=== PATIENT | female | born 1980 | race Caucasian/White ===

== ENCOUNTER 2025-06-21 22:46 | Inpatient (IN) | payer SELFPAY ==
[2025-06-21] VITALS (10 sets, daily range): BP systolic 63–101; BP diastolic 35–88; PULSE 72–76; RESP 12–28; TEMP 35.7–37.1; O2SAT 98–100
--- NOTE | ~2025-06-21 | CT_ITS ---
EXAMINATION: CT abdomen pelvis wo/w con DATE: 06/22/2025 00:44 INDICATION: Blood in stool. TECHNIQUE: Computed tomography (CT) of the abdomen and pelvis was performed without and with 100 mL Omnipaque 350 intravenous contrast. Automated exposure control and iterative reconstruction technique were employed. The dose-length product was 4008.50 mGy-cm. COMPARISON: None. FINDINGS: The visualized portions of lung bases demonstrate mild atelectasis. No pleural effusion. The heart size is normal. No pericardial effusion. There is diffuse hepatic steatosis. There are changes of cholecystectomy. The spleen, pancreas, and adrenal glands are normal. There is cortical thinning of the kidneys. There is no urolithiasis. There is a filter in the inferior vena cava. There is a Alexandre catheter in expected position. There are changes of right hemicolectomy. There are changes of gastric bypass procedure. There are no pathologically enlarged lymph nodes. There is no free intraperitoneal fluid. There is mild thoracic and lumbar spondylosis. IMPRESSION: 1. No etiology for blood in stool. 2. Diffuse hepatic steatosis. Reviewed, dictated and finalized at location E.
--- NOTE | 2025-06-21 23:03 | PC.NURSE ---
SHOBHA Akers, lactated ringer 1,000 ML.
--- NOTE | 2025-06-21 23:05 | PC.NURSE ---
EDP performed rectal exam. Red blood from rectum. 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
[2025-06-21] MEDS: LACTATED RINGERS 1,000 ML 999 ML (23:06)
--- NOTE | 2025-06-21 23:10 | PC.NURSE ---
EDP at bedside. ART line being placed.
--- NOTE | 2025-06-21 23:13 | PC.NURSE ---
2314-Art line placed 2317- BP recycled 71/37 via ART line
--- NOTE | 2025-06-21 23:23 | ECG_ITS ---
Test Date: 2025-06-21 23:31:09 Measurements Intervals [place] Rate: 72 P: 39 MO: 161 QRS: -4 QRSD: 86 T: 15 QT: 442 QTc: 484 Interpretive Statements SINUS RHYTHM CONSIDER INFERIOR MYOCARDIAL INFARCTION , PROBABLY OLD BASELINE ARTIFACT- I, II, III ABNORMAL ECG No previous ECG available for comparison Electronically Signed On 06-22-2025 05:34:44 CDT by Pineda Nowak D.O.
[2025-06-21] MEDS: TUBING, BLOOD SET 1 EACH XX (23:24)
--- OUTSIDE RECORDS SUMMARY | 2025-06-21 23:32 | XMS_ITS | Data Portability ---
Author Organization [place] [facility], [facility] Address [address] [place] [address] Assessment No assessment recorded. Plan of Treatment Reminders Order Date Submit Date Provider Last Modified By Organization Details Last Modified Time Details Appointments None record ed. Lab None record ed. Referral None record ed. Procedures None record ed. Surgeries None record ed. Imaging None record ed. Medication Orders None record ed. Patient TargetsNo targets recorded. Patient InstructionsNo instructions recorded. Reason for Referral None Reported. Results Created Date Observation Date Name Description Value Unit Range Abnormal Flag Note LastModifiedBy Organization Detail LastModifiedTime 05/22/20 22 02/21/2021 CT, abdom en + pelvi s, w/ contr ast No observ ation record ed. [email or web address] Not Available 05/10 01:45:38 05/22/20 22 02/21/2021 CT, abdom en + pelvi s, w/ contr ast No observ ation record ed. [email or web address] Not Available 05/10 01:48:46 05/22/20 22 03/15/2022 CT, abdom en + pelvi s, w/o contr ast No observ ation record ed. [email or web address] Not Available 05/10 13:13:54 Result Notes None recorded. Problems Name Problem SNOMED Code Status Onset Date Resolution Date Notes Provider Name and Address Organization Details Recorded Time Abdominal pain 97380122 Active 2014 Abdominal pain Not Available [facility] 2 05:50:24 Hemorrhag e of rectum and anus 768692841 Active 2020 Bleeding, rectal Not Available [facility] 2 05:50:24 Diarrhea 19224171 Active 2020 Diarrhea Not Available [facility] 2 05:50:24 Problem Notes None recorded. Medical Equipment None Reported. Allergies Allergen ID Allergen Name Allergen Category Reaction Reaction Severity Criticality Documentation Date Start Date Code Code System Note Provider Name and Address Organization Details Recorded Time 2828 Penicilli n Not available Not available Not available Not available 03/21/20222014 11757 RxNorm Criti silvia Categ ory: Drug Not Available [facility] 2 05:50:03 3706 Toradol medicatio n Not available Not available Not available 05/22/2022 04893 RxNorm Modesta Gopi null, [place] - [facility] 2 13:01:44 3707 tramadol medicatio n Not available Not available Not available 05/22/2022 81343 RxNorm Modesta Gopi null, [place] - [facility] 2 13:01:53 3708 codeine medicatio n Not available Not available Not available 05/22/2022 2670 RxNorm Modesta Gopi null, [place] - [facility] 2 13:02:07 3709 fentanyl medicatio n Not available Not available Not available 05/22/2022 4337 RxNorm Modesta Gopi null, [place] - [facility] 2 13:02:12 3710 Bentyl medicatio n Not available Not available Not available 05/22/202220291 8 RxNorm Modesta Gopi null, [place] - [facility] 2 13:02:19 3711 Non-stero idal anti-infl ammatory agent (substanc e) medicatio n Not available Not available Not available 05/22/2022 78018 5008 SNOMED Modesta Gopi null, [place] - [facility] 2 13:02:42 3712 Haldol medicatio n Not available Not available Not available 05/22/2022 33600 9 RxNorm Modesta Gopi null, [place] - [facility] 2 13:05:30 3713 Macrobid medicatio n Not available Not available Not available 05/22/2022 71542 1 RxNorm Modesta freeman, [facility] 2 13:06:40 Medications Name Sig Start Date Stop Date Status Note LastModified by Organization Details LastModified Time cyclobenzapr ine 10 mg tablet TAKE 1 TABLET BY MOUTH 3 TIMES A DAY NEEDED FOR SPASM active Not Available Not Available No t Available atorvastatin 40 mg tablet TAKE 1 TABLET BY MOUTH EVERY DAY active Not Available Not Available No t Available buspirone 5 mg tablet active Not Available Not Available No t Available promethazine -DM 6.25 mg-15 mg/5 mL oral syrup TAKE 5 ML BY MOUTH EVERY 4 HOURS NEEDED FOR COUGH active Not Available Not Available No t Available ascorbic acid (vitamin C) 1,000 mg tablet TAKE 1 TABLET BY MOUTH EVERY DAY active Not Available Not Available No t Available acetaminophe n 325 mg tablet TAKE 2 TABLETS BY MOUTH EVERY 6 HOURS NEEDED FOR PAIN AND FEVER active Not Available Not Available No t Available prednisone 10 mg tablet PLEASE SEE ATTACHED FOR DETAILED DIRECTIONS active Not Available Not Available N ot Available ipratropium 0.5 mg-albuterol 3 mg (2.5 mg base)/3 mL nebulization soln INHALE 1 VIAL VIA NEBULIZER 4 TIMES A DAY NEEDED FOR COUGH/WHEEZ ING/SHORTNE SS OF BREATH active Not Available Not Available No t Available loperamide 2 mg capsule TAKE 1 TABLET BY MOUTH 3 TIMES A DAY FOR DIARRHEA NEEDED active Not Available Not Available No t Available Carafate 1 gram tablet 2014 active Not Available Not Available Not Avai lable cetirizine 10 mg tablet PLEASE SEE ATTACHED FOR DETAILED DIRECTIONS active Not Available Not Available N ot Available Sulfatrim 200 mg-40 mg/5 mL oral suspension SHAKE LIQUID WELL AND TAKE 10 ML BY MOUTH TWICE DAILY active Not Available Not Available Not Available azithromycin 250 mg tablet TAKE 1 TABLET (250 MG) BY MOUTH ONCE DAILY active Not Available Not Available No t Available cefpodoxime 100 mg tablet TAKE 1 TABLET BY MOUTH EVERY 12 HOURS FOR 7 DAYS active Not Available Not Available N ot Available alprazolam 1 mg tablet TAKE 1 TABLET BY MOUTH TWICE A DAY NEEDED FOR ANXIETY active Not Available Not Available No t Available tizanidine 4 mg tablet TAKE 1 TABLET BY MOUTH EVERY 12 HOURS NEEDED FOR 30 DAYS active Not Available Not Available No t Available fluconazole 150 mg tablet TAKE 1 TABLET BY MOUTH ONCE. REPEAT IF NEEDED IN 1 WEEK active Not Available Not Available No t Available benzonatate 200 mg capsule TAKE 1 CAPSULE BY MOUTH 3 TIMES A DAY NEEDED FOR COUGH DO NOT CRUSH OR CHEW active Not Available Not Available No t Available hydrocodone 5 mg-acetamino phen 325 mg tablet TAKE 1 TABLET BY MOUTH EVERY 8 HOURS NEEDED FOR 30 DAYS active Not Available Not Available No t Available promethazine 25 mg rectal suppository INSERT 1 SUPPOSITORY BY RECTAL ROUTE EVERY 6 HOURS NEEDED active Not Available Not Available No t Available ondansetron HCl 4 mg tablet TAKE 1 TABLET BY MOUTH EVERY 6 HOURS FOR 3 DAYS NEEDED FOR NAUSEA AND VOMITING active Not Available Not Available No t Available Protonix 20 mg tablet,delay ed release 2014 active Not Available Not Available Not Avai lable promethazine 6.25 mg-codeine 10 mg/5 mL syrup TAKE 5 ML BY MOUTH EVERY FOUR HOURS FOR FIVE DAYS NEEDED FOR COUGH active Not Available Not Available No t Available diphenoxylat e-atropine 2.5 mg-0.025 mg tablet TAKE 1 TABLET BY MOUTH 4 TIMES A DAY NEEDED FOR LOOSE STOOL active Not Available Not Available No t Available metronidazol e 500 mg tablet TAKE 1 TABLET BY MOUTH 3 TIMES A DAY active Not Available Not Available Not Available acetaminophe n 300 mg-codeine 30 mg tablet TAKE 1 TABLET BY MOUTH EVERY 6 HOURS active Not Available Not Available No t Available ciprofloxaci n 500 mg tablet TAKE 1 TABLET BY MOUTH EVERY 12 HOURS active Not Available Not Available No t Available sulfamethoxa zole 800 mg-trimethop rim 160 mg tablet TAKE 1 TABLET BY MOUTH TWICE A DAY FOR 10 DAYS active Not Available Not Available No t Available omeprazole 40 mg capsule,vernell yed release Take 1 capsule by mouth once a day active Not Available Not Available No t Available aspirin 81 mg tablet,delay ed release TAKE 1 TABLET BY MOUTH EVERY DAY AT 9:00 AM active Not Available Not Available No t Available Bentyl 20 mg tablet 2014 active Not Available Not Available Not Avai lable terconazole 80 mg vaginal suppository INSERT 1 SUPPOSITORY VAGINALLY EVERY DAY AT BEDTIME FOR 3 DAYS active Not Available Not Available N ot Available zinc sulfate 50 mg zinc (220 mg) tablet TAKE 1 TABLET BY MOUTH EVERY DAY active Not Available Not Available No t Available famotidine 20 mg tablet TAKE 1 TABLET BY MOUTH DAILY active Not Available Not Available Not Available linezolid 600 mg tablet TAKE 1 TABLET BY MOUTH EVERY 12 HOURS FOR 7 DAYS active Not Available Not Available N ot Available benzonatate 100 mg capsule active Not Available Not Available Not Available hydrocodone 7.5 mg-acetamino phen 325 mg tablet TAKE 1 TABLET BY MOUTH EVERY 8 HOURS NEEDED FOR 30 DAYS active Not Available Not Available No t Available cephalexin 500 mg capsule TAKE 1 CAPSULE BY MOUTH EVERY 6 HOURS active Not Available Not Available No t Available dexamethason e 4 mg tablet TAKE 1 TABLET BY MOUTH EVERY DAY FOR 7 DAYS active Not Available Not Available No t Available promethazine 25 mg tablet TAKE 1 TABLET BY MOUTH TWICE A DAY FOR NAUSEAS active Not Available Not Available No t Available docusate sodium 100 mg capsule TAKE 1 CAPSULE BY MOUTH TWICE A DAY FOR 14 DAYS active Not Available Not Available No t Available montelukast 10 mg tablet TAKE 1 TABLET BY MOUTH EVERY EVENING FOR ALLERGIES/A STHMA active Not Available Not Available No t Available furosemide 20 mg tablet TAKE 1 TABLET BY MOUTH TWICE A DAY active Not Available Not Available No t Available alprazolam 2 mg tablet TAKE 1 TABLET BY MOUTH 3 TIMES A DAY NEEDED FOR ANXIETY FOR 3 DAYS active Not Available Not Available N ot Available metoprolol succinate ER 25 mg tablet,exten ded release 24 hr TAKE 1 TABLET BY MOUTH TWICE A DAY active Not Available Not Available No t Available lorazepam 1 mg tablet TAKE 1 TABLET BY MOUTH TWICE DAILY active Not Available Not Available No t Available cefuroxime axetil 500 mg tablet TAKE 1 TABLET BY MOUTH TWICE A DAY FOR 7 DAYS active Not Available Not Available No t Available polyethylene glycol 3350 17 gram/dose oral powder DISSOLVE 17 GRAMS IN WATER AND DRINK ONCE A DAY FOR 14 DAYS active Not Available Not Available No t Available levofloxacin 500 mg tablet TAKE 1 TABLET BY MOUTH EVERY DAY FOR 10 DAYS active Not Available Not Available No t Available levofloxacin 750 mg tablet TAKE 1 TABLET BY MOUTH EVERY DAY active Not Available Not Available No t Available zolpidem 10 mg tablet active Not Available Not Available No t Available albuterol sulfate HFA 90 mcg/actuatio n aerosol inhaler INHALE 2 INHALATION BY MOUTH EVERY 4 HOURS NEEDED FOR SHORTNESS OF BREATH AND/OR WHEEZING active Not Available Not Available No t Available paroxetine 40 mg tablet TAKE 1 TABLET BY MOUTH EVERY DAY active Not Available Not Available No t Available brompheniram ine-pseudoep hedrine-DM 2 mg-30 mg-10 mg/5 mL oral syrup TAKE 10ML BY MOUTH EVERY 6 HOURS NEEDED FOR COUGH/CONGE STION/RUNNY NOSE active Not Available Not Available No t Available ondansetron 4 mg disintegrati ng tablet TAKE 1 TABLET BY MOUTH EVERY 8 HOURS NEEDED FOR NAUSEA active Not Available Not Available No t Available cefdinir 300 mg capsule active Not Available Not Available N ot Available fluticasone propionate 50 mcg/actuatio n nasal spray,suspen ravi SPRAY 1 SPRAY INTO EACH NOSTRIL TWICE A DAY active Not Available Not Available Not Available amoxicillin 875 mg-potassium clavulanate 125 mg tablet TAKE 1 TABLET BY MOUTH EVERY 12 HOURS FOR 10 DAYS active Not Available Not Available Not Available Reglan 5 mg tablet 2014 active Not Available Not Available Not Avai lable ertapenem 1 gram solution for injection active Not Available Not Available No t Available nitrofuranto in monohydrate/ macrocrystal s 100 mg capsule TAKE 1 CAPSULE BY MOUTH TWICE A DAY FOR 10 DAYS active Not Available Not Available No t Available duloxetine 60 mg capsule,vernell yed release TAKE 1 CAPSULE BY MOUTH TWICE A DAY active Not Available Not Available No t Available pregabalin 150 mg capsule TAKE 1 CAPSULE BY MOUTH 3 TIMES A DAY active Not Available Not Available Not Available Golytely 236 gram-22.74 gram-6.74 gram-5.86 gram oral solution Take 4000 mL by oral route for 1 day. 2021 active Not Available Not Available Not Avai lable diclofenac 1 % topical gel USE 1 APPLICATION OF 4 GRAMS TO AFFECTED AREA EXTERNALLY THREE TIMES A DAY 30 DAY(S) active Not Available Not Available No t Available Gavilyte-C 240 gram-22.72 gram-6.72 gram-5.84 gram oral solution active Not Available Not Available Not Available lidocaine 5 % topical ointment APPLY 4 GRAMS TO AFFECTED AREA 3 TIMES A DAY FOR 30 DAYS active Not Available Not Available Not Available Quick[employer]ue At-Home COVID-19 Test kit active Not Available Not Available Not Available Paxlovid 150 mg-100 mg tablets in a dose pack (Moderate Renal Dose) TAKE 1 NIRMATRELVI R AND 1 RITONAVIR TOGETHER TWICE DAILY FOR 5 DAYS active Not Available Not Available N ot Available Vitals None Recorded Social History Question Answer Notes LastModified by Organizat ion Details LastModified Time Tobacco Smoking Status Never Smoker Modesta Nguyễn null, [place] - [facility] 05/22/2022 13:04:51 What Is Your Level Of Caffeine Consumption? Moderate Information not available 05/22/2022 Sex: Female Functional Status Question Answer Note LastModified by Organization D etails LastModified Time What is your level of alcohol consumption? None Information not available 05/22/2022 Mental Status None recorded. Family History Relationship Description Onset Age of this Age Resolved Age Notes LastModified by Organization Details LastModified Time Paternal Grandmother Malignant neoplasm of colon [email or web address] Not available 2021 13:29:55 Medical History Condition Response Anxiety Disorder Y Diverticulitis Y Depression Y GERD/Reflux Y Gynecological HistoryNo gynecological history recorded. Obstetrics History GPAL:G 3 P 0 0 0 3 Type Value Multiple Births 0 Full Term 0 Induced 0 Spontaneous 0 Premature 0 Living 3 Ectopics 0 Total 3 Past Encounters Encounter ID Performer Location Encounter Start Date Encounter Closed Date Diagnosis/Indication Diagnosis SNOMED-CT Code Diagnosis ICD10 Code Diagnosis IMO Codes Diagnosis Note [id number] Arnie Hidalgo MD [facility] [address] [place] [phone] 05/22/2022 11:58:03 05/22/2022 18:22:22 Diverticulosis of colon 432746192 K57.30 Please schedule Colonoscop y. Possible complicati ons are infection, bleeding, perforatio n. F/U after surgery. Family his tory of cancer of colon 852182959 Z80.0 Please schedule Colonoscop y. Possible complicati ons are infection, bleeding, perforatio n. F/U after surgery. Health Concerns Section Related Observation LastModified by Organization Detai ls LastModified Time None Recorded Concern Status LastModified by Organization Details LastModified Time None Recorded Advance Directives Directive None Recorded Payers Insurance Date Sequence Insurance Name Policy Number Policy Black Covered Member ID Black Member ID Guarantor Name 05/22/2022 1 [facility] (MEDICAID REPLACEMENT - HMO) Elizabeth Lewllo [id number] Elizabeth Bonita 08/20/2022 1 [facility] (MEDICAID REPLACEMENT - HMO) [id number] Elizabeth Lewllo [id number] Elizabeth Bonita Notes Date Note Type Note Provider Name and Address Organization Details Recorded Time 05/22/2022 text/html This is a 42-year-old patient with family HX of colon cancer and referred to my office for diverticulosis. The patient c/o of abdominal pain also complains of dull left lower quadrant pain with radiation to the back. The patient also c/o gas and bloating, constipation, and nausea. Arnie Hidalgo MD [address] [place] [address], [phone], [facility] 05/23/2022 15:58:46 OBGyn Episode No OBEpisode recorded.
--- OUTSIDE RECORDS SUMMARY | 2025-06-21 23:32 | XMS_ITS | Patient Health Record ---
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 Name Role Phone unknown, unknown Primary Care Provider Unavailab nadine CABEZASSIMONSANTOS HUNG Unavailable [phone] Maravilla Modesta Unavailable [phone] Allergies Allergen (clinical drug ingredient) Drug/Non Drug Allergy documented on EMR Reaction Allergy Type Onset Date Status ketorolac toradol (uncoded) hives Allergy Ac tive Bentyl hives Drug Allergy Active Haldol hives Drug Allergy Active fentanyl Fentanyl hives Drug Allergy Active Iodine hives Drug Allergy Active Latex Latex hives Allergy Active Penicillin hives Drug Allergy Active tramadol Tramadol hives Drug Allergy Active Results Component Value Reference Range Flag Notes DRUG MONITOR, OPIATES, SCREE N, URINE Reviewed date:01/14/2025 04:41:03 PM Interpretation: Performing Lab:[facility] [place] [place] [id number] [facility], [id number] Arlyn Neal MD, PhD Notes/Report: Opiates POSITIVE <100 ng/mL A See Note A DRUG MONITORING TEMPLATE Reviewed date:01/14/2025 04:41:02 PM Interpretation: Performing Lab:IG, [facility] [place] [place] [id number] [facility], [id number] Arlyn Neal MD, PhD Notes/Report: Notes and Comments This drug testing is for medical treatment only. Analysis was performed as non-forensic testing and these results should be used only by healthcare providers to render diagnosis or treatment, or to monitor progress of medical conditions. Note A: The results are presumptive; based only on screening methods, and they have not been confirmed by a definitive method. Healthcare Providers needing Interpretation assistance, please contact us at [phone] ( ) M-F, 8am to 10pm EST Reason For Referral No Information Medications Medication SIG (Take, Route, Frequency, Duration) Notes Start Date End Date Status Atorvastatin Calcium 40 MG Tablet 1 tablet Orally Once a day 05/13/2025 Active hydrALAZINE HCl 25 MG Tablet 1 tablet wi th food Orally Twice a day 05/13/2025 Active Furosemide 40 MG Tablet 1 tablet Orally Once a day 05/13/2025 Active Doxycycline Hyclate 100 MG Capsule 1 capsule Orally twice a day; Duration: 7 days 05/13/2025 Active Iron 325 (65 Fe) MG Tablet 1 tablet Oral ly Three times a Week 06/15/2025 Active Aspirin 81 81 MG Tablet Delayed Release 1 tablet Orally Once a day 06/15/2025 Active Eliquis 5 MG Tablet as directed Orally 06/15/2025 Active Lyrica 150 MG Capsule 1 capsule Orally t hree times a day; Duration: 30 days 06/16/2025 Active Xanax 1 MG Tablet 1 tablet Orally Twic e a day; Duration: 30 days 06/16/2025 Active HYDROmorphone HCl 4 MG Tablet 1 tablet as needed Orally every 6 hrs; Duration: 30 days As needed 06/16/2025 Active tiZANidine HCl 4 MG Tablet 1 tablet at b edtime as needed Orally Once a day 06/15/2025 Active Metoprolol Succinate 25 MG Capsule ER 24 Hour Sprinkle 1 capsule Orally Once a day 05/13/2025 Active Social History Tobacco Use: Social History Observation Description Date Details (start date - stop date) Never Smoker NA - NA Social History Tobacco Use: Social Info Question Answer Notes Tobacco Control (Standard) Tobacco use: Nonsmoker Additional Details Category Social Info Options Details Miscellaneous: Exercise: none Marital status: in relationship with male partner Drugs/Alcohol: Do you drink alcohol? No Problems Problem Type SNOMED Code ICD Code Onset Dates Problem Status W/U Status Risk Notes Problem Anemia (319934707) Anemia, unspecified (D64.9) Active confirmed Problem Morbid obesity (disorder) (635954503) Morbid (severe) obesity due to excess calories (E66.01) Active confirmed Problem Insomnia (275678250) Insomnia, unspecified (G47.00) Active confirmed Problem Chronic pain syndrome (137469456) Chronic pain syndrome (G89.4) Active confirmed Problem Complex regional pain syndrome type I (disorder) (223889422) Complex regional pain syndrome I, unspecified (G90.50) Active confirmed Problem Fibromyalgia (156356628) Fibromyalgia (M79.7) Active confirmed Problem Anxiety (39657395) Anxiety (F41.9) Active confirmed Problem Dyslipidemia (271629984) Dyslipidemia (E78.5) Active confirmed Problem Essential hypertension (39059969) Benign essential HTN (I10) Active confirmed Problem Arthritis (8488486) Arthritis (M19.90) Active confirmed Problem Neuropathy (160112066) Neuropathy (G62.9) Active confirmed Problem Asthma without status asthmaticus (00741772) Asthma, unspecified asthma severity, unspecified whether complicated, unspecified whether persistent (J45.909) Active confirmed Problem Body mass index 40+ - severely obese (312322604) BMI 50.0-59.9, adult (Z68.43) Active confirmed Problem Polycystic ovary syndrome (disorder) (943709375) PCOS (polycystic ovarian syndrome) (E28.2) Active confirmed Problem Endometriosis (830651511) Endometriosis (N80.9) Active confirmed Problem Protein C deficiency (73730312) Protein C deficiency (D68.59) Active confirmed Problem Carotid artery occlusion (355013667) Stenosis of carotid artery, unspecified laterality (I65.29) Active confirmed Problem Mild major depression, single episode (69957500) MDD (major depressive disorder), single episode, mild (F32.0) Active confirmed Vital Signs Heart Rate 69 /min 05/13/2025 Temperature 97.5 degrees Fahrenheit 05/13/2025 Respiratory Rate 17 /min 05/13/2025 Oximetry 98 % 05/13/2025 Blood pressure diastolic 88 mm Hg 05/13/2025 Height 5'3 in 06/15/2025 NOT TAKEN DUE T O TELEMEDICINE ENCOUNTER Blood pressure systolic 141 mm Hg 05/13/2025 Weight 342 lbs 05/13/2025 BMI 60.58 kg/m2 05/13/2025 Encounters Encounter Location Date Provider Diagnosis [facility] [place] [address] [place] [address] 09/17/2024 [facility] Encounter for pallia tive care Z51.5 ; Complex regional pain syndrome I, unspecified G90.50 ; Fibromyalgia M79.7 ; Muscle spasm M62.838 ; Neuropathy G62.9 ; Protein C deficiency D68.59 ; Benign essential HTN I10 ; Dyslipidemia E78.5 ; Stenosis of carotid artery, unspecified laterality I65.29 ; Anemia, unspecified D64.9 ; Asthma, unspecified asthma severity, unspecified whether complicated, unspecified whether persistent J45.909 ; Arthritis M19.90 ; PCOS (polycystic ovarian syndrome) E28.2 ; Endometriosis N80.9 ; Anxiety F41.9 ; MDD (major depressive disorder), single episode, mild F32.0 ; Insomnia, unspecified G47.00 ; Morbid (severe) obesity due to excess calories E66.01 and BMI 50.0-59.9, adult Z68.43 [facility] [address] [address] 10/01/2024 [facility] Encounter for pallia tive care Z51.5 ; Complex regional pain syndrome I, unspecified G90.50 ; Fibromyalgia M79.7 ; Muscle spasm M62.838 ; Neuropathy G62.9 ; Protein C deficiency D68.59 ; Benign essential HTN I10 ; Dyslipidemia E78.5 ; Stenosis of carotid artery, unspecified laterality I65.29 ; Anemia, unspecified D64.9 ; Asthma, unspecified asthma severity, unspecified whether complicated, unspecified whether persistent J45.909 ; Arthritis M19.90 ; PCOS (polycystic ovarian syndrome) E28.2 ; Endometriosis N80.9 ; Anxiety F41.9 ; MDD (major depressive disorder), single episode, mild F32.0 ; Insomnia, unspecified G47.00 ; Morbid (severe) obesity due to excess calories E66.01 and BMI 50.0-59.9, adult Z68.43 [facility] [address] [address] 11/10/2024 [facility] Encounter for pallia tive care Z51.5 ; Complex regional pain syndrome I, unspecified G90.50 ; Fibromyalgia M79.7 ; Muscle spasm M62.838 ; Neuropathy G62.9 ; Protein C deficiency D68.59 ; Benign essential HTN I10 ; Dyslipidemia E78.5 ; Stenosis of carotid artery, unspecified laterality I65.29 ; Anemia, unspecified D64.9 ; Asthma, unspecified asthma severity, unspecified whether complicated, unspecified whether persistent J45.909 ; Arthritis M19.90 ; PCOS (polycystic ovarian syndrome) E28.2 ; Endometriosis N80.9 ; Anxiety F41.9 ; MDD (major depressive disorder), single episode, mild F32.0 ; Insomnia, unspecified G47.00 ; Morbid (severe) obesity due to excess calories E66.01 and BMI 50.0-59.9, adult Z68.43 [facility] [address] [place] [address] 12/15/2024 [facility] Encounter for pallia tive care Z51.5 ; Complex regional pain syndrome I, unspecified G90.50 ; Fibromyalgia M79.7 ; Muscle spasm M62.838 ; Neuropathy G62.9 ; Protein C deficiency D68.59 ; Benign essential HTN I10 ; Dyslipidemia E78.5 ; Stenosis of carotid artery, unspecified laterality I65.29 ; Anemia, unspecified D64.9 ; Asthma, unspecified asthma severity, unspecified whether complicated, unspecified whether persistent J45.909 ; Arthritis M19.90 ; PCOS (polycystic ovarian syndrome) E28.2 ; Endometriosis N80.9 ; Anxiety F41.9 ; MDD (major depressive disorder), single episode, mild F32.0 ; Insomnia, unspecified G47.00 ; Morbid (severe) obesity due to excess calories E66.01 ; BMI 50.0-59.9, adult Z68.43 and Opioid use F11.90 [facility] [address] [place] [address] 01/14/2025 [facility] Encounter for pallia tive care Z51.5 ; Complex regional pain syndrome I, unspecified G90.50 ; Opioid use F11.90 ; Fibromyalgia M79.7 ; Anxiety F41.9 ; Neuropathy G62.9 ; Muscle spasm M62.838 ; Protein C deficiency D68.59 ; Benign essential HTN I10 ; Dyslipidemia E78.5 ; Stenosis of carotid artery, unspecified laterality I65.29 ; Anemia, unspecified D64.9 ; Asthma, unspecified asthma severity, unspecified whether complicated, unspecified whether persistent J45.909 ; Arthritis M19.90 ; PCOS (polycystic ovarian syndrome) E28.2 ; Endometriosis N80.9 ; MDD (major depressive disorder), single episode, mild F32.0 ; Insomnia, unspecified G47.00 ; Morbid (severe) obesity due to excess calories E66.01 and BMI 50.0-59.9, adult Z68.[address] [address] 02/18/2025 [facility] Encounter for pallia tive care Z51.5 ; Complex regional pain syndrome I, unspecified G90.50 ; Opioid use F11.90 ; Fibromyalgia M79.7 ; Anxiety F41.9 ; Neuropathy G62.9 ; Muscle spasm M62.838 ; Protein C deficiency D68.59 ; Benign essential HTN I10 ; Dyslipidemia E78.5 ; Stenosis of carotid artery, unspecified laterality I65.29 ; Anemia, unspecified D64.9 ; Asthma, unspecified asthma severity, unspecified whether complicated, unspecified whether persistent J45.909 ; Arthritis M19.90 ; PCOS (polycystic ovarian syndrome) E28.2 ; Endometriosis N80.9 ; MDD (major depressive disorder), single episode, mild F32.0 ; Insomnia, unspecified G47.00 ; Morbid (severe) obesity due to excess calories E66.01 and BMI 50.0-59.9, adult Z68.[address] [address] 03/16/2025 [facility] Encounter for pallia tive care Z51.5 ; Complex regional pain syndrome I, unspecified G90.50 ; Opioid use F11.90 ; Fibromyalgia M79.7 ; Anxiety F41.9 ; Neuropathy G62.9 ; Muscle spasm M62.838 ; Protein C deficiency D68.59 ; Benign essential HTN I10 ; Dyslipidemia E78.5 ; Stenosis of carotid artery, unspecified laterality I65.29 ; Anemia, unspecified D64.9 ; Asthma, unspecified asthma severity, unspecified whether complicated, unspecified whether persistent J45.909 ; Arthritis M19.90 ; PCOS (polycystic ovarian syndrome) E28.2 ; Endometriosis N80.9 ; MDD (major depressive disorder), single episode, mild F32.0 ; Insomnia, unspecified G47.00 and Morbid (severe) obesity due to excess calories E66.01 [facility] [address] [address] 04/15/2025 [facility] Encounter for pallia tive care Z51.5 ; Complex regional pain syndrome I, unspecified G90.50 ; Opioid use F11.90 ; Fibromyalgia M79.7 ; Anxiety F41.9 ; Neuropathy G62.9 ; Muscle spasm M62.838 ; Protein C deficiency D68.59 ; Benign essential HTN I10 ; Dyslipidemia E78.5 ; Stenosis of carotid artery, unspecified laterality I65.29 ; Anemia, unspecified D64.9 ; Asthma, unspecified asthma severity, unspecified whether complicated, unspecified whether persistent J45.909 ; Arthritis M19.90 ; PCOS (polycystic ovarian syndrome) E28.2 ; Endometriosis N80.9 ; MDD (major depressive disorder), single episode, mild F32.0 ; Insomnia, unspecified G47.00 and Morbid (severe) obesity due to excess calories E66.01 [facility] [address] [address] 05/13/2025 [facility] Encounter for pallia tive care Z51.5 ; Acute bronchiolitis, unspecified J21.9 ; Complex regional pain syndrome I, unspecified G90.50 ; Opioid use F11.90 ; Fibromyalgia M79.7 ; Neuropathy G62.9 ; Benign essential HTN I10 ; Dyslipidemia E78.5 ; Anxiety F41.9 ; Muscle spasm M62.838 ; Protein C deficiency D68.59 ; Stenosis of carotid artery, unspecified laterality I65.29 ; Anemia, unspecified D64.9 ; Arthritis M19.90 ; Asthma, unspecified asthma severity, unspecified whether complicated, unspecified whether persistent J45.909 ; MDD (major depressive disorder), single episode, mild F32.0 ; Insomnia, unspecified G47.00 ; Endometriosis N80.9 ; PCOS (polycystic ovarian syndrome) E28.2 and Morbid (severe) obesity due to excess calories E66.01 [facility] [address] [place] [address] 05/20/2025 [facility] Encounter for pallia tive care Z51.5 ; Complex regional pain syndrome I, unspecified G90.50 ; Opioid use F11.90 ; Fibromyalgia M79.7 ; Neuropathy G62.9 ; Anxiety F41.9 ; Muscle spasm M62.838 ; Protein C deficiency D68.59 ; Stenosis of carotid artery, unspecified laterality I65.29 ; Anemia, unspecified D64.9 ; Arthritis M19.90 ; MDD (major depressive disorder), single episode, mild F32.0 ; Insomnia, unspecified G47.00 ; Endometriosis N80.9 ; Morbid (severe) obesity due to excess calories E66.01 and Hospitalization within last 30 days Z92.89 [facility] [address] [place] [address] 06/15/2025 [facility] Encounter for pallia tive care Z51.5 ; Complex regional pain syndrome I, unspecified G90.50 ; Opioid use F11.90 ; Fibromyalgia M79.7 ; Neuropathy G62.9 ; Anxiety F41.9 ; Muscle spasm M62.838 ; Protein C deficiency D68.59 ; Stenosis of carotid artery, unspecified laterality I65.29 ; Anemia, unspecified D64.9 ; Arthritis M19.90 ; MDD (major depressive disorder), single episode, mild F32.0 ; Insomnia, unspecified G47.00 ; Endometriosis N80.9 and Morbid (severe) obesity due to excess calories E66.01 [facility] [address] [place] [address] 09/23/2024 [facility]AA Fibromyalgia M79.7 [facility] [address] [place] [address] 10/01/2024 S[facility] SARABIAA Complex regional zohreh n syndrome I, unspecified G90.50 ; Anxiety F41.9 and Neuropathy G62.9 [facility] [address] [place] [address] 12/17/2024 [facility] SARABIAA Neuropathy G62.9 [facility] [address] [place] [address] 02/15/2025 [facility] SIMON Anxiety F41.9 ; Fibromyalgia M79.7 and Complex regional pain syndrome I, unspecified G90.50 [facility] [address] [address] 04/16/2025 [facility] SIMON Complex regional zohreh n syndrome I, unspecified G90.50 ; Anxiety F41.9 and Fibromyalgia M79.7 [facility] [address] [place] [address] 05/28/2025 [facility] Assessments Encounter Date Diagnosis (ICD Code) Assessment Notes Treatment Notes Treatment Clinical Notes Section Notes 09/17/2024 Complex regional pain syndrome I, unspecified (ICD-10 - G90.50) Secondary to multiple abdominal surgeries (appendectomy, cholecystectomy, colectomy, gastric bypass, I&D, hematoma removal). Dr Simon explains he will take on her case, but she is forbidden to use cannabinoids and any other substance of abuse. Patient verbally agrees. Stable, will continue hydromorphone 2 mg every 6 hours PRN, will monitor for changes. - UDS: 09/17/24 (positive for THC, TCA, BZO). 09/17/24: Dr Simon explains he will take on her case, but she is forbidden to use cannabinoids and any other substance of abuse. Patient verbally agrees. 09/17/2024 Encounter for palliative care (ICD-10 - Z51.5) Secondary to complex regional pain syndrome and fibromyalgia 09/23/2024 Fibromyalgia (ICD-10 - M79.7) 10/01/2024 Encounter for palliative care (ICD-10 - Z51.5) Secondary to complex regional pain syndrome and fibromyalgia 10/01/2024 Complex regional pain syndrome I, unspecified (ICD-10 - G90.50) 11/10/2024 Encounter for palliative care (ICD-10 - Z51.5) Secondary to complex regional pain syndrome and fibromyalgia 12/15/2024 Complex regional pain syndrome I, unspecified (ICD-10 - G90.50) 11/10/24 Patient comes in mentioning she got paralysis again on the left side 3 weeks ago and at the hopsital they told her was normal, her PCP told her to continue with Dr. Simon for pain medication. Mentions lyrica in addition with hydromorphone. Secondary to multiple abdominal surgeries (appendectomy, cholecystectomy, colectomy, gastric bypass, I&D, hematoma removal). Dr Simon explains he will take on her case, but she is forbidden to use cannabinoids and any other substance of abuse. Patient verbally agrees. Stable, will continue hydromorphone 2 mg every 6 hours PRN, will monitor for changes. - UDS: 11/10/24 (Positive for BZO) - UDS: 09/17/24 (positive for THC, TCA, BZO). 09/17/24: Dr Simon explains he will take on her case, but she is forbidden to use cannabinoids and any other substance of abuse. Patient verbally agrees. 11/10/24: Dr. Simon increased hydromorphone from 2 mg to 4 mg q6 PRN 12/15/2024 Encounter for palliative care (ICD-10 - Z51.5) Secondary to complex regional pain syndrome and fibromyalgia 12/17/2024 Neuropathy (ICD-10 - G62.9) 01/14/2025 Complex regional pain syndrome I, unspecified (ICD-10 - G90.50) Secondary to multiple abdominal surgeries (appendectomy, cholecystectomy, colectomy, gastric bypass, I&D, hematoma removal). Stable, will continue hydromorphone PRN, will monitor for changes. Blood drug screen ordered - UDS: 09/17/24 (positive for THC, TCA, BZO), 11/10/24 (Positive for BZO), 12/16/24 (positive for opiates) 09/17/24: Dr Simon explains he will take on her case, but she is forbidden to use cannabinoids and any other substance of abuse. Patient verbally agrees. 11/10/24: Episode of left sided paralysis. Dr. Simon increased hydromorphone from 2 mg to 4 mg q6 PRN 01/15/24: Blood drug screen ordered 01/14/2025 Encounter for palliative care (ICD-10 - Z51.5) Secondary to complex regional pain syndrome and fibromyalgia 02/15/2025 Anxiety (ICD-10 - F41.9) 02/18/2025 Complex regional pain syndrome I, unspecified (ICD-10 - G90.50) Secondary to multiple abdominal surgeries (appendectomy, cholecystectomy, colectomy, gastric bypass, I&D, hematoma removal). Stable, will continue hydromorphone PRN, will monitor for changes. - UDS: 09/17/24 (positive for THC, TCA, BZO), 11/10/24 (Positive for BZO), 12/16/24 (positive for opiates) 09/17/24: Dr Simon explains he will take on her case, but she is forbidden to use cannabinoids and any other substance of abuse. Patient verbally agrees. 11/10/24: Episode of left sided paralysis. Dr. Simon increased hydromorphone from 2 mg to 4 mg q6 PRN 01/15/24: Blood drug screen ordered 02/18/2025 Encounter for palliative care (ICD-10 - Z51.5) Secondary to complex regional pain syndrome and fibromyalgia 03/16/2025 Complex regional pain syndrome I, unspecified (ICD-10 - G90.50) Secondary to multiple abdominal surgeries (appendectomy, cholecystectomy, colectomy, gastric bypass, I&D, hematoma removal). Stable, will continue hydromorphone PRN, will monitor for changes. - UDS: 09/17/24 (positive for THC, TCA, BZO), 11/10/24 (Positive for BZO), 12/16/24 (positive for opiates) 09/17/24: Dr Simon explains he will take on her case, but she is forbidden to use cannabinoids and any other substance of abuse. Patient verbally agrees. 11/10/24: Episode of left sided paralysis. Dr. Simon increased hydromorphone from 2 mg to 4 mg q6 PRN 01/15/24: Blood drug screen ordered 03/16/2025 Encounter for palliative care (ICD-10 - Z51.5) Secondary to complex regional pain syndrome and fibromyalgia 04/15/2025 Complex regional pain syndrome I, unspecified (ICD-10 - G90.50) Secondary to multiple abdominal surgeries (appendectomy, cholecystectomy, colectomy, gastric bypass, I&D, hematoma removal). Stable, will continue hydromorphone PRN, will monitor for changes. - UDS: 09/17/24 (positive for THC, TCA, BZO), 11/10/24 (Positive for BZO), 12/16/24 (positive for opiates) 09/17/24: Dr Simon explains he will take on her case, but she is forbidden to use cannabinoids and any other substance of abuse. Patient verbally agrees. 11/10/24: Episode of left sided paralysis. Dr. Simon increased hydromorphone from 2 mg to 4 mg q6 PRN 01/15/24: Blood drug screen ordered 04/15/2025 Encounter for palliative care (ICD-10 - Z51.5) Secondary to complex regional pain syndrome and fibromyalgia 04/16/2025 Complex regional pain syndrome I, unspecified (ICD-10 - G90.50) 05/13/2025 Acute bronchiolitis, unspecified (ICD-10 - J21.9) Dr. Simon prescribed Doxycicline 100 mg BID x 7 days. Will continue to monitor. 05/13/2025: Dr. Simon prescribed Doxycicline 100 mg BID x 7 days. 05/13/2025 Encounter for palliative care (ICD-10 - Z51.5) Secondary to complex regional pain syndrome and fibromyalgia 05/20/2025 Complex regional pain syndrome I, unspecified (ICD-10 - G90.50) Secondary to multiple abdominal surgeries (appendectomy, cholecystectomy, colectomy, gastric bypass, I&D, hematoma removal). Stable, will continue hydromorphone PRN, will monitor for changes. - UDS: 09/17/24 (positive for THC, TCA, BZO), 11/10/24 (Positive for BZO), 12/16/24 (positive for opiates) 09/17/24: Dr Simon explains he will take on her case, but she is forbidden to use cannabinoids and any other substance of abuse. Patient verbally agrees. 11/10/24: Episode of left sided paralysis. Dr. Simon increased hydromorphone from 2 mg to 4 mg q6 PRN 01/15/24: Blood drug screen ordered 05/20/2025 Encounter for palliative care (ICD-10 - Z51.5) Secondary to complex regional pain syndrome and fibromyalgia 06/15/2025 Complex regional pain syndrome I, unspecified (ICD-10 - G90.50) Secondary to multiple abdominal surgeries (appendectomy, cholecystectomy, colectomy, gastric bypass, I&D, hematoma removal). Stable, will continue hydromorphone PRN, will monitor for changes. - UDS: 09/17/24 (positive for THC, TCA, BZO), 11/10/24 (Positive for BZO), 12/16/24 (positive for opiates) 09/17/24: Dr Simon explains he will take on her case, but she is forbidden to use cannabinoids and any other substance of abuse. Patient verbally agrees. 11/10/24: Episode of left sided paralysis. Dr. Simon increased hydromorphone from 2 mg to 4 mg q6 PRN 01/15/24: Blood drug screen ordered 06/15/2025 Encounter for palliative care (ICD-10 - Z51.5) Secondary to complex regional pain syndrome and fibromyalgia 06/15/2025 Opioid use (ICD-10 - F11.90) Secondary to complex regional pain syndrome. Stable, will monitor for changes. 05/20/2025 Opioid use (ICD-10 - F11.90) Secondary to complex regional pain syndrome. Stable, will monitor for changes. 05/13/2025 Complex regional pain syndrome I, unspecified (ICD-10 - G90.50) Secondary to multiple abdominal surgeries (appendectomy, cholecystectomy, colectomy, gastric bypass, I&D, hematoma removal). Stable, will continue hydromorphone PRN, will monitor for changes. - UDS: 09/17/24 (positive for THC, TCA, BZO), 11/10/24 (Positive for BZO), 12/16/24 (positive for opiates) 09/17/24: Dr Simon explains he will take on her case, but she is forbidden to use cannabinoids and any other substance of abuse. Patient verbally agrees. 11/10/24: Episode of left sided paralysis. Dr. Simon increased hydromorphone from 2 mg to 4 mg q6 PRN 01/15/24: Blood drug screen ordered 04/16/2025 Anxiety (ICD-10 - F41.9) 04/15/2025 Opioid use (ICD-10 - F11.90) Secondary to complex regional pain syndrome. Stable, will monitor for changes. 03/16/2025 Opioid use (ICD-10 - F11.90) Secondary to complex regional pain syndrome. Stable, will monitor for changes. 02/18/2025 Opioid use (ICD-10 - F11.90) Secondary to complex regional pain syndrome. Stable, will monitor for changes. 02/15/2025 Fibromyalgia (ICD-10 - M79.7) 01/14/2025 Opioid use (ICD-10 - F11.90) Secondary to complex regional pain syndrome. Stable, will monitor for changes. 12/15/2024 Fibromyalgia (ICD-10 - M79.7) Unstable with generalized body pain. Dr Simon starts Savella 12.5 mg BID PRN. Will continue to monitor. 09/17/24: Unstable with generalized body pain. Dr Simon starts Savella 12.5 mg BID PRN. 11/10/2024 Complex regional pain syndrome I, unspecified (ICD-10 - G90.50) 11/10/24 Patient comes in mentioning she got paralysis again on the left side 3 weeks ago and [facility] they told her was normal, her PCP told her to continue with Dr. Simon for pain medication. Mentions lyrica in addition with hydromorphone. Secondary to multiple abdominal surgeries (appendectomy, cholecystectomy, colectomy, gastric bypass, I&D, hematoma removal). Dr Simon explains he will take on her case, but she is forbidden to use cannabinoids and any other substance of abuse. Patient verbally agrees. Stable, will continue hydromorphone 2 mg every 6 hours PRN, will monitor for changes. - UDS: 11/10/24 (Positive for BZO) - UDS: 09/17/24 (positive for THC, TCA, BZO). 09/17/24: Dr Simon explains he will take on her case, but she is forbidden to use cannabinoids and any other substance of abuse. Patient verbally agrees. 11/10/24: Dr. Simon increased hydromorphone from 2 mg to 4 mg q6 PRN 10/01/2024 Anxiety (ICD-10 - F41.9) 10/01/2024 Complex regional pain syndrome I, unspecified (ICD-10 - G90.50) Secondary to multiple abdominal surgeries (appendectomy, cholecystectomy, colectomy, gastric bypass, I&D, hematoma removal). Dr Simon explains he will take on her case, but she is forbidden to use cannabinoids and any other substance of abuse. Patient verbally agrees. Stable, will continue hydromorphone 2 mg every 6 hours PRN, will monitor for changes. - UDS: 09/17/24 (positive for THC, TCA, BZO). 09/17/24: Dr Simon explains he will take on her case, but she is forbidden to use cannabinoids and any other substance of abuse. Patient verbally agrees. 09/17/2024 Fibromyalgia (ICD-10 - M79.7) Unstable with generalized body pain. Dr Simon starts Savella 12.5 mg BID PRN. Will continue to monitor. 09/17/24: Unstable with generalized body pain. Dr Simon starts Savella 12.5 mg BID PRN. 09/17/2024 Muscle spasm (ICD-10 - M62.838) Stable, no changes in current treatment, will monitor for changes. 10/01/2024 Fibromyalgia (ICD-10 - M79.7) Unstable with generalized body pain. Dr Simon starts Savella 12.5 mg BID PRN. Will continue to monitor. 09/17/24: Unstable with generalized body pain. Dr Simon starts Savella 12.5 mg BID PRN. 10/01/2024 Neuropathy (ICD-10 - G62.9) 11/10/2024 Fibromyalgia (ICD-10 - M79.7) Unstable with generalized body pain. Dr Simon starts Savella 12.5 mg BID PRN. Will continue to monitor. 09/17/24: Unstable with generalized body pain. Dr Simon starts Savella 12.5 mg BID PRN. 12/15/2024 Muscle spasm (ICD-10 - M62.838) Stable, no changes in current treatment, will monitor for changes. 01/14/2025 Fibromyalgia (ICD-10 - M79.7) Stable. Will continue to monitor. 09/17/24: Unstable with generalized body pain. 09/17/24: Dr Hui Prakash pregabalin and starts Savella 12.5 mg BID PRN. 12/01: Savella not covered by insurance, re start pregabalin 02/15/2025 Complex regional pain syndrome I, unspecified (ICD-10 - G90.50) 02/18/2025 Fibromyalgia (ICD-10 - M79.7) Stable. Will continue to monitor. 09/17/24: Unstable with generalized body pain. 09/17/24: Dr Hui Prakash pregabalin and starts Savella 12.5 mg BID PRN. 12/01: Savella not covered by insurance, re start pregabalin 03/16/2025 Fibromyalgia (ICD-10 - M79.7) Stable. Will continue to monitor. 09/17/24: Unstable with generalized body pain. 09/17/24: Dr Hui Prakash pregabalin and starts Savella 12.5 mg BID PRN. 12/01: Savella not covered by insurance, re start pregabalin 04/15/2025 Fibromyalgia (ICD-10 - M79.7) Stable, no changes in current treatment, will monitor for changes. 09/17/24: Unstable with generalized body pain. 09/17/24: Dr Hui Prakash pregabalin and starts Savella 12.5 mg BID PRN. 12/01: Savella not covered by insurance, re start pregabalin 04/16/2025 Fibromyalgia (ICD-10 - M79.7) 05/20/2025 Fibromyalgia (ICD-10 - M79.7) Stable, no changes in current treatment, will monitor for changes. 09/17/24: Unstable with generalized body pain. 09/17/24: Dr Hui Prakash pregabalin and starts Savella 12.5 mg BID PRN. 12/01: Savella not covered by insurance, re start pregabalin 05/13/2025 Opioid use (ICD-10 - F11.90) Secondary to complex regional pain syndrome. Stable, will monitor for changes. 06/15/2025 Fibromyalgia (ICD-10 - M79.7) Stable, no changes in current treatment, will monitor for changes. 09/17/24: Unstable with generalized body pain. 09/17/24: Dr Hui Prakash pregabalin and starts Savella 12.5 mg BID PRN. 12/01: Savella not covered by insurance, re start pregabalin 05/20/2025 Neuropathy (ICD-10 - G62.9) Stable. Will continue to monitor 05/13/2025 Fibromyalgia (ICD-10 - M79.7) Stable, no changes in current treatment, will monitor for changes. 09/17/24: Unstable with generalized body pain. 09/17/24: Dr Hui Prakash pregabalin and starts Savella 12.5 mg BID PRN. 12/01: Savella not covered by insurance, re start pregabalin 04/15/2025 Anxiety (ICD-10 - F41.9) Stable, no changes in current treatment, will monitor for changes. 12/01: Started alprazolam again 06/15/2025 Neuropathy (ICD-10 - G62.9) Stable. Will continue to monitor 03/16/2025 Anxiety (ICD-10 - F41.9) Stable, no changes in current treatment, will monitor for changes. 12/01: Started alprazolam again 02/18/2025 Anxiety (ICD-10 - F41.9) Stable, no changes in current treatment, will monitor for changes. 12/01: Started alprazolam again 01/14/2025 Anxiety (ICD-10 - F41.9) Stable, no changes in current treatment, will monitor for changes. 12/01: Started alprazolam again 12/15/2024 Neuropathy (ICD-10 - G62.9) Dr Hui Muir/Jose Alejandro pregabalin. Will continue to monitor 09/17/24: Dr Hui Muir/Jose Alejandro pregabalin. 11/10/2024 Muscle spasm (ICD-10 - M62.838) Stable, no changes in current treatment, will monitor for changes. 10/01/2024 Muscle spasm (ICD-10 - M62.838) Stable, no changes in current treatment, will monitor for changes. 09/17/2024 Neuropathy (ICD-10 - G62.9) Dr Hui Muir/Jose Alejandro pregabalin. Will continue to monitor 09/17/24: Dr Hui Prakash pregabalin. 09/17/2024 Protein C deficiency (ICD-10 - D68.59) On eliquis. Dr Simon recommends to continue care under PCP. Recommends Dr Layton Reyez. 10/01/2024 Neuropathy (ICD-10 - G62.9) Dr Hui Muir/Jose Alejandro pregabalin. Will continue to monitor 09/17/24: Dr Hui Prakash pregabalin. 11/10/2024 Neuropathy (ICD-10 - G62.9) Dr Hui Muir/Jose Alejandro pregabalin. Will continue to monitor 09/17/24: Dr Hui Prakash pregabalin. 12/15/2024 Protein C deficiency (ICD-10 - D68.59) On eliquis. Dr Simon recommends to continue care under PCP. Recommends Dr Layton Reyez. 01/14/2025 Neuropathy (ICD-10 - G62.9) Stable. Will continue to monitor 02/18/2025 Neuropathy (ICD-10 - G62.9) Stable. Will continue to monitor 06/15/2025 Anxiety (ICD-10 - F41.9) Stable, no changes in current treatment, will monitor for changes. 12/01: Started alprazolam again 03/16/2025 Neuropathy (ICD-10 - G62.9) Stable. Will continue to monitor 04/15/2025 Neuropathy (ICD-10 - G62.9) Stable. Will continue to monitor 05/20/2025 Anxiety (ICD-10 - F41.9) Stable, no changes in current treatment, will monitor for changes. 12/01: Started alprazolam again 05/13/2025 Neuropathy (ICD-10 - G62.9) Stable. Will continue to monitor 05/13/2025 Benign essential HTN (ICD-10 - I10) Advice patient to continue under PCP Care. Will continue to monitor. 05/20/2025 Muscle spasm (ICD-10 - M62.838) Stable, no changes in current treatment, will monitor for changes. 04/15/2025 Muscle spasm (ICD-10 - M62.838) Stable, no changes in current treatment, will monitor for changes. 03/16/2025 Muscle spasm (ICD-10 - M62.838) Stable, no changes in current treatment, will monitor for changes. 06/15/2025 Muscle spasm (ICD-10 - M62.838) Stable, no changes in current treatment, will monitor for changes. 02/18/2025 Muscle spasm (ICD-10 - M62.838) Stable, no changes in current treatment, will monitor for changes. 01/14/2025 Muscle spasm (ICD-10 - M62.838) Stable, no changes in current treatment, will monitor for changes. 12/15/2024 Benign essential HTN (ICD-10 - I10) Dr Simon recommends to continue care under PCP. 11/10/2024 Protein C deficiency (ICD-10 - D68.59) On eliquis. Dr Simon recommends to continue care under PCP. Recommends Dr Layton Reyez. 10/01/2024 Protein C deficiency (ICD-10 - D68.59) On eliquis. Dr Simon recommends to continue care under PCP. Recommends Dr Layton Reyez. 09/17/2024 Benign essential HTN (ICD-10 - I10) Dr Simon recommends to continue care under PCP. 09/17/2024 Dyslipidemia (ICD-10 - E78.5) Dr Simon recommends to continue care under PCP. 10/01/2024 Benign essential HTN (ICD-10 - I10) Dr Simon recommends to continue care under PCP. 12/15/2024 Dyslipidemia (ICD-10 - E78.5) Dr Simon recommends to continue care under PCP. 11/10/2024 Benign essential HTN (ICD-10 - I10) Dr Simon recommends to continue care under PCP. 01/14/2025 Protein C deficiency (ICD-10 - D68.59) On eliquis. Dr Simon recommends to continue care under PCP. Recommends Dr Layton Reyez. 02/18/2025 Protein C deficiency (ICD-10 - D68.59) On Eliquis. Will continue to monitor. 06/15/2025 Protein C deficiency (ICD-10 - D68.59) On Eliquis. Will continue to monitor. 03/16/2025 Protein C deficiency (ICD-10 - D68.59) On Eliquis. Will continue to monitor. 04/15/2025 Protein C deficiency (ICD-10 - D68.59) On Eliquis. Will continue to monitor. 05/20/2025 Protein C deficiency (ICD-10 - D68.59) On Eliquis. Will continue to monitor. 05/13/2025 Dyslipidemia (ICD-10 - E78.5) Advice patient to continue under PCP Care. Will continue to monitor. 05/13/2025 Anxiety (ICD-10 - F41.9) Stable, no changes in current treatment, will monitor for changes. 12/01: Started alprazolam again 05/20/2025 Stenosis of carotid artery, unspecified laterality (ICD-10 - I65.29) Advice patient to continue under PCP Care. Will continue to monitor. 04/15/2025 Benign essential HTN (ICD-10 - I10) Advice patient to continue under PCP Care. Will continue to monitor. 03/16/2025 Benign essential HTN (ICD-10 - I10) Dr Simon recommends to continue care under PCP. 06/15/2025 Stenosis of carotid artery, unspecified laterality (ICD-10 - I65.29) Advice patient to continue under PCP Care. Will continue to monitor. 02/18/2025 Benign essential HTN (ICD-10 - I10) Dr Simon recommends to continue care under PCP. 01/14/2025 Benign essential HTN (ICD-10 - I10) Dr Simon recommends to continue care under PCP. 12/15/2024 Stenosis of carotid artery, unspecified laterality (ICD-10 - I65.29) Dr Simon recommends to continue care under PCP. 11/10/2024 Dyslipidemia (ICD-10 - E78.5) Dr Simon recommends to continue care under PCP. 10/01/2024 Dyslipidemia (ICD-10 - E78.5) Dr Simon recommends to continue care under PCP. 09/17/2024 Stenosis of carotid artery, unspecified laterality (ICD-10 - I65.29) Dr Simon recommends to continue care under PCP. 09/17/2024 Anemia, unspecified (ICD-10 - D64.9) Dr Simon recommends to continue care under PCP. 10/01/2024 Stenosis of carotid artery, unspecified laterality (ICD-10 - I65.29) Dr Simon recommends to continue care under PCP. 11/10/2024 Stenosis of carotid artery, unspecified laterality (ICD-10 - I65.29) Dr Simon recommends to continue care under PCP. 12/15/2024 Anemia, unspecified (ICD-10 - D64.9) Dr Simon recommends to continue care under PCP. 01/14/2025 Dyslipidemia (ICD-10 - E78.5) Dr Simon recommends to continue care under PCP. 02/18/2025 Dyslipidemia (ICD-10 - E78.5) Dr Simon recommends to continue care under PCP. 03/16/2025 Dyslipidemia (ICD-10 - E78.5) Dr Simon recommends to continue care under PCP. 04/15/2025 Dyslipidemia (ICD-10 - E78.5) Advice patient to continue under PCP Care. Will continue to monitor. 06/15/2025 Anemia, unspecified (ICD-10 - D64.9) Advice patient to continue under PCP Care. Will continue to monitor. 05/13/2025 Muscle spasm (ICD-10 - M62.838) Stable, no changes in current treatment, will monitor for changes. 05/20/2025 Anemia, unspecified (ICD-10 - D64.9) Advice patient to continue under PCP Care. Will continue to monitor. 05/13/2025 Protein C deficiency (ICD-10 - D68.59) On Eliquis. Will continue to monitor. 05/20/2025 Arthritis (ICD-10 - M19.90) Advice patient to continue under PCP Care. Will continue to monitor. 03/16/2025 Stenosis of carotid artery, unspecified laterality (ICD-10 - I65.29) Dr Simon recommends to continue care under PCP. 04/15/2025 Stenosis of carotid artery, unspecified laterality (ICD-10 - I65.29) Advice patient to continue under PCP Care. Will continue to monitor. 06/15/2025 Arthritis (ICD-10 - M19.90) Advice patient to continue under PCP Care. Will continue to monitor. 02/18/2025 Stenosis of carotid artery, unspecified laterality (ICD-10 - I65.29) Dr Simon recommends to continue care under PCP. 01/14/2025 Stenosis of carotid artery, unspecified laterality (ICD-10 - I65.29) Dr Simon recommends to continue care under PCP. 12/15/2024 Asthma, unspecified asthma severity, unspecified whether complicated, unspecified whether persistent (ICD-10 - J45.909) Dr Simon recommends to continue care under PCP. 11/10/2024 Anemia, unspecified (ICD-10 - D64.9) Dr Simon recommends to continue care under PCP. 10/01/2024 Anemia, unspecified (ICD-10 - D64.9) Dr Simon recommends to continue care under PCP. 09/17/2024 Asthma, unspecified asthma severity, unspecified whether complicated, unspecified whether persistent (ICD-10 - J45.909) Dr Simon recommends to continue care under PCP. 09/17/2024 Arthritis (ICD-10 - M19.90) Dr Simon recommends to continue care under PCP. 10/01/2024 Asthma, unspecified asthma severity, unspecified whether complicated, unspecified whether persistent (ICD-10 - J45.909) Dr Simon recommends to continue care under PCP. 11/10/2024 Asthma, unspecified asthma severity, unspecified whether complicated, unspecified whether persistent (ICD-10 - J45.909) Dr Simon recommends to continue care under PCP. 12/15/2024 Arthritis (ICD-10 - M19.90) Dr Simon recommends to continue care under PCP. 01/14/2025 Anemia, unspecified (ICD-10 - D64.9) Dr Simon recommends to continue care under PCP. 03/16/2025 Anemia, unspecified (ICD-10 - D64.9) Dr Simon recommends to continue care under PCP. 02/18/2025 Anemia, unspecified (ICD-10 - D64.9) Dr Simon recommends to continue care under PCP. 06/15/2025 MDD (major depressive disorder), single episode, mild (ICD-10 - F32.0) Advice patient to continue under PCP Care. Will continue to monitor. 04/15/2025 Anemia, unspecified (ICD-10 - D64.9) Advice patient to continue under PCP Care. Will continue to monitor. 05/20/2025 MDD (major depressive disorder), single episode, mild (ICD-10 - F32.0) Advice patient to continue under PCP Care. Will continue to monitor. 05/13/2025 Stenosis of carotid artery, unspecified laterality (ICD-10 - I65.29) Advice patient to continue under PCP Care. Will continue to monitor. 05/20/2025 Insomnia, unspecified (ICD-10 - G47.00) Stable, no changes in current treatment, will monitor for changes. 09/17/24: Dr Simon D/C zolpidem due to use of opioids and benzodiazepines. Patient agrees. 06/15/2025 Insomnia, unspecified (ICD-10 - G47.00) Stable, no changes in current treatment, will monitor for changes. 09/17/24: Dr Simon D/C zolpidem due to use of opioids and benzodiazepines. Patient agrees. 03/16/2025 Asthma, unspecified asthma severity, unspecified whether complicated, unspecified whether persistent (ICD-10 - J45.909) Dr Simon recommends to continue care under PCP. 04/15/2025 Asthma, unspecified asthma severity, unspecified whether complicated, unspecified whether persistent (ICD-10 - J45.909) Advice patient to continue under PCP Care. Will continue to monitor. 05/13/2025 Anemia, unspecified (ICD-10 - D64.9) Advice patient to continue under PCP Care. Will continue to monitor. 02/18/2025 Asthma, unspecified asthma severity, unspecified whether complicated, unspecified whether persistent (ICD-10 - J45.909) Dr Simon recommends to continue care under PCP. 01/14/2025 Asthma, unspecified asthma severity, unspecified whether complicated, unspecified whether persistent (ICD-10 - J45.909) Dr Simon recommends to continue care under PCP. 12/15/2024 PCOS (polycystic ovarian syndrome) (ICD-10 - E28.2) Dr Simon recommends to continue care under PCP. 11/10/2024 Arthritis (ICD-10 - M19.90) Dr Simon recommends to continue care under PCP. 10/01/2024 Arthritis (ICD-10 - M19.90) Dr Simon recommends to continue care under PCP. 09/17/2024 PCOS (polycystic ovarian syndrome) (ICD-10 - E28.2) Dr Simon recommends to continue care under PCP. 09/17/2024 Endometriosis (ICD-10 - N80.9) Dr Simon recommends to continue care under PCP. 10/01/2024 PCOS (polycystic ovarian syndrome) (ICD-10 - E28.2) Dr Simon recommends to continue care under PCP. 11/10/2024 PCOS (polycystic ovarian syndrome) (ICD-10 - E28.2) Dr Simon recommends to continue care under PCP. 12/15/2024 Endometriosis (ICD-10 - N80.9) Dr Simon recommends to continue care under PCP. 01/14/2025 Arthritis (ICD-10 - M19.90) Dr Simon recommends to continue care under PCP. 02/18/2025 Arthritis (ICD-10 - M19.90) Dr Simon recommends to continue care under PCP. 04/15/2025 Arthritis (ICD-10 - M19.90) Advice patient to continue under PCP Care. Will continue to monitor. 03/16/2025 Arthritis (ICD-10 - M19.90) Dr Simon recommends to continue care under PCP. 05/20/2025 Endometriosis (ICD-10 - N80.9) Advice patient to continue under PCP. OBGYN Care. Will continue to monitor. 05/13/2025 Arthritis (ICD-10 - M19.90) Advice patient to continue under PCP Care. Will continue to monitor. 06/15/2025 Endometriosis (ICD-10 - N80.9) Advice patient to continue under PCP. OBGYN Care. Will continue to monitor. 05/13/2025 Asthma, unspecified asthma severity, unspecified whether complicated, unspecified whether persistent (ICD-10 - J45.909) Advice patient to continue under PCP Care. Will continue to monitor. 05/20/2025 Morbid (severe) obesity due to excess calories (ICD-10 - E66.01) Patient is educated on importance of healthy lifestyle modifications; regular exercise and healthy diet. Will continue to monitor for changes. 06/15/2025 Morbid (severe) obesity due to excess calories (ICD-10 - E66.01) Patient is educated on importance of healthy lifestyle modifications; regular exercise and healthy diet. Will continue to monitor for changes. 03/16/2025 PCOS (polycystic ovarian syndrome) (ICD-10 - E28.2) Dr Simon recommends to continue care under PCP. 04/15/2025 PCOS (polycystic ovarian syndrome) (ICD-10 - E28.2) Advice patient to continue under PCP Care. Will continue to monitor. 02/18/2025 PCOS (polycystic ovarian syndrome) (ICD-10 - E28.2) Dr Simon recommends to continue care under PCP. 01/14/2025 PCOS (polycystic ovarian syndrome) (ICD-10 - E28.2) Dr Simon recommends to continue care under PCP. 12/15/2024 Anxiety (ICD-10 - F41.9) Stable, no changes in current treatment, will monitor for changes. 11/10/2024 Endometriosis (ICD-10 - N80.9) Dr Simon recommends to continue care under PCP. 10/01/2024 Endometriosis (ICD-10 - N80.9) Dr Simon recommends to continue care under PCP. 09/17/2024 Anxiety (ICD-10 - F41.9) Stable, no changes in current treatment, will monitor for changes. 09/17/2024 MDD (major depressive disorder), single episode, mild (ICD-10 - F32.0) Dr Simon recommends to continue care under PCP. 10/01/2024 Anxiety (ICD-10 - F41.9) Stable, no changes in current treatment, will monitor for changes. 11/10/2024 Anxiety (ICD-10 - F41.9) Stable, no changes in current treatment, will monitor for changes. 01/14/2025 Endometriosis (ICD-10 - N80.9) Dr Simon recommends to continue care under PCP. 12/15/2024 MDD (major depressive disorder), single episode, mild (ICD-10 - F32.0) Dr Simon recommends to continue care under PCP. 02/18/2025 Endometriosis (ICD-10 - N80.9) Dr Simon recommends to continue care under PCP. 04/15/2025 Endometriosis (ICD-10 - N80.9) Advice patient to continue under PCP. OBGYN Care. Will continue to monitor. 03/16/2025 Endometriosis (ICD-10 - N80.9) Dr Simon recommends to continue care under PCP. 05/20/2025 Hospitalization within last 30 days (ICD-10 - Z92.89) 05/13/2025 MDD (major depressive disorder), single episode, mild (ICD-10 - F32.0) Advice patient to continue under PCP Care. Will continue to monitor. 03/16/2025 MDD (major depressive disorder), single episode, mild (ICD-10 - F32.0) Dr Simon recommends to continue care under PCP. 04/15/2025 MDD (major depressive disorder), single episode, mild (ICD-10 - F32.0) Advice patient to continue under PCP Care. Will continue to monitor. 05/13/2025 Insomnia, unspecified (ICD-10 - G47.00) Stable, no changes in current treatment, will monitor for changes. 09/17/24: Dr Simon D/Jose Alejandro zolpidem due to use of opioids and benzodiazepines. Patient agrees. 02/18/2025 MDD (major depressive disorder), single episode, mild (ICD-10 - F32.0) Dr Simon recommends to continue care under PCP. 01/14/2025 MDD (major depressive disorder), single episode, mild (ICD-10 - F32.0) Dr Simon recommends to continue care under PCP. 11/10/2024 MDD (major depressive disorder), single episode, mild (ICD-10 - F32.0) Dr Simon recommends to continue care under PCP. 12/15/2024 Insomnia, unspecified (ICD-10 - G47.00) Dr Simon D/Jose Alejandro zolpidem due to use of opioids and benzodiazepines. Patient agrees. Will continue to monitor. 09/17/24: Dr Hui Muir/Jose Alejandro zolpidem due to use of opioids and benzodiazepines. Patient agrees. 10/01/2024 MDD (major depressive disorder), single episode, mild (ICD-10 - F32.0) Dr Simon recommends to continue care under PCP. 09/17/2024 Insomnia, unspecified (ICD-10 - G47.00) Dr Simon D/Jose Alejandro zolpidem due to use of opioids and benzodiazepines. Patient agrees. Will continue to monitor. 09/17/24: Dr Hui Muir/Jose Alejandro zolpidem due to use of opioids and benzodiazepines. Patient agrees. 09/17/2024 Morbid (severe) obesity due to excess calories (ICD-10 - E66.01) Dr Simon recommends to continue care under PCP. 10/01/2024 Insomnia, unspecified (ICD-10 - G47.00) Dr Hui Muir/Jose Alejandro zolpidem due to use of opioids and benzodiazepines. Patient agrees. Will continue to monitor. 09/17/24: Dr Hui Prakash zolpidem due to use of opioids and benzodiazepines. Patient agrees. 12/15/2024 Morbid (severe) obesity due to excess calories (ICD-10 - E66.01) Dr Simon recommends to continue care under PCP. 11/10/2024 Insomnia, unspecified (ICD-10 - G47.00) Dr Hui Muir/Jose Alejandro zolpidem due to use of opioids and benzodiazepines. Patient agrees. Will continue to monitor. 09/17/24: Dr Hui Prakash zolpidem due to use of opioids and benzodiazepines. Patient agrees. 01/14/2025 Insomnia, unspecified (ICD-10 - G47.00) Stable, no changes in current treatment, will monitor for changes. 09/17/24: Dr Hui Prakash zolpidem due to use of opioids and benzodiazepines. Patient agrees. 02/18/2025 Insomnia, unspecified (ICD-10 - G47.00) Stable, no changes in current treatment, will monitor for changes. 09/17/24: Dr Hui Prakash zolpidem due to use of opioids and benzodiazepines. Patient agrees. 03/16/2025 Insomnia, unspecified (ICD-10 - G47.00) Stable, no changes in current treatment, will monitor for changes. 09/17/24: Dr Hui Prakash zolpidem due to use of opioids and benzodiazepines. Patient agrees. 04/15/2025 Insomnia, unspecified (ICD-10 - G47.00) Stable, no changes in current treatment, will monitor for changes. 09/17/24: Dr Hui Prakash zolpidem due to use of opioids and benzodiazepines. Patient agrees. 05/13/2025 Endometriosis (ICD-10 - N80.9) Advice patient to continue under PCP. OBGYN Care. Will continue to monitor. 05/13/2025 PCOS (polycystic ovarian syndrome) (ICD-10 - E28.2) Advice patient to continue under PCP Care. Will continue to monitor. 04/15/2025 Morbid (severe) obesity due to excess calories (ICD-10 - E66.01) Patient is educated on importance of healthy lifestyle modifications; regular exercise and healthy diet. Will continue to monitor for changes. 02/18/2025 Morbid (severe) obesity due to excess calories (ICD-10 - E66.01) Dr Simon recommends to continue care under PCP. 03/16/2025 Morbid (severe) obesity due to excess calories (ICD-10 - E66.01) Dr Simon recommends to continue care under PCP. 01/14/2025 Morbid (severe) obesity due to excess calories (ICD-10 - E66.01) Dr Simon recommends to continue care under PCP. 11/10/2024 Morbid (severe) obesity due to excess calories (ICD-10 - E66.01) Dr Simon recommends to continue care under PCP. 12/15/2024 BMI 50.0-59.9, adult (ICD-10 - Z68.43) Dr Simon recommends to continue care under PCP. 10/01/2024 Morbid (severe) obesity due to excess calories (ICD-10 - E66.01) Dr Simon recommends to continue care under PCP. 09/17/2024 BMI 50.0-59.9, adult (ICD-10 - Z68.43) Dr Simon recommends to continue care under PCP. 10/01/2024 BMI 50.0-59.9, adult (ICD-10 - Z68.43) Dr Simon recommends to continue care under PCP. 12/15/2024 Opioid use (ICD-10 - F11.90) UDS sent to lab for further testing 12/15/24 11/10/2024 BMI 50.0-59.9, adult (ICD-10 - Z68.43) Dr Simon recommends to continue care under PCP. 01/14/2025 BMI 50.0-59.9, adult (ICD-10 - Z68.43) Dr Simon recommends to continue care under PCP. 02/18/2025 BMI 50.0-59.9, adult (ICD-10 - Z68.43) Dr Simon recommends to continue care under PCP. 05/13/2025 Morbid (severe) obesity due to excess calories (ICD-10 - E66.01) Patient is educated on importance of healthy lifestyle modifications; regular exercise and healthy diet. Will continue to monitor for changes. 03/16/[address] Simon recommends to continue care under PCP. Plan Of Treatment Next Appt Details Provider Name:SANTOS BEARDKATTY SIMON, 07/20/2025 01:30:00 PM, [address], [place], [phone], Insurance Providers Payer Name Payer Address Payer Phone Subscriber Number Group Number Insured Name Patient Relationship to Insured Coverage Start Date Coverage End Date maryjane [address] [phone] [place] [address] [id number] Self - patient is the insured Medical (General) History Medical History History ICD Code anemia Arthritis asthma fibromyalgia PCOS depression high cholesterol anxiety ovarian cysts chronic pain thyroid disorder endometriosis Surgical History Surgery Date(Month/Year) appendectomy 2011 Gallbladder 1999 colectomy 2022 hematoma removal 2022 gastric bypass 2017 I & D 2023 Hospitalization History Reason Date(Month/Year) COVID infection 05/2025 esbl infection 08/2024 urinary tract infection 08/2024
--- OUTSIDE RECORDS SUMMARY | 2025-06-21 23:32 | XMS_ITS | CCD ---
Author Name Interface, [id number] lity Address [place] [address] Organization [facility] Address 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 Role Phone Henrietta CHIN, Mervat Vásquez Unavailable Unavailabl e Allergies and Adverse Reactions Medication/Group Name Reaction Severity Date Penicillins Moderate to severe 5 Phenergan Moderate to severe 5 Haldol Moderate to severe 5 Toradol Moderate to severe 5 fentanyl Moderate to severe 5 dicyclomine Moderate to severe 5 Reglan Moderate to severe 5 Iodinated Contrast Media Moderate to she re 04/27/2025 NSAIDS (Non-Steroidal Anti-Inflammatory Drug) 04/27/2025 Care Plan Date Type Value 07/20/2025 APPOINTMENT 1013 ov 12 weeks 06/28/2025 APPOINTMENT 1013 06/21/2025 APPOINTMENT 1013 06/21/2025 APPOINTMENT [facility]3 [facility] 06/16/2025 APPOINTMENT 1013 OV TELEMED@ 5 06/14/2025 APPOINTMENT 1013 06/08/2025 APPOINTMENT 1013 05/19/2025 APPOINTMENT 1013 05/13/2025 APPOINTMENT 1013 05/13/2025 APPOINTMENT 1013 05/11/2025 APPOINTMENT 1013 ov 12 weeks 05/07/2025 APPOINTMENT 1013 CH 05/03/2025 APPOINTMENT 1013 05/03/2025 APPOINTMENT 1013 lo 04/27/2025 APPOINTMENT 1013 SEE PBR SIG N PLE 04/27/2025 APPOINTMENT 1013 CH 04/26/2025 APPOINTMENT 1013 lo 04/21/2025 APPOINTMENT 1013LO 04/21/2025 APPOINTMENT 1013 CH 04/19/2025 APPOINTMENT 1013 LO 04/12/2025 APPOINTMENT 1013 LO 04/05/2025 APPOINTMENT 1013 LO 03/09/2025 APPOINTMENT 1013 CH 03/08/2025 APPOINTMENT 1013 lo 03/01/2025 APPOINTMENT 1013 CH/PND AUTH 03/01/2025 APPOINTMENT 1013 LCH 02/22/2025 APPOINTMENT 1013 LO 02/15/2025 APPOINTMENT 1013 OV HFU 02/15/2025 APPOINTMENT 1013 lo 12/10/2024 APPOINTMENT 1013 OV 12W 12/10/2024 APPOINTMENT 1013 OV 12W 12/03/2024 APPOINTMENT LB1 12/03/2024 APPOINTMENT 1013 OV 12/01/2024 APPOINTMENT LB1 12/01/2024 LAB_ORDER CBC w/auto diff with reflex 12/01/2024 LAB_ORDER LDH panel 12/01/2024 LAB_ORDER CMP 02/15/2025 LAB_ORDER Iron, TIBC, Ferr itin panel 02/15/2025 LAB_ORDER Vitamin B12 and Folate panel 02/22/2025 LAB_ORDER CBC w/auto diff with reflex 03/01/2025 LAB_ORDER CBC w/auto diff with reflex 03/08/2025 LAB_ORDER CBC w/auto diff with reflex 04/05/2025 LAB_ORDER Ammonia panel 04/05/2025 LAB_ORDER CMP 04/05/2025 LAB_ORDER Iron, TIBC, Ferr itin panel 04/05/2025 LAB_ORDER CBC w/auto diff with reflex 04/05/2025 LAB_ORDER LDH panel 04/21/2025 LAB_ORDER Vitamin B12 and Folate panel 04/21/2025 LAB_ORDER CMP 04/21/2025 LAB_ORDER LDH panel 04/21/2025 LAB_ORDER Iron, TIBC, Ferr itin panel 04/21/2025 LAB_ORDER CBC w/auto diff with reflex 04/26/2025 LAB_ORDER CBC w/auto diff with reflex 05/03/2025 LAB_ORDER Vitamin B12 and Folate panel 05/03/2025 LAB_ORDER LDH panel 05/03/2025 LAB_ORDER CMP 05/03/2025 LAB_ORDER CBC w/auto diff with reflex 05/03/2025 LAB_ORDER Iron, TIBC, Ferr itin panel 06/17/2025 LAB_ORDER Vitamin B12 and Folate panel 06/17/2025 LAB_ORDER Iron, TIBC, Ferr itin panel 06/17/2025 LAB_ORDER LDH panel 06/17/2025 LAB_ORDER CMP 06/17/2025 LAB_ORDER CBC w/auto diff with reflex 07/07/2025 LAB_ORDER LDH panel 07/07/2025 LAB_ORDER CMP 07/07/2025 LAB_ORDER CBC w/auto diff with reflex 07/07/2025 LAB_ORDER Iron, TIBC, Ferr itin panel 08/04/2025 LAB_ORDER LDH panel 08/04/2025 LAB_ORDER CMP 08/04/2025 LAB_ORDER CBC w/auto diff with reflex 08/04/2025 LAB_ORDER Iron, TIBC, Ferr itin panel 09/01/2025 LAB_ORDER Iron, TIBC, Ferr itin panel 09/01/2025 LAB_ORDER LDH panel 09/01/2025 LAB_ORDER CMP 09/01/2025 LAB_ORDER CBC w/auto diff with reflex Reason for Visit 1013 [facility] Encounters Date Name 07/20/2025 1013 ov 12 weeks 06/16/2025 Pulmonary embolism Functional Status Date Name/Question Score/Answer 05/15/2025 Are you deaf, or do you have ser ious difficulty hearing? No 05/15/2025 Are you blind or do you have serious difficulty seeing, even when wearing glasses? No 05/15/2025 Because of a physica l, mental, or emotional condition, do you have serious difficulty concentrating, remembering, or making decisions? No 05/15/2025 Do you have serious difficulty w alking or climbing stairs? No 05/15/2025 Do you have difficulty dressing or bathing? No 05/15/2025 Because of a physica l, mental, or emotional condition, do you have difficulty doing errands alone such as visiting a physician's office or shopping? No Diagnostic Results Date Type Test Units Lower Limit Upper Limit Result Flag Comments Status Ordered By Specimen Source Lab Address 05/03 CBC w/aut o diff with refle x Tripp # (ANC) 10^3/u L 1.5 6.5 4.30 FINAL Mervat Shrestha Whole Blood [facility] [place] [address] [address] CLIA ID#[id number] 05/03 CBC w/aut o diff with refle x MCV fL 81.0 99.0 101.0 High FINAL Mervat Aloba Whole Blood [facility] [place] [address] [address] CLIA ID#[id number] 05/03 CBC w/aut o diff with refle x IG % % 0.0 0.5 0.7 High FINAL Mervat Aloba Whole Blood [facility] [place] [address] [address] CLIA ID#[id number] 05/03 CBC w/aut o diff with refle x MO # 10^3/u L 0.0 1.0 0.44 FINAL Mervat [place] Whole Blood [facility] [place] [address] [place] [address] CLIA ID#[id number] 05/03 CBC w/aut o diff with refle x IG # 10^3/u L 0.0 0.03 0.05 High FINAL Mervat [place] Whole Blood [facility] [place] [address] [place] [address] CLIA ID#[id number] 05/03 CBC w/aut o diff with refle x MO % % 3.0 11.0 6.5 FINAL Mervat [place] Whole Blood [facility] [place] [address] [place] [address] CLIA ID#[id number] 05/03 CBC w/aut o diff with refle x EO # 10^3/u L 0.0 0.3 0.07 FINAL Mervat Al[place] Whole Blood [facility] [place] [address] [place] [address] CLIA ID#[id number] 05/03 CBC w/aut o diff with refle x EO % % 0.0 3.0 1.0 FINAL Mervat [place] Whole Blood [facility] [place] [address] [place] [address] CLIA ID#[id number] 05/03 CBC w/aut o diff with refle x RBC 10^6/u L 4.2 5.4 3.94 Low FINAL Mervat [place] [facility] [address] [place] [address] CLIA ID#[id number] 05/03 CBC w/aut o diff with refle x MPV fL 9.4 12.3 10.3 FINAL Mervat Aloba Whole Blood [facility] [address] [place] [address] CLIA ID#[id number] 05/03 CBC w/aut o diff with refle x BA % % 0.0 1.0 0.4 FINAL Mervat [place]as[place] Whole Blood [facility] [address] [place] [address] CLIA ID#[id number] 05/03 CBC w/aut o diff with refle x BA # 10^3/u L 0.0 0.2 0.03 FINAL Mervat [place] Whole Blood [facility] [address] [place] [address] CLIA ID#[id number] 05/03 CBC w/aut o diff with refle x HGB g/dL 12.0 16.0 12.1 FINAL Mervat [place] Whole Blood [facility] [address] [place] [address] CLIA ID#[id number] 05/03 CBC w/aut o diff with refle x MCHC g/dL 33.0 37.0 30.4 Low FINAL Mervat [place] Whole Blood [facility] [address] [place] [address] CLIA ID#[id number] 05/03 CBC w/aut o diff with refle x HCT % 37.0 47.0 39.8 FINAL Mervat [place] Whole [facility] [address] [place] [address] CLIA ID#[id number] 05/03 CBC w/aut o diff with refle x NRBC, % % 0.0 0.2 0.0 FINAL Mervat Shrestha Whole Blood [facility] [address] [place] [address] CLIA ID#[id number] 05/03 CBC w/aut o diff with refle x WBC 10^3/u L 4.8 10.8 6.8 FINAL Mervat Shrestha Whole Blood [facility] [address] [place] [address] CLIA ID#[id number] 05/03 CBC w/aut o diff with refle x PLT 10^3/u L 130.0 400.0 389 FINAL Mervat Shrestha Whole Blood [facility] [address] [place] [address] CLIA ID#[id number] 05/03 CBC w/aut o diff with refle x RDW % 10.5 14.5 16.7 High FINAL Mervat Shrestha Whole Blood [facility] [address] [place] [address] CLIA ID#[id number] 05/03 CBC w/aut o diff with refle x LY % % 15.0 41.0 27.6 FINAL Mervat Shrestha Whole Blood [facility] [address] [place] [address] CLIA ID#[id number] 05/03 CBC w/aut o diff with refle x MCH pg 27.0 31.0 30.7 FINAL Mervat [place] Whole Blood [facility] [address] [place] [address] CLIA ID#[id number] 05/03 CBC w/aut o diff with refle x LY # 10^3/u L 1.2 3.4 1.86 FINAL Mervat [place] Whole Blood [facility] [address] [place] [address] CLIA ID#[id number] 05/03 CBC w/aut o diff with refle x NRBC, absol christen, x 10^3/ uL 10^3/u L 0.0 0.01 0.00 FINAL Mervat [place] Whole Blood [facility] [address] [address] CLIA ID#[id number] 05/03 CBC w/aut o diff with refle x Tripp % % 40.0 77.0 63.8 FINAL Mervat [place] Whole Blood [facility] [address] [address] CLIA ID#[id number] 05/03 LDH panel LDH U/L 81.0 234.0 162 FINAL Mervat [place] Plasma [facility] [address] [address] CLIA ID#[id number] 04/05 Jomar ia panel Jomar ia, plasm a, umol/ L umol/L 65 Kristie l FINAL Mervat [place] Plasma [facility] [facility] [place].[phone].L aborator y Director : NICCI BECKER PHD 04/05 [place] ia panel PDF Repor t See hat cleaner d FINAL Mervat Al[place] Plasma 05/03 CMP ALT/S GPT U/L 14.0 59.0 53 FINAL Mervat [place] Plasma [facility] [address] [address] CLIA ID#[id number] 05/03 CMP A/G ratio 0.8 2.0 1.0% FINAL Mervat [place] Plasma [facility] [address] [address] CLIA ID#[id number] 05/03 CMP Gluco se mg/dL 74.0 106.0 137 High FINAL Mervat [place] Plasma [facility] [address] [address] CLIA ID#[id number] 05/03 CMP Globu dinora g/dL 2.2 4.2 3.4 FINAL [facility] Plasma [facility] [place] [address] [place] [address] CLIA ID#[id number] 05/03 CMP Total prote in g/dL 6.4 8.2 6.8 FINAL [facility] Plasma [facility] [place] [address] [place] [address] CLIA ID#[id number] 05/03 CMP AST/S GOT U/L 15.0 37.0 18 FINAL [facility] Plasma [facility] [place] [address] [place] [address] CLIA ID#[id number] 05/03 CMP Bilir ubin, total mg/dL 0.2 1.0 0.3 FINAL [facility] [address] [place] [address] CLIA ID#[id number] 05/03 CMP Sodiu m mmol/L 136.0 145.0 142 FINAL [facility] [address] [address] CLIA ID#[id number] 05/03 CMP Alkal ine phosp hatas e U/L 46.0 116.0 144 High FINAL [facility] [address] [address] CLIA ID#[id number] 05/03 CMP GFR estim ate mil/mi n/1.73 m2 84 Result based on the eGFR 2020 calculati on.60-89 mL/min/1. 73m^2 without kidney damage may be normal.60 -89 mL/min/1. 73m^2 for 3 months or more, along with kidney damage, may indicate early kidney disease.C alculatio n modified to the 2020 formula effective 12/08/22. FINAL [facility] [address] [address] CLIA ID#[id number] 05/03 CMP Calci um mg/dL 8.5 10.1 9.0 FINAL Mervat [place] Plasma [facility] [place] [address] [place] [address] CLIA ID#[id number] 05/03 CMP CO2 mmol/L 21.0 32.0 24.1 FINAL Mervat [place] Plasma [facility] [place] [address] [place] [address] CLIA ID#[id number] 05/03 CMP Creat inine , mg/dL mg/dL 0.55 1.3 0.87 FINAL Mervat [place] Plasma [facility] [place] [address] [place] [address] CLIA ID#[id number] 05/03 CMP Chlor betzaida mmol/L 97.0 107.0 106 FINAL [facility] [place] Plasma [facility] [address] [place] [address] CLIA ID#[id number] 05/03 CMP BUN mg/dL 7.0 18.0 11 FINAL [facility] Plasma [facility] [address] [place] [address] CLIA ID#[id number] 05/03 CMP Album in g/dL 3.4 5.0 3.4 FINAL [facility] [place] [address] [place] [address] CLIA ID#[id number] 05/03 CMP BUN/C reati nine ratio 6.0 25.0 12.6% FINAL Mervat [place] Plasma [facility] [place] [address] [place] [address] CLIA ID#[id number] 05/03 CMP Potas sium mmol/L 3.5 5.1 4.5 FINAL Mervat [place] Plasma [facility] [place] [address] [place] [address] CLIA ID#[id number] 04/21 Folat e panel Folat e, serum ng/mL 8.6 58.9 10.4 FINAL Mervat [place] Serum [facility] [place] [address] [address] CLIA ID#[id number] 03/01 Smear revie w panel Plate let estim ate Normal FINAL Mervat [place] Whole Blood [facility] [place] [address] [address] CLIA ID#[id number] 03/01 Smear revie w panel Plate let morph ology Normal FINAL Mervat [place] Whole Blood [facility] [place] [address] [address] CLIA ID#[id number] 05/03 TIBC and perce nt sat w/ iron panel Iron, % satur ation % 15.0 50.0 12 Low FINAL Mervat [place] [facility] [address] [address] CLIA ID#[id number] 05/03 TIBC and perce nt sat w/ iron panel Iron ug/dL 50.0 170.0 59.0 FINAL Mervat [place] [facility] [address] [address] CLIA ID#[id number] 05/03 TIBC and perce nt sat w/ iron panel TIBC ug/dL 250.0 450.0 486.0 High FINAL Mervat [place] Serum [facility] [place] [address] [address] CLIA ID#[id number] 04/21 Vitam in B12 panel Vitam in B12 pg/mL 193.0 986.0 579 FINAL Mervat [place] [facility] [address] [address] CLIA ID#[id number] 03/01 CBC w/aut o diff with refle x Auto CBC comme nts See Man Diff FINAL Mervat [place] Whole Blood [facility] [place] [address] [place] [address] CLIA ID#[id number] 03/01 CBC w/aut o diff with refle x Plate let, immat ure, fract ion % 1.0 7.0 7.9 High FINAL Mervat [place] Whole Blood [facility] [address] [place] [address] CLIA ID#[id number] 05/03 Marcela tin panel Marcela tin ng/mL 8.0 252.0 139 FINAL Mervat [place] Serum [facility] [address] [place] [address] CLIA ID#[id number] 03/01 Manua l diffe renti al LY# (M) 10^3/u L 1.2 3.4 2.39 FINAL Mervat [place] Whole Blood [facility] [address] [place] [address] CLIA ID#[id number] 03/01 Manua l diffe renti al Lymph ocyte % % 15.0 41.0 23 FINAL Mervat [place] Whole Blood [facility] [address] [place] [address] CLIA ID#[id number] 03/01 Manua l diffe renti al Eosin ophil % % 0.0 3.0 0 FINAL Mervat [place] Whole Blood [facility] [address] [place] [address] CLIA ID#[id number] 03/01 Manua l diffe renti al Seg % % 40.0 77.0 67 FINAL Mervat [place] Whole Blood [facility] [address] [place] [address] CLIA ID#[id number] 03/01 Manua l diffe renti al Monoc yte % % 3.0 11.0 10 FINAL Mervat [place] Whole Blood [facility] [address] [place] [address] CLIA ID#[id number] 03/01 Manua l diffe renti al MO# (M) 10^3/u L 0.0 1.0 1.04 High FINAL Mervat [place] Whole Blood [facility] [address] [place] [address] CLIA ID#[id number] 03/01 Chandra huitron renti al ANC (M) 10^3/u L 1.5 6.5 6.97 High FINAL Mervat [place] Whole Blood [facility] [address] [place] [address] CLIA ID#[id number] 03/01 Chandra huitron renti al Basop hil % % 0.0 1.0 0 FINAL Mervat Shrestha Whole Blood [facility] [address] [place] [address] CLIA ID#[id number] Medications Administered Date Name Route Dose Frequency Instructions Start Date End Date Status 05/03/2025 hydrocortisone 100 MG Injection intravenously 100.0 mg Re-initiate treatment only upon physician approval. 05/03/2025 05/03/2025 inactive 05/03/2025 hydrocortisone 100 MG Injection intravenously 100.0 mg Re-initiate treatment only upon physician approval. 05/03/2025 05/03/2025 inactive 05/03/2025 methylprednisol one 2000 MG Injection intravenously 125.0 mg Re-initiate treatment only upon physician approval. 05/03/2025 05/03/2025 inactive 05/03/2025 methylprednisol one 2000 MG Injection intravenously 125.0 mg Re-initiate treatment only upon physician approval. 05/03/2025 05/03/2025 inactive 05/03/2025 famotidine 10 MG/ML Injectable Solution intravenously 20.0 mg Re-initiate treatment only upon physician approval. 05/03/2025 05/03/2025 inactive 05/03/2025 famotidine 10 MG/ML Injectable Solution intravenously 20.0 mg Re-initiate treatment only upon physician approval. 05/03/2025 05/03/2025 inactive 05/03/2025 Iron Sucrose IV intravenously 200.0 mg o n c e No test dose indicated. Observe patient for at least 30 minutes after dose. 05/03/2025 05/03/2025 inactive 05/03/2025 Iron Sucrose IV intravenously 200.0 mg o n c e No test dose indicated. Observe patient for at least 30 minutes after dose. 05/03/2025 05/03/2025 inactive 04/27/2025 Iron Sucrose IV intravenously 200.0 mg o n c e No test dose indicated. Observe patient for at least 30 minutes after dose. 04/27/2025 04/27/2025 inactive 04/27/2025 Iron Sucrose IV intravenously 200.0 mg o n c e No test dose indicated. Observe patient for at least 30 minutes after dose. 04/27/2025 04/27/2025 inactive 04/21/2025 Iron Sucrose IV intravenously 200.0 mg o n c e No test dose indicated. Observe patient for at least 30 minutes after dose. 04/21/2025 04/21/2025 inactive 04/21/2025 Iron Sucrose IV intravenously 200.0 mg o n c e No test dose indicated. Observe patient for at least 30 minutes after dose. 04/21/2025 04/21/2025 inactive Medications Date Name Route Dose Frequency Instructions Start Date End Date Status Fill Status Indication 02/15 Hydrom orphon e Oral PRN active 01/31 Apixab an Oral BID active 02/17 famoti dine 10 MG/ML Inject able Soluti on intrave nously 20.0 mg Re-initiate treatment only upon physician approval. 2024 active Pulmonary embolism 02/17 1 ML epinep hrine 1 MG/ML Inject ion intramu scularl y 0.3 mg once Re-initiate treatment only upon physician approval. 2024 active Acquired iron deficiency anemia due to decreased absorption 02/17 methyl predni solone 2000 MG Inject ion intrave nously 125.0 mg Re-initiate treatment only upon physician approval. 2024 active Acquired iron deficiency anemia due to decreased absorption 02/17 famoti dine 10 MG/ML Inject able Soluti on intrave nously 20.0 mg Re-initiate treatment only upon physician approval. 2024 active Acquired iron deficiency anemia due to decreased absorption 05/18 dexame thason e sodium phosph ate intrave nously 10.0 mg once 2024 active Acquired iron deficiency anemia due to decreased absorption 02/17 Iron Sucros e IV intrave nously 200.0 mg once No test dose indicated. Observe patient for at least 30 minutes after dose. 2024 active Pulmonary embolism 02/17 Iron Sucros e IV intrave nously 200.0 mg once No test dose indicated. Observe patient for at least 30 minutes after dose. 2024 active Acquired iron deficiency anemia due to decreased absorption 02/17 1 ML epinep hrine 1 MG/ML Inject ion intramu scularl y 0.3 mg once Re-initiate treatment only upon physician approval. 2024 active Pulmonary embolism 02/17 hydroc ortiso ne 100 MG Inject ion intrave nously 100.0 mg Re-initiate treatment only upon physician approval. 2024 active Acquired iron deficiency anemia due to decreased absorption 02/17 methyl predni solone 2000 MG Inject ion intrave nously 125.0 mg Re-initiate treatment only upon physician approval. 2024 active Pulmonary embolism 05/03 2 ML famoti dine 10 MG/ML Inject ion intrave nously 20.0 mg once 2024 active Acquired iron deficiency anemia due to decreased absorption 02/17 hydroc ortiso ne 100 MG Inject ion intrave nously 100.0 mg Re-initiate treatment only upon physician approval. 2024 active Pulmonary embolism 05/18 acetam inophe n 325 MG Oral Tablet [Tylen ol] orally 2.0 tablet once 2024 active Acquired iron deficiency anemia due to decreased absorption 02/17 famoti dine 10 MG/ML Inject able Soluti on intrave nously 20.0 mg Re-initiate treatment only upon physician approval. 2024 active Pulmonary embolism 02/17 famoti dine 10 MG/ML Inject able Soluti on intrave nously 20.0 mg Re-initiate treatment only upon physician approval. 2024 active Acquired iron deficiency anemia due to decreased absorption 02/17 hydroc ortiso ne 100 MG Inject ion intrave nously 100.0 mg Re-initiate treatment only upon physician approval. 2024 active Acquired iron deficiency anemia due to decreased absorption 02/17 methyl predni solone 2000 MG Inject ion intrave nously 125.0 mg Re-initiate treatment only upon physician approval. 2024 active Acquired iron deficiency anemia due to decreased absorption 02/17 methyl predni solone 2000 MG Inject ion intrave nously 125.0 mg Re-initiate treatment only upon physician approval. 2024 active Pulmonary embolism 02/17 Iron Sucros e IV intrave nously 200.0 mg once No test dose indicated. Observe patient for at least 30 minutes after dose. 2024 active Pulmonary embolism 02/17 hydroc ortiso ne 100 MG Inject ion intrave nously 100.0 mg Re-initiate treatment only upon physician approval. 2024 active Pulmonary embolism 02/17 1 ML epinep hrine 1 MG/ML Inject ion intramu scularl y 0.3 mg once Re-initiate treatment only upon physician approval. 2024 active Acquired iron deficiency anemia due to decreased absorption 05/03 2 ML famoti dine 10 MG/ML Inject ion intrave nously 20.0 mg once 2024 active Acquired iron deficiency anemia due to decreased absorption 02/17 Iron Sucros e IV intrave nously 200.0 mg once No test dose indicated. Observe patient for at least 30 minutes after dose. 2024 active Acquired iron deficiency anemia due to decreased absorption 02/17 1 ML epinep hrine 1 MG/ML Inject ion intramu scularl y 0.3 mg once Re-initiate treatment only upon physician approval. 2024 active Pulmonary embolism 05/18 acetam inophe n 325 MG Oral Tablet [Tylen ol] orally 2.0 tablet once 2024 active Acquired iron deficiency anemia due to decreased absorption 05/18 dexame thason e sodium phosph ate intrave nously 10.0 mg once 2024 active Acquired iron deficiency anemia due to decreased absorption 06/07 vitami n B12 1 MG/ML Inject able Soluti on 2024 active 02/17 1 ML epinep hrine 1 MG/ML Inject ion intramu scularl y 0.3 mg once Re-initiate treatment only upon physician approval. 2024 active Pulmonary embolism 05/03 methyl predni solone 125 MG Inject ion [Solu- Medrol ] intrave nously 125.0 mg once 05/03 on hold Acquired iron deficiency anemia due to decreased absorption 02/17 1 ML epinep hrine 1 MG/ML Inject ion intramu scularl y 0.3 mg once Re-initiate treatment only upon physician approval. 2024 active Acquired iron deficiency anemia due to decreased absorption 05/03 hydroc ortiso ne 100 MG Inject ion intrave nously 100.0 mg every 6 hours 05/03 on hold Acquired iron deficiency anemia due to decreased absorption 05/03 2 ML famoti dine 10 MG/ML Inject ion intrave nously 20.0 mg once 05/03 on hold Acquired iron deficiency anemia due to decreased absorption 02/17 1 ML epinep hrine 1 MG/ML Inject ion intramu scularl y 0.3 mg once Re-initiate treatment only upon physician approval. 2024 active Pulmonary embolism 02/17 famoti dine 10 MG/ML Inject able Soluti on intrave nously 20.0 mg Re-initiate treatment only upon physician approval. 2024 active Acquired iron deficiency anemia due to decreased absorption 02/17 hydroc ortiso ne 100 MG Inject ion intrave nously 100.0 mg Re-initiate treatment only upon physician approval. 2024 active Pulmonary embolism 02/17 1 ML epinep hrine 1 MG/ML Inject ion intramu scularl y 0.3 mg once Re-initiate treatment only upon physician approval. 2024 active Acquired iron deficiency anemia due to decreased absorption 02/17 famoti dine 10 MG/ML Inject able Soluti on intrave nously 20.0 mg Re-initiate treatment only upon physician approval. 2024 active Pulmonary embolism 02/17 methyl predni solone 2000 MG Inject ion intrave nously 125.0 mg Re-initiate treatment only upon physician approval. 2024 active Pulmonary embolism 02/17 methyl predni solone 2000 MG Inject ion intrave nously 125.0 mg Re-initiate treatment only upon physician approval. 2024 active Acquired iron deficiency anemia due to decreased absorption 02/17 hydroc ortiso ne 100 MG Inject ion intrave nously 100.0 mg Re-initiate treatment only upon physician approval. 2024 active Acquired iron deficiency anemia due to decreased absorption 02/17 hydroc ortiso ne 100 MG Inject ion intrave nously 100.0 mg Re-initiate treatment only upon physician approval. 2024 active Acquired iron deficiency anemia due to decreased absorption 02/17 1 ML epinep hrine 1 MG/ML Inject ion intramu scularl y 0.3 mg once Re-initiate treatment only upon physician approval. 2024 active Acquired iron deficiency anemia due to decreased absorption 02/17 1 ML epinep hrine 1 MG/ML Inject ion intramu scularl y 0.3 mg once Re-initiate treatment only upon physician approval. 2024 active Pulmonary embolism 02/17 methyl predni solone 2000 MG Inject ion intrave nously 125.0 mg Re-initiate treatment only upon physician approval. 2024 active Acquired iron deficiency anemia due to decreased absorption 02/17 famoti dine 10 MG/ML Inject able Soluti on intrave nously 20.0 mg Re-initiate treatment only upon physician approval. 2024 active Acquired iron deficiency anemia due to decreased absorption 02/17 famoti dine 10 MG/ML Inject able Soluti on intrave nously 20.0 mg Re-initiate treatment only upon physician approval. 2024 active Pulmonary embolism 02/17 methyl predni solone 2000 MG Inject ion intrave nously 125.0 mg Re-initiate treatment only upon physician approval. 2024 active Pulmonary embolism 02/17 hydroc ortiso ne 100 MG Inject ion intrave nously 100.0 mg Re-initiate treatment only upon physician approval. 2024 active Pulmonary embolism 03/09 vitami n B12 1 MG/ML Inject able Soluti on intramu scularl y 1000.0 mcg every week 2024 active Nutritional anemia (disorder) 02/15 vitami n B12 1 MG/ML Inject able Soluti on intramu scularl y 1000.0 mcg every week 2024 active Nutritional anemia (disorder) 02/15 vitami n B12 1 MG/ML Inject able Soluti on intramu scularl y 1000.0 mcg every week 2024 active Pulmonary embolism 12/10 apixab an 5 MG Oral Tablet [Eliqu is] orally 1.0 tablet 2 times per day 12/10 inactive Pulmonary embolism 12/10 apixab an 5 MG Oral Tablet [Eliqu is] orally 1.0 tablet 2 times per day 12/10 inactive Pulmonary embolism 01/04 Hydroc odone- Acetam inophe n Oral 10 mg-325 mg 1.0 tab 2022 inactive 01/04 Apixab an Oral 5.0 mg 2022 active 01/04 Hydroc odone Bitart rate Oral 12 hr Cap 10.0 mg 2022 inactive 01/04 Amitri ptylin e Oral 10.0 mg 2022 active 01/04 Buspir one Oral 5.0 mg 2022 active 01/04 Tizani dine Oral 4.0 mg 2021 active 01/04 Pregab sanjeev Oral 150.0 mg 2021 active Problems Diagnosis Status Date of Diagnosis Resolution Date Pulmonary embolism Active Measurement finding (finding) Active Functional finding (finding) Active Breast neoplasm screening status (finding) Active Intestinal malabsorption (disorder) Active Acquired iron deficiency ane kirt due to decreased absorption Active Anemia (disorder) Active Anxiety (finding) Active Arthritis (disorder) Active Asthma (disorder) Active Asthma (disorder) Active Backache (finding) Active Cerebrovascular accident (disorder) Active Chronic back pain (finding) Active Chronic bronchitis (disorder) Active Chronic neck pain (finding) Active Chronic pain syndrome (disorder) Active Constipation (finding) Active 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 Diverticular disease (disorder) Active Embolism from thrombosis of vein of lower extremity (disorder) Active Endometriosis (disorder) Active Endometriosis (disorder) Active Fibromyalgia (disorder) Active Fibromyalgia (disorder) Active Fibromyalgia (disorder) Active Generalized abdominal pain (finding) Active Gastroesophageal reflux disease (disorder) Resolved Helicobacter-associated disease (disorder) Active Hypothyroidism (disorder) Active Hypothyroidism (disorder) Active Hypothyroidism (disorder) Active 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) Active Infectious disorder of kidney (disorder) Active Knee pain (finding) Active Leiomyoma (disorder) Active Microbiologic culture positive (finding) Active Migraine (disorder) Resolved Mixed anxiety and depressive disorder (disorder) Active Obesity (disorder) Active Urinary tract infectious dis ease (disorder) Active Nutritional anemia (disorder) Active Procedures Date Category Name Instructions Status 12/24/2024 Physician Order Mammography of b ilateral breasts (procedure) MAMMO, Screening mammography; bilateral (60437) Ordered 03/02/2025 Physician Order RTC nurse for infusion Fereheme Day 1,8 Ordered 04/21/2025 Physician Order RTC nurse for infusion iron Ordered 05/11/2025 Physician Order RTC FELICITA flavi Ordered 05/13/2025 Physician Order RTC nurse for infusion Venofer delayed to 05/13 Ordered 06/08/2025 Physician Order RTC nurse for infusion iron x2 Ordered 09/08/2025 Physician Order RTC FELICITA flavi Ordered Social History Date Name Value 02/15/2025 Sex Female status Not Visits Date Type Value 07/20/2025 1013 ov 12 weeks 06/28/2025 1013 CH 06/21/2025 1013 CH 06/21/2025 1013 [facility] Vital Signs Date Type Value 12/10/2024 BMI 46.06 12/10/2024 Height 63.00 12/10/2024 Weight 260.00 12/10/2024 Pain Scale 0.00 12/10/2024 BSA 2.16 02/15/2025 Weight 340.00 02/15/2025 Height 63.00 02/15/2025 BMI 60.23 02/15/2025 BSA 2.42 02/15/2025 Pain Scale 0.00 02/15/2025 Intravascular Systolic 151 02/15/2025 Intravascular Diastolic 80 02/15/2025 Oxygen Saturation 98.00 02/15/2025 Respiratory Rate 18.00 02/15/2025 Body Temperature 98.80 02/15/2025 Heart Beat 81.00 04/21/2025 Height 63.00 04/21/2025 Pain Scale 0.00 04/21/2025 Intravascular Systolic 144 04/21/2025 Intravascular Diastolic 88 04/21/2025 Respiratory Rate 18.00 04/21/2025 Heart Beat 89.00 04/21/2025 Body Temperature 98.80 04/21/2025 Oxygen Saturation 97.00 04/27/2025 Pain Scale 0.00 04/27/2025 Height 63.00 04/27/2025 Oxygen Saturation 92.00 04/27/2025 Respiratory Rate 18.00 04/27/2025 Heart Beat 90.00 04/27/2025 Intravascular Systolic 138 04/27/2025 Intravascular Diastolic 82 04/27/2025 Body Temperature 97.30 05/03/2025 Oxygen Saturation 97.00 05/03/2025 Height 63.00 05/03/2025 Respiratory Rate 16.00 05/03/2025 Heart Beat 78.00 05/03/2025 Body Temperature 97.70 05/03/2025 Pain Scale 0.00 05/03/2025 Intravascular Systolic 147 05/03/2025 Intravascular Diastolic 74 05/07/2025 Respiratory Rate 18.00 05/07/2025 Heart Beat 64.00 05/07/2025 Body Temperature 98.20 05/07/2025 Oxygen Saturation 93.00 05/07/2025 BMI 59.34 05/07/2025 BSA 2.41 05/07/2025 Intravascular Systolic 138 05/07/2025 Intravascular Diastolic 84 05/07/2025 Pain Scale 0.00 05/07/2025 Weight 335.00 05/07/2025 Height 63.00 06/16/2025 Pain Scale 0.00 06/16/2025 Height 63.00 Notes Section * [facility] Follow Up {[facility]} - [place] <html><head></head><body><div style=text-align:center><div style=text- align:center><span class=clinicalNoteMacroWysiwyg id=&q uot;[id number] macroname=PracticeLetterhead spantype=macro title=#PracticeLetterhead><img src=data:image/jpeg;base64,/9j/4AAQSkZJRgABA gEASABIAAD/4RDpRXhpZgAASUkqAAgAAAAHABIBAwABAAAAAQAAABoBBQABAAAAYgAAABsBBQABAAAAa gAAACgBAwABAAAAAgAAA DEBAgAcAAAAcgAAADIBAgAUAAAAjgAAAGmHBAABAAAApAAAANAAAACA/IsBGBkOHDI1NgPYNtTLERXqB iWmMPxawO8kqG9rJIYCB NGEkU4kw4rhIFMlKkA8UYS3UWLwPCq6LuM5SGFCRNYHZVTtNyJTSUHS//8AAAKgBAABAAAAHgEAAAOgB AABAAAAWwAAAAAAAAAAA AYAAwEDAAEAAAAGAAAAGgEFAAEAAAAeAQAAGwEFAAEAAAAmAQAAKAEDAAEAAAACAAAAAQIEAAEAAAAuA QAAAgIEAAEAAACzDwAAA AAAAEgAAAABAAAASAAAAAEAAAD/2P/gABBKRklGAAECAABIAEgAAP/zTAbZOY9mPP7OPJLB/+4ADkFkb 2JlAGSAAAAAAf/bAIQAD TiGWIfLJGwSIUPZWgiNJG4JPS9XUPJKKSQQHBMUOKjLWZkNXNmLZBmVZZdHKEcQGAoPVBeHFOuBHRrCS EbUHRBCRsrOBu1ODd0PW E9KIgJCQh3ZSoXWLDlVRBpFILgKPIhYFDMYZEtPABhRNPmLAKjCBGkYNFmUDIhAGEdABOgW/8AAEQgAM wCgAwEiAAIRAQMRAf/dA AQACv/YKR5DSFCVNJBTASXLAFGYMHWFBTCGNWBMEEDOCRmQEjWLSYRATOMKRSFVTTEBMJRFUTDFIvLJI gcICQoLEAABBAEDAgQCB HiFYPFMHQCFYYYGVkYdAaKBXDVfXbPtbLUVNKGytEWpYDJPbUDsSWUV6XOUUDBM2UEsQ4R1MxFwoeTGs 1MdFnSywIMF8aUwQyBgr DUNdwYsJruVyWL1qjGS2TWvapBQ2qBRBclZjqo8lvnh9ylCW4c9x4dxf6zP0/cRAAICAQIEBAMEBQYHB wYFNQEAAhEDITESBEFRY TMdMlSqgQCAvrTAF1CY5mWvVXUkxtDUQ2MKA6J30IQDSxYxlezjTaKCGOCLzpymQSG5cZXk5kSJw1E50 /LDhCJYhGTQ4TK9sgDJ5 xZ2KdQ9juzdhxeN2xHkD7tVQ9yJg1j0s//sKWlSFDKJDUYUOP4C2MNHHitlPqrJ5Y1EjrH4cbXh91Lx1 j817S/f3hg8r3II8PwPf hXYSK3+ehw5vXE1V3sLgFd2ZVsheM/bM7H5SPDpR1FH9yvpMG2+JJ4U5xlIoKOhfSGjknz/zB2TPoJHJ ZWPKniqSwwiqj4aSLXwp 9a0J1QCeIFTqJePiScJCs1Y2I+u4jwiHH9q6Y6Kls6YB5RppajfegNCcX09z7uaSAJuyuFwHl99jLHa4 2z/AMCQlKhdE+L8KBEcd 01IaJH3TNSFkvAkSfxs2xtTPWQQkOHbdY6vzQv8+zv/AEbBt/NzR0i9lo+R2yHx5wFder0/NEWCRXXQK fL7aahiFiDFqEvsGb/G9 Syi9p/BW8Z2l1xcJm9nf0/0/lJvg9wd0PbNCqiVMK9MB2oKuJVi3+lr6TH+89Xkb6RTspky4FcHpsdvJ Ffl7DiCTXzq5Sb550nJc t2e/Y30v+FZ0C0k1hJb+n1NDe3dNfims1l/frrftc+v+LeAsjQ0KhQqpuYjoZuKZbdrUX+r4L6vwQ8DV 9cikT5Pb0Bq7qSdl6MN0 ko6DVE4qwpdqkCvRTdh2fK5EBWMqgRjrY12vIEo/Tj4Cnnbxz8UyEzzyrIlAor+WbqrwSnUXvfj8imAw +5y0cyjvC+m0GilAHbzT d5i8KUiM2IT+JGs382q/Q939IYDjm1mVHPUvAgidzhtpc7afxJBTgzqEZ3UhbwH/vhn+j/5F3WWE1UNd vm2Uj5w7XO2j+70pF4Nu w7SuH68jkWRld7Drzod7DfMs8/KmknLp77SPUP6nqaOY8ondL4R/wAhyq2/ARskQ2dckpA+nB7sat2Pe H0mWW/zVb2/y6rdQ8spU ghS2TlfSFCJyekMGbfRkxa00KoaX3cKHUvz3uEfyl3z+5ux/vXvhc9tvVtuHAoQlxSA7L6d8MI1WWf+F b+8bC9Q6g9Q/9DsvrbXW x0KABrrPFDlzWMYuTtAx5+d7xf1w4jF4vjH0VkfMM7ME9MKG9sLUMxrN6o9jnlGvdkfr1Hi7X5hvS+g4 KAOJTrl5Q6e2ahUv7oyK rnzpOm08SwOBd+lqYo3pldCF1uzA0Q3e1/ahlxlkYupJf4TZU94EyU/DOjq2gi5n4ZjY09d54KqDcXgh H7SlIKcYPz5sO1D7Zdkk er/AIHf/hmDPxa0Oeea7b4rAaOG1OMjiCgBWtPCJWYUmQU763/6Glm3+t3Wzz6Y1r6Zya/Bdbyc9czVe bzege8vV6UQ7LgrEY8XA We+13+GKVeL3B60ufdWNjULagEogK+pd4bdqojj52eG+/5XdV2lvQqqhV4HvzMp/mVhycwwqkrC2za34 dlL+r8QMLpADIkblL1m4 PoWXeyzfTdWz/G7nhJGi2rzoA0j4Ef+wQmk4va1v1Qtekibxtf/72lEeV9eT/ce5h9CGpUa6Is3b1k9W aT9nPyfQIbLOdI7Mka1L y7xh0POxi0ZsgEqCy0vQzkut3QP7pgwEi32ZK4/+Ly9MgAHZmuDf3UnDX5dUiGbOuZ2HOEFD0HR8c7jf D618UfIOT29uuCp83LYq Uc1RDQtnsFJqR9yh0ZwE+4oi48Di2h5W6/3Sr8gTcCW2zXhU+rr0nefglTsNRDwqEkzVQ0+c/iNDi7KW ptRp7VWsduy1SEu/vN/c j8Fe3rIJn1VYcY7aW+2vSlD2dPl/wBb9L+2471j8Molk8HBE5YQv1iOnKTAXTjDJzqb/rW+yx9v/aj9L Z71Y+y6YVtVyit16dUy8 sr7o5j6clUf7VS7bc9L626bh6WZ794FTvNpFeKSAs8L4dj0bqv/ANJss+w3PwxO3rq8R73EghWM6wchb YDwhzSbiEWvH3aC9C9v4 RYKq1TLHBgXgGCsXTkPMIAT9DHc3duXM7bMp4w4+dE610eg0giabssO7QILlow7rKCDV5/Ac4Yo0dX/A K4Nk5sXoUIhS+l1Rgs8p 4qftVhofQeO7ovGXP0lq5yqK8De6XtWdb3gf+ouzw+a7uT6ssJprWa2QaMs47zql0yj6Sr/NWUM4r5A1 SOmPxrsR+LW/GyHuttpc 8GQa86p3gMdpev2/wCupPdGum+l/wBX/wBBY/BSxmh8398/+oZF09yfOMOd6UZNpcMq1C9QWBVF46mNG 5yL5I7Ua0BeIdn9U3muv ThKV28mF7tmPVi3+793Z+f/TV6jZ5N87OuiyUx6phYb88FC583Nn8059QSwxzCg2W+fko4zrWFpZcHpP zqNrhu15xd792+G1/2R/ H+qHJKWBV9H9Q8zfyNKfCskB+PyvM/I96Scp1P+0bjZ+xrNu+Z9L7T+gx5Sll9R6+klHujy3drLT4vO9 4xZ5+zAO3+hP+D+1fz+z /DrSy+m7YfOsIv3SjloqoehcKQQGV+Ul2Iwpeji8Oxs2R5UKKh4hDDtxDzOaI0kEXu0SZmjzVz6/wCE/ S/fb3TqyhJrM5CZK/u+r v7AfmDyZKBxpxC+bJf9Lovw+ztkdtqSC2Cw1v1w4ZD7Aflh/bYH04hUix4OkU6lwn8I+U1Bl3Ess1oq0 O4Ygg8YPmLkX2xrMIR0g te52RY4Urk/817H/kIHLf8uAo5fNSfhhl2Vp0Ltxh8w/htxlT8pl/yrHqm/2y5KqNE/ZtlWQZuorfZXS 3l4OdxmuLL2l73/dV70O QRPQzytu1WswlXPQaAAd7skX7b2SNH2/qMxSGJmkZk1E0jhSDt23NC8qat78QompeZq+m+v/rn+kW9hd EtyCTiod7W9I/4jLk27u oD8AE0I/X2Hzwt0RjpRaG7Pux8GUvp4ZWoIwwQJ/kU38qid0A3jyeHBKEECCESFIkABuec5RN4aTWkE1 gvph96wVa0P3/pP/9H0+ hLxEDEnAB0o7VN/YKXqZ2QH/Z03OFasNm/6ixqy/eoF33RiaMCNodywLSnbdvlc385/AIbHoZ/bWV9us yy5tlA9g2P3eu6ztIx2D pleO/FxyoflnkmwvWvsxIp7brJ5k02x1i6dAFTYnHa5ydFw6X5OmS/k9n7JiCQ/AEchu+ruG7/tRnD4Z 2UP/U6rWwH2sfUrcpHck K4uLRwcgyosc0tnEx7+v6N/6Z+ZVfh4/wBOr/z4TDI4Ke7dEnJ71c7Nn2Cxsi7MRAaQGmE6Tx87bsY5L /TOyjjbKrMf+d/wG/8AR CWWq6y50k/EN8kgqt9sQ/tX1Af+h2T/AOlk3/NnE/7mdQ/9jsn/ANLLH/t2Cr9bXynAAUtqYiW6tGICi hN3VcwAE+18W2biE0RPg /wFd/8Ls4L4zbzuM6LAsp5kAWwHyM87fK1d/bi3dSc/5OWygn2sCg7Q/wDUv0/qeljfzyHFHsriyfv/A GytiksjamK7p/7G5H/pZ N/zS6f/ANyc/wD9jcj/PCKss33QBnGEVwQifsXpPvaTdaX89E7mpEdXu6eGgwivtq0Edpc7I+hzu5Z4b n7Ez6OSxK7saZpv0lbYF 6ddbnhtGKy/GrWWWXv96neJe9Y7N0wk/qNFG86CVx/gOff55dew4ja//wBjMj/0ql/zR6d/3Jz/AP2My M4P2xvtG+sWWfs+TkZw+ e3U1h27rCetID0LWdL7YdfTJnzbskp1h4qbnXBc8L2jSjTsf4kJnsmj0m5fTozVe33g0mcL2RbEndix5 3/vPo9J/mTmyp9PDtDWr 6P3ca32hy8T0y2E/tD3Vj6L+xmR/kKvWj7Pzu15/uRnf+xmR/6KVF9T2m3fN+hVnJKAQ3YOjLaeb6gUl l+yW233hPbr7o9Xz6x05 XJ/KYKfXisaIFjFc03Bb/Qs9a1/6kLGiJvfZ+e9a368NucMUXSrOfCrTI7uCU/zT6f/ANyM/wD9jcj/A NLKQ+n8SJFnXA/odk/+l qfCFhprKZEcgvaE6dsTTeh4QHVl2rMyu4p8c6Q0LdJ/AEv+CwPU/q0JzYVPyyoz4w1tu56Mx8yC4AVTQ Z1YZnmLlbibvw5JGCaKN Nz8f0N+LZVbvSEo/ewXiu69hrvEcOP/AGq6h/8FND0D4XXg5FqKk9dK6/8Aodlf+9Cpfb+oU/VzOzzmC 11knwPldqgRIRKEbL8DK 4CaQ7pTb5d9xk0/S9P0vV/kFJz6wlnchSxTSgKrLAbkBUpR7dzEKX8Q7Vyxk/nvsmD0/G9/qfrd/wDhP 9NDc1S0yd/IW0b6Ps0kb D6033lRs+qyFMdGxh/olu15BSfr1SfQuNebs988ADH2URvOpQa2dg1sm9pw1f47Gz3Z6CDzdgrja7Ov/ wDS/aK/N0TlrhrpyU5XJ orZnPNm+0MoTwS88kw3dL41D6b+4hcqy8zewjIfbteGevjU1w6sUT9YzT4u4HgPNfuS8w+tdYf+qerFd YrEAuI/lEuP/SXGN+sPU jgnMfnMLbxW/yABoa31sGNtg5eBqdo/EyqRoBx3E2h60mz/pX0/lWUc9o3jeldzkjkzFkQTDEMIVBz2l endFTfZW/6N9sfXoOHmg O1HoHYX9//D1RBJboavy+qT/rKS+LpxyU0Aa6BMWzeucv+uJk2xDHAsrvf75YCtjd/4fga3W4k6/qT68 /Rp/onrfqXr/wDc/wCzf 4XriSNS1Po+qR13+s5W0hEBgfyqa+qTx/yjZ5lBGCjjuAXq+9rNeBUw9hSA+HlsqO9P/i4PiLi9ZMMI/ wD/2f/sCfsDhJ40v0Wjt 0PhUj0xUPbFJN1HBSLLSWRMOciIQOSAEMTSTEVXUDWpXPGOTDHY0EPp0q/ZGDDux2axmGAAjwfLLR6M1 QAAAAAAEABIAAAAAQABA YsPISLBODF7DqtEXJBDKYTTVP7RDIATPIFCHVYFS4LKAKnPCZ1QBRTDOCEADARMOK52DlfJFCqYDXFWF AQAAAAeOEJJTQPzAAAAA KNGRHGKTQIECCHEUTaOGM8cCELSNURUAuZZFLPYLRCIKDW7NzeQZ/HXFIJAOCwES9OxTKKPtYYdMUJMV LPNFDIBH5PiXBQSxProP LSZOKYNCAJNMqNQLQQFEnCZRRYNEASCRIRFCAMPFSGGHLHQCPHBRQVFSRR6DdzAD/gAAAAAAHAAAP/// //////////////////// /////0L4IDMIYM/////////////////////////////A+gAAAAA///////////////////////////// wPoAAAAAP/////////// /////////////////9J7HHCFGBKKJXMDOZIKPUEZFZVTQHQNpCJXERPYOQXJXfLQS5OTmCRSILRFQWIT VI5JzaSWDcJERYEX0DNL RSDMMOEEUQVXNJEHAGpTYKNNeIADKSRVKGAWZ4PUHUtOArSetUJVH8LnkSqTFuOomNpWTDSGJKqFNeEc FS7NYlToGKaDEqCHnQrS BXYEFO6BUMKHCIbNDXJPFYSVWYWVRQDZYVPQIHJDLIWTZNREDMAUXVOKLMBPILdTDKAXjPZYFAZXNFGW AAAAAAAAAABAAAAAAAAA MXSEDISXRRPXIMJDJEPRIBOSMMEFPKBmxEikMOISICGCQGQEy04naVjX1GdFfPEHAFDREESNUOKU8GhN FFIAUFBGAAUl1HavP1bX pRKMFLJBKROSUFqbYdaqldJPKYFQCMQKCY5u33nx50rRFJPFsRNDVDKA7l5eH0tDyQNGE7NYHTOl8crJ 2VzVmxMcwAAAAFPYmpjA GMZZNHNKYYYPZOqhYHaNGHOBbECPZnauYrrICzQdO9yAuMDTAEZZEURT6ZfdUBUREzokudKDTLANAYYQ g4qpNftkkRodM5ITCZRP NDcxIIzW1UaJ1vaCUBEYTC4xI4OJX1ooqG1ZHJDWWFGPEniSZNcgW1XVRXXLEFbxXZdQGylGBYNKMTBr ZlpNGWMPyRwwH4eq64vm tXTYUSGTVKDLBHBFwX6EXSDRZQACYWZDV5eADbvdwwAAUXRVJFXNMlfIaIol04kAEHHVNNZMPSNnI9ij S1sFiQEQFvYNNASUmlzj XyxhadUQBRoICVBW3LmgIGBTPERJEHAYVYOVXICrsVjeJHKAKKXLDXGDGTIGPUEUYQqJRVVQNQLCLUPG LHAZMFHQYz1IYSeJIMAN FZBCOOSLDFJIO8bWPjvUWU4hVkaKSPTTULgj8vHRUGGXUBybNcBQZo3COODCDVIZSSNQUCCKUcbv8N9S EwpW19fwaVhIHLVH8ROt OziPIzqrwcTzJdthyAQZHmcHOZxwCr9UFKQRYDmomNSyRvznbEvlL1QMTTGELFlgQYpIgVyfJJaoEiwS EYBA4LvHxL5oPORJORGR jcVk9wjlvM6bUKcibWjRPXENRMRyUjjXCYBH02yf2REdCNjHZWNGE2qsxYJPJPVdI8eW1J7e9M6aY0hC rCCRQXSELSSbMWsjF89v ARgaKinouyEEUQKFVIDAKOypBUpgY66tBYydWqdtkbINEOIPCMVZ8LcJ2e8W4T1n8V9nE7kEfMCHHELC EJJTQQoAAAAAAAMAAAAA j/dILLKHMSDRDDGKROKQHABLRTPFUK2VuwHTCYPSVYUBFNOHXJSEELMZLPXSRWHNM/PAAAAAQAAAKAAA LLlXLGU1GGNG7OMWQ+zA BgAAf/Y/+AAEEpGSUYAAQIAAEgASAAA/+2PLOZwp1UcP6NSLFY/7gAOQWRvYmUAZIAAAAAB/9sAhAAMC AgICQgMCQkMEQsKCxEVD emRGjETUcNSHaNSPXwZMQoPHLNMTBkWLTjQEFxVKOqYFOpGBAzGKCuFPPeMDFhKEA6TFd4LZDDAWbYWC d1COWJQMx7SABVDTVoRW BERDAwMDAwMEQwMDAwMDAwMDAwMDAwMDAwMDAwMDAwMDAwMDAz/wAARCAAzAKADASIAAhEBAxEB/90AB AAK/8QBPwAAAQUBAQEBA QEAAAAAAAAAAwABAgQFBgcICQoLAQABBQEBAQEBAQAAAAAAAAABAAIDBAUGBwgJCgsQAAEEAQMCBAIFB wYIBQMMMwEAAhEDBCESM SSPMUQHSlXUEvODndGgTvTxHVMSMeM3tkDAIyxdziEu6zHdvmLWccPHOpKBZOMOwzG3NibWPdCd1kSKu 9N14/RPA6LwohFRvAZm4 QD2lmJz5KFycfxBwprT7eb8F2mHK2nAs0a0s1uz6rFAIqWANhXUBoJEVxjJRpJ7VEOFBXSwZKGXBXMdv SITBTKBkRShsUIjwVLR8 LSoOoTgrkLUIkPwkiTjERNTrgLNEfQ6jnHMu7TmM4WWXBZ2HsHqq5KH53Dk13bAeUH9yeZZ0LQamqIM9 pKGJfxJqik2edvo4mu1L 9zzh1mYg6yN/5eLWCMCYLFLMmFRDpP5XAVtHu9JbnxNs4EOVtWfwcODFppZMbCoW4hUBd4hhgyGdy/GF xcPgh8dYjw4g/Y7dtds/ FYcs56XL35/M6KrMC5KvcxzXU1bO39A2V5O4EKtL/OpAd+l+j+YjVZWNdZZVVcyyyghtzGuDnMJEhtrW /Q/cX9gaD9BCdWExvHj3 70la5sai+7q3OLlmm+i/SVkAwkYv3yjjTVEnk40t+EO1Xt21F8M2jt9ksR2aA8UhADIgI8N6RwJPEDod mIw15TyOQOLWEUObFoG+ VakHXUD31qyO3eWp4o1C/7SGeH6144de1qSu3G93wNU6Z0mDw19DATKbvWhO/xs4gC1Uz8E+u5Fy8e7H VY8q3Qoa8EUz9e82Eh/r /T/BATcfAIuHSGSwx0TBBVLrce3vorz3TxhAs2hLIDGbpJ4bdXtg2dzZARHQ0Jo2MzayEZiuZnnE8Q90 Z79jfS/2RPiOwFZ2v07H TrFbjA2Xbxou73+ut+1z6/5bE+C1olAqyqj6PDUhkmtQrYxH4brpbJTWyF6nnpevYMPnX/cEy3Gfavy/ ZJ9NKFijac4M+01inHds yyt6Khr9e1kbhAyu7446zAwy8o7OaGNTX687aDd+z4+Kt23I9PCHjTTe9tI6NDN/Kaov6/8Bp237UvPC f1wswyBR2v0E9/zXq/8H u1xnAzoD0T598kRHCl83IBgZgXDScNHofHeodHT15f++Gf6P/uLhFIhSzNHGTqKwvkJEufF3pL9V336c DUje7uZoYzjFgTksOwTU JgJh6KHu3hXcEpBg0Q7qokIuju1fDe/WMBZfb4GwdLzho8Fsu9VDuNI9cf9dWKGm/NVvb/Lelwnaioyi CWP434hYEEhfi4K+Q/Fp qivkDyDTJRsI3wAXc7uU6R3n5X/VK6mrjkBc71pqHA08asjrmLgVAnHv/6Zh7zNTahlGfH/0Oy+ttdbD 4AMsEh4Ta6YXPo8+s5zv 3sxXnuJI1qDkg/COAxycdKMhk99L557s35kh3CWxqwarP9nnC9nbt8yv2PlCOXZ0uE1xSdCTszYgQNGZ 6R0/PfU/PpBa3H6Jei6F MlQem6eU/2/T+ssvX53c/QknwTGAc2jAZ9FfqX69Dj9rWD5lOcuxp4p53pYNf+8Bvhjl9so/EZ2p53f3 v8Agd/+W2TP6W3RGc/qz V5ItaYiVnrsp1StorjghXCjL/n33/cdJoj3h3S5b2JgwZy+n1KzhCjeHPh+G8zEyU85EQkEn+k4/wA9Z 41Hk6AVw3ZxBy1aBQ9YB bU8xmHFL6Uynz62ORKVWfd6/US4Td+MG7kFpwa00pG+MXB+jMzQz0Oe0ob23Be4uPK6K99oJq5Iumwc+ uLa0CC6N5wG4RJw4UZhV eq4/JZkfM5wopcnoqRayjBH84TpMJ/3f5p4yu0k/Cf2/xPB1SC64Ov9sAbjyDpyXH0BjtpqqldSHumh7 zuVkoM3qj9csy7HkvaAF nCGQosv7lbMVuq3Ub/7Ud930WWucXRsLikHwIEuZZ6vPJ2hfCCViHPGMKZkgStZ9DUWDer57H/zcdiI7 GwweTQ6e8pF/KaWk2tX6 2OXTVd/1v1PT/kphD6tFGn96Bfu18Ox5C4CDJoCJnFJy/M9jf5z+pKdQb4YXeBRlPPanzslxUJ+839x/ wDLagBOjtZJ0/g6H1wzr FjegBr/FTa3r0qjeO9iDl+kiXLuvHkBceX32Sal6P7zy+n+tb7LH2/9tG5pnbKw139hn0ut8dKbQhGC+ znDR/rOsazYw/wvdS9kG uymBiRCesLkYfaTleSSuW57PVtox/4C9fpc0V3+W5RgoJVJpBI85oFM7w4jlydiEJ7po+5Vf5Gzv0npc QjkBXbOrFY9y+VgywJlk ULgFqdkr33RhAalaCZ9LcpjEKHyGFEjx4XkHXOkBQHRIgPdO4UQnydt3S5N5X4/c4RoSbDf7j5fR7j6o kG1QAixpWzKXO2id7Yuz 2Afpm/pW4+8penz6q8GG2qd1XuO2hLmSevi6DspA5a5QBsyHG1MmH29XY4rF8T/QqlT1ae7jRb436cmS I14eudEou+e5/v/AK6k9 0a6b6X/AFf/AEFj9k+miPTrXj/2A9SjJ7oqGg7hPZy158/POolU3yhtZ0G/D4L0VLp0OOKr9GpcZdlsM k0BssASbadXxb51j5tq8 /9ALF9IooJeX5i5TTn0pjdbaDyzmzp4ccaQAfh0kM3Xi0HGZj30WJ2LTH0Lc5Y3VInpipw8g6uQ/ZH8f 9SS1i2KoW0cQiSg2ZY0Z CRf4/A5d5JbuS3x0j6OdPb0Sf119m6ngE9y/wCy/tUL3Z0W+w7Gz3IyrJWdeWkb2VB8l6T/4P7V/P7P8 GeUZ0K1lVogwQ5MGGC1K 0DsgK7MX6fEI6Q5Xl/Vsin7MvCmZJEdiN+xiMaxjnMsrHcMyanMyPf/AIT9L+l/wifLJGVnUcQr+76uL ZrFTPUW8TKwCh0pHL9cd 0x1ewsdBf9Le6Qrrt/t8lwFiQ0/AFPTptdt/cR5S7Gd/o/4T06/4s7Pq8PcnCVlwo7D0FQXdd5hMUMje Vw4hl4pR1/zXsf/ANcWr uQNUlqt9DvXSNowhmSIEa74+62wvtuf/Kseqb/wq9L4di8l8ELAi2jq1woUnqqL2JvjBx7pvv54HsS45 kAG6iR/uV2bOUXp9T8cg 25PWzZhYfT/DFa0DcPOeNBZoLgcuzlKirz33SClHLSC6578x7/+dv2Ck6A4iZdOIyOb0iJT/Do3a0KxL vhiMtr1Nza01k6+Z0rAz xYfItLilSLYK7BBfNw/BWarvCVyybXhezA5CFnZWGCK87ZRpom7wyTP0V/Z+iujjqRJrYfb+k//0fT7M ZthkusE/xic0f6GGZM/p iX5MZJM+GRa3/qLGrL+gepf4eqE7qQyS67vNMyFdeyntq5Npeqgt5qKC09diAglhKJxbnxzrigd8h1Ix V478+zJe78Vgp+1WtysK oK7Gww7ze/R/WYwbLnvzUcbmRqvE5ZBM+Hy/ll5A/9SEtK75k8jj+1GcPhnZQ/1KpQs1hkHIrt9AuFeH vTeYLN673Jux65Ard2/o 3/pn5lV+Hj/AE6v+Wfd0W67JVga0aTpkh4bsXy03wmPCOgz7/fYf4u7JMIn7X9OAKfhgl/53/Ab/wBEl sj58qxaE5I/a6J+rWIf+ 1fUB/4HPE8J7JJm88gM/uZ1D/5Xfh3L6tya5ispkdeyvosQYEqUVhvFxDvMWxafJsLY4oGqce9d5yQj/ AV3/wCDs/RqJ+nBPOv1y 18oudiM/FyqcY21sYq3Dl/RdSzJ/SM+zVb/ANS/T+p6WN/PIcUeyuLJ+/8Ai7B+quCecrqH/sbkf+lk3 /NLp/8A3Jz/GU4XqY7F1 dbnqq5FUyHLFq7QI0jHufSlGmdqY6OUNXfp1jc7MakASmfHl/xj666/6Uvk6435SwY9SJ85zrhmV4lkg 41qaL1XtG32qLdV9fsIi 79LGy2lSx9+afse8C2LS36un/zR6d/3Jz//AGMyP/SqX/NHp3/cnP8A/YzI/mOEpqdZ7dHT+y1RFlB8Q dJcsrQmY0hxijCnaoMKF 5B2XncvcYy/e6zI9V/0/IID1e0mQHd4YveTidTY/YguEG07MMg8pWye+i3bf+8+j0n/AOCt/aOE0NTNf riy/vl1/wDmj03/ALkZ/ wD7GZH/AKVS/wCaXTv+5Gd/7GZH/zLBntwiWH9I7M2Jhv0qrPntCcRlhXs6P88eMmCKljohicVjcPjee z5Ri4Kdkw7kC8LE1yOz8 Cz1rX/yEeeJw84i5Kl8hsidF1NvPN83XO7DNKxZM/NPp/8A3Iz/IV5CcQ3K7hrZ7oPH1om8s+h2T/6WX GHLXS4bptdbYyXmipqJx uTjGOHU4i+faHe30/0mQ/8AS/4LA9T+nhT26A3h0PonkbEDbqie1ciQhb6JKBGnD8x0DdR31zOdULEg9 Px/M80itOg6IVa+6kyyf tf1D0IxHy0CzltI/sdk/tBrbZZ2xco/2ozj/wCh2V/16Gu9i0rX8JM6ASSUiDc73EJJu4TPPK60/wBHx k4o4DcAZfws/T9L0/S9X +dVK/awD9VKjDmRzYaIA4TyPbOf83z7CZET2+yv+e+yBKZ2w7+p+t3/AOE/ER5LgcrcV8K/e1y3Gzx3h zfnm5R/4aGMc7hGX+Gy/ nlZB/Xrojk9N+yRxmzeJoQDbtRUoS5wizga8o0fswpuoI53HeFb5xFbC8a/SWX4ae0H5G4K1a28bYMcl akg40b1dVWtlpXI9erUB A7Rfm0K+f75ndp74CUQpOkr+oFob0Vg/wB8/zKa5LARPqcws266d/7r6dK9lqPQ5j+US4/3GfK41b1IH Ccx+cwtvFb/ZSbR2nmSo l+Tj8F9lP9e+5E7AFQSz2ghhI+ovK5p5t/qLp+k7OFbjZU/ApfO0GUCvZii8v4DS3fz/U/zIYo5XVvTU ONCB6Hu/4U2DSeXzUKu6 pP+ouA0SERR/VJ/5fLiQzQQj6jVPmpmdm+qR/fwsLF+z/v67o2qO74+cZwz3Aa+iet+pev/ANz/ALN/w a+s4kV3064hSHf8teatv TdNpXRW8jDE08NTrejpv+kGdsQ143pHHKcpjaL2HRSS/VH9/wDFOvlZJJT/AP/IZKcNXL2QPNSTYJUFT QAAAAEBAAAADwBBAGQAb eZsNSSHKGLNSQkAziT1FU7IsfSvNH9FoHESXVWYCZNeTP2TDbIrSRCTMQFtWK3NbHRxOFGOyCDtFRZPB ABDAFMANAAAAAEAOEJJT QQGAAAAAAAHAAQAAAABAQD/8JKfzUI0sOghV04xHdGen6KdAkCohZ52WFItBB3kWeD8V5jgEBWqPFHwH aKmzK96Nt+5eyDpiLD8B np5DKECkOChyZzOsqPyH6iAZGM8e0I6LRC/EiB4wGz1uVAlYPHaWZvlrF8bMnc3OqYic9QcRh5iKz0zk LAwVdN9NnfnwYLkTRCUZ G3jERYNHRLtL09aPNZ6JbLxJt8hWZAqJGSeDbJ1QbUsATwnJrOzUD9jIm6nWL8gRNtmCinvVONaKVWqF OYoGk3nOZSwFurWWONgy S9woqX0gpFjHHZpgAXyMc0xh0z8SoxcEk5nAo7iGLp9NmDeJzHvAJRzUr9gzC27XOsfrjZhGt7uKTHnI jpEZXNjcmlwdGlvbiByZ VZ1VNYopFV4PaEjcN6agtM6aD4vDK08Mbj4bYF3Sn9tem3vNM6eHI3wo83olARnDiPsKD9ikV7lKPhqz Z2ePnI8TwSfHTNscPHkS d3ydcZoCUGzWwDnR25uS5hmhC2rDgQyn6L6gFDmXdQix6AsV8DYTBTlMlO5xKzsisdwkTE2sL5edFG0u LweB88jYkRhs6CrCsIbk O88FEMsVS1hD8LVuJFbD0Iyd268hrPwTXOcmuMmApF0eJzoats3eLN6Sqj2bUS7Th6myq6sTD8yCW1id 34fgJZpYjYyFQ7lLYunl P8jQzAyFPFrqXWoSq9ruIUyoR6fqhvvJRGvRTownLYqfWOeTZ9pTpHykS2dqyQ8iRphoA4nmJ9rRHRlm WImZp7aktSlTYWcIdCmX 81iL0Akw0Dxj1zyuO8kVhCjLtP9hWufygc3nTYkCJVllNJbVh2txzLmWAAjZjDcK39lJ8OnGyRdKW3pD yCxnI5jfyG2GJfpTe3te AI0dHnxY98pRhAei0VoYdAypG3tfMmrUrHgCP0mKAlznF7RKoYxK1CcSC99DEP7BocpdY9akOH3VpNnN jFCRkFCQTFCMTFFQUExR iZJZnrDGIEXE4MsUeSqSYdszC6SUcxpe4PyhbRjPKV5ZfjgmL6zcYT9ZAP9DIQvQgemDDS8TZSjPEs0Y zMCHto8XQFzB9W2GpGpS GyhtU1FKb3zvVlanmBcKN6jjH3gebKPQZ3crZ6hMeKcYAl7VbQMQDLZKFJNAUUhJVUVZDBWWtVrWGO1S 0FXUZQ8YQQitQ8wZvYrS JM9r3WOd72lRXMNGU9xTFGWeP32n6Nue2BnUuUeTtYyFJDmoW55t1QgUETcaE0rZlJkTSO3JYXyyDW6E lFpGwLaLYemCWtCJSH8Q ZF1HBXmIQB9ZSIuOGbwiXcQk9EvRozMZUHwKKIeFQGvPQKmCXBoWWI3ZbEsVuVqPTC0DcGbKmQ0jCA3M PO5ZHVohZTIMRPuQWBjG QStYVTlGHGaRGH8IxMmExOiUTF2LlQjSrJbMsitu7OkOUO0DgfgJZkfI0arFKlaJJRuv6Qfm5mzsKxDh 6zcsr8mDAJ2QfBpDRJyB lZ1J3ZvMS16NJLjo735HhZxKDMhTnZ2WVFye78ysFUfc900TtdbEDOtRZ2yQMFbKKGmmWenOafZOwEcc 9b2qFwbpi0jFoSxQFEcX xNsWFSlYaQ4xVNlFdUpj00zqONtm23Iqei2DYJcTnJ6yCBvGz9olHs9HZAsV0RiuL4iUrT9NGG7LruwG YiuSdY8WSA8QtrgMnGbP ie6GGK6KXp1GeEdNGJgMXF9XluzLLMoMsd6TVPnWOqiUYecUoZ3OSKmGVy4CfHfEoR5NEF3JJknTcUuO nzgMFJxWKabQAQtDsS5W eS5ChZTQNM3AVZ1CPUtYDPKVzHQLPJPBvU8WdVFMQUAPZjwUUZ6nIK8GAl6BNeRDDanRD7fsT1gMXFrR MIfGSQ5nDB3SYs5KLiNT YyjVF8wmN6bWTY3VAErWVdsAqrXc3osfyTdSCZmUWQ8LWXhNRBdRAwnWmzRQWLwnrILcAdir9O1MbX5W RA5TJYlXCMqDFYcXYTkL YX7LXThHLJ1OYQpKKTcJFBbPNWjRYWuTOD2WKJzBIMfBHS4JMF2GVV5BZY8ZHC4QKMoCMI8SXWvCZO1E SJ3RSOjDUP7GZEzCHP0V OX1FPW6BPL2IPU6Zgj9RRL7Egp3FKG4Wtf1DEV2OqeqMVS6LxttIPB9WpzrTOG9YpjsNTD6Yfh1FMT6D fi5IVB6Pjs2XMP9Gdb6U DEkNTomDKLnIDb0RKEbATt4GSTnZNq0XDFjTDh3KQUpRDmhUJOmIDmiZZHtQJt2YPQuDeR2SFQwQlM2B UYyKsGmLGRaFYq5XOUsM Cm7KVAvYEz2SWUqUDp5QDYdULq6JNPzNFclCGXuCZziCOLzJXptMWXzAXsjZUYoOPs4PEIjTWl5ACFrI Tj8EDJbPKF6UXZeFpg7A JIjUho1PCkzEGdeLWdzEEqtKdcqOaefMAywMTexAcjkVoduATheZBmjJoicSmsrXLzpSDlcEqurOpepZ UqtHZifKeU2UgYoCRTVG sY0VBI6SIJ4RPEaK9P0DAR5MSO7KBM+RWf7cBQJDTpVOJZszvWvQwXkwJPlpOSoIdnsxjJ0XN7nAVoRR VE1jNTgaFyrVlTtZnw0R RpJPaAsAXRzAZLBRvR3Qei1DFPEB7R3MMLXLqYrxKNoMinzz9K6sDIdlQeKQQS2tDJrLAjdMqFnNcc4W XmUKfKdRQFfVJYERlL8D im9DQLYF0I1SMAQUp1+BRl4jZILOCePmXA6w4G9FfU0ydVpSiTxeX3qJKFtBmobgAFubRH6nYuuE9Vnp 650VoMitbVtMgSgjNV6q GxgxyV8PL3hNJtNEMT3qCXvaZocZsM4WJicVkdfXMVCIyEPSSH6OUX8QXTMUxBLSYN5QVHEZoZkwLY4s Fx4oBQnCJAdKJSdQXA4I PP9GXD7DdYmZwLlKNA2DsOnIrOagKL8qNpmz4E6x6QsMOTkPH82EFCCHF6mOFBLnV30y2Ydf1GpM3B3B LvwksNaw3VrXJX7XOK0S aFeXC2eYKS7Ak7wAy3zPYXlHrgcoUDenNM7jGmgI2Toi224CmSllzBoQkLazZY2pEyuybP5IJ0hHLjLF DN1fKIgsAdtUfM7WNzeW uqwHJFKBwRVNIU4BBI7FCAKCzUICGV7VPRAXzVefIV2jIn6sLRnIYOwXQRyKSD3MUD1NAW4KvDoAfNtB GE8BwTpUbIkzKS1qTesw 0X9c1MqWYClRY95ZRLBXP4lHBIRjE09n9Tuk5OcW6K1ZIdvwaDbo3UkSEK2FRU7HqKsGM3iWEF9Zh0xC f2xPSIsVbmcuEPykGC5d AriY9Wjk094KuClatCyXdIrvIE9xTpfqbO9FG8qZXcWHXR4iZCaoGozKvi7DRKkFVS3AfGrVVPTFQZ0X DKGHGK5ZvLCBpqPVtS5L vFysXN6cPm0jGElRLHkRRXeBBBgLQDlQGL6RlYgXzPxRAS5EtCvNkZtvHI9hRzwn1F0p7NaQBIyWP34I PSCGT7rBPTQoG49c5Ppy 9RzI1N2IHhjutNdf6SaWZM3XGQ2XtErCS1zQYG3Kb1qJm7iDL5mGBG4Q5ViGpC9T3gmtY2WCjumu7Srf nk+ZVsudfNdGnBjq0Ezo WS9eR7rYsP0N2VpWxzQWCH+HWcqpQz8sNTuFWCpEbFiMMCrQJYoAYYfNGYvIZZaBZUoTGEvDGAqYGLzM CAgICAgICAgICAgICAgI CAgICAgICAgICAgICAgICAgICAgICAgICAgICAgICAgICAgICAgICAgICAgICAgICAgICAgICAgICAgI CAgICAgICAgICAgICAgI CAgICAgICAgICAgICAgICAgICAgICAgICAgICAgICAgICAgICAgICAgICAgICAgICAgICAgICAgICAgI CAgICAgICAgICAgICAgI CAgICAgICAgICAgICAgICAgICAgICAgICAgICAgICAgICAgICAgICAgICAgICAgICAgICAgICAgICAgI CAgICAgICAgICAgICAgI CAgICAgICAgICAgICAgICAgICAgICAgICAgICAgICAgICAgICAgICAgICAgICAgICAgICAgICAgICAgI CAgICAgICAgICAgICAgI CAgICAgICAgICAgICAgICAgICAgICAgICAgICAgICAgICAgICAgICAgICAgICAgICAgICAgICAgICAgI CAgICAgICAgICAgICAgI CAgICAgICAgICAgICAgICAgICAgICAgICAgICAgICAgICAgICAgICAgICAgICAgICAgICAgICAgICAgI CAgICAgICAgICAgICAgI CAgICAgICAgICAgICAgICAgICAgICAgICAgICAgICAgICAgICAgICAgICAgICAgICAgICAgICAgICAgI CAgICAgICAgICAgICAgI CAgICAgICAgICAgICAgICAgICAgICAgICAgICAgICAgICAgICAgICAgICAgICAgICAgICAgICAgICAgI CAgICAgICAgICAgICAgI CAgICAgICAgICAgICAgICAgICAgICAgICAgICAgICAgICAgICAgICAgICAgICAgICAgICAgICAgICAgI CAgICAgICAgICAgICAgI CAgICAgICAgICAgICAgICAgICAgICAgICAgICAgICAgICAgICAgICAgICAgICAgICAgICAgICAgICAgI CAgICAgICAgICAgICAgI CAgICAgICAgICAgICAgICAgICAgICAgICAgICAgICAgICAgICAgICAgICAgICAgICAgICAgICAgICAgI CAgICAgICAgICAgICAgI CAgICAgICAgICAgICAgICAgICAgICAgICAgICAgICAgICAgICAgICAgICAgICAgICAgICAgICAgICAgI CAgICAgICAgICAgICAgI CAgICAgICAgICAgICAgICAgICAgICAgICAgICAgICAgICAgICAgICAgICAgICAgICAgICAgICAgICAgI CAgICAgICAgICAgICAgI CAgICAgICAgICAgICAgICAgICAgICAgICAgICAgICAgICAgICAgICAgICAgICAgICAgICAgICAgICAgI CAgICAgICAgICAgICAgI CAgICAgICAgICAgICAgICAgICAgICAgICAgICAgICAgICAgICAgICAgICAgICAgICAgICAgICAgICAgI CAgICAgICAgICAgICAgI CAgICAgICAgICAgICAgICAgICAgICAgICAgICAgICAgICAgICAgICAgICAgICAgICAgICAgICAgICAgI CAgICAgICAgICAgICAgI CAgICAgICAgICAgICAgICAgICAgICAgICAgICAgICAgICAgICAgICAgICAgICAgICAgICAgICAgICAgI CAgICAgICAgICAgICAgI CAgICAgICAgICAgICAgICAgICAgICAgICAgICAgICAgICAgICAgICAgICAgICAgICAgICAgICAgICAgI CAgICAgICAgICAgICAgI CAgICAgICAgICAgICAgICAgICAgICAgICAgICAgICAgICAgICAgICAgICAgICAgICAgICAgICAgICAgI CAgICAgICAgICAgICAgI CAgICAgICAgICAgICAgICAgICAgICAgICAgICAgICAgICAgICAgICAgICAgICAgICAgICAgICAgICAgI CAgICAgICAgICAgICAgI CAgICAgICAgICAgICAgICAgICAgICAgICAgICAgICAgICAgICAgICAgICAgICAgICAgICAgICAgICAgI CAgICAgICAgICAgICAgI CAgICAgICAgICAgICAgICAgICAgICAgICAgICAgICAgICAgICAgICAgICAgICAgICAgICAgICAgICAgI CAgICAgICAgICAgICAgI CAgICAgICAgICAgICAgICAgICAgICAgICAgICAgICAgICAgICAgICAgICAgICAgICAgICAgICAgICAgI CAgICAgICAgICAgICAgI CAgICAgICAgICAgICAgICAgICAgICAgICAgICAgICAgICAgICAgICAgICAgICAgICAgICAgICAgICAgI CAgICAgICAgICAgICAgI CAgICAgICAgICAgICAgICAgICAgICAgICAgICAgICAgICAgICAgICAgICAgICAgICAgICAgICAgICAgI CAgICAgICAgICAgICAgI CAgICAgICAgICAgICAgICAgICAgICAgICAgICAgICAgICAgICAgICAgICAgICAgICAgICAgICAgICAgI CAgICAgICAgICAgICAgI CAgICAgICAgICAgICAgICAgICAgICAgICAgICAgICAgICAgICAgICAgICAgICAgICAgICAgIDw/eHBhY 9lhbEJilfD4PdfwJq8/7 gAOQWRvYmUAZAAAAAAB/9sAhAAGBAQEBQQGBQUGCQYFBgkLCAYGCAsMCgoLCgoMEAwMDAwMDBAMDAwMD AwMDAwMDAwMDAwMDAwMD WxVNJbGQVuASRySZr2MOAsREPiGMy7GLBBVRh5HKWURYXjBMIVLWIkUWMsVQMzHPLjDIYyMRClUJJlIS AwMDAwMDAwMDAwMDAz/w OVQNVQqDA8CPKRFOjKOXmQV/90ABAAk/8QBogAAAAcBAQEBAQAAAAAAAAAABAUDAgYBAAcICQoLAQACA gMBAQEBAQAAAAAAAAABA BKNCMTYQxiVRfzTMERBBfFJCTMAImSKOwJHunHSPrORUWPsRvYEOLUHTYVogUEwtfCQFwMYE2NO5lWtS bWuJZAW9BXJZHEByzSvc 6U8CJaYp8Q3N1NbaHSB5jpnuomPWSlWqFZItRRI34AuPrPc64UK9SZftGHWvuTX1jZ1VztQaps9ddxs3 rxAD8m7j6ytq0fX3/c4S GozeKhCrXtD5Sb6PVfOFPn9yRpfpzyT2egqVjgxsjlXzhm9zhoi+hEAAgIBAgMFBQQFBgQIAwNtAQACE ANGRMHsQQHFB6VjZtJHp UKcufPJyqDqD7LZKrPp8EStMSATStIIMaSdulUZm4M61uUOU2VCOMqRTQqoRhNfT7J8GUsne1DLLOvX3 /FEqCT2qAJy4NE2tJPjz xXL0fASDeA8gvwbydcN9iKKV2d7d2uyg6rA9/x9NOaekFhXkWfV4Zf0KZnHyRcAzdh3lalw+Ez5Tkoae jqkwhbF9wx2/9oADAMBA HABSzWGKhE2TkexCytuoBrghhEzbaeImkvuZsjanOQjxDs/1V9vSe6CqWdKXMj9S/hSn+xKO0xioGdPo c87DW4dCHx4X0vkzgNlp IpY2xNm6IN3ZqaE59OB5qYGAVGaFeRGr2wnOxGerbiAhvqcBlpsbPxadfWyctcLecwvHjjoiXwakoZgu rsVdirsVf/P2V3k3VXIe 8QYQh3XXLz8AZQz9WXYc7KUNE+E3Ym714kpTug0yK/sN3BTDSh3JedvbjMPz2aFklYR9U9OY6CpzzULT A7Q2eLstptBiUhUn/5cl EVrpc2ndfCwfb6eL/WGl8oynKU1qifY8L0vSG0pjetftlqG8RD1y7vY8WOAr2VHNk5FPMh6EVVc0ZSFe 8PXDv0EJAh1IEFl6KJJr 5VBKx9JW//V0KKyZsZLvsZut3vO9IlHxgGm1jEumKh0zi4f67A3lolzn6S/drKSqE+2LjXQyddf7UCT/ Vyedy/yY75CmkADx5xPw DGiQyM/uNDtgxdVF6aqhQoVleYJZGE8+o3DtHk5QPrJi+PqZBZp+UBwT3j7e6hgkUftSl/w4X/hsyojU d07Kh2HEgogUA61wz4q/ wCx/Wx2cJ64UPEr22o/rG5nA4oF8/ITshqJlz5s8uTbFMme5K7ytlnBu/2HavU95pl5vUrM/WyQ4gpkc nYOmWJ8rRVBc7rF+mX44 la/u9XFss+tM0T1KVL9GbfZLLcf5ZpE/Lh2Sla5Tu/6I30awtqf1pLsr48NAjDBEiWqF1r9dkAbOzUeH d2P94Uw/ncZV5SsLSTMU S1xgj9jXMqNmuF0Km0J4SMh82FQWNIqAREZeJJLfzsrvBuwt5pJIyqiAUTUQYvmWTuZFuqPNv8vFwTDR Ym0SOEvwVtR7cuUKxl1C ob3wyXXHMaMeW4aEtgxK0I6jRneNiWM7a/S73qb/aHCuY6hhwDovCFNBgE5iABR3gWesdsRa5Yxoxm9z 2UMvr2QKTFv7M9Ct9ZW7 r+vnyH3l39tvvZk6zKqZEpUbchhdNyf2mmRaIufrvmTOrjZ4icO3Kd1+KMZHjrJ/V/9gBdw9e/mDofkn Glm2VDBuC8kSzASXPeCJ EXjVHjYyK6/hnvk5HzYMTqdUNAvlcA9jMjd/UpaL5g/NLV/Oneyda/neue4p7USZLgDvtkdAzKpigUGhiS 9sVOskSLDsu1jKBMMKz6 84/8Sv/ADS83+lBOWnVw6xScYfsCXvNuKnr1nJE3jlhXQQY8zEA1kXEAmsQzoyS1wTzRBuLS/Hkj/NPn g1yhHtjGvv6OZ+1TW3ij 3jS8PQibUnayQkDwdN01Zq0e/Nved2IX7FGt8JPUHiHIIE6/wTqusOO2NUIF2ZREe7b+5xJUa04/wCSr U0r6Wjxns1dhY5J0psoG +ZsOi/uIrQnwpIe0qU6QN3U5colgD1+Xew1Tx6ksosNcYkil5TdlRP+sfp/835MoSxgampH7e08xkN3Y /3JP42RrBp7wjzHjosgD 6yBH8FUeGWXUAn6diREmwa9bpFgYwg8UrOvZzfQaasv+nh+xkFnpc/qRe6j7mc6RmMvGPmsUVIYpsTlc JdZFRp3ZtrlWdFsS3oIM 7uw3yRwEK3Cbg/Hq0cvQ73aBROXEQ8LnXUtaLIAgeW7RDMbaZTXux6aslzUGZPN3FPyUT7f1QXlZc2v0 ORxjX1HrA70fr/p170jt Ym8T/v1/pHtJ1P1ZVXmjkgoTV0A4M/5n/HnM0+JTM3uB3j8Tdu0J2zxIv6SksHVSfd4Z/8ANWsUCvOaK O3zGKCyOzQv8s/y5ndn9 hEn+TK6brmLg0Q4ChXFcD4v+mP8KcT+W/jBk70YNpbSf0VPCqqPv2x7rawQe/lxoANgEk6xofFTfn/ J8P6ASUlwhD5i1Of/MNx 2G7074yv8adhgwixlOmwc8yH9rvX91i11KPc6zTGMU2cVv22hE79lhXPTQO1dvr757dtyobwg6Q8uQMm g9CWbzHVyi/ACv5G/a+z to3X3FGk49XBCwI9G75kavYYJ2AA0iP082gpyDeJFmA6DvqZztcpTME1ksOYt07D8EUEB6Wlexahiclm +XEHmvzFcfXLy+d47Sxj GTh4vW3fc1WccsyDz1puO6XRCyM5Stfo4cbMCA1tyY4R1/5iZil00/UtbTRGuFDpptlbRSGNWFVEks/M v292ZYVGzOM6jgx8n1DI UZBxSlweUR/xXEqaT/jvS/Ndrp+jsiHc4cUQLdpa+hfZlKLhGcsohL5cbgZ00JfTyEbVUKRZY1bXIc2Y gp0e119itUrpjnHVsI12 /Fj5z1sZgnuv8bQMuyOrI1d+f4Tq9UgSUUBT/kibqyU49JA/Tjj/H/O/qqPmg/vU6XkZTDgzUw76ermj kXH4b40zJVNpGfcBUDJl 3/S2HJeBDMNyBBVTYecUbp7lTXYF6s4q9bDXc9g61dSao2zieLkM7ZmXrZXaA6UzMgT410qIY4opJK6t 6JLUadNkKprT4nqv3fN0 b0r6HsDO5B6UejJ0NzCUwQghlpyHB/wgaWoYUCDrAr7dnvChUYM6kdTL/pr3m6wxeE2nUg2CeD/HImYn 7ioNbKhl6/HivNy8THVP FVQcY6J06hGnSlcqymi/gi8di14s/SPJ0pyGGfV+UbrBDCZAgul8kaUWY+AfcKCtPdfrfQzu9Zzpq+qO FAfl5+Ji1wNo2LcifLcm Y+V0GtXRG+nBBtOsBKOEY7taxV7kD3YzHHkF+hz4wmUCDfQfDYT1GZMJyy17wj3deLTdN9Yf9izBdS3o ZeN92asJ1FUxFL51/a/l xjgEIcc+i3iSRHHqD13N3V2cDhr4B/KIQvMjvyMz8qIB9Xar+jQ2pQYqz/MDgVtpWlJ07L8+lfkBu6H3 XhtVy7a8FxxB/huIofMd sQnLaCXnUjxfPODMM3j2CrK5Pw06kWyAWdK9EhzqpNCqbevZSwp54r3w9yoyNYvVJKzEjvRHrerlsKtu A+XoNnbcg5Buok+H+Ft7 B6ZnU3M9iiTUv5jLbqkQzWcEnvckAPNpfOPdv+hVFqYpUFBiWbJdAPB2XVidQFNutZGVQfA7v6BxIdlM ZylE/fq5K2ZWpx+80NZ3 kmBh9fQdarlIBcJoV9n0Fr8gY7UsmdJG2R87JvLH//I7YeYzxkg3dH/ACY/n73uv+Z8uYen+yWmd2y6u A1a92Saq91ZR1uedt/vq V4X9XKu0y+guH2b/fxY5+X1v+Yg8k+XZtOvrJtLK2/P2Pf0zJprDKM09LOEB7yt/d5VjE+NT4EtQVoGE iXF/iCsnyuWZtv7eR36E Gkm3k+us+wEdNz/AK38v+FjTYeAk5oGb1FzF6/veSklZznfZwDU5xF615xiDYdbewg6kGnMsWEgCU8Eo d9l26zl9d0P3Dm/AJrve 1ImeLigRX+V/fKkumtX4cyyKgZLnnzwGVdpiSjK/MBF4virfdJNo3d6wL1/dQtkkHrJ0p+Nev7/APSll cLZztFHawfuokE/DhxEF M2matIy8+yKIYouest84nV6Cg+Xw1wboW/Nn9yw58rDrZ8O65RsTN8iCbb70vUE3Bd8za/ AwnlTyUa6U3x23aN/Nn5 Z67d+bPKx+ssJdnJr9jv8DAs2joxmk99oj3Nt+HR5pjtYZFgkwPjV6yDcGxltNaG48/IS8H2P8+08waD GxdiQlmuAgSpZ1X8QWW9 gySkZurQhTLP72EozdR68fTqJ22/bSDWl7mtlEC3zLlA/WkHpr+Tpd2i84MK/zQZOTjjWnlL+cjKtJ9z mTschcAnTu7u6TciP/X4 1Kj/K+zmXPJw8+HoFkKudjowcUc68nxK2rKx7Z1PUg4qunddSwJV4XNsRryV9L8AsydZYLmqDuEypFZv z+czNEZ4KBlhdWiuPIee GB30EuZ9XSaMhP/AJyQ/uRFZUNTflI0AKaHuGHjLA4U4njdt+W5pg3kVfl/AJv+sk5MMxFSToqxgcz8/ nHX8cYFaZ/WHFs8/HrRJ YUSPX7Cyef+BzaYD/s8uiWma/imX90P8qnHLbzBP05NJLCL4PMx0hFcgW2CxKXAAxci/L/mGK42vHp/N 2XtZEOjwn5nXBR2S3oJ+ COh9cumaR/KIMWdxeWtJ1j1DXt0AKl8PS4ki+Shine+IxEOygn6wPlRWoiFERoj0R/heea/3eKjf4iAU1/ QVa1tVx+Mo2rGcw+wGZ2 G8hhLi4A0jkOS/o3/7E0qpcGPTeMQgSXs1qRZgql4wnk1bG/Na2exW9BEg/FD5QhdVVz03yz9TP6gb2N TDY33lXf+HKufDLhYD/A U34H10dBajVRx2W26LmeIiKuQezr5TsF8EEu+HhdhIGuf0qQ4+5nfslhQadIL2NrgUvJJZ0VxYiWzbOX bfMflyN1/OcwmmmeJ9oR DIT8BMDhI61xQ4+X++k20eFWU/g2Q9Lj/srtH0DO/rG9ng9yuafiFan+9l73o+z/nW9s2hjfc4ni/8An VlP9xhzQDENJUn/KIo2Q D/nkpzMy/7oR5DaiFgnL+Z+i0YvMin67rFZXmv/kbJDUpMFFnamqQqfa4nGR+aiuv9dF/4Kb/zXQZR/h wpd/pP313PI/eYY4Fw02 FpopZeWzGjSB6/1ao2b4eM6eXgvotCu6Ijddvf+hfHpmC6D41X6rb8uVGP112zaZVIHhE4UO0VwY6lXU v6IlffaMaC8DOzp/wDOF 34e1w5LX90ECTl5pFSlcVRJmWltt0UAyelwtfcRBhtk6pTUvSGdfbNgJueI2h6J/CP6Fk8Amom+dI1gl RnDCBDPK7cIdQwWKc/Lz mWediNsO5p4A9QcyDOq7NhZJ9e4iMmHKMMifJyx3CkbHfZJ+y9z/nC9YUvelLwRs/knWtNBKEGD2SV62 2//8YDf5sbNs0HavOMTJ XlRUd3wjKeq2d/K1kw2u3y+cde1e/ydEec2OUINNqpzoDsdsIu0fY3vHnV5PzVk1khfrQ9jxZWRzuO6R l/M/Gox18rjmaAvAYjc3 8IKqGUZRSWNpBljaj5EO3ulYrVl8DKSKiRmrJJt0f8e/TzFDXJk3zz8owS5qJyzTLcsgpoCYXGV1Q8XL +gN0HFJWV5UM8ngJdMqR k8dP4jZ597D6r9njooqjQAaf+AvPiLdMNlE3swpb65dCZu5TI70BvdFNDAUiHIcheyVNOMb/gm3T6Ma+ gG2t8n2hx2iHoQ3PXaRt nqh0yAhaFTAkAmI9LpoR/SZC9KaTskhp/HLblhnxFio0fkwiF17fISkajbn8hmXtVMp5Sjw6aTp9kFmo S72ReUFPhYxJb9Ek7VUk XiMjwj+peJRbBMPWwhiu4TMArmkQuSrpfJwNPg+73Mr6R2wwCcOgztQBa07q+d/IeuloSV9SfsE7ijDH u85VWaYSyEjfULErJ+LF VN5L2xl6XMVcsa0a+pG+j+jHv2TkscziWB/S8pjBwsp88VtYRrHJrgO+qX4/Fx/agFM9kWVUxry5ODZP xeHw+rfWg2g0N0n7y5Ba dxDCxVNxAN7UtpMR4Ip8XZ11cPsfJEMdotKE/iYDbTeZdU8/aslImWcXuMnI9qYtZSIJUqPr7WR4Q4j7 nLPUSlD+rxS+w5Hrisz2 xn/NMbXB2JF6Ql0p4zdq3ydfYW5xmUDed4LciKWw9bcGY49h8CrjEpUKABk/kl1ka/0yVbpDeK2sF7xd U/5ln0B93Im1cAo7lO9R X+xcvFrNuHKPEj/VXEeYug29cp/aLqI1dRIY3uHubPCRoG1UrgtY5vh6gt3TgPptLM5knIyp4BDlZgL6 c2EzxqVr+XH7htuP51ZK dHuRY+UjFWAvhACUACaKSDxFcryPx6JMntSIlnV7yPjo8sawYrlYffxTOVepOooQhnCBpMcS2l8WVOig 3lutvIR+43hzqBX4c+Ms AX4h9d5Uf4DikPo+r+zKFIirWlHef07jZuwWU+Q18vpFAayP3iSUeazWxpI6aNc2E4sxQWWRPTzn5RCG dnXuSMsXo5DwS9dzG8b1 s52zeH60hTtG2On/mrADACHlm4TwH5Mni0zBd6tcOoFT1LxouGkuNhLnW9c7xe+Zq0q7j7m40IvIda6w CbG+I4J0cN7+6VEym6Z5 LCS9rSEBh7YahSCGWK3vv1dzqljlNEJcb9/txyuxR834HlAYNFGX7oSL8EBwhh4zg5xyyfavqZyWpVi4 5ce3bO9a/2IR3YVpqlsA muAxB6OxKW0vua5hbqKRduux/HrV2OKR6VQzQ1HyhriPUDGUgMlsWxVOhonfafHW08BIab6aZhNyWDDD y3g15eEHiIuVYPxVWIXZ BZzRNJzUicbuY2I2I+9mTMnOhK2N9h1CceRB1sG9f/RpdVSaQHImbU1tjJScOjyx+Wu22xBODqT8jF8Z ixXPZUVasgsVg3TtR4Wj 78wdd0+JDbGBWcRBFIKoYpi2ek0BH8BxEjD0p1tX67IgzLFS5Ynr8RqgDxITjEt3j/xSl/xKU+Zvy7uL P4oI6Q8rErIgi4N14b1y Nvnpyb3idMv1iw3HvInxwk7jYLf5XdRsfPmZEt9u2S3l5T1Ey8N/qJAF6StnE9UkiY+BFaleJKGp+fxY 4ZrpCt1+q5HCPLYFZ0JI h/T/SCzzV+Qck8uJG8tYP1dm6r1+FV3wP8RNGXuqoOamUNNmF7FD2eAWKaH5BLAsVj+GcT++indn5n/A DE+rCK78o/3sOnRha4tj 8Xh3jxqxKuvy+VmJhzcq85ThuhI/I4/V/Xjwu8m+Rrqw1m/1a03CVpnZ3H7odl+jbxbUiiLfEdgoLH+X L7cOBALkZWA99vDIrFW1 5JJ5g/VRVKR67Uqp3BsDzcHfEpu6pqIUFxr5jgCub+0y/z/JFTUXuprkJmZOpMDfDdsy6FTgU/N/hRmt 4y600pm6f6GN3NzsqS03 wtnMf2jkUTCyHoBfi7f/wCTIwjjjISE+FlyaXyXssLq6l/fFME6wRF+p+ZbZ3nyPurOxoBVkGFohKLSp HCdED7GhJ61T/s/BLFi4 Zc2N/qT3T805k869SJrC2r5lQYQD7ZooIbYSLZJzWd+Vf2+MC6cXCSOmlkOzcaG1O7ymsLkm564zhlxF YGQww4GUpaInfQkGiQa/ FTdf09AHVpRX//I0TkWbitIeO7SDPiHmmaHpOaeIdPWMa1rXjkDtiMlDinFdMebD1pUxQnSiQJiYQBHY 41GlZLSRDtFGsK9jfUOz JJZN56xxxkty6REsxBlBUQQ9qtwVC7KKxVHUvTcgKs2IvWsIIRFTfnwhh93l1ptTkNKD89rLshDPgatK pGod80IAASAfuconFCtF HzJ2hEI4RUTcPhgoRAd1bKJpTmjUbDIhfRfgH8BTe2rp//A4Z1YecT/AKKkLCn+7WZd/oBwFlGuqDeXz QPsQWJ/1ppR+nR0AX2Tr /hgYSiyvvv61C2qY/WnuD+qEZH1+TIeD3z+Kn1HnfI4q4kpra4T3Ex1/vEY9Wu6ldQM7j/3Qi6i6weaa 6F9Ml5/zRjc/JNaf/bP9 gpSSfnD/uuLy/8AS97/AM80U0x9CCIm/wBs/wBig5H/ADv/AGE8vj/ZGd2YJF/jw2TCYK/7b/sVB3/Pj 9lNA++5/rkay/0WVaT/A G3/AGKiX/P/DTC4P27/9cH73+iyrR/7Z/hCfg4R7yA2R3M/yW/hkhD7IpL/7Z9n/ShLd9BWUr+g1+Xqf xJw/vfJlWi/p/j4KZj/A Fchh5y8CxGV+OCsveE/4F/T/HwUzB/thu5d5taOJ+U9E8yf0X0Db0p/AM5H/bIKChK8N/zTj++X/Ae6T X1b/nJD/lp0n7l/5ox/f Sjd8aFnrf2Ynlu/AMtWlfcn/BYU71D3Iga14l/zkj/h0wP7lj4BGWB74I6Eca38m/zkl/h3dJ2sj93L/ srqX68kmSH+ckf+WrSvu T/vuQ26p6D9Em+ln74Ju6hPqr7OHu/zRj+4M3M0ADvTf+cj/wDlr0r/AIFf+nGx4mW2QlU34J/nI7/lr 0n/AIFf+lQY85n2HxPvD b/oXtfuvNI2wS8ZylA97k9KyTcYlcZ/NOmA3qBNQ0Z/EOwnmE6gA+We09EBs+inF0f1RwpOC0Jh/vf6K K3EEx9q5+Cqg/0hVAN5O fmJ/wCBx/e/0Uf4H/tn+pCjL615wuA+i4w1l/osa0f+0j6EGLpa1/afy+P+qlRmk1CV+Cf7b/sVdE/O3 6sTb7zdgQFLE2SQ4b8Ps h1FdCZu/ZMvbRf8gmm8mwu/vP6LD/Bv9t/2Csr/RWheeG7Y8X9u/NOH1+SP8H/2z/Paby3Xxq+1Fov0S Xf/ADRj6/Jj+4/2z/Yoi VTj9O5723d/5u3pK1bXT2/JifB/p/KKKSXzSftwWI+U0x/4uQSuzrWZ9DQwz5AmPlDElxs30hy7YNMnh eFzf0JM/1y6XDSHOdt8T sduzm4hU3LItlAksU8x6sX6Te1QBj5gDXA24LK/13KdMOd2PCE0Fz5XSucSouWiOG2vgcvSeZS7ge3PE XIFWPQCvfASFAVKeGFFB 1LotYICot8NJWmxwA871O8KYXRVz9IARtbaaCXrfYN9KMPfhb2KgkOAMpJW5RqbW6B4IT5s6EPMTqv8z XboIYFBeHi8VHEBDOBAa BoFH5B57xktMB1+x9EAn0rDAJiKo+TG8OFHItn0E2Oi2oB2WUXHgRQI+hVslVg96mx0Liwc3cFb/sRMw Ekp3Alw7UoXgfS2RAM0v DZHUGmIk6y6v5VrifEhVUT8OUAoIEjqdcXGj6xZye5bRcF722nLQtDWzNOENafLWC3tvjKTeyUpqwnQw DGp42XRadSShV85OIBL8 YU6RXCSRUgwEYYSwCJ4Nn1C/4T7NxgxO1kE8+g6ogUfG0iya3IDbBz9eyseI/Q2Yd+u/FqyQFWoc6Hcb 9h6hb6g4Sc2M0tCiB5ar +zZxkwWwp/NIecv+zXAJeviPdxLw+jhZbp/qPvfyayKW3YF3Wp0fNEFHRPfF6LOL5fA2jSsM7AKjlEib yS2v+TlWI31h7E1wzGP5 K3214moyX5JIYnZ02OSe8nxd9O3Fq2fZhs21/4XIjNKuL+MnoWbJw6r5H478fvnm8lTg9rZzVhulNade KRqG9jHKbXt1DGz29/Bk 7HQG5GIiGY5ttN+gA1eXnvh8vZ5eKaLmQLVF5uDQIUl8MEjYkr+5grH0EF3kNWKEy1a/QZTx4btnEc8p dvrSaNbGNWSGYtuzKpYs KAH9rI+JTsVe9LOcXbijVod761n9PqZdY0h6Kq+xcr4lfaNd/m3EJNEGUvzcYgag/rqma0p6zzplIzz4 Wfvc35Yhy861k8d0D8fI OjqaCW4cseznYmQ27tDqCJepYS7W5nm8X54G9UZz7jCSHyUs6q+cbvW/fFjK6sIizsb7iX0VR5CRTEAb GBdsgqLCXEcW47svvqJ/ s2EkVZjzSuHxVmuB50jhag+kHl9JsCuKFZbOgRQWLE17b+F3IoGuKoY/CpOcTLxHJ2cHLkWAGTf7csDZ wwHLL9WlVsRFlplHCqws aCMGJGUmz6NWav1eOH2PEtPeJK11L7eaeavM4fi3e5Prq0u0sZ9j5rjWEiFMvEhk40BTqz5vh9awTmwy gQmGQ9r24u7dIiWvBg5s k4HBu9JrjYP3kJZEwQvpMdaLtu2FEgJgCc1osXoaO1PmR/RLYfDs9kOcTXVFuHr3LhT1R9X2SyXB46yZ tlz4dcY9Sz18dkRomT2e vV4n07eNm41J8tPvL8X8VG8oVfNclCb/cs996taWZ/sO2I799rAAy+maWdiX3d5eM/uyv5B7o7ZtPCJX 2X8vPaIJr7LqYn+ByMsk nEVKQaE7AIy1E9ejO7Cp9F7l6bWw3p/cmV6iZNYZYPKZ0Po8UXha/n3GDAYDMasuUJOxXWAoKfPArlH9 1I9FPqNyoFiMA3ui2SEz xUA+k1bFFviq/a/yRyoDVTogLrvrT73pnqqSm5rXNVc2668rw8PDeHyqhu1+Tjd5WcBh+iq0ljCnliml tQUjk6CgX8w5iGkvoNoG W10+55SKN3zcDUep1QA86cJGe0QSE9rLv7wEh4CDf5O/MJcGTOkLsvgAEfCgXAT3VwiIhRjIcbqiWnPO X+McR6Pr9MEYH/iajCO9 fwoO0/MXzT+gJ/FE2a6escfyEtmWK4elOfe/St+YREHwq98W/S1OSftEG9ImKkV8ga9E297vvvm19g7d KG3ZO0ozsWCs3CWt6vCH jmuQY96lpvxXgjwSHHICAQuWoU50s9aKOfAKyhs8/e9w2pO6VTMbSd9KXMN93ZpLegEZ3VyP8wrZ/xXd 6+dM9ao5mdFZny5rUo0u cqvWKxsQXSdvi/uK4zXWk/gPUVcJL2V/kJnG0LZ+7/ZI6y82+i8YzvVl7ioz5bMfvqObIRRixIplnrsV k5hE+xWvpcIPTP1l6LPD ZwnjUY52twxmbyAto4hsYo9JHa5mYkNdBG7ng71DARJUA8oO6GPY/R95IWdTtb2PZUFKrgh/NWk62+n+ YfqcyyaXPqi/VVdDAbf7 Xxaxmezyr8NSHCOGwyoPpFF815x0XkW8dj/YIIt6eDkvEnornWzhfsYYdVzXJoYuDeChN3LetBcZ+VkD PLdLFZJaJlnCebZibQ6T pQNbbUbUxz2etK2q1tSzACrZyuIBgTFXmqxg+GAMggEWWwa9Z5JY05/9854NGY5f9YXf5zZbf5kxdu1z ASrKngHP5dsJsbti/q4T zA3cLXNTqcpFmbBcJZKX56BoD3RMYcm5PmCOM2bMRgkR3akbsyBYDyIwPQun2//8eNNDYFYvgITHm3l+ IJpE01oWBiRACWxg1wKk Gqyo+2eICXF4ObsB8ImzUxRJD7JnsdNPNtp04H2XcSbOpze3B0cpZRQRDDrRov4U0+Zdg0QIEmeZdQAD tDmGTWoy3B5X+bUJS44o Xz4OHuSMlOObT0sUvriAECouDg8rZWAG5EDmQZ6A/EyhF0jmP9I9CTj74eI0qEljUgImgRZqTAlp+0xP cWbxhiiH3TwAurvqDCaO +xrR9ZN3eV8xeWdz4ods1LU6S7hpdF4qlc/YafLd4NYfXbYbt7junZ96fzRyZse1aKngNL1ncm0N6zu6 hNk0zKJl/p9LWOsauqNx ETBHxi74f5j/Nq5c871n7l80VJAbsJegK2/u9JFXNrDkBV1+TpGRQorwWndqRR6q6qWtTuUK+q9v5icp ji6oAYYNWVoDhyofpJzf 7SYKL5O0fXlq4hgb+T/OLKG3ygYpwc06u8yiOH2gcbxWUMD48jkFk7RPwsv/ICtiYHivmomKQWj/lvq8 pb6OnVdk1ZosBipehK9e YhDg1oVvkpVkx0J7drIVtxY1VCqujT4t+Q/GeaTP1frtsMTJSbUb4NuRFKIKspg0fMr3jf7TTaX9RLWE xWntnoHmE+ZNY1+aKGKe rSDdJB8Pv8QGXHfEaJIGFAhf+7bIGBcstMNLGk4janCxOdgzPkkrAfVP5I8wzUw7CzdfrpAN7xuV0scX UDakj4OrW8h6p18M+Joe DpUFvLb+FILy9pCZlz7XILMqVCSxTfrz1rxMIe/2xJLxC0ZFJ0F2xbG2c8+bW4Q1lITr0zufmoQTayDI rYb6bXUTuhJ2huHpzPsC mycQyd3eHBhP6nct3Au8M2bz8oRFay8bPz1tuEcvxfn0dolGwjFBjWPr4d5ilVw1qoF/XgrawxN3T/5R phQ3rsp4ceIcmifcu9EJ gxCtSXmMZZkbGMGSPTFXEg2sa57ed3u55grxAMv5U6AlqjTzalkFEDZCWHBChU5YyfEZCZeeATAfUGyq 5j/TF9joB86Ta5K4PVnc c2vvusQAhCPovc5BDyy5HB/HMq7iAQDjumuHcuytDlQ/UrwiO1CNDNT4QtoQ9MwmItb/VDNhZ5f1He4c lajo2m1im0GaFJSAW+k1 P3l4MoD46pmqFSnBOjs6uznYXDUiOJVpOuZw9S2u1PjG/HkuMZT6IZOkntzSdKfakHBvvw+GCl8PBRqw RbMWsu0jbsooev2sqsPe Phqdou11wu6jxMUV5ZuE+LOBTJKnfyzuPJSyHJ5cXVFqqlzzpXu4T8BKuJVd4mWWvJ0usLM4khjRw9Q0 IS71N0dCJI6OOGHDQaY/ R7w07QiR9srrElSEX8Tn1Pnurx4LDju3epiA8mt/DJwibthKQqkq/CFsVpKgWWiGvJrRfycC2s3ZbFlD Go4VQUmHtpvjZBcLzVXi joRhpen3ZuaewDX6eOd2DcDTz37PhTpRtgwT22wFZlSdNp5ERlC+OP4abB23oF4N645REVPN4SNtxFqM OwlB27K61x27/22/a5YM rDXNtdBqW033yv3gzzV1in6Rr7zztg0lXLJn5nN2Z5yahKuT0kqzioRqD4jhgFkQEC2OGcJx/zZrVtrm e3GOVmpCk3phg5Dbj3XQ j5HwcSiNvMFOY/BPbPlVGndPSvMx7G5qhpC8f2fpuk27JsSxjpz31ReK+eMnkGoYu6mpIBuIlWPgduVz Uh0/wAn+euC9xJHzvMPW 83HQ3qK4Pz2ac9X3iCeTgPJYc1sd4OZOXfHNebyB2aQ8nYceck8CJA3odj7Mx29nCpBumsU34Vreotzu gNLXW13KqtjahVvmnhcy x6/SpO2KbzOMKqOFMULSlelFDxU7dX8hNSnPe0lzH8PqlFaKjD/8hIBWfT4xNEanlIi5WgSfIBCTbULd 9OFWj1+m4vHndSIpZNp7 /dirjioaX/P+0NsWhOka82r/AJsOO4sptGjpzBSTdxl0v5/56jAtxi33Uw+69/5spyc/wCH/IjCwu1D+ ayTT/8AeKD+6+wP95/7r /Gp6JWz8CI5hs+dBBx2YWwqR/X5YlQ7/X1AQJDcescPjHpiTWtvjKdZs40Msg4SMzSPQgAx/M6GyHZV7 2PTv+v/ADrhQu+/Dn2cTqlwtv3f4IUz6M5P2W3bgmN//9k=></span>

<span class=clinicalNoteMacroWysiwyg id=[id number] macroname=LocationPrintingName" spantype=macro title=#LocationPrintingName>[facility]</span>
<span class=clinicalNoteMacroWysiwyg id=[id number] macroname=LocationAddress spantype=macro title=#LocationAddress>[address]
[place] [address]</span>
P: <span class=clinicalNoteMacroWysiwyg id=[id number] macroname=& quot;LocationPhoneNumber spantype=macro title=#LocationPhoneNumber> </span>
F: <span class=clinicalNoteMacroWysiwyg id=&quot ;[id number] macroname=LocationFaxNumber spantype=macro tit le=#LocationFaxNumber> </span>
</div><div style=text- align:left>

<strong>PATIENT:</strong> <span class=clinicalNoteMacroWysiwyg id=[id number] macroname= PatientName spantype=macro title=#PatientName>KECIA PEGUERO&lt ;/span></div><div style=text-align:left><strong>MRN:</strong> <span class=clinicalNoteMacroWysiwyg id=[id number] macroname =PatientMRN spantype=macro title=#PatientMRN>[id number]</span></div><div style=text-align:left><strong>:</strong> <span class=clinicalNoteMacroWysiwyg id=[id number] macroname=&qu ot;PatientDateOfBirth spantype=macro title=#PatientDateOfBirth>[birth year]</span></div><div style=text-align:left>
</div><div style=text- align:left><strong>Date of Service</strong>: <span cl ass=clinicalNoteMacroWysiwyg id=[id number] macroname=Effe ctiveDate spantype=macro title=#EffectiveDate>06/16/2025</span&g t;
</div></div><div style=text-align:left>
This visit is being conducted through telemedicine on the [employer] platform during COVID-19 pandemic, is patient- initiated, and patient's consent was obtained. Patient is currently located at home residence.

<span class=clinicalNoteSectionVisible id=[id number] internalbreaksection=false originalname=Referring Physician: recognizeconcepts=true spantype=section suppressempty=true">Referring Provider:</span>
Dr. Mullen Status

<span class="clinicalNoteSectionVisible id=[id number] internalbreaksection="false originalname=Chief Complaint: recognizeconcepts=true spantype=section suppressempty=false>Chief Complaint:</span>
Follow-up for pulmonary embolism

<span class=clinicalNoteSectionVisible" id=[id number] internalbreaksection=false originalname=&quot ;Diagnosis/Treatment: recognizeconcepts=true spantype=section suppress empty=true>Principal Diagnosis:</span>
<span class=clinicalNo teMacroWysiwyg id=[id number] macroname=Problems parameters =InitialCap:Yes,ListType:Bulleted,PrincipalOnly:Yes,[id number]:Yes spantype=macro" title=#Problems(InitialCap:Yes,ListType:Bulleted,PrincipalOnly:Yes,[id number]:Ye s)><ul> <li>Pulmonary embolism ( ICD-10:I26.94 ;Multiple subsegmental pulmonary emboli without acute cor pulmonale )</li></ul></span>
<span class=clinicalNoteSectionVisible id=[id number] internalbreaksection=false" originalname=Treatment: recognizeconcepts=true spantype=section" suppressempty=true>Treatment History:</span>
<span class=clinicalNoteMacroWysiwyg id=[id number] macroname=Regimens parameters=ShowPRNMedications:No,ShowPreMedications:No,RegimenFormat:Bulleted spantype=macro title=#Regimens(ShowPRNMedications:No,ShowPreMedications:No,RegimenFormat:Bu lleted)>Iron Sucrose (Venofer) (Intravenous Iron) Cycle Length: 4 Number Cycles: 5 Start: C1D1 on 04/21/2025 Assoc Dx: Acquired iron deficiency anemia due to decreased absorption LOT: Other 04/21/2025 C4 D1
<ul> <li>Iron Sucrose IV, 200 mg</li> <li>Hydrocortisone IV, HELD: 100 mg q6h</li> <li>Tylenol (Acetaminophen Oral), 650 mg</li> <li>Famotidine IV, 20 mg</li> <li>Dexamethasone IV, 10 mg</li> <li>Solu-Medrol (PF) (Methylprednisolone (PF) IV), HELD: 125 mg</li></ul></span>
<span class=clinicalNoteSectionVisible id=[id number] internalb reaksection=false originalname=History of Prior Illness: recognizeconcepts=& quot;true spantype=section suppressempty=true>History of Present Il lness:</span>
Ms. Peguero is a 44-year-old female with history of asthma, chronic back pain, constipation, diverticulitis, fibromyalgia, hypothyroidism and multiple abdominal surgeries.She presented to [facility] for complaints of abdominal pain, swelling,nausea, vomiting, diarrhea. She had been previously admitted to the hospital for abdominal pain with findings of bowel ischemia with CT scan showing pneumatosis of the right colon with portal venous air and subsequently underwent diagnostic laparotomy with right hemicolectomy, lysis of adhesions and washout on 12/16. On 12/18 she underwent ojre-vo-etzo ileocolonic anastomosis with fascial closure and washout. She remained intubated after the procedures and was subsequently extubated and transferred to the medical floor. She was placed on TPN and subsequently transition back to enteral nutrition. 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 While on the heparin drip, she developed a <strong>DVT to right common femoral vein.</strong> CTA of the chest was negative for pulmonaryembolus. I was consulted and ordered hypercoagulability work-up. <strong>Lupus anticoagulant is negative. Beta-2 glycoprotein anticardiolipin antibodies are negative. There is low protein S activity and low protein C activity. Factor V leiden mutation is negative. Prothrombin gene mutation is negative. She has MTHFR mutation with 1 copy of C677T mutation. Homocystine level is normal. </strong> She was subsequently transitioned to Eliquis and was discharged home with Eliquis.
She was brought to our facility with one day history of melena on 02/01/25. Last colonoscopy about 3 years ago. She was found to have diverticulosis. About 3 years ago she had ischemic colitis and underwent partial colectomy.
She was admitted to [facility] for stroke like symptoms, code stroke protocol was initiated. CTA of the head and neck were negative. Patient was admitted to ICU services for further workup of ischemic CVA.

Neurology consulted and following. Patient started onantiplatelet therapy with aspirin. High-dose statin ordered. [place] PNP verified, patient takes 4 mg of Dilaudid p.o. every 6 hours with prescription for 80 MME daily at home. Patient also takes 150 mg of Lyrica 3 times daily and Xanax 1 mg twice daily p.o. Anx iolytics and pain medication per primary service.

<span cl ass=clinicalNoteSectionVisible id=[id number] internalbreaksect ion=false originalname=Interval History: recognizeconcepts=true spantype=section suppressempty=true>Interval History:</span><br& gt;<span><p>The patient is presenting today for a follow-up for pulmonary embolism. Harlan had multiple hospital admissions, with conflicting advice from different specialists regarding her anticoagulation management. She mentions that some doctors advise her to stay on blood thinners due to her history of clotting, while others recommend discontinuation due to her history of GI bleed s. She has a history of GI bleeds, which occurred even when she was not on blood thinners. She underwent an endoscopy during a recent hospital stay. She has been receiving iron infusions, with 3 out of 5 approved infusions completed so far. Her hemoglobin has improved from 11.3 to 13 following ironsupplementation. She reports worsening of her left-sided weakness, headaches, and numbness since her last visit.</p></span><span class=clinicalNoteSectionVisible id=se [id number] internalbreaksection=false originalname=Chief Complain t: recognizeconcepts=true spantype=section suppressempty=true">Past Medical History:</span>
<ul> <li>asthma
</li> <li>chronic back pain
</li> <li>constipation
</li> <li>diverticulitis
</li> <li>fibromyalgia
</li> <li>hypothyroidism
</li> <li>migraine</li> <li>multiple abdominal surgeries </li></ul><span class=clinicalNoteSectionVisible id=[id number] internalbreaksection=false originalname=Interval History: recognizeconcepts=true spantype=section suppressempty=true">Past Surgical History:</span>
<span class=clinicalNoteMacroWysiwyg" id=[id number] macroname=Surgeries parameters=LookBac kDays:All,ListType:Bulleted spantype=macro title=#Surgeries(LookBackDays:All ,ListType:Bulleted)><ul> <li>2018, Procedure: Bypass gastroenterostomy (procedu re)</li> <li>2012, Procedure: Appendectomy, NOS</li> <li>1998, Procedure: Ch olecystectomy (procedure)</li></ul></span>

<span class=&quot ;clinicalNoteSectionVisible id=[id number] internalbreaksection="false originalname=Comments for Past Surgical History: recognizeconcepts=true spantype=section suppressempty=true>Past Surgical History*:</span>
<ul> <li> Exploratory Laparotomy (12/18/2022) </li> <li> Abdominal Laparoscopy (12/16/2022) </li> <li> Herniorrhaphy Umbilical Laparoscopic Robotic (02/22/2021) </li> <li> Gastric bypass operation (04/09/2016) </li> <li> Appendectomy </li> <li> Cholecystectomy </li> <li> Colonoscopy </li> <li> EGD </li> <li> &n bsp;Gastric bypass operation </li></ul><span class=clinicalNoteSectionVisible id=[id number] internalbreaksection=false originalname=Past Medical/Surgical History: recognizeconcepts=true spantype=section suppressemp ty=true>Medications:</span>
<span class=clinicalNoteMacroWysiwyg id=[id number] macroname=PatientMedications parameters= ListType:Bulleted,ValueIfNull:No Known Medications spantype=macro title=&quo t;#PatientMedications(ListType:Bulleted,ValueIfNull:No Known Medications)><ul> <li>Folic Acid Oral 1 mg tablet 1 tablet orally daily.</li> <li>Dilaudid (HydromorphoneOral) 4 mg tablet PRN</li> <li>Amitriptyline Oral 10.0 mg</li> <li>Buspirone Oral 5.0 mg</li> <li>Tizanidine Oral 4.0 mg</li> <li>Cyanocobalamin 1,000 mcg/mL solution INJECT 1 ML INTRAMUSCULARLY ONCE WEEKLY FOR 30 DAYS THEN ONLY ONCE MONTHLY THEREAFTER</li> <li>Pregabalin Oral 150.0 mg</li> <li>Ferrous Sulfate Oral 325 mg (65mg iron) tablet 325 mg orally daily.</li> <li>Apixaban Oral 5.0 mg</li> <li>Eliquis (Apixaban Oral) 5 mg tablet BID</li> <li>Cyanocobalamin IM 1,000 mcg intramuscularly every week.</li> <li>Cyanocobalamin IM 1,000 mcg/mL solution 1,000 mcg intramuscularly every week. Take injection x1 weekly for a month. After the month, proceed to take the injection once a month.</li></ul></span>

Medications reviewed and reconc iled with patient.

<span class=clinicalNoteSectionVisible id=&quot ;[id number] internalbreaksection=false originalname=Allergies : recognizeconcepts=true spantype=section suppressempty=true&quo t;>Allergies:</span>
<span class=clinicalNotOhioHealth [facility] HospitalcroWysiwyg id= [id number] macroname=Allergies parameters=ListType:Bulleted,Valu eIfNull:No Known Allergies spantype=macro title=#Allergies(ListType:Bulleted ,ValueIfNull:No Known Allergies)><ul> <li>Haldol</li> <li>Iodinated Contrast Media</li> <li>NSAIDS (Non-Steroidal Anti-Inflammatory Drug)</li> <li >Penicillins</li> <li>Phenergan</li> <li>Reglan</li> <li>Toradol</li> <li>dicyclomine</li> <li>fentanyl</li></ul></span>
<span class=clinicalNoteSectionVisible id=[id number]" internalbreaksection=false originalname=Smoking Status recognizeconcept s=true spantype=section suppressempty=true>Smoking Status:&lt ;/span>
<span class=clinicalNotOhioHealth [facility] HospitalcroWysiwyg id=[id number] macroname=PatientSmokingStatus parameters=Verbosity:Medium spantype=macro title=#PatientSmokingStatus(Verbosity:Medium)>Smoking Tobacco : Never smoker; Smokeless Tobacco : Never used smokeless tobacco; Vaping : Never vaped</span>< br>
<span class=clinicalNoteSectionVisible id=[id number] internalbreaksection=false originalname=Social History: recognizec oncepts=true spantype=section suppressempty=true>Social Histo ry:</span>
non-ETOH drinker

<span class=clinicalNoteSectionVisible id=[id number] internalbreaksection=false originalname=Family History: recognizeconcepts=true spantype=sectionsuppressempty=true>Family History:</span>
<span class=clinicalNotOhioHealth [facility] HospitalcroWysiwyg id=[id number] macroname=FamilyHistory pa rameters=ListType:Bulleted,ShowComments:Yes spantype=macro title=#Fami Aime(ListType:Bulleted,ShowComments:Yes)><ul> <li>Brother 1: - Kaylen ng cancer</li> <li>Grandmother - Paternal (2nd Degree): - Colorectal cancer</li> <li>Uncle - Paternal (2nd Degree): - Lung cancer</li> <li>Aunt -Paternal (2nd Degree): - Lung cancer</li></ul></span>
<span class=clinicalNoteSectionVisible id=[id number] internalbreaksection=false originalname=ROS: recognizeconcepts=true spantype="section suppressempty=true>ROS:</span>
<span><span><p>12 point ROS (-) except as otherwise mentioned in the HPI or below.

</p><p>Wt loss: (-); fevers: (-); night sweats: (-); <strong>fatigue: (+);</strong> loss of appetite: (-); visual complaints: (-); <strong>BEARD's: (+);</strong> <strong>focal weakness: (+);</strong> <strong>numbness: (+);</strong> dyspnea: (-); cough: (-); CP: (-); abd pain: (-); abd bloating: (-); LE edema: (-); skin rash: (-); nausea:(-); vomiting: (-); diarrhea: (-); constipation: (-); BRBPR: (-); melena: (-); epistaxis: (-); easybruising/bleeding: (-); swollen lymph nodes: (-); claudication: (-).</p></span></span><span class=clinicalNoteSectionVisible id=[id number] internalbreaksection=false originalname=Physical Examination: recognizeconcepts=true spantype=section suppressempty=true>Vitals:</span>
<span class=clinicalNotOhioHealth [facility] HospitalCristinaunity[facility] id=[id number]" macroname=PatientHeight parameters=Label:Height:,LookBackDays:0,ValueIfNull:None Today spantype=macro title=#PatientHeight(Label:Height:,LookBackDays:0,Nasrin ueIfNull:None Today)>Height: None Today</span>; <span class=clinicalNotOhioHealth [facility] Hospitalaramis Jonesunity[facility] id=[id number] macroname=PatientWeight parameter s=Label:Weight:,LookBackDays:0,ValueIfNull:None Today spantype=macro title=& quot;#PatientWeight(Label:Weight:,LookBackDays:0,ValueIfNull:None Today)>Weight: None Today</span>; <span class=clinicalNotOhio[facility] Hospital[facility] id=[id number]" macroname=PatientVitalSigns parameters=LookBackDays:0,Verbosity:Medium spantype=macro title=#PatientVitalSigns(LookBackDays:0,Verbosity:Medium)>Blood pressure: , Pulse: , Temperature: , Respirations: , Pain Scale: </span>

<span class=clinicalD[facility] HospitalCristinaunity[facility] id=[id number] macron los=KarnofskyStatus parameters=Label:Karnofsky,ValueIfNull:Not Assessed,Verbosity:Medium spantype=macro title=#KarnofskyStatus(Label:Karnofsky,ValueIfNull:Not Assessed,Verbosity:Medium)>Karnofsky Not Assessed</span>

<span class=clinicalNoteSectionVisible id=[id number] internalbreaks ection=false originalname=Comments for Physical Exam: recognizeconcepts=&quo t;true spantype=section suppressempty=true>Physical Exam:</span& gt;

Constitutional: normal appearance, no acute distress, via telemedicine.

<span class=clinicalNoteSectionVisible id=[id number] internalbreaksection=false originalname=Labs: recognizeconcepts="true spantype=section suppressempty=true>Labs:</span>
<span class=clinicalNoteMacroWysiwyg id=[id number] macroname=RecentLabResultsTable parameters=OptionalFlowsheetCategory:CBC,Label:CBC,ValueIfNull:None Today spantype=macro title=#RecentLabResultsTable(OptionalFlows heetCategory:CBC,Label:CBC,ValueIfNull:None Today)>CBC<table border=1 style= width:100%> <tbody> <tr> <th align=left>Lab Results</> <td>05/03/2025</td> <td>04/21/2025</td> <td>04/05/2025</td> <td>03/08/2025</td> <td>03/01/2025</td> <td>02/15/2025</td></tr> <tr> <th align=left> CBC</th> <td>
</td> <td>
</td> <td>
</td> <td>
</td> <td>
</td> <td>
</td> </tr> <tr> <td> WBC x 10^3/uL</td> <td>6.8</td> <td>4.5 (L)</td> <td>7.3</td> <td>9.7</td> <td>10.4</td> <td>
</td> </tr> <tr> <td> RBC x 10^6/uL</td> <td>3.94 (L)</td> <td>3.57 (L)< /td> <td>3.10 (L)</td> <td>3.10 (L)</td> <td>3.21 (L)</td> <td>
</td> </tr> <tr> <td> NRBC, absolute, x 10^3/uL</td> <td>0.00</td> <td>0.00</td> <td>0.00</td> <td>0.02 (H)</td> <td>0.26 (H)</td> <td>
</td> </tr> <tr> <td> NRBC, %</td> <td>0.0</td> <td>0.0</td> <td>0.0</td> <td>0.2</td> <td>2.5 (H)</td> <td>
</td> </tr> <tr> <td> HGB g/dL</td> <td>12.1</td> <td>10.8(L)</td> <td>9.4 (L)</td> <td>9.4 (L)</td> <td>9.4 (L)</td> <td>
</td> </tr> <tr> <td> HCT %</td> <td>39.8</td> <td>36.7 (L)</td> <td>33.0 (L)</td> <td>32.3 (L)</td> <td>32.8 (L)</td> <td>
</td> </tr> <tr> <td> MCV fL</td> <td>101.0 (H)</td> <td>102.8 (H)</td> <td>106.5 (H)</td> <td>104.2 (H)</td> <td>102.2 (H)</td> <td>
</td> </tr> <tr> <td> MCH pg</td> <td>30.7</td><td>30.3</td> <td>30.3</td> <td>30.3</td> <td>29.3</td> <td>
</td> </tr> <tr> <td> MCHC g/dL</td> <td>30.4 (L)</td> <td>29.4 (L)</td> <td>28.5 (L)</td> <td>29.1 (L)</td> <td>28.7 (L)</td> <td>
</td> </tr> <tr> <td> RDW %</td> <td>16.7 (H)</td> <td>16.1 (H)</td> <td>17.2 (H)</td> <td>21.0 (H)</td> <td>19.0 (H)</td> <td>
</td> </tr><tr> <td> PLT x 10^3/uL</td> <td>389</td> <td>317</td> <td>344</td> <td>378</td> <td>510(H)</td> <td>
</td> </tr> <tr> <td> MPV fL</td> <td>10.3</td> <td>9.8</td> <td>10.7</td> <td>10.0</td> <td>10.8</td> <td>
</td> </tr> <tr> <td> Platelet, immature, fraction %</td> <td>
</td> <td>
</td> <td>
</td> <td>
</td> <td>7.9 (H)</td> <td>
&l t;/td> </tr> <tr> <td> Tripp %</td><td>63.8</td> <td>60.9</td> <td>75.0</td> <td>72.5</td> <td>
</td> <td>
</td> </tr> <tr> <td> LY %</td> <td>27.6</td> <td>28.2</td> <td>16.4</td> <td>21.5</td> <td>
</td> <td>
</td> </tr> <tr> <td> MO %</td> <td>6.5</td> <td>8.1</td> <td>6.7</td> <td>4.1</td> <td>
</td> <td>
</td> </tr> <tr> <td> EO %</td> <td>1.0</td> <td>2.2</td> <td>1.2</td> <td>0.8</td> <td>
</td> <td>
</td> </tr> <tr> <td> &nbs p; IG %</td> <td>0.7 (H)</td> <td>0.2</td> <td>0.4</td> <td>0.4</td> <td>
</td> <td>
</td> </tr> <tr> <td> Tripp # (ANC) x 10^3/uL</td> <td>4.30</td> <td>2.76</td> <td>5.47</td> <td>7.00 (H) </td> <td>
</td> <td>
</td> </tr> <tr> <td> BA %</td> <td>0.4</td> <td>0.4</td> <td>0.3</td> <td>0.7</td> <td>
</td> <td>
</td> </tr> <tr> <td> MO # x 10^3/uL</td> <td>0.44</td> <td>0.37</td> <td>0.49</td> <td>0.40</td> <td>
</td> <td>
</td> </tr> <tr> <td> EO # x 10^3/uL</td> <td>0.07</td> <td>0.10</td> <td>0.09</td> <td>0.08</td> <td>
</td> <td>
</td> </tr> <tr> <td> BA # x 10^3/uL</td> <td>0.03</td> < td>0.02</td> <td>0.02</td> <td>0.07</td> <td>
</td> <td>
</td> </tr> <tr> <td> IG # x 10^3/uL</td> <td>0.05 (H)</td> <td>0.01</td> <td>0.03</td> <td>0.04 (H)</td> <td>
</td> <td>
</td> </tr> <tr> <td> LY # x 10^3/uL</td> <td>1.86</td> <td>1.28</td> <td>1.20</td> <td>2.08</td> <td>
</td> <td>
</td> </tr> &l t;tr> <td> Auto CBC comments</td> <td>
</td> <td>
</td> <td>
</td> <td>
</td> <td>See Man Diff</td> <td>
</td> </tr> </tbody></table></span>
<span class=clinicalNoteMacroWysiwyg" id=[id number] macroname=RecentLabResultsTable parameters=&quot ;OptionalFlowsheetCategory:Chemistries,Label:Chemistries,ValueIfNull:None Today spantype="macro title=#RecentLabResultsTable(OptionalFlowsheetCategory:Chemistries,Label:Chemis tries,ValueIfNull:None Today)>Chemistries<table border=1 style=width:100%> <tbody> <tr> <th align=left>Lab Results</th> <td>05/03/2025</td> <td>04/21/2025</td> <td>04/05/2025</td> <td>03/08/2025</td> <td>03/01/2025</td> <td>02/15/2025</td> </tr> <tr> <th align=left> Chemistries</th> <td>
</td> <td>
</td> <td>
</td> <td>
</td> <td>
</td> <td>
</td> </tr> <tr> <td> Glucose mg/dL</td> <td>137 (H)</td> <td>125 (H)</td> <td>126 (H)</td> <td>
</td><td>
</td> <td>
</td> </tr> <tr> <td> BUN mg/dL</td> <td>11</td> <td>9</td> <td>10</td> <td>
</td> <td>
</td> <td>
</td> </tr> <tr> <td> Creatinine, mg/dL</td> <td>0.87</td> <td>0.81</td> <td>0.89</td> <td>
</td> <td>
</td> <td>
</td> </tr> <tr> <td> BUN/Creatinine ra esther</td> <td>12.6</td> <td>11.1</td> <td>11.2</td> <td>
</td> <td>
</td> <td>
</td> </tr> <tr> <td> Sodium mmol/L</td> <td>142</td> <td>143</td> <td>141</td> <td>
</td> <td>
</td> <td>
</td> </tr> <tr> <td> Potassium mmol/L</td> <td>4.5</td> <td>3.4 (L)</td> <td>3.8</td> <td>
</td> <td>
</td> <td>
</td> </tr> <tr> <td> Chloride mmol/L</td> <td>106</td> <td>108 (H)</td> <td>105</td> <td>
</td> <td>
</td> <td>
</td> </tr> <tr> <td> CO2 mm ol/L</td> <td>24.1</td> <td>23.0</td> <td>24.3</td> <td>
</td> <td>
</td> <td>
</td> </tr> <tr> <td> Calcium mg/dL</td> <td>9.0</td> <td>8.1 (L)</td> <td>8.6</td> <td>
</td> <td>
</td> <td>
</td> </tr> <tr> <td> Albumin g/dL</td> <td>3.4</td> <td>3.3 (L)</td> <td>3.2 (L)</td> <td>
</td> <td>
</td> <td>
</td> </tr> <tr> <td> Total protein g/dL</td> <td>6.8</td> <td>6.6</td> <td>7.1</td> <td>
</td> <td>
</td> <td>
</td> </tr> <tr> <td> Globulin g/dL</td> <td>3.4</td> <td>3.3</td> <td>3.9</td> <td>
</td> <td>
</td> <td>
</td> </tr> <tr> <td> A/G ratio</td> <td>1.0</td> <td>1.0</td> <td>0.8</td> <td>
</td> <td>
</td> <td>
</td> </tr> <tr> <td> Bilirubin, total mg/dL</td> <td>0.3</td> <td>0.3</td> <td>0.5</td> <td>
</td> <td>
</td> <td>
</td> </tr> <tr> <td> Alkaline phosphatase U/L</td> <td>144 (H)</td> <td>136 (H)</td> <td>148 (H)</td> <td>
</td> <td>
</td> <td>
</td> </tr> <tr> <td> AST/SGOT U/L</td> <td>18</td> <td>41 (H)</td> <td>16</td> <td>
</td> <td>
</td> <td>
</td> </tr> <tr> <td> ALT/SGPT U/L</td> <td>53</td> <td>47</td> <td>17</td> <td>
</td> <td>
</td> <td>
</td> </tr> <tr> <td> LDH U/L</td> <td>162</td> <td>194</td> <td>177</td> <td>
</td> <td>
</td> <td>
</td> </tr> <tr> <td> GFR estimate mL/min/1.73m2</td> <td>84</td> <td>&gt ;90</td> <td>82</td> <td>
</td> <td>
</td> <td>
</td> </tr> <tr> <td> Ammonia, plasma, umol/L</td> <td>
</td> <td>
</td> <td>65</td> <td>
</td> <td>
</td> <td>
</td> </tr> </tbody></table></span>
<span class=clinicalNoteMacroWysiwyg id=[id number] macroname="RecentLabResultsTable parameters=OptionalFlowsheetCategory:Tumor Markers,Label:Tumor Markers,ValueIfNull:None Today spantype=macro title=#RecentLabResultsTable( OptionalFlowsheetCategory:Tumor Markers,Label:Tumor Markers,ValueIfNull:None Today)>Tumor Markers None Today</span>

<span class=clinicalNoteSectionVisible id=[id number] internalbreaksection=false originalname=Imaging: recognizeconcepts=true spantype=section suppressempty=true>Imaging:</span>
1. CT head 05/27/2025. No acute bleed, infarct or any mass effect.

2. CTA head 05/27/2025. No hemodynamically significant stenosis.

3. CTA neck 05/27/2025. No significant arterial abnormality throughout the neck.

4. MRI brain 05/28/2025. No acute bleed, infarct or mass effect.

5. MRI C-spine 05/28/2025. Multilevel disc bulges are evident, worst at C5-C6 and C6- C7.
There is mild central canal narrowing at C5-C6. Multilevel mild to moderate neural
foraminal narrowing is evident, worst on the left at C4-C5 and C5-C6 and worse on the right at C5-C6.

6. MRI T-spine 05/28/2025. Mild disc desiccation and a minimal right paracentral disc bulge at T5-T6 without central canal
or neural foraminal stenosis.

7. MRI L-spine 05/28/2025. Mild broad disc bulge as well as advanced right facet arthropathy and moderate left facet
arthropathy at L4-L5. There is no central canal or neural foraminal jennifer nosis present at this time.

<span class=clinicalNoteSectionVisible id=[id number] internalbreaksection=false originaln los=Problem List: recognizeconcepts=true spantype=section suppre ssempty=true>Problem List:</span>
<span class=clinicalNoteMacroWysiwyg id=[id number] macroname=Problems parameters=&quot ;InitialCap:Yes,ListType:Bulleted,[id number]:Yes,Verbosity:Medium spantype=macro ti tle=#Problems(InitialCap:Yes,ListType:Bulleted,[id number]:Yes,Verbosity:Medium) ><ul> <li>Pulmonary embolism ( ICD-10:I26.94 ;Multiple subsegmental pulmonary emboli without acute cor pulmonale )</li> <li>Acquired iron deficiency anemia due to decreased absorption ( ICD-10:D50.0 ;Iron deficiency anemia secondary to blood loss (chronic) )</li> <li>Anemia (disorder)</li> <li>Anxiety (finding)</li> <li>Arthritis (disorder)</li> <li>Asthma (disorder)</li> <li>Asthma (disorder)</li> <li>Backache (finding)</li> <li>Breast neoplasm screening status (finding) ( ICD-10:Z12.31 ;Encounter for screening mammogram for malignant neoplasm of breast )</li> <li>Cerebrovascular accident (disorder)</li> <li>Chronic back pain (finding)</li> <li>Chronic bronchitis (disorder)</li> <li>Chronic neck pain (finding)</li> <li>Chronic pain syndrome (disorder)</li> <li>Constipation (finding)</li> <li>Displacement of lumbar intervertebral disc without myelopathy (disorder)</li> <li>Diverticular disease (disorder)</li> <li>Embolism from thrombosis of vein of lower extremity (disorder)</li> <li>Endometriosis (disorder)</li> <li>Endometriosis (disorder)</li> <li>Fibromyalgia (disorder)</li> <li>Fibromyalgia (disorder)</li> <li>Fibromyalgia (disorder)</li> <li>Functional finding (finding) ( ICD-10:D68.62 ;Lupus anticoagulant syndrome )</li> <li>Generalized abdominal pain (finding)</li> <li>Helicobacter-associated disease (disorder)</li> <li>Hypothyroidism (disorder)</li> <li>Hypothyroidism (disorder)</li> <li>Hypothyroidism (disorder)</li> <li>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)</li> <li>Infectious disorder of kidney (disorder)</li> <li>Intestinal malabsorption (disorder) ( ICD-10:K90.89 ;Other intestinal malabsorption )</li> <li>Knee pain (finding)</li> <li>Leiomyoma (disorder)</li> <li>Measurement finding (finding) ( ICD-10:R97.8 ;Other abnormal tumor markers )</li> <li>Microbiologic culture positive (finding)</li> <li>Mixed anxiety and depressive disorder (disorder)</li> <li>Nutritional anemia (disorder) ( ICD-10:D53.9 ;Nutritional anemia, unspecified )</li> <li>Obesity (disorder)</li> <li>Urinary tract infectious disease (disorder)</li></ul></span>

<span class=clinicalNoteSectionVisible id="[id number] internalbreaksection=false originalname=Assessment/Plan: recognizeconcepts=true spantype=section suppressempty=&quot ;true>Impression:</span>
<strong>1. Hypercoagulable Disorder</strong>
S/p multiple hospitalizations for bowel ischemia with pneumatosis of the right colon with portal venous air. 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 While on the heparin drip, she developed a <strong>DVT to right common femoral vein.</strong> CTA of the chest was negative for pulmonary embolus. I was consulted and ordered h ypercoagulability work-up. <strong>Lupus anticoagulant is negative. Beta-2 glycoprotein anticardiolipin antibodies are negative. There is low protein S activity and low protein C activity. Factor V leiden mutation is negative. Prothrombin gene mutation is negative. She has MTHFR mutation with1 copy of C677T mutation. Homocystine level is normal. </strong>She was subsequently transitioned from Heparin and was discharged home with Ling. Due to initial presentation similarto catastrophic systemic embolism I will repeat some of the hypercoagulable work up.
<div style=text-align:left>
CMP revealed low calcium at 8.30 and allother normal functions on 04/19/2023

CBC revealed normal WBC at 6.5, low hemoglobin at 9.9, and elevated platelet at 412 on 04/19/2023

Lupus anticoagulant negative on 02/01/2023

Beta 2 glycoprotein high at 24.7 on 02/01/2023

Protein S activity panel normal at 117 on 02/01/2023

Protein C activity panel normal at 79 on 02/01/2023

Antithrombin III activity high at 142 on 02/01/2023.< br>
</div><div style=text-align:left>Labs taken on 12/01/2024 were discussed with the patient. White blood cell count was normal at 6.2, hemoglobin improved from 9.9 to 11.7, and platelet count was normal at 353,000. Glucose was mildly elevated at 111, chloride was elevated at 109, alkaline phosphatase was elevated at 122, and albumin was low at 3.3. LDH was normal at 181.

Labs taken during the hospital stay were discussed with the patient.Hemoglobin levels fluctuated between 9.9 and 7.0, with the lowest recorded value being 7.8. The patient's vitamin B12 was noted to be low.

Endoscopy revealed gastritis and a healing GI bleed. The capital markets specialist noted that the patient's body is producing more acid thanher stomach can absorb, possibly due to her history of gastric bypass surgery.

Labs taken on 05/03/2025 were discussed with the patient. Hemoglobin was 12.1, WBC was 6.8, and platelets count was 389,000. Total iron was normal at 59, iron saturation was improved to 12%, and ferritin was normal at 139. Glucose was slightly high at 137, alkaline phosphatase was elevated at 144, otherwise rest of the chemistry panel was normal. LDH was normal at 162.

1. CT head 05/27/2025. No acute bleed, infarct or any mass effect.

2. CTA head 05/27/2025. No hemodynamically significant stenosis.

3. CTA neck 05/27/2025. No significant arterial abnormality throughout the neck.

4. MRI brain 05/28/2025. No acute bleed, infarct or mass effect.

5. MRI C-spine 05/28/2025. Multilevel disc bulges are evident, worst at C5-C6 and C6-C7.
There is mild central canal narrowing at C5-C6. Multilevel mild to moderate neural
foraminal narrowing is evident, worst on the left at C4-C5 and C5-C6 and worse on the right at C5-C6.

6. MRI T- spine 05/28/2025. Mild disc desiccation and a minimal right paracentral disc bulge at T5-T6 without central canal
or neural foraminal stenosis.

7. MRI L-spine 05/28/2025. Mild broad disc bulge as well as advanced right facet arthropathy and moderate left facet
arthropathy at L4-L5. There is no central canal or neural foraminal stenosis present at this time.
</div><div style="text- align:left><span class=clinicalNoteSectionVisible id=section_[id number] internalbreaksection=false originalname=Plan: recogniz econcepts=true spantype=section suppressempty=true>Plan:</span></div><ol> <li style=text-align: left;>I had a long discussion with the patient regarding Eliquis. MRI of the brain did not show an acute infarct. She had GI bleed every time she took Eliquis.
</li><li style=text-align: left;>I will discontinue Eliquis.</li> <li style="text- align: left;>She can continue antiplatelet agent.
</li> <li style=text- align: left;>I will continue IV iron if the iron stores continue to show that she is iron deficient.
</li> <li style=text-align: left;>I will order CBC, CMP, LDH panel, and Iron, TIBC, and Ferritin panel to be completed every 4 weeks startingfrom 06/17/2025.</li> <li style=text-align: left;>The patient will follow up in 12 weeks.</li></ol><div style=text-align:left>All medical records were reviewed. Clinical situation was explained at length to the patient. All questions were addressed.

Documentation assistance provided by Adalid Gant, scribing for Mervat Shrestha MD, on 06/16/2025.

IMervat MD, personally performedthe services described in this documentation, and it is both accurate and complete.

<span class=clinicalNoteMacroWysiwyg id=[id number] macroname=MyName spantype=macro title=#MyName>Adalid Gant Scribe</span>

<span class=clinicalNoteMacroWysiwyg id=[id number] macroname=NoteRecipients spantype=macro title=#NoteRecipients>[facility]</span>

<span class=clinicalNoteSectionVisible id=&qu ot;[id number] internalbreaksection=false originalname=Send co py of note to: recognizeconcepts=true spantype=section suppr essempty=true>Send copy of note to:</span>
Dr. Sebas Douglas

.

</div></div>

<div><span class =eSignSignature>Electronically signed by Mervat Shrestha MD 06/19/2025 18:34 MDT</span></div></body></html> * HemOnc Follow Up {Darrell Shrestha <html><head></head><body><div style=text-align:center><div style=text- align:center><span class=clinicalNoteMacroWysiwyg id=&q uot;[id number] macroname=PracticeLetterhead spantype=macro title=#PracticeLetterhead><img src=data:image/jpeg;base64,/9j/4AAQSkZJRgABAg EASABIAAD/4RDpRXhpZgAASUkqAAgAAAAHABIBAwABAAAAAQAAABoBBQABAAAAYgAAABsBBQABAAAAag AAACgBAwABAAAAAgAAAD EBAgAcAAAAcgAAADIBAgAUAAAAjgAAAGmHBAABAAAApAAAANAAAACA/NfTPIhDLPZ9XbPDSeNPYEFkGx RtVZwfqR9pyM6nYKCCFX DPhB1lp7rnPLIqEaZ4GSH5KSPcSYb7JdG7ZSEIYXLOZGXtUhUZGQQW//8AAAKgBAABAAAAHgEAAAOgBA ABAAAAWwAAAAAAAAAAAA YAAwEDAAEAAAAGAAAAGgEFAAEAAAAeAQAAGwEFAAEAAAAmAQAAKAEDAAEAAAACAAAAAQIEAAEAAAAuAQ AAAgIEAAEAAACzDwAAAA AAAEgAAAABAAAASAAAAAEAAAD/2P/gABBKRklGAAECAABIAEgAAP/wUDmTKB3rTR0XACZY/+7PYeYok9 JlAGSAAAAAAf/bAIQADA wBQQeZVXiXPYHSRdrVDV6HQU0YSYTQAWMXWWFYCSsJHLtLGBeLJUeLCUvVPDfUUMkNCTlIKTyROThNHX xFFDCUYspALb5KGz6FEZ 4WFsCTMh8QZuJCHVmFIOfVABfDHVgYSKFKLYnHJLyPBAcSUGoPKPyUDAoZUClKTTnBHVfO/8AAEQgAMw CgAwEiAAIRAQMRAf/dAA QACv/FDV1JTWRPRVDHWMHPPMBDJZGMDWHLSDRXVXBPORnITwIPGXMDRHYVUTIJSGVSTQQFUCZYTnPUQi cICQoLEAABBAEDAgQCBQ rHLPWOTNQVPBVLVoNjFwXXSLYdWyElmXSDGDGbrLCrPSJXuEBgEYND7XSWZZLN3UTjA5Z4JxYclqXMh6 KfJdMqmEHD6rUuZzTzlL DQpmZwAgpBgBG5omJY3GOqcxTL2iWXMopTcgk1uitd4joRX5q0j2kij3wY6/cRAAICAQIEBAMEBQYHBw YFNQEAAhEDITESBEFRYX RpAgMulMSZveZYE2RB2wJyOCNiniKGM0YKD0T52AWWJiSlglloKdIUYZPEkyqeDCX8wBOb5pUWu7Y69/ AOtIMItWOD6MY6dlVB0y C2GzS1rkkosmfR9xShE7eCH6xRr9p2z//zOCzOIFCNLTHNTQ1Z0KYSWsvrFteR8E8PacA8gxUr27Xe0c 817S/m0qs2p6KZ0XiNti XYSK3+ubm6aMV7I8iSlOa8ELfndN/wR3X0UZNoO9HX3qbnEU7+FC2A1siJrSQngDZbdpu/dF6INbKEQT TSVtavUqabce4qYQVjf3 h8R2SHvRJCuJwNgEjBGf4Y8Q+r8evjXD3c6U5Pvs5YY1FrcaipicYItV97l2zrXENkxcShJz06yKTi38 z/AMCQlKhdE+O3ZZGda5 8SfLF4ZGUXliYnKtdw1mhTPNMOxSOnoE3jaUp4+zv/AEbBt/UvX4f4wm+W8uDt0bPfxw1/NEWCRXXQKi Z1ofshQmQVtSyaRm/G9S yi9p/QW0H1m1fwVp4jy1/0/rKiu6ws8XlHVwfXAC3EM1zJnQYo4+lr6TH+69Qhx4OKbkof7EfMohhrGC xr9OpKMAoh2Le100dUll 2e/Y30v+IK2X1l8fTt+w0ORd8mAxagb2u/frrftc+v+OzYmbR4CyZdddXxfGkVDjrpEU+c8N0mlS5PO9 ucfX7Wo7Lg2rPxi8VM9j a4AII5swpepsHvEDhb9qF9NWOYnpTxfU30hKZm/Rv8Wlqirz5KbNizusGmIse+FqrriUlWTmwr2vdZc+ 7d1hjgtX+s2AcwYLncTz 4x4DYdM3UK+XLk020u/M020GPRws5nNSWCzPcmzochqn6kzrSYDgzlHF1XfslM/vhn+j/3B1KRJ1PYfj j3Sf3a0KW1j+97jK8Bos 2WjQ58wrYBkz6Cekcp7JvGg5/NzxuEo62DSTC9jlwRI1pquT7F/wAhyq2/UDnpI0cosgL+hL8jcv6TtE 0mWW/zVb2/o3cqP6atYl hO3BswCNVPkdtRXufZnlv20MnvR3pOPWnu7sLqma4o+5ux/yOrjb6irUlcBJwEwfJU5M4x2XM0WOn+Fb +1rD6X3w4Z/9DsvrbXWw 0TPHuwTHHcuPJGyFqAo9+n3or0m1kJ8cmK5ZcmDS9OD1DBW7xDIAvpK8j1vvxTuwqpf1Zl9U3sqL+g4W DDYMko6E0l9heGm7taBy voeYh57CfHVk+kmKc1fclKM3mvZ6H3b4/tdgmgyMxzQa8TLH55AqK/ZOvv9ch4m4ObB89v06DmUrRkcY 7QvPTmPWr4uT6Y3Rpsrq r/AIHf/wwPJia9Ussk1t4eCqNZ1HIhxPyKTcNZFQTXkQR829/6Glm3+z6Ppn2V8i0Rvq/Uewdn4owLrj jptm0xI8SR7IkfXC5HKS e+13+YSCtE9P01wsmNFoTUekGjbP+zj1flhnwa85yU+/0EgB9uuQomqO0QgiKr/sDqzxeuiqhU6pi49s lL+i7JPBmOVStvmK3o1J oWXeyzfTdWz/S7myKVz4dhcR8t9Ld+uJtu7hs2j2Flxsxgovj/43uNhS3uM/ob4j2IOpOe4Pp0e5o8Eg B0nBewWSnWKmF3Byn0Sl 5wz7WEan2TjkUeHp4xQronp3YR1nhkEy58KS3/+Kk9WrIALyaHh5GcPZ6sBmEhBqE0QCHXK1QB7x8gsP 092NuAES03osOq00WKuX h4CTPjghDQqZ8gz3DuX+8um85Wt2s7G3/6Ex3dNkNC0cBoL+jb4znjjwNvZKQxnHvqGD2+c/cCDq2VVl mMm1MYkbjo3ZBa/vN/cf 9Rt9oBIg5RStC5sC+1cEdK2sQj/wBb9L+2173o5Dpsg4YDX3SRb6xVaSNXBAeUIiiu/rW+yx9v/aj9LZ 71Y+r9RCwAjtx32aNz5t f2p1d5uwGp6CP2kh4F159vh0CE277AQuLpIsIOBw7N5cz2dsq/ANJss+k0DuoV7an4C30UjuQY2bwlxY YaqqOkaQKvD3kD0H0v7J OVn8JWCQdEhCLuCYjBUWSJ1SSr5yoRS0hSm6v8+nV144he2otdkpbL7LQYxfs3eCDFJ9/Yl8Mk2wG/AO 6Sv1bXoFVwU+c9Nqk2r7 kgdFirlPgB8kbPMG9az0unH3Yw5ImDzt2bj+ouzw+j6vU5koUjfYh4TpWs85ngd0zb3Hp/RAGQ5i2L2U OmPxrsR+LW/GyHuttpc2 HFk07t9pAnftr7/wCupPdGum+l/wBX/wBBY/WCtef7955/+bMJ80vdXPKt7ODBnxVx2R4CCXUM53bPN1 nC6P5Os1NxJhh3V2ginO lLA40nC7pvTQl4+793Z+f/VW8cB3O46TwbvPf5giTw91RR168Sl8955YKcppJg7V+xif6hvHUhAxGjTz rMzgg34qy953+G1/2R/H +rATCOWC5U0S8updESvVtoX+PyvM/Q03Rrm7F+0bjZ+xrNu+Z9L7T+op3Ckl3S9+xoSzjr0qcLX7bA77 xZ5+zAO3+hP+D+1fz+z/ DrSy+x9AlGaHx7TsspakeyqKKRUT+Ka7Zjwqia9Yes1J7DEBc9yIAjmZqSpP6jBNh7DIxvlJz7/wCE/S /gx7AairWmV4DNC/u+ri 0WxxTiANDwmxZ+aMk6Zmnd+bwvjasDJ9Is2q6x7CA7Aiva/tHK49tLto2EmG4bgd4X+U2Mf8Fqk9hb6N 2Rng4VZnVtM6gfHNO2ny d46WK9Kjz/817H/xUGGt1aXc2fKJxobi5Hq1Sywp1s/dubkC4jc/yrHqm/3w9NlBK/ZtlWQZuorfZXS8 c8NsnpdDW0a72/dV70OO FRCkppn4JjvcUANsVPx1pvV5x1NBV7/qUcUCKvsIv6N5ltJLr68WW3uhm56EjhswYw+m+v/rn+kW9hdL knHHmuj4X6L/2gDr05un X3ZD3H/O1Ldnp0OfkIhP3Pql6AJgq1AEcSedEU/rF38tfx4D2ijnDTXTONBKYPErDCnuf0GI4jHRmO4n xst22aYj9Z8/pP/9H0+z GrWPPaLB7p0UP/XUOyE2ZA/N60GLieRr/6ixqy/ziO92CktOMYfuhuFPipcoek436/AIbHoZ/gLB0nmu o1upI0x3P1xf4leWc9Mg Darion/XudwmtmrmvpZhkgVo6soV5v28i3o0wWNRImUh2jcQk2A9ClV/z4w2LkXA/AEchu+ruG7/zBcB5C8 UP/D0wGqK6kjKzhyBqxQ 4aBFaskjceg1gmKn7+v6N/6Z+ZVfh4/wBOr/s2HKV7Ah1mHsL41w4Pc0Cfih8IMPfFRjX3Sx26ihL5T/ TOyjjbKrMf+d/wG/8ARJ YQc9a14k/IY7yvsi9jL/tX1Af+h2T/AOlk3/NnE/7mdQ/9jsn/ANLLH/p6Oa4fJegAYCscSbW0fYLHkb B4BliSA+78P4kbF9EYm/ wFd/8Zc7U6zcjtX4OUbm2xCMzRrS00aR1m/bi3dSc/5EUimz8dDe1E/wDUv0/qeljfzyHFHsriyfv/AI rojiehdrI1k/7G5H/pZN /zS6f/ANyc/wD9jcj/RJEsx53ONyNQTyGcxcTxIkqNllM77A1oyHtVb9bUmaafeb3Tdgg8J+kip3S5zg 3Wg4LGfL3uzMuq2lxEK1 ddbnhtGKy/YfIHFCu32zpQg1G5P0iv/fSVB26ZRp/tTed23zbf2of//wBjMj/0ql/zR6d/3Jz/AP2MyP 7V4hvvA+sWWfs+TkZw+y 6R8y18gUooZD3UCcU1SibQTjmerdv9t6sxpBMk2U9mNcFtu3vFjbqh8q1hDpnZh63s5raM0RgXhkhu27 /vPo9J/wBnpr6LYvGCa4 U7vu82jf1I0u5L/kK5Ah0X+xmR/qFrMv0Zdx23/uRnf+xmR/2UQD1S6i7yR+xAqYYWM2JMaCopo3cSdo +uK387gQol2p4Wi7d34B J/VUMhZvahTWaEs69Gv/Qs9a1/6kLGiJvfZ+t9y436HvlDGDTrWjFvGD3bNS/zT6f/ANyM/wD9jcj/AN LKQ+h5KBHsUP/odk/+ll lUFxklVQBlpjfQ2azFZrl1ULPa1lQsb1q3q4P5JpK/AEv+CwPU/o5JyKNBuvhm3w3py54Uy7mJ9LKQJB 8LJqxDgixmju9FINvWUW z8f0N+LZVbvSEo/hvFij53uczUfNS/AGq6h/2NGJ9P7CBq7NaYb7gA1/8Aodlf+9Cpfb+oU/VzOzzmC3 6sunHsyouXDJJLlQ9UH7 NvU6wGg4j5sw8/S9P0vV/uGEs7gfriiImCEkItPBodBVuQ8fgMVN4Y0Bkdk/nvsmD0/G9/qfrd/wDhP0 JIe9Z9qb/UN4n1Pp6tqO 8355uUf+qyFMdGxh/kro76LRdx4YaOsWhns020YZR1TQqHrTv9ry3ii7fa4j06Mw2W7IEbrmdkh0Mt/w DS/aK/E9ObzkzntK8WIf rZnPNm+1FyQkU30os5dH07F4c+0vhtp8egucSzvwyLyooI1i2kWI2QnG7u2GoCMjsI6y+tdYf+qerFdY rEAuI/lEuP/SXGN+sPUj gnMfnMLbxW/jULvp54yCPag1mAesd/LjsGsDk1B3p34zt/pX0/lJDo6y5asnyqwvtdObCBRNUDHXa1bu ndFTfZW/4Y1nwLdPTglW 5ZeKWA2//R5OEHuacar+qT/rKS+GjdqA7Ur8JAYlpamg+pQw1yGIAvuev80PYmgn/6ffm2Y2k0/qT68/ Rp/onrfqXr/wDc/wCzf8 FfkEVA2Bf+qR13+s9S8fEEvdspu+qTx/qiD7uLQYaciWVl+1vVqKPu3yFU+PrcnK6W/t6TcIv6HKXS/w D/2f/fCepWoF80x4Tnq3 TeUr4xLUuJYG2TYZOYMSPDBmxRTZNQYLLHYLEBIATyWJPQVXWC0IPt5i/SWTIba4yszSOUuwwVIZ9B1I AAAAAAEABIAAAAAQABAE jXKUFYFTG8EjcKSQGCGFLAOB7KJFDDAZPZAMARA4RXORkIIS5VWZQXFAMRXMHFWJ56XgoTREfULMAEKJ QAAAAeOEJJTQPzAAAAAA KEAYRFBRHKQDNLTJrRMY0fPPEXIXPEWbLNPCPAUYOWCIU5YbfVA/WLTUKEVQhLN5AmFLKBoXZnQXLKBZ QYOHGZM5VtMCKLnDynWV UJYOIWAGCSUaNXSBFNVsMWXGAAXUASPHIRVDTHHDPSZHLKUZQXZQNLZRQ3TdsFF/gAAAAAAHAAAP//// //////////////////// ////7A9VDRQLY/////////////////////////////A+gAAAAA/////////////////////////////w PoAAAAAP//////////// ////////////////6X7DYFLFUCYPMPLFOJOEUMSSVTZHTEUtEQSUBJMLXLSUwESE1RQdMSDKZBSNJOLE R4QfsTJKrJLJWKL8VROQ FBATPQYIYGLILRXMFnHALPGhYLZKHKCXQBUH6FYXUhKMxPhcGLJD9ZeuEwVAtDroNcHGHJXYZjKFjLhH C9WBpUkSEaDOsJRsCzUW HDAGD6VHBJFQVnYHMCQHCGYMMMMNNOLMZLUTOPDETNTXDXSNHEGEZWILNPPRCrRJEHStEWIQBRNWQGRP AAAAAAAAABAAAAAAAAAA NAAWRYDLGMZOCKIQYKGDQASKCZQWIOtcHjbVYTNBCSMPVBEg91dnXkI2RaQjMMNWLREZHILZJPC1NcIS NMIPZAAHCBf5WboN0pYc KXZCPQNBCCXNDmhBoodkpRBYOEQRWFIOR2i85ei95dHKDIYdLALAMTZ6c8fV7nOdXKBJ0OIHFYn2wsY3 VzVmxMcwAAAAFPYmpjAA TPYAGZJNHQAMHxoEEnDGOQZnVZKUbzqPenRHcAbZ8lLiQHKJNWJGSAQ8LndQQKEBhdgtvVVDISODXWGb 0dtSphoxSgrL4WRIXMYK GbvEQiF7JeX8xqNVXJNRE2jT6TBV1yqxE4DHMNCTZJCCjtWZZccM4DTFGMRCRqoCFkEYjlUAZSNKQXcA ciELJKFuUorU1bs99fny ZEVONKATUNEGOWEhF3TXAIOYZGWKPCBP8iDLnawvrCGUYLEVJZFBacEkEbq06fUXFBGMWWVLOMrE7skJ 9uZwAAAFsAAAAAUmdodG jgzzbNSXUbGAPMW8XgpMSKXJXRURHOWSEFAXBSucBrdFZXBFJTQFQZSKNSYCRINXQxIMRRRPXQKGEJAP WXIWDBSNg3JEAmZYNZTA DQDVNSBAYNXJ5rDBleSQG5oKvfJFNAFLDod6iWVJQNHJZvgRzASRp9WYRZEYIVFMUMIGDAYLrkf0H6CG qbS42mqrSlNHFKJ9VPhO kfZXnacjrZuNbzgbCTWYarANPznQu3DAVOIGKyqjCBnAzpehZteN8GDDGRQWGaqGDdRrVgqWBgzIvuPC WWR5HrZwZ9xTJAWACOIo yFb7pjsfU5yZRgcxFgORCBFNEBuLgkLEMOL45fo8CFkCKtCVAZSH4lzyBNMDRAbP5iL4X3c4J2zT4zXl ZFJIWMSSVPjOWhqT80hA LacPhncciCLHOCCSXSBGSxnSZskH48vTUfrUqtbooRGRPZSFLBG7FtS4m5X7C2w9W3zS6mQtFQRNGULD JJTQQoAAAAAAAMAAAAAj /vITLMTRXSEEGMVWLGXNIXACYILXI5VljFVAJJYRALYEATRZPUHPDVGMSJTXXQSQ/PAAAAAQAAAKAAAA LoJDZV2RAFJ2MYOQ+zAB gAAf/Y/+AAEEpGSUYAAQIAAEgASAAA/+0FJUBqi4WtH2XRADI/7gAOQWRvYmUAZIAAAAAB/9sAhAAMCA gICQgMCQkMEQsKCxEVDw dBGjTCKhTMXwXVMNrUDGtQNEMJXLyGEPrATLwWZSaDMVaCHHdDMHyRYKwHIFvBQW6HUt7SRULWKcWNRz 6IZCTFLl8RACQZVErWUI ERDAwMDAwMEQwMDAwMDAwMDAwMDAwMDAwMDAwMDAwMDAwMDAz/wAARCAAzAKADASIAAhEBAxEB/90ABA AK/8QBPwAAAQUBAQEBAQ EAAAAAAAAAAwABAgQFBgcICQoLAQABBQEBAQEBAQAAAAAAAAABAAIDBAUGBwgJCgsQAAEEAQMCBAIFBw YIBQMMMwEAAhEDBCESMQ XFHUNCPkWDXhBBaiEuWjNbELRRNyU1ihDIJqjtidPm2lCadnGNtdRJEwPIFYXDqnL6OnxEVqWe8lDZt2 N14/DYC3HqnqBYlBNn3R S8hoQa7NPulflAgspG6zq9D4sIE5dIl6k4l5br8bVHIrGIIrVGBvVWMhiAAlJ4UKOWWUUqJUZEKWUmvK JIWHMZqNTteBOjdUJN9P PbVfRwckGCTpNifnRvCTJBbwBDDoF1ojKPt0MyC6SMMOH1ZdFdx0LN91Ri54fCkIK1ucDK6AFuzyVD5w DYPmdDtcf3cwst5nh5E8 zog0eIa3nS/8rTKVUUECFYAuQUBbN2ZCEdHd1AbzsXj5PMAqFwerPLSkaQTcSaC2kFCg9wkfeJji/GFd fLls2eZpp2u/Y7dtds/P Utn16ML86/B2DpQU5ApkrdQG5dL29M3W7Y0XFtN/OpAd+l+j+YjVZWNdZZVVcyyyghtzGuDnMJEhtrW/ Q/xR2fiT3UIwUVvuBj17 1qt9bbl+7n3WNicc+i/ILoItqPs3foePYLmb81v+GE4Sh32A5H0qx6ryY9rV7KsHXKfN0Z5JuUCXQoms Oq78KcYRUHVGTNoHsZ+V gbZNKH04fiM7wXj4z6P/9EItE5453il5ePv2S74eYZ0D2eBg65SLFEcgAdC/zb2kE0Sh6B+u9Gi4o3YB L1y0Nak0TOc7b06Yq/r/ T/KJCytIBhGWPWyp3XCSASatl3ywhj7MbmWa7zTWUKumI7dsTyu4kjLQIHT8Vb3ZpulDEclQcrI2M55G 79jfS/4VZzBrPL6t96CT lSglA2Elmpa78+ut+1z6/5bE+J2piPfmve3BKZedgfZlXaR9frwuIIPhD7snykdSYCeP/eRm7Izhxg/L W3HXCwtca0L+01inHdsv sa4Hfx9k2nslQxd9428dYnk6e5DxKSVR063uGn+z4+Az14L2MPJnKQq9nV6XJA/Kaov6/7Bp227CoEPq 1xifySQ5v4F9/zXq/8Hv 3olKggL6O318tRWJy91GLoAlDWVyCKlqMaztVK71t++Gf6P/hXqQNuOaTDQJpImxgYGrsL3oW0A060jS Sir0nIpVjgSfIqhGyGQE aAt5RHk7aRvHrNp6M3rdpSshn7jQq/AVABao3JjzGdid7Lph8HVyFI5zp7iJHVk/NVvb/LelwnaioyiA AM886nFKGzvt4X+Q/Fpv suiPcMUDZqL1jZIy3jT8K8v2O/WG6reqsLh64oiTS96drhzfSdSKxBo/1Xh7lNHuncLfA/0Oy+ttdbD0 LFiHi2Yl1YSMd5+s5zv6 aiLpoGT0kJnv/YJUudmsDUjd78S453z69qv5IOxldsoB1oaZ8wog1qo6ClOCFG8dW6jLuOGrxSmLBHC4 R0/PfU/KxNl7I4Tbg3BL dUrr7iU/2/T+oouI48a/LpusRHZt8lEI8TbvD56Fw0zDZ1uKgrpx3t19vHBm+4Gsatj8cw/FD7l58c3e 8Agd/+T2TX7K9UPo/qzZ 9GnkDlLmkxj3JanniccHHvC/n33/yuWma2x7M7r4WxoBo+f0FtqPwjEVx+F4zGxX86SEoLt+k4/wA9Z7 5Ya9CWm4FtZr7vSH4FCi E5ugRGU7Fbrk16WZHFHeb7/US4Td+CE5eDqzd18hX+MXB+jClKw0Cz8lx41Ry5mRN4U32aGr9Pqqoi+h Xq9RB7B0cX0CNj9ZVnPz q4/OWmpR3pofhgksVpliKM32WfFN/8q6o3tc5h/Cf2/hNU2OZ96Fl8hJxyzIpgEJ0LngzfbwjGMeew8p rYpjV8il8uwr0AtetNGu HSTkrt2xeMWxk7Zt/0Uf638WIyyYXeSyfSxYCkTZ1vVD7evZJNeBCDZGIeuLsH8GUVRmg88U/iwciY6F ncqPI6f3oC/WhNu0wB33 OXTVd/1v1PT/phnI4gYOb20Pwa99Qi4K5QHRfFVgGAs/M9jf5z+sRsGm7JWdWGjBOpkwjyvXW+839x/w DLagBOjtZJ0/l7L1mseP jegBr/KZy7c0dzfY2oLj+uxLLapBjDcfV30Hto9Z5yb+n+tb7LH2/1aX3nqvMp215zq3xd0vOtAkGO+z nDR/rOsazYw/gszV3tYs lnHbNJtqQqZqiHiqJLfX06ZXpgb/6X6kqa2P8+Z6SgxWHLgIN72sTV8o8bcntyLX2ev+4Et6Pag4cafC clFNaMoJV9v+VgywJlkE DyFboux18BaDqjuHO5PemaSZVhAGEuf7KpARTiNTGHOsMsK3LFukck5A7Y3Z5/e8LuNhTw0a7uM9h8ub A3QMeqeGjEBC0in8Pkg2 Afpm/pW4+1rzra9y0TL4sa0YuR0aLiRiye0AseH4x2GVakPE5XiI52ZP6lQ0T/KklI8tq8lRk612vuII 57zufZsd+e5/v/AK6k90 a6b6X/AFf/AEFj9k+miPTrXj/4J9DyR4thIn9yMYl437/SLieT1xotU6D/B7M9VSk7BCIt6AueEqztVz 2DemLYrfqEtt34e1pa6/ 2FUM2QhsLgK0b5AQc5msavaMlhcdt4lgxTXkh1nT9Xg4WXRu43PE6DMW7Sv5K2RPsmicf9p5jE/ZH8f6 MQ6l4XbE3sYlOr6BZ5BH Rf4/H1t4BigN5k4l3NqCr0Br620m0pvY3p/wCy/bMT1N7Z+s5Mm0LgzXYjuHhb0RA3b3B/4P7V/P7P8O pZI2X6gCljdQ1EHRY7O4 XrkD7FC3bOO0B1Ov/Mlef8NgRqTRGzeL+xiMaxjnMsrHcMyanMyPf/AIT9L+l/wifLJGVnUcQr+76uLR wGSXGB3OTfCx7bFU3co2 o6fnwcZr6Pv9Qfet/y6pvRkF8/AFPTptdt/uS0X5Hl/o/4T06/4z9Qr3LcaDNixc4Q0YGXcq2fNOFjdS e1yz5yO6/zXsf/ANcWri QFCtaa1VrOZQqdbqUTTm49+62wvtuf/Kseqb/ou8A0rl9w9POGg0ya1lmSdvzW4YgeIr2aik31KyV04j AG6iR/kG3gRJXx2J3sv2 5PWzZhYfT/YSp7EgJYsXFLuChctbrItci92XBnSLNF2264f8/+xq3Ez0B8zZzMNwNo2sSD/Pm4e5KvPm fwPaf5Jch91k9+Z0rAzs YmVwItgSAPP5FAaWg/ZHunpVNdznIaimW2FIrSSUOU66YYzfj5vkVX5F/Z+iujjqRJrYfb+k//0fT7MZ thkusE/ueq7w4YTDX/pd D9XXZI+GRa3/qLGrL+btyf4dzW0jMrH78uKCyTvhzdcj1Bcryba6zWZ27teMsugMEwpvbbvppw2d4VlJ 478+pYd07Dge+1WtysKv O4Ayv2ta/R/EXphUdonRbgnHmxB5IPY+Hy/ll5A/5EGiM91e8xc+1GcPhnZQ/1MeQe9xtVNfa0MwEgPo KaQVM348Xfp73Vfr2/o3 /pn5lV+Hj/AE6v+Bku1K75OYqt9zRdcp5irWm53bqGKIeq9/nMa4h3VNIo1B2UVUqiem/53/Ab/wBElc m92rqxQ7K/a6J+rWIf+1 fUB/0YFZ3R5KIl23sA/uZ1D/1Buk7V5lhl3fpmfypwbwpPYWiCYegWvMhSPethUjCT6yAqli9g4rFd/A V3/wCDs/RqJ+mLWFt4r5 8oudiM/MzufW86qPj4Qi/RdSzJ/SM+zVb/ANS/T+p6WN/PIcUeyuLJ+/8Ai7B+quCecrqH/sbkf+lk3/ NLp/8A3Jz/VT0IlR9A1w ouij9DPzHFMb1NO9qIhnMzTfzkN8KGWPzo8ce3JgeGKroKm/xj666/0Ulu9001KgJ4PY47uygaM1kmo5 0uuG4SkY32bNeW4ifQb9 9QBy1iUp9+xhwv5J1EV63mh/zR6d/3Jz//AGMyP/SqX/NHp3/cnP8A/YzI/mKTrgbS8cRY+g6MDaI7Wi AickWrA0ooteMibrFWR5 Z5VzsstJy/e6zI9V/0/TXQ6h2fZZt7RgjHjyZI/YxtEP49CCa4fHpz+i3bf+8+j0n/AOCt/cKN0YTObh iy/vl1/wDmj03/ALkZ/w D7GZH/AKVS/wCaXTv+5Gd/7GZH/gXHdkpdFN1W0R3Gcs6cmOwsMgTxqWv3Z69aFgYXbesdczPjwAlyvn 6Hb2Rxdf6fM9IN4vCd8I z1rX/cBfkPo25j2Ao5wwfvT6ZpZZ76YF9XEZbEZ/NPp/8A3Iz/FH1JsQ9N6leQ0tDT8cl7m+h2T/6WXN LWSS9hyliqFhFxdhdGwr HpRZSN8m+faHe30/0mQ/8AS/4LA9T+ybY19S7g2QligqXSmxln8ibUzf4ODOVyL7h0YhT69nGfMMKl5Q x/E06doJc3HEb+6kyyfv b9F6CpMa0DnfjU/sdk/dSevTJ7pom/2ozj/wCh2V/35Am7a9iQ1MH3ITKHeDy68MHJk6ZHFT64/wBHxa 6f2FqSFhnn/T9L0/S9X+ dVK/bwL5GRbNlOjTnRK2MvJsSn85u4JJBP4+yv+e+jKMG8v9+p+t3/AOE/UW8KhfghG3D/q3b9Pmi3rx fnm5R/0iYIx8lDI+Gy/n lZB/Dcdyk4R+mYbyxyRkMNrnBJuS5zucgz6m7ceiiwgE65FsJw3qLwV3l/BAC7ex0E0B3Y3y53gNWgim pk69j5zXOzmtFX4msZZN 1Lqb7W+f78ylq39SXTbUci+qIog5Mj/wB8/fAy1YOWAtxti633r/3u6bI4saBL7b+US4/9JqO76u2MKU cx+cwtvFb/YLnR0mjNlf +Ub9A5aC6x+5W3NTJJe0wqzC+gdX1f0n/qLp+m8UVflMN/KawA0ZOArOpt4o8CW6gq/U/tOOz0YTdMSA LJA9Tb/8Y8UPeVnPGc0l P+gpA4NRGO/VJ/8nDzOdHEi8sNPtimeo+qR/fwsLF+z/u26h1mU49+bJao2Zr+iet+pev/ANz/ALN/wa +y0vW3180oEDj8tvhfmU kIiQOF6dES33AQkrjzu+uJirN961lVRMbhmyV2RSWL/VH9/wDFOvlZJJT/AP/TYZiTOM8AWLHRYNLDJF AAAAEBAAAADwBBAGQAbw SiAXEVIGKSBRxQpiA2EI3JsjDgUJ0InUNPDSJFJYOdHI5FNpBgNDUJCTUfJD0CmABlAZWMeYMbEXSAME BDAFMANAAAAAEAOEJJTQ QGAAAAAAAHAAQAAAABAQD/3VCkmNL8oXhzH63oBfQnq7FcGfUbsH04QNInLA4rOoS6O7qfMDOyCBAjZh WadB49Ir+8heAcxSA9Ta k0CSXOqIUgqKxPvdNoR9jUYVJ2d4F6JUH/StF0rNa3fJJpAIBgYBvtpD7dEau1YtImg3FbNy1lGu5mtJ JjDsX5CqdysTWaEUKZHY 5wYYDFYLIjQ75zUMA9UuItTg7xISLaCCVzPlO9WcWqRDzaYqUzSW1tIl6hYD8sGAccRrleEELbLRJcJT QeQd9cOGGqWzkKORSzhK 1ndwC9jkKpDURaoHPtOo8kx3q7TgeaWx3rKl8eKDo7HzJyAwUaCEDgHd1eeY15QBsiemQuTe1kWYAxTj pEZXNjcmlwdGlvbiByZG J9EJBddVS7NoGvnC9bvuT1vS9qTH21Vhf9aCZ1Ag7rgl5fLV4jTP0xs16fuLMiVmBhEA6fbR5tMRsmzP 2sTsV6HqOuEUYczIXhVe 9qriKzWVPtSaMoY49fN0easI2lSdXud3B6zYIzDhCpr6NlJ4IMNEIeBlC4vDrurneaxDY6qE9diES9zF ldE97wAiWhy8UoDxIbyJ 60UBYdIH4qH6USbMSuF4Bcq699jpPxMQQliwNdNoQ3oFmllgx3kDW4Den6gPL4Vg6bww9pRW9hET9le9 0pyRNlHsPvFQ8bBWxyrD 7wJlLvADExjHXxYr3ymHTvzD7gharyRAHgLUgtnEYvvSEjMO5nXdQhyP5jwyP3pQuroL4ppJ6fBXHywS GoEb2adpPnFOFyVlVuV2 9mL7Kat7Nda3zmsE0wLuNaMaB5pKsgmxg9bGHvWXUjyFIiCz4ezqEhBTQpZvCuP40nN1TdUcVhEK2oSd JcgJ4ydkI2FEwxKs3xoL K0eDidJ46zIcVno5CfUlBjjY5auAirVzFsJP4dWArgiY6YCbDjG1BbKA13MKU8FlaubE2zgTM7OlDmHb FCRkFCQTFCMTFFQUExRk OXVjtJRXTUP4EoToGhZVdmtS2EAslxu0XicoKjEOS2FaywhH1zyNA1QQD8CFZnCpjfWGX6GJWiQAh3Du QQVak9TCIeP4H0QjJmAG mwsT1WBl5sfEwzygDzWL0bsM9xokZPPR2blB1wApRcYVr3SbEWINVDCXSKQOCcCXGGKNTNFxOrSHW9K4 XZNPY7NCXyuP8fLkKgBR B8b7KQb31mWRAJXF0kFBRPgF37h9Rcs4IsBuQyHeLuTLVnmA27t1QsSYHloL1gJbDaZLF5LBWpgFZ8Vt HySwXtCHycDXoYJXM3BC U5MMWjQID3OAVjLDikkWtYl6MmGxyAOLKbXIQiRKObZTGhWPGvNOJ9TuGaPtGoWGF7EiHaGxZ2jCZ3UO K2QGRufDEGULYxGAAqQR BnIBIqKIDpHSS0XcDaDjNxODK0DyHoXeFvNgcjr6WkXBJ4CdojBYatI7ekPWcpYFXgg3Qcn8mnyBzMr3 mfhz9gTPU9BuIkMXIiWa P7R8RqCY25OHHfo734YmApKXQyNdT8QDQzg46mxUXjj758WfdlEADtUE0uCKNyEUJsyOicFuoUMrHww2 n3nSmnii1sHlViCNVsNx DfLEYiCjJ5uHLuMkJfg31coRRed91Klup4KWSoXzN9vFXoYa1fyZd1HCXmD6JwoS1dYeC4VBB8WxodOP ukSaW9NJX0VxkqYoMyZs i6GQH7MWw6IiBdHAVrWUC0YlrwTKBoGgw1VXQrRYxeRBcoGkE7FJJyILr7KcJzKrZ8LFF4JUazDwPbQq cyQSBoYEfxCYZjQhL3Co G0QrYBZJR1SLX2RPReWCNAYlBOJVKNDkH7HuXMEFPOEQkoNEA3hAX3LWd1NFaUFPuiPF4zoL5tMZIoYI HdJWP1bDI0MYa0YQfGKI mdLD4vgG3zPAU6HIZlZCagFeyVp0akthAuHNAhCEM1LDIcXHGdXGvqBzpQNECwbnRYgGcrz6M8FkX6GE C1VCJnLTSzEOPbMXFpGG W8ZODeDXF9HJIwLJYuOFIeNYYeESApFKK0QAIsJKOyQOZ7UVG1CKP7LUI6HYM6NGIyXQT0SKRqRVP7AQ H8FGYhOWP9HKHnSYC5BI K5TUI2CLB6VNL3Pfq7ZXD4Gha8ZHO1Vin8DQG2KbyoUXZ3NawsHXV0PgltRYW0GdkuIMC4Vqf2RGT9Ku m9XTS3Azj5YVD6Bcb1YB TcSMvgNJXwZVc8TAVaVCx6OEUkLGi9XIDjVHl7KOMdBUmjGDWzWPzdREIkMTc6XRHuNaI8UMQkJaL6FT KqBfPdIXOsUAd3MKLcNP i1PQHnGKe9EFQeNAh2CMTmVSx8NXPiGYqaVVJaKTpcYRItDMlbXWHyIEyeGNEbZJo8IQAoAOz9OBZdNM o1IYDyNJU0EMFsNjn4CV RjQkg0WKywJRvdERxtWCauEbuhUtoiIVkpTYhxVhwjYmweGAttRXfwFwqrGizpPDdoOTwzCkjkAbfsAN dpHMlyEyH1HhAzNFFMMp T5WMN6YJH1PTAgA9J6CAS9RVT9EFQ+GOg3fZPAUNgXQDHqvlOhHwNlmOPxeGHpOmelbtY2LM8lCUkGYO E2yTJufIqzJlVxOcf2QO mSPtVvXRBtERCRGfD6Ltp5URAAM3B8KWLEDyIacNLnHbatr5E1iYAktMwGVBX5eKBzZQnmZsErScu0WY nHEeKyVVOjENMGGmH0Um g3CGWHD4J5DLCYVy1+XCw4iNCBNTcSqYZ5o1P2KvA9fjSySiWlkC5hHJSxPnjkfUYgdWI7pDdkH4Tbm8 84ChYqxqAhCuJpuVS0yH yucuH8XJ1oMHtDRMM5sXDwgSjiQuI5LBgcKwqnKNWHVzTOQHH3SZL4KDFMBvFQZFB3UPXARbImmVC2mN z4jNNeQYNeEGCkMUJ9QJ L1AEA9MqCwFiBbSQF5BbXmIgFgtTL5fNblb3I6l2NtQAIpAH55SIHHZX3kQFOPxP63w2Awm4XsD1E8VR pobbEae7DvJTG9HBY0Hp IaRE1eWSS9Wz4mLh8uLCGpWxepiMZvuXQ7lCmuU0Ono446OqCphtTgXqTglRF1tGsifxH0PH5bTUiXMO P2aQImaTxmTiU5NOayTe vmEZSVTxIHJMS3QBM9PQBLSgHUCPP5NNSBDtMkpNW2uQh1wJNwLOFgBXNpICZ8HHL5LNA4XiOsFsAfDN H5SeWhKrEyaRW1xHyhj4 X1r1ZnXWWeGW54JAQVYI6cWXZMfF32t0Dmq5LoS0R2CSbwazVad9BqGVV3DTV4RmLsCL3lUUQ3Kb8kBq 4dCYEyZlvmvSVlvFL0oA drV3Hph350QnXbmkBqKeJehTZ1zPzzitJ3BB5gALdLDCC5nIBnyHsdKvi9DBJgLYQ2MuIlZTVFCEF4CV PWPTP8BkQRJvfRMoR5Cy SkeFU9oCf7tGQcWLXaSWOrFXCeMCXqYQX2PaUfJyEwZEW0IzLpHjPuaQN5sJcsi1B0c6EnILYjCB71GK UDAX3qUXVFuU45e8Xno5 RkC2X3URgukcMoj2OuPLS4MUQ1UeWzWO0mBMR9Hi0mBw5gBY0rHXM3H6IcJwC1M7dvbB5GRmhlg0Wjrk k+NTisdtBxPkEgt8PqsK P3kN4yKdN2F8RxThhEHUH+RIzepHr0sSDuGXLdUrNrRNAmRFApVDGaBYXsIQQgOHVePHVfKJGjWPXtPR AgICAgICAgICAgICAgIC AgICAgICAgICAgICAgICAgICAgICAgICAgICAgICAgICAgICAgICAgICAgICAgICAgICAgICAgICAgIC AgICAgICAgICAgICAgIC AgICAgICAgICAgICAgICAgICAgICAgICAgICAgICAgICAgICAgICAgICAgICAgICAgICAgICAgICAgIC AgICAgICAgICAgICAgIC AgICAgICAgICAgICAgICAgICAgICAgICAgICAgICAgICAgICAgICAgICAgICAgICAgICAgICAgICAgIC AgICAgICAgICAgICAgIC AgICAgICAgICAgICAgICAgICAgICAgICAgICAgICAgICAgICAgICAgICAgICAgICAgICAgICAgICAgIC AgICAgICAgICAgICAgIC AgICAgICAgICAgICAgICAgICAgICAgICAgICAgICAgICAgICAgICAgICAgICAgICAgICAgICAgICAgIC AgICAgICAgICAgICAgIC AgICAgICAgICAgICAgICAgICAgICAgICAgICAgICAgICAgICAgICAgICAgICAgICAgICAgICAgICAgIC AgICAgICAgICAgICAgIC AgICAgICAgICAgICAgICAgICAgICAgICAgICAgICAgICAgICAgICAgICAgICAgICAgICAgICAgICAgIC AgICAgICAgICAgICAgIC AgICAgICAgICAgICAgICAgICAgICAgICAgICAgICAgICAgICAgICAgICAgICAgICAgICAgICAgICAgIC AgICAgICAgICAgICAgIC AgICAgICAgICAgICAgICAgICAgICAgICAgICAgICAgICAgICAgICAgICAgICAgICAgICAgICAgICAgIC AgICAgICAgICAgICAgIC AgICAgICAgICAgICAgICAgICAgICAgICAgICAgICAgICAgICAgICAgICAgICAgICAgICAgICAgICAgIC AgICAgICAgICAgICAgIC AgICAgICAgICAgICAgICAgICAgICAgICAgICAgICAgICAgICAgICAgICAgICAgICAgICAgICAgICAgIC AgICAgICAgICAgICAgIC AgICAgICAgICAgICAgICAgICAgICAgICAgICAgICAgICAgICAgICAgICAgICAgICAgICAgICAgICAgIC AgICAgICAgICAgICAgIC AgICAgICAgICAgICAgICAgICAgICAgICAgICAgICAgICAgICAgICAgICAgICAgICAgICAgICAgICAgIC AgICAgICAgICAgICAgIC AgICAgICAgICAgICAgICAgICAgICAgICAgICAgICAgICAgICAgICAgICAgICAgICAgICAgICAgICAgIC AgICAgICAgICAgICAgIC AgICAgICAgICAgICAgICAgICAgICAgICAgICAgICAgICAgICAgICAgICAgICAgICAgICAgICAgICAgIC AgICAgICAgICAgICAgIC AgICAgICAgICAgICAgICAgICAgICAgICAgICAgICAgICAgICAgICAgICAgICAgICAgICAgICAgICAgIC AgICAgICAgICAgICAgIC AgICAgICAgICAgICAgICAgICAgICAgICAgICAgICAgICAgICAgICAgICAgICAgICAgICAgICAgICAgIC AgICAgICAgICAgICAgIC AgICAgICAgICAgICAgICAgICAgICAgICAgICAgICAgICAgICAgICAgICAgICAgICAgICAgICAgICAgIC AgICAgICAgICAgICAgIC AgICAgICAgICAgICAgICAgICAgICAgICAgICAgICAgICAgICAgICAgICAgICAgICAgICAgICAgICAgIC AgICAgICAgICAgICAgIC AgICAgICAgICAgICAgICAgICAgICAgICAgICAgICAgICAgICAgICAgICAgICAgICAgICAgICAgICAgIC AgICAgICAgICAgICAgIC AgICAgICAgICAgICAgICAgICAgICAgICAgICAgICAgICAgICAgICAgICAgICAgICAgICAgICAgICAgIC AgICAgICAgICAgICAgIC AgICAgICAgICAgICAgICAgICAgICAgICAgICAgICAgICAgICAgICAgICAgICAgICAgICAgICAgICAgIC AgICAgICAgICAgICAgIC AgICAgICAgICAgICAgICAgICAgICAgICAgICAgICAgICAgICAgICAgICAgICAgICAgICAgICAgICAgIC AgICAgICAgICAgICAgIC AgICAgICAgICAgICAgICAgICAgICAgICAgICAgICAgICAgICAgICAgICAgICAgICAgICAgICAgICAgIC AgICAgICAgICAgICAgIC AgICAgICAgICAgICAgICAgICAgICAgICAgICAgICAgICAgICAgICAgICAgICAgICAgICAgICAgICAgIC AgICAgICAgICAgICAgIC AgICAgICAgICAgICAgICAgICAgICAgICAgICAgICAgICAgICAgICAgICAgICAgICAgICAgICAgICAgIC AgICAgICAgICAgICAgIC AgICAgICAgICAgICAgICAgICAgICAgICAgICAgICAgICAgICAgICAgICAgICAgICAgICAgIDw/eHBhY2 qzlOPgunI5RgoePv3/7g AOQWRvYmUAZAAAAAAB/9sAhAAGBAQEBQQGBQUGCQYFBgkLCAYGCAsMCgoLCgoMEAwMDAwMDBAMDAwMDA wMDAwMDAwMDAwMDAwMDA wRIUnUCCxVKAwVWy2AHRrKNLhWQf3MDKIIIj8XCIOQKPcJIXFLSGsMRTgVFDnSYGbSOAzKYVhXHTiHDL wMDAwMDAwMDAwMDAz/wA UNVSIhPK5SGWXEUsHCYaYC/90ABAAk/8QBogAAAAcBAQEBAQAAAAAAAAAABAUDAgYBAAcICQoLAQACAg MBAQEBAQAAAAAAAAABAA ZJWNQDOupGLxbLBUZTVqDFSVLMEgMTIqCCgzTCIyAQGRPaJpKIYPOWRPBusMGmkoEBTkNNF7YJ3oXxWh FcASFK3CRAWAPRfySkv8 R7YOiCd7N4K4DllBGW2decodxLPRdOoUPBrLYO92FrIvLa20HS9RWnsADNpsDQ4vL6XytDfpj9ikqv9i oZZ9d6e9hch5qW0/c4SF qkyTzRyKiE4Ut1UDgZPBc2uTilxrpM4rniLaggoxdTail7ibdf+hEAAgIBAgMFBQQFBgQIAwNtAQACEQ AOVFApLQUMC7AdLdKJqI ByfcNDsbVwT0PQFvZk6OKxEGNQIoVALsKlwqBQu5L33aDVT5OENOzYHUjjOkHnT5R9NQnca1ILLZvY6/ HByRL4rORx6PB4gQXfps KP8oIBTaH2krrzezaE0sXXI5y6f2pki7aG6/z0BImkbQzMeIxS0Jq7FLbTdXcXams0pomv+Vj9Dvvolr tjguaB8ya2/9oADAMBAA AHJhIEYtP2KvyeDexvdEupqjVxolxZekjcPdjexQCneYh/8K5lHe4NiYqAPIz4A/hSn+mEH9udaByUnx 11TM9pFZm0B2gdlvAmyJ uW2vXj8WA4GzzJ33ZK6jNRBIOfZuQDx3lwHvYvwhbBpdevHssdfGewhyJbcyqZwdfxAlrvfPyfghRpbq sVdirsVf/C8P0j8LJHb3 QPUe6XCHl9KFZx1JOTu6YJMC+X0Id058uwFiw4rH/dI5SFGXi4SvooeuLEv3qSaeIH2F0BA7AmzePZWT 3Q7aLyosvDyXxAf/5clJ Pzsn9yxiWoyt3jO/LIe3unmAG9dlsR5Q5gVZ7gihbezewD3UB8l3dF6EZKy4XHUq9HWZn1ASRn5ZZYb9 AHNy4ERDa2QSEz7HSOc2 ZRWp1YI//T8BBhPwPPwcGth6rV4HpAqkNq3vVxfOe3ae9l27P8vxjkc9D/drKSqE+1AfYMikjo8KXN/V yedy/cH52KwkEGu5lNrE GiQyM/zQGoizbSL6gmfDdGatBYRIV9+v4OfVo5HPxDf+PqZBZp+TVwM6j1q8dxkLajFy/w4X/hsyojUy 56Oh5VHlypBZ23ia1t/w Cx/Hk6tZ85QIQs95i/pH9kI1eO8/VZblwPhr6z3bNnNRyr4P3wnueGg/8KymE12nn0eLkG/BrP8ntlhm UEtOW4tUAWt7nP+mX44l a/u9XFss+aC6W6UCW9VooXONin6BbM/Vt3Uew0Hd/0C71ybsza1sWqx48AAmVSYrYuP5v9kpCnVcCkTb 1W48Qo/vgDQ0NcDCFJIH 7kaf4mRLsQlnR2Rw4H1JMp39JJXLCyRQBWiTZExdsihJjbd2oLKorqDMFIXRsmUGwHFufYTb0oGjACBW z2WCQusZdU5wkCJgh9Yk i5cnILWFrAvP7aYyheN8B2aOcoOqIF0w/S73qb/bORjP8bgjHshFLCLoI2rIJE6rBymbvSn4Ezrpq7f3 LPgh1ZPSHt3N8Jj1NF9n +avjT4h15jtzBj0jBfXKtJytzqwUek6ccPeRaohroGZawY6wpB8Jl7+KMZHjrJ/V/1aEkt0y/mDofknU ys9ADMhC6wLbRQIGbWUM XjVHjYyK6/lhav1XeGPQqjRPPxbvK8lOty/UpaL5g/NLV/Oneyda/xkml5r1FFXLdWrvmbFdTpjgLBcmL1 iJRelJYSju9jRFFRWo71 4/8Sv/ADS83+zDKKnFt4cHbMobGIfNzWmu5xAG4bdyUNED7sPJ8fSKMtaUhzcO4bFwKOqUB/Hkj/NPne 7xvVmwUhy4ZI+6MR6hi6 vT5YQubDslnVxUvkM86Qw6v/Zfra7PU0LZt9VKYCdVZOA1/pIxgnNE8OFMA3TKTb1y+2jVVc95/wCSrM 1u8Dvphs8huN0M2jzlD+ ZsOi/zPgUxqjOv1uZ4KR9S8herxM1+Rcm5Is4wsewImXqrw4EhxEF+sfp/880AcVxshpkO6s07xyA1F/ 4YQ34ThYz6vgfEragwT0 oCK2RIsKOBGEz6pyJXzjn8dxMvGzl1TnIjTcyWqhce+nh+xkFnpc/eEe7d0pm6CvFpMKqcZMCWzlOpcR sCTTb8OpxoPrMsN4tBM7 vv4oKlKC9Aei/Op4ykB96fNWYUIM0GzFBcaRRKziQ1KCBxgNCEkc5wtlaYMMWK1SFwGP9z8KXjOd8x0Q VavH4EcB05lv/d143wmK m8T/v1/nXoJ0F2IEAqdjvzUL6L8U/5n/HnM0+QKL7nF1e7Bha1F0rvGu7KsjSPOnx4S/8ANWsUCvOaKF 1cYYTsHyDv3l/n6izg2p whEn+TS1ocnDg2D8PlTEzY4z+mP8KcT+W/zGq25WHsjUn1PBUciMp5w1kdjRo/srdADjPg5umpFVxm/E 0U4HTOnfgJ0r5On/MNx5 V9476sg0dpuzufjfZzmz0lC4ffX73c83YXg1eRYHC2dBj10lP10uqIQAAU3dsp667wimaovr8Z2gVTrm 0VSqyFVhf/ACv5G/a+zh e9F9APm04PTZuO2X05qncRWS2DX9lT222sckAmYKjV9KqtCcxprQIZ5baJQl23O1WMKH1Qsbzujnlcm+ XEHmvzFcfXLy+l75CzpR Bi2dT0gz2BadgaAt4pcV4SPYyR5Uhvj3yvMPP4kfK6J4/5iQor48/UtbTRGuFDpptlbRSGNWFVEks/Ms 041DQTUjSN4cwk2g8YEN ZBxSlweUR/xXEqaT/jvS/Ndrp+kdkKa4kBXYmdk+hePeLYbNfgoaV2trhB27LzZyNiUUKHOE8bMAj3Im k4g554hnMpogmHQyI29/ Mx8s8vCuvcs6uMVbeMwZ7k+o4Rf4ZtIROPT/rztsiM54RA/Tjj/H/O/qqPmg/yE6SdQYVehAx07ylqrs IS3o45iWLRmKnbVWWMb7 /W4MSoXHYYbDPJJJprXbl0rPXKM9x5m7yZHw4x62lPhh9zdoOhJ5VyCjKAeJ3RfKiE247bIO1ijTY5p0 HEHcrHzGbsL5bwt2fM0b 6f2CrPA0Y8OgtU6QrDJaIwjkjgBJ/nbxLxQASErJk9uziAsPBC0hkBC/xu3x5ncsR0mXc1HoF/HImYn0 baGhJll4/XwpAx9SATOW KUpD9H77aZqBhxvuns/re4it85p/EYN6czIGaH+CbrXLQZXkme6alMJD+EoxYUeYastrEie6Esau+qOF Afl5+Eu4fSt4ZamkCgiF +N0GhOCK+yQKpInRQPWN2ccgI7cR3VyYHmN+di0qoBSNaTkRLL4ODBPth82hs9wjAGzT3An2qlVuL0kC uD20hdH1FUvRE47/a/lx jgEIcc+a3qEQJCjE41Q7S5iTvy7X/YQRpAcjgEw2lBE2Wsg+oS6yDGqx/JXgChjWpR99M3+vuhHf9B8H twAc4w4PsqI/huIofMdh ZuGiHVvZtkrOUFXZ2o2MmN0Yl30kPaMXmV4PgwkiLQgygfTNib90p2a8ihiDElRGPkCcsQOqtjuzBgdX +VsDglxd2Bfri+H+Ft7P 9ViC6Z7roGLb1rRwhkOaBpPkbynQCRbsPPly+fNOgXuIUDrAbUjDEQ5ZCehKNCtrPPGOeE9m7VyDxvHQ ylE/do9Y5CSnj+80NZ3b cJj9jAesvqKWpDmC1j8Cn0zT0FmuvGA6X00WpAV//T8SvCvorq8cT/ACY/n73uv+Z8uYen+rVfl3s2oK 7l03Obj43ZN7vrkj/vqP 4Y1XVx4z+guH2b/fxY5+X1v+Yg8k+XZtOvrJtLK2/Z5Ly0zKgeWHJ27VWSN8vt/d5VjE+TI2EhBMnVRv XF/yWerpoXSzt2oT23LO km3k+us+wEdNz/AK38v+VdTKtNo6sGi9LaQ9/qcXufTyvyVtDE0zC002rxAWxaaft7uUnImENyDX9Wpl 6j04df7x6Q8Ax/AJrve1 ImeLigRX+V/uXmgvtT5ijuZnESclawRHdjbOnC/NKS3yckalIMa8j2yN1/pFwncKbU8s+Nev7/APSllc LZztFHawfuokE/DhxEFX 3wuhNr7+aHXVliblx40aW0Jq+Sw5ngaO/Tk6gr53sDlJ3Y77ZmNA5aAtb31hBR2Cz1ts/xdwsbhebi0O dhjGqAw1V9o68sZ/Nn5Z 67d+bPKx+spDdpXa6bb9XJi8xgqqf27jd8Fc+PX7isdBCFedeDpA9vAvAtybJsY51/ST2Q7Q8+08waDZ wbtJmubTcSuN6E0MSX8a bHvCceKtMFE51ZtsxE57pDjN64/vCOEa7unlKQ4oYuI/WkHpr+Uxy1m69JX/zQZOTjjWnlL+pbLiV3nn PdurnFbQg8v4EnkI/X41 Kj/K+zmXPJw8+VuOjPupkkxeUe95sjN9oPc5W0KNz3nkgzgBlZA9AIxZbjP8X1RbpgURTsfIqYujKAcz +voAXN4YDvfvDciMVztC P12DgH7MEzGaD/AJyQ/mUUYUUIqdP4DIfXfMNkKS0L7hqrf+Y9jx4dLyp/AJv+hn9CHsWMRuppinx4/w TB5kGQtX/WHFs8/HrRJJ ORWJ3Hcdi+BzaYD/s8hbRqz/qrI59Q9kdIHnvGL33NYPFO2IDt0mSjjZ1OtSNSEuqe/L/dYE48bKf/N4 RnZIXbsf5aLUI1G8sT+Y Tg4rschF/DQOHucbAlD8u4RNb5BEh5PH4ie+Shine+SbRWmfa2uDbQGklDHIfe9N/heea/9pMos3nDL2/U Fe7aSo+Po2aRme+wGZ2M 7tvPt5S6uwYW/o3/9F5hndHENjSFnGMm3lRJskr7kph2gB/Cs0boR5GKv/YV2CkoPAw16yp9LV3sj0VZ ML92bRc+HKufDLhYD/AM 00O56qUhkWRy9U38SfcDoAzNldy1EhF1XPz+RwsyIQeu0pA8+9uzimfBlvVP6JyaEyNVM9DaFdBtfBHo fMflyN1/EcexdwgK8sEA JJ4OQRyJ08pN0+X++x59mBVV/g2Q9Lj/zbgX5ZK/bM1mr7fmjmfGzg+9l73o+z/hF8a4qzmm0hi/8AnI vO2ldkOXUMNMm/KIo2QD /nkpzMy/3hV4WsbNjnS+Z+g6YqXeb51eBQSxw/aiGDNoPXCfziiBclu6sRS+cjqw5oW/4Kb/zXQZR/hw pd/bC295DY/sVR6Pt89V popZeWzGjSB6/5gk2y4iX5tYtxlpLz1Gpxaaf+ikSikI4Y87S0iq1zQNP784urSILKlI0CC4HdI9dTLu 8JmwoxTkN5WWtb/wDOF1 0q3f3FW55PRCn9dONxhZAYlQhot5PMojbrcghMEhon7lXCfJGhanIhOakN2c0N/QW3Ny1Easx+dI1glT gWGNQCI8fPiWlRJx/Lzb XmzmDeN0e6V9UgdSOw1JqFI4m8rNxAZBSxbUgc6ThoInMK+y9z/hD7KJufdKcRe/faYkSFEQAT4MW123 //2YXm7jlXi4JswZLNJP oCDe5jbTnp4x/F7fq0f1t+cde1e/nlSqr7PJBFIviswPklwHm0lS0rIdU8KiUv9cenbK5hzDGAsvS7Va /M/Kxg12ipjqQbXRig62 EVyQUOVNFZnPhvha1MO9fdNbXv1HBDRxKxwVHh9w3p/ZqUCDMk4sf4hkO8sVdqYDkxyswWWPKG1L2YW+ zW2IBSSF8DU9dzFcZaXq 4fP7bB846J7n7cgbiuzTHvm+QoLdBaTYwW5mktp20lZWt3VI49HqoWENRCqGJzmpgTORJm/xy6I9Do+b D0d6x5ng6xSqS5GJzDov wm3fEowGAXwZbU0VexB/QCM3PmRrmad/AHjwgdkNej3sggnH36lVAbpdte4ldFtPCc8Rcj0gCm2rJujP 27VmMAElFmKg0Iv5AZjE iMjwj+hoNYaOIKGzhdn9XKFnkrNfBnggYqBKe+26Ne1K3vxGuHftuYYz97d+d/OyzykLM1JocB5ylBUj 49SDlVQxWndOHKmY+LFK O0Q8wv9BFFjrj0h+pG+j+uVt2SppwodEO/Y3smYrde28SkBEkFTlwC+qX4/Fx/ujEP4cNBOisc8EYGFx eHw+igOy2i8K7o9m1Lui xVErMNbNO2BcdLI8Pr7RP55sBvyGUFsxgYP/iYDbTeZdU8/soyZaPfEaVzX8vRvWWYXJkZx6VW2U2w2g LPUSlD+rxS+v2Felzt3n n/HGdBK7DI9Od7j8msq8niySH5uvPXjl6GhhASu9sgTO22b4TweAxJGHDm/kl1ka/9fSxtMrY0mB9gkI /2nt3G26Jk5gPo2iW4RA +xcvFrNuHKPEj/HYPoBla81rd/jGyU6mJPB3qUbpRBVpJ8TzxtS1pq8rq9QlXvyBE8qvRkh4YGbJkW8e 8PejxJr+SL6odeD28CZo HuRY+VvGFDjyDSSOIeJAPvOrmrYk9AEznRBoeF8rDeo4utiAopPuxwMURyoSyxFptTEdVqG7z7LOAvb2 lutvIR+36juxOZ2t+rock singer L7c8f9Nc9WgcCq+r+yLGNprMsJpn49kTgoUC+U20umEEmmP7lNXfzuSadD6tUd1Y3tpMLQOPZgk3SVRp dCpBVfVb5PzW0jwP9g6h 48bcG75fJyR7Ry/srDEGEWks8EnM2Fef6lUh3waWbFO7DwfmKyfGlLdM3q3br+Yu1z0y8g17ZzHdw6xW bG+M4U9sY6+0IFcr3D4L PH8pOAFa1ImuMRFBM2yx3jdjuwhTCTsq1/cmervO962ChERQZQD1qHI4FTedh2yy1ercpwygSvAnRs36 rp4xW7i/3CD9FPshqtDj oPaV0ViYW6xyz5audUUckzx/LvA8XYQ3WRdE4IckxcUPGELdQrwDdIUkjdrrjBB07NGpb2mDmNwHZIUt 0h41zUSdLyNKLqNCMYAI EtNHFuAjrxtB5V3R+5cAJkRkP6Q6d5PybLW7mR2i/RclYMgVOAwtM4rvWVbLtsx+Id46rKLEyV1kU7Rp oJYCMXogxdCu1PsP4Ob8 8wdd0+KGjSLHsDSVDIiNme4tx7WA6DdSwC5w7qB05PnuEXC1Ome2FeaAzKIgXc4z/xSl/xKU+Rpe0eZE 5qS0Y3uDjDdq9Z22g2xL ozevk1asKl9ii1FdBkwdw7bNHl4LoHopFfVCs3n1C0s8S2Ma0U/fAMG9IdbK9SgsQ+BFaleJKGp+fxY5 RinMy4+j1PCGVTSZ4VLw /T/SCzzV+Pnt4jUU5uCT0nn8b3+WZ5cW1NJAMpanZybNJLiX3GA1bRPNkM4DBAoVu+GcT++indn5n/AD E+rCK78o/6hSoDah4ru8 El6qcyyJybl+OuSgjrg15JzyyP/I4/V/Xjwu8m+Rrqw1m/1p32HRdwI7V6guc+jbxbUiiLfEdgoLH+XI 2dJDQJiBFM24xEQtOT66 JJ5g/NCNSS75Czo1RkTouCoPgm3agQVPnp0pwHbf+0y/z/DKIFTsvjoWtZVjKVeZmmp6KOyK/N/hRmt6 v058aj5u3DF9TzyjK49f isRg0igELMkEpRii5u/wCTIwjjjISE+FstuLnSydIq9g/sLJB6ePG+p+XyB3spNrtInnTFlXLybAMIlX ViYO2FgS37M/s/BLFi4Z c2N/xK3O620e165BSdF4v9jTYNF0BsoCtSLNSTlRl+Vf2+LG2qZXPAzdePpavI6A0gdkLtf379ugmpEH RGhd7YFabLfzAfLjPz/D Cgz66WMMgLY//C0LcMdumAbZ9FYJtOqedJiPwjBnIIOz6tIkzIywOlMjuJqMhsV0zOnGvLeYUwJWJNQ2 8JfQEOSWmFGxH4zfEQcV BIA74ixfnrv8SZvkSmRILG6oniKJ0YLvGVHdEqkNb6NkHnFEHXGyanwc37g6qhEuSSK49iRusNBwatTs Rer94MTLQLbtdkyJGkKV gC8jVI6RPXeLsbgCFf7zSSeCwpFqJKcoGzpL5KDk1lc//Y5R6UxnC/AKKkLCn+7WZd/oBwFlGuqDeXzQ PsQWJ/1ppR+eT1TB4Li/ vbYItcxrw59Y3cY/WnuD+qEZH1+TIeD3z+Fb3GteM2u7ltkh3T1Bo0/kTT9Zh7qvNN3d/7Us1q1qzzq3 F9Ml5/zRjc/JNaf/bP9g pSSfnD/uuLy/8AS97/MY09A0o7EAYg/wBs/wBig5H/ADv/AGE8vj/AQn7VPG/jx8UIQC/7b/sVB3/Pj9 dobie worker++5/rkay/0WVaT/AG 3/AGKiX/P/LNI6L91/9cH73+iyrR/7Z/kBpo8N9gB0N2W/yW/mcvE7EdQ/7Z9n/VlTc6OOPy+g1+Xqfx Jw/vfJlWi/p/j4KZj/AO esp8t6HqLE+OCsveE/4F/T/HwUzB/gnd1h8rjEJ+D5W5ss0Q0Sw2r/AM5H/cHMZiI7U/zTj++X/Ae6TX 1b/nJD/lp0n7l/5ox/fL tm9jUnqm7Gvfc/AMtWlfcn/JGK42I4Jbb97x/zkj/d6jY4jk9OROL62P7Qkl28y/zkl/q6mA9qf73I/v rqU74qrQH+ckf+WrSvuT /phK10k5X6Dj+lq22Hl6cVqg6OAb/zRj+9C9G5QKcEp+cj/wDlr0r/AIFf+lHf5fJ7RzB60S/nI7/lr0 n/AIFf+eMQ86v2MfIeSm /lMjriwXV6gP7MopD83i7WyZeTflO/IRtL1dABL8G/BFfpcQ8lK+Cj05CEb+okV7o0YhyPR8Hl/vf6KP 1KLs0m7+Cqg/6eOSA3Te mJ/wCBx/e/0Uf4H/tn+dCfW191inK+i4w1l/osa0f+3w7POGyx0/afy+P+fvRpl0HT+Cf7b/sVdE/O39 qTu2brnOTTF0JO5b7Fpy 8AsESh/POvyOl4dcn7zmr/vP6LD/Bv9t/2Csr/HZogpN5K7Y6m/NOH1+SP8H/2z/Eezu1Rpq+1Twk0CR f/ADRj6/Jj+4/2z/YoiK El0M6041d/3d1bV5bAA7/JifB/p/KKKSXzSftwWI+U0x/1zBYgzkGG1SWgy8PuXtGUxuv91ve3EFBcat Hoi8LF/4y2FVEUAns6Sj bqim4kS6GXqwTxxG6w6hR4Cs6EPo3zVVY98YQ/14OwIWc5DQF6Tc9GDrwNrjKrHV2wqrfQoZB3yz8JBB IFWPQCvfASFAVKeGFFB2 VwcTOPcw6YDZapoY922Z5NDSTHn0GOPcsijPUbsNL7KXRrgb6TzdWZEzIC3MvqO9J7DY4u1VPCVhg8hE odKSEOaBp4AWTVLTZQbA jBM5O45tgpUG7+m1MBf8nGUIkKm+QA5INTZef0K2Zg6tF3IHVWhBYU+nQbzJh19uy2Uovc4iZq/sRMwD ua1Oej3RhRdwF6HLI4fN APAMoEx5g0e3VhbbZkPVP0XCLuLOhtvpKGv5hGfp1rPbG725tTKzECtITGDnwBLM9tldRDauWaavsAiB Pf35VNnmWOoF07ORYY4G S9DNSUUGsaABZXaOT2Yr0Z/1C0NdirY1vC5+r6mqZuP1red6BZjPo4bcihR/Q2Yd+u/CahKOCrp3Tmw3 x3dh1m2Tw0N6cSdB4iy+ zZxkwWwp/NIecv+zXAJeviPdxLw+jhZbp/nMiuhekFG9TG4Wj0bPJVLBGbZ4TZX2iB3nQrM8YQxdQird S2v+YgUR08d9T6jzPG3L 2457dcdG1HLQlZ25HJk3jdo9C9Iy9dMjo38/4XIjNKuL+RtuYuCr5f2I260hzgp9zEb0lJvAkrsWvjkE TvY6yEDkEp9QLi93/Bk4 UBD1ETrDL4buC+fI6nNpwe6tA5iLcAlXUEV2yUSTCz7GPpSvf+3rdX1JY8iOAAZg7o/UVVv8clhEb6nz vrSaNbGNWSGYtuzKpYsK AH9rI+JCnVt2PPePlvjSnp836r8MwJfW1e0Ds+vvr7rquRw/a2ZTPTZGckmNewo/diuu8r8mjluRfl6P ppl99Dyn990k1v3L7eLY brdQN7mhetcOlG45dLlJQlqRB2F5pd8L25C9IQx1rUZHcGl4s+cbvW/pJlP8tJlbwu7qQ8JA0HGVLYdJ CvmehPGCEqD70hrcuF/e 2WbBSiiMhGxImjU36qtdv+mBv1KqAlLZMcQnTKYYV02a+L9AaRuYrX/CcTqUAzBB0aNWePWSLn2wwVNw dZDV1HsMgMOcbwYMnkmz JPXUMRpb5AJny8eMK6RRyUuUJ24T5uulqmF7yi5m0Jfy2d2lQ4x7pcLIoOXkQxa20GCqu7ds6uxVyqmq MwCY9b85n1gWlBxIk2pi 5DWg7JxzQA4cGJEvOjdKuyJyu0NBjUvHk2piJjdY1BlT/NDSnKf8sUwIAYYeQd1UxJ5T7J4AeBV58lLj ot5gpF8Pl73xwLabR1zz J1b06eUd69N3aNrZ1U8EG2bEcAesFp/qj569beJF/rR8H377wJUq+qeRyfT5u9pS/puw4D0x0XwNIQB1 C8rGkYAy0SqWw+ByMskq DNIFgK5QSj2F5onR3Ws2J3u9nSj3t/cmP7oUOXMADKE1Hl2HMvv/j7RRJFQFcurMCIxDEZeBuXArdV71 B7GKlQotUxQB2gm8ZIgi UA+r0aZVmux/a/rMdsRNJpfUvwyB28mflrFz9nISRe8795xx9GWpKvksg6+Zxn5EzCw+fp7zcTtxtfyd FYcj0NjC7q3iVpfiAyGV 10+03VVU6xxGEdq1YH11fRHx1YHG0oIr7pQt4XSw7A/KNdVNCiHkqcLXbOnMAJ2JrpMjSdWzggrQpQRU +ZiD8Uy8DTCQ/rfmYC5e woO0/MXzT+gJ/IF1n5keynfYxqGO7daVzu/St+RGVUyu32Z/K2QQsiCL3DfPvO0zg9S355sous40d4kL P3UB6lbkZVy3FTj1sUAh ndJF83zcttVqksUDVBCFFcGeV76c6cWNpSJwnv3/d8o9jY0AQXbPh1NIGV45CnObkDD5JrK0twI/xXd6 +nV5le8xaLDzc7kQl6rh qvWKxsQXSdvi/zD1hWVg/yXSNtDC5R/lXxH6WS+7/ZI6y82+l2QimRg9fsi3ySlpbYhEYUdjMxhirjFv 5hE+bYzicQPBC3b5QJOB foxOA12bwporgMxm2rkPb6IJq8lLxTqUJ1zn01AZJUDU5qX4ZIQ/L46VMuVrv4ITLEEefp/NWk62+n+Y fqcyyaXPqi/RIpGFqa2Y pzxgdqet8YFGRTHthuOmRY584v5GrT2yq/JFRb2jMjgLqwuwBwtdbMIbGzRFdHbKkJlE9CkcWvG+VkDO IjIKEAaGabEwkDwpI0Wy QCywPdGfo7ppI7t2uXaPLvFmnJJaAUVngce+NNOwhQVQfk1A0JT69/3748JDF0f1IKd5sMzj8rjmn8eH PgCfbXV8wlWkkqy/q4Tl A5gPBUXkfvFoeWvZAWM34HgQ6BDAow3JxSVC8eULwqO2awnxqROHyBbEOov7//2kRFVZVSdvUSPd8n+W HqV51tFCdUZMWnl5cXhE qyo+1dETAK0YshP9TglDoVUA3CvyxGSDni03O7YyKsKiqc8M0dfCGNAPOyVga8S2+Raz0JOPflDsZYQk LkBHOci3P9T+tOPM20tN s7CPiUCcRAbX2hQvhcDEOtdQi7aQJYG4WQpNF8D/BstD2biF9I3UFq65hG0tSnrQoHkdGTgULzl+0xPx DmwgfvR2BpNvnckWPtI+ hlX1BC4oE8uaJqo2djx0WK3J0puyN5vta/JjvNb5DStHtDxk2munT32xdJiUng3wJlnFX2ulv9P0ti9w Kt1sRSs/p1ULUkyunQeO LWTck45q0z/Rv8d321c0h47UGQkdOlyU6/r4TJNDiRtZM6+XgJJEbgpUbygTD6x7iVqIpCV+r0n4olnu q2kKANPCCrDpizvoLjr7 CMRS3S8iCus1koa+T/ZPST4jaNhwh29e1hrJD0dbpmEMVU36mdZq2YUjnx/ICtiYHivmomKQWj/lvq8l p7XtTpg0CetIxbulK8wU nRg8eVvrjGge7X9gkIYxmS3OMqxvK2p+Q/CuwRL6lufzZTKMyLp6CqXFGUUfew2nTi9ys8VLjQ9AADBa WntnoHmE+ZNY1+aKGKeb AVwCZ1Pg3KFOYtPtRQWJFnh+6fQBYlgxHLWMc7xknAaCufjDzcgAcUO8C7rwMo1ZwmtqhMM6nnJ3ijBG Bdmk3SzH6u3v92L+teZD pUFvLb+RGYg3jKOmd9XQDFoXCDvBpsl8ngDQb/2cCUuV2KDA1G7rtS8a3+gV7N0hCLz4ursauLRfcMCv Th8pCJVboV5jyQcaYpWw qaQrd0iFAbO4sup1Om2W3ln1nVQlk8zSw1ejNmgozq2adiQugMLbKAq1c4toXn0qwZ/OdjelxW8Q/5Ry wP5kao2fiLssljlc1MVf dGkCFbDNXxuBAJTMJVVAs7qi80ck7l62jlkYFn5R2EdpfTgiubYISKBOWQCpY8NhxLWKWlnHVCtKNbl8 j/ZF9luY15Rz4X3OCwdy 5eotrSFxAGtdi0ZKko5JR/FYo2vOBPbhatVvaibBzU/SlupA7PZZOD5CtdI0FaaCsv/ELIzP7q2Nv3uw mpu9x9dk7ItIYRSP+k1W 1w2IlJ96jikJSiCNcx0rbeXBYWjGUTdZjCs4G3s4TcW/YwfGDO2HBNkfbdVvExvaKYshc+ANu2UDDycW pKSro2tflcvnv3oacRtM dvjke93zb0khJTX5WbF+HXARAYxasdkUUYhCS0bRAZqslzjnId8M4JIsQPp3kMTdJ1qfIC6jybDl9A5S I03L7pCLU1TTMASRpO/K 4o15SqO9lekJcIZF6Rg6Czmyy9NQfc3bdxY3rv/DJwibthKQqkq/YWbBnDsLIyCdYhPibhD6m0PzZgCM n9YIHgXhlxmXPcMoPWul qAekdg8YswscMM5iAc9ZlXWq34QoEpZskgG78qAGhKwXj4MXzD+JO7ieS76sZ3B779LFZAE6MYjcVeJS kkS80E53o35/22/a5YMc XGReyCjI448zn4mttR6qd0Jd7wpcy1pJUUh4pB5J1xmyBeE5zpdoxAiT9taqFfHDY0IJeVd/zZrVtrmp 4NPDqqHm1ifq8Lgc3WCr 1EgeYtLxHKST/DCnSeUEquREqHv6G3bfhY0s2niee53HtTskdo56JdT+gYljJqPn8udHExUvXZdzuQbR h0/wAn+feI5bDSbdLEF8 8LO6yP5Dk0ce1I4gKaZgOFOv7xu0COGJtELxqrO7cM5nEcicd8SCV8gww7Bd28lVaCpkoK61Xxoytlhd XCOZ75PgmiauKcmnwaic 6/SgM0BwcGEIeEKJHLKkswVVrJ9iQ0oUByXn9fiX1KbjGzTbE/4jRRDhO0jLEprwKi3FpUjABZAyWDe9 OFWj1+w2qYzaEItTBd3/ dirjioaX/P+5GsLmUom59b/WPeIO6axfXobvFHIbwy2r0/02vZjrz11Hx+69/5spyc/wCH/UqXwc6W+a yTT/8AeKD+6+wP95/7r/ Oh0LHi3YZ3et+xUVp4FTcxM/X5YlQ7/B7OXPMjxnmPvNutBHzifEmXq29Ebs9YVqETDvVv/P0MoLDS81 PTv+v/ADrhQu+/Ek9qKtnuqr8a9PSz8Z2K1I1nqlL//9k=></span>

<span class=clinicalNoteMacroWysiwyg id=[id number] macroname=LocationPrintingName" spantype=macro title=#LocationPrintingName>[facility] [address]</span>
<span class=clinicalNoteMacroWysiwyg id=[id number] macroname=LocationAddress spantype=macro title=#LocationAddress>[address]
[place] [address]</span>
P: <span class=clinicalNoteMacroWysiwyg id=[id number] macroname=& quot;LocationPhoneNumber spantype=macro title=#LocationPhoneNumber> </span>
F: <span class=clinicalNoteMacroWysiwyg id=&quot ;macro_[id number] macroname=LocationFaxNumber spantype=macro tit le=#LocationFaxNumber> </span>
</div><div style=text- align:left>

<strong>PATIENT:</strong> <span class=clinicalNoteMacroWysiwyg id=[id number] macroname=& quot;PatientName spantype=macro title=#PatientName>KECIA PEGUERO< /span></div><div style=text-align:left><strong>MRN:</strong><span class=clinicalNoteMacroWysiwyg id=[id number] macroname= PatientMRN spantype=macro title=#PatientMRN>[id number]</span></div><div style=text-align:left><strong>:</strong> <span class=clinicalNoteMacroWysiwyg id=[id number] macroname=&quot ;PatientDateOfBirth spantype=macro title=#PatientDateOfBirth>1979</span></div><div style=text-align:left>
</div><div style=text- align:left><strong>Date of Service</strong>: <span clas s=clinicalNoteMacroWysiwyg id=[id number] macroname=Effecti veDate spantype=macro title=#EffectiveDate>02/15/2025</span>& lt;br></div></div><div style=text-align:left>

<span class=clinicalNoteSectionVisible id=[id number] interna lbreaksection=false originalname=Referring Physician: recognizeconcepts=&quo t;true spantype=section suppressempty=true>Referring Provider:</ span>
Dr. Mullen Status

<span class=clinicalNoteSectionVisible id=[id number] internalbreaksection=false originalname=Chief Complaint: recognizeconcepts=true spantype=section suppres sempty=false>Chief Complaint:</span>
Follow-up for superior mesenteric vein thrombosis, DVT, and a recent hospitalization

<span class=clinical NoteSectionVisible id=[id number] internalbreaksection=false&qu ot; originalname=Diagnosis/Treatment: recognizeconcepts=true spantype= section suppressempty=true>Principal Diagnosis:</span>
<span class=clinicalNoteMacroWysiwyg id=[id number] macroname=Pro blems parameters=InitialCap:Yes,ListType:Bulleted,PrincipalOnly:Yes,[id number]:Yes spantype=macro title=#Problems(InitialCap:Yes,ListType:Bulleted,PrincipalOnly:Yes, [id number]:Yes)><ul> <li>Pulmonary embolism ( ICD-10:I26.94 ;Multiple subsegment al pulmonary emboli without acute cor pulmonale )</li></ul></span>
<span class=clinicalNoteSectionVisible id=[id number] internalbre aksection=false originalname=Treatment: recognizeconcepts=true s pantype=section suppressempty=true>Treatment History:</span>
<span class=clinicalNoteMacroWysiwyg id=[id number] macrona me=Regimens parameters=ShowPRNMedications:No,ShowPreMedications:No,RegimenFormat:Bulleted spantype=macro title=#Regimens(ShowPRNMedications:No,ShowPreMedicati ons:No,RegimenFormat:Bulleted)>Ferumoxytol (Feraheme) D1,8 (Intravenous Iron) Cycle Length: 14 Number Cycles: 1 Start: C1D1 on 03/02/2025 Assoc Dx: Acquired iron deficiency anemia due to decreased absorption LOT: 1st Line or Induction 03/01/2025 C1 D1
<ul> <li>Ferumoxytol IV, 510 mg</li></ul></span>

<span class=clinicalNoteSectionVisible id=[id number] internalbreaksection=false originalname=History of Prior Illness: recognizeconcepts=true spantype="section suppressempty=true>History of Present Illness:</span>
Ms. Peguero is a 44-year-old female with history of asthma, chronic back pain, constipation, diverticulitis, fibromyalgia, hypothyroidism and multiple abdominal surgeries. She presented to [facility] for complaints of abdominal pain, swelling, nausea, vomiting, diarrhea. She had been previously admitted to the hospital for abdominal pain with findings of bowel i schemia with CT scan showing pneumatosis of the right colon with portal venous air and subsequentlyunderwent diagnostic laparotomy with right hemicolectomy, lysis of adhesions and washout on 12/16. On12/18 she underwent [id number] ileocolonic anastomosis with fascial closure and washout. She remained intubated after the procedures and was subsequently extubated and transferred to the medical floor. She was placed on TPN and subsequently transition back to enteral nutrition. 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 While on the heparin drip, she developed a <strong>DVT to right common femoral vein.</strong> CTA of the chest was negative for pulmonary embolus. I was consulted andordered hypercoagulability work-up. <strong>Lupus anticoagulant is negative. Beta-2 glycoprotein anticardiolipin antibodies are negative. There is low protein S activity and low protein C activity. Factor V leiden mutation is negative. Prothrombin gene mutation is negative. She has MTHFR mutation with 1 copy of C677T mutation. Homocystine level is normal. </strong> She was subsequently transitioned to Eliquis and was discharged home with Eliquis.
She was b rought to our facility with one day history of melena on 02/01/25. Last colonoscopy about 3 years ago. She was found to have diverticulosis. About 3 years ago she had ischemic colitis and underwent partial colectomy.

<span class=clinicalNoteSectionVisible id=[id number] internalbreaksection=false originalnam e=Interval History: recognizeconcepts=true spantype=section supp ressempty=true>Interval History:</span>
<span><p>The patient is presenting today for a follow-up for superior mesenteric vein thrombosis and DVT franco recent hospitalization. She was admitted to the hospital due to significant blood in her stool and weakness. She was diagnosed with an upper GI bleed, which was eventually controlled. However, her hemoglobin levels remained unstable, fluctuating between 9.9 and 7.0 within a 12-hour period. Since discharge, she reports feeling sick again on Saturday, noticing a little blood in her urine and stool. She returned to the hospital where they found no active GI bleed, but her hemoglobin remained unstable. She received two IV iron doses in the hospital. She is currently taking 12 iron pills daily as prescribed by the hospital doctor. She has been trying to follow up with the GI doctor who performed her endoscopy but has been unsuccessful in obtaining further information or treatment plans.</p></span><span class=clinicalNoteSectionVisible id=[id number] internalbreaksection=false originalname=Chief Complaint: recognizeconcepts=true spantype=section suppressempty=true>Past Medical History:</span>
<ul> <li>asthma
</li> <li>chronic back pain
</li> <li>constipation
</li> <li>diverticul itis
</li> <li>fibromyalgia
</li> <li>hypothyroidism
</li> <li>migraine</li> <li>multiple abdominal surgeries </li></ul>
<span class=clinicalNoteSectionVisible id=[id number] internalbreaksection=false originalname=Interval History:" recognizeconcepts=true spantype=section suppressempty=true>Past Surgical History:</span>
<span class=clinicalNoteMacroWysiwyg id=[id number] macroname=Surgeries parameters=LookBackDays: All,ListType:Bulleted spantype=macro title=#Surgeries(LookBackDays:All,ListT ype:Bulleted)><ul> <li>2018, Procedure: Bypass gastroenterostomy (procedure)&lt ;/li> <li>2012, Procedure: Appendectomy, NOS</li> <li>1998, Procedure: Cholecys tectomy (procedure)</li></ul></span>

<span class=clini calNoteSectionVisible id=[id number] internalbreaksection=false& quot; originalname=Comments for Past Surgical History: recognizeconcepts=true" spantype=section suppressempty=true>Past Surgical History*:</span>
<ul> <li> Exploratory Laparotomy (12/18/2022) &a mp;nbsp;</li> <li> Abdominal Laparoscopy (12/16/2022) &am p;nbsp; </li> <li> Herniorrhaphy Umbilical Laparoscopic Robotic (02/22/2021) </li> <li> Gastric bypass operation (04/09/2016) </li> <li> Appendectomy </li> <li> Cholecystectomy </li> <li> Colonoscopy &amp ;nbsp; </li> <li> EGD </li> <li> Gastric bypass operation </li></ul>
<span class=clinicalNoteSectionVisible id=&quot ;[id number] internalbreaksection=false originalname=Past Medic al/Surgical History: recognizeconcepts=true spantype=section suppresse mpty=true>Medications:</span>
<span class=clinicalNoteMacroWysiwyg id=[id number] macroname=PatientMedications parameter s=ListType:Bulleted,ValueIfNull:No Known Medications spantype=macro title=&q uot;#PatientMedications(ListType:Bulleted,ValueIfNull:No Known Medications)><ul> <li>Buspirone Oral 5.0 mg</li> <li>Eliquis (Apixaban Oral) 5 mg tablet BID</li><li>Folic Acid Oral 1 mg tablet 1 tablet orally daily.</li> <li>Pregabalin Oral 150.0 mg</li> <li>Apixaban Oral 5.0 mg</li> <li>Tizanidine Oral 4.0 mg</li> <li>Cyanocobalamin IM 1,000 mcg/mL solution 1,000 mcg intramuscularly every week. Take injection x1 weekly for a month. After the month, proceed to take the injection once a month.</li> <li>Ferrous Sulfate Oral 325 mg (65 mg iron) tablet 325 mg orally daily.</li> <li>Dilaudid (Hydromorphone Oral) 4 mg tablet PRN</li> <li>Amitriptyline Oral 10.0 mg</li> <li>Cyanocobalamin IM 1,000 mcg intramuscularly every week.</li></ul></s alonso>

Medications reviewed and reconciled with patient.

<span class=clinicalNoteSectionVisible id=[id number] internalbr eaksection=false originalname=Allergies: recognizeconcepts=true spantype=section suppressempty=true>Allergies:</span>
<span class=clinicalNoteMacroWysiwyg id=[id number] macroname=&quo t;Allergies parameters=ListType:Bulleted,ValueIfNull:No Known Allergies spantype="macro title=#Allergies(ListType:Bulleted,ValueIfNull:No Known Allergies)><ul> <li>Haldol</li> <li>Iodinated Contrast Media</li> <li>NSAIDS (Non-Steroidal Anti-Inflammatory Drug)</li> <li>Penicillins</li> <li>Phener helder</li> <li>Reglan</li> <li>Toradol</li> <li>dicyclomine</li> <li>fentanyl</li></ul></span>
<span class=clinicalNoteSectionVisible id=[id number] internalbreaksection=false originalname=Smoking Status recognizeconcepts=true spantype=section" suppressempty=true>Smoking Status:</span>
<span class=clin icalNoteMacroWysiwyg id=[id number] macroname=PatientSmokingStatu s parameters=Verbosity:Medium spantype=macro title=#PatientSmoki ngStatus(Verbosity:Medium)>Smoking Tobacco : Never smoker; Smokeless Tobacco : Never used smokeless tobacco; Vaping : Never vaped</span>

<span class=clinicalNoteSectionVisible id=[id number] internalbreaksection=false" originalname=Social History: recognizeconcepts=true spantype=section suppressempty=true>Social History:</span>
non-ETOH drinker

<span class=clinicalNoteSectionVisible id=[id number] internalbreaksection=false originalname=Family History: recognize concepts=true spantype=section suppressempty=true>Family Hist ory:</span>
<span class=clinicalNoteMacroWysiwyg id=[id number] macroname=FamilyHistory parameters=ListType:Bulleted,ShowComment s:Yes spantype=macro title=#FamilyHistory(ListType:Bulleted,ShowComments:Yes )><ul> <li>Brother 1: - Lung cancer</li> <li>Grandmother - Paternal (2nd Degree): - Colorectal cancer</li> <li>Uncle - Paternal (2nd Degr ee): - Lung cancer</li> <li>Aunt - Paternal (2nd Degree): - Lung cancer</li></ul></span>
<span class=clinicalNoteSectionVisible id=[id number] internalbreaksection=false originalname=ROS: recognizeconcepts=true spantype=section suppressempty=true&q uot;>ROS:</span>
<span><p>12 point ROS (-) except as otherwise mentioned in the HPI or below.

</p><p>Wt loss: (-); fevers: (-); night sweats: (-); <strong>fatigue: (+)</strong>; loss of appetite: (-); visual complaints: (-); BEARD 's: (-); focal weakness: (-); numbness: (-); dyspnea: (-); cough: (-); CP: (-); abd pain: (-); abd bloating: (-); LE edema: (-); skin rash: (-); nausea: (-); vomiting: (-); diarrhea: (-); constipation: (-); <strong>BRBPR: (+)</strong>; melena: (-); epistaxis: (-); easy bruising/bleeding: (-); swollen lymph nodes: (-); claudication: (-).</p></span><span class=clinicalNoteSectionVisible id=[id number] internalbreaksection=false originalname=Physical Examination: recognizeconcepts=true spantype=section suppressempty=true>Vitals:</span>
<span class=clinicalNoteMacroWysiwyg id=[id number] macroname=PatientHeight parameters=Label:Height:,LookBackDays:0,ValueIfNull:None Today spantype= macro title=#PatientHeight(Label:Height:,LookBackDays:0,ValueIfNull:None Today)>Height: 63 in</span>; <span class=clinicalNoteMacroWysiwyg id=[id number] macroname=PatientWeight parameters=Label:Weight:,LookBackDays:0,ValueIfNull:None Today spantype=macro title=#PatientWeight(Label:Weight:,Lo okBackDays:0,ValueIfNull:None Today)>Weight: 340 lb</span>; <span class=clin icalNoteMacroWysiwyg id=[id number] macroname=PatientVitalSigns& quot; parameters=LookBackDays:0,Verbosity:Medium spantype=macro title= #PatientVitalSigns(LookBackDays:0,Verbosity:Medium)>Blood pressure: 151/80, Pulse: 81, Temperature: 98.8 F, Respirations: 18, Pain Scale: 0</span>

<span class="clinicalNoteMacroWysiwyg id=[id number] macroname=KarnofskyStatus parameters=Label:Karnofsky,ValueIfNull:Not Assessed,Verbosity:Medium spantype="macro title=#KarnofskyStatus(Label:Karnofsky,ValueIfNull:Not Assessed,Verbosity:Medium)>Karnofsky Not Assessed</span>

<span class=clinicalNoteSectionVisible id=[id number] internalbreaksection=false originalname=Comments for Physical Exam: recognizeconcepts=true spantype="section suppressempty=true>Physical Exam:</span>
<span><p>GENERAL: Awake, alert, and oriented. No acute distress.
HEAD: Normocephalic, atraumatic.
SKIN: Soft, no lesions, rashes.
EYES: Conjunctiva pink with no redness orexudates. Eyelids without lesions. Sclera without icterus.
ENT: Hearing grossly intact. Mucus membranes moist.
MOUTH: Dentition without lesions. Oropharynx clear without erythema or exudates.
NECK: Full range of motion. Thyroid not palpable. Trachea at midline. No lymphadenopathy.
BREAST: Exam deferred.
CHEST: Symmetrical expansion. Lungs clear to auscultation bilaterally. No wheezing, rales, rhonchi.
CARDIOVASCULAR: Heart sounds regular rate and rhythm. Normal S1 and S2. No S3, S4, rubs, or murmurs.
ABDOMEN: Bowel sounds normoactive. No pain to superficial or deep palpation. No hepatosplenomegaly.
LYMPHATIC: No palpable cervical, supraclavicular, axillary, abdominal, or inguinal adenopathy.
: Exam not performed.
MUSCULOSKELETAL: Full range of motion. No pain or deformity.
EXTREMITIES: No cyanosis, clubbing, or edema.
PSYCH: Mood and affect appropriate.</p></span><span class=clinicalNoteSectionVisible id=[id number] interna lbreaksection=false originalname=Labs: recognizeconcepts=true sp antype=section suppressempty=true>Labs:</span>
<span cl ass=clinicalNoteMacroWysiwyg id=[id number] macroname=Rece ntLabResultsTable parameters=OptionalFlowsheetCategory:CBC,Label:CBC,ValueIfNull:None Today spantype=macro title=#RecentLabResultsTable(OptionalFlowsheetCategory:CB C,Label:CBC,ValueIfNull:None Today)>CBC<table border=1 style=width:100%> <tbody> <tr> <th align=left>Lab Results</th> <td>12/01/2024</td> <td>04/25/2023</td> <td>04/19/2023</td> <td>02/01/2023</td> <td>01/22/2023</td> <td>12/16/2022</td> </tr> <tr> <th align=left> CBC</th> <td>
</td> <td>
</td> <td>
</td> <td>
</td> <td>
</td> <td>
</td> </tr> <tr> <td> WBC x 10^3/uL</td> <td>6.2</td> <td>
</td> <td>6.5</td> <td>5.1</td> <td>
</td> <td>
</td> </tr> <tr> <td> RBC x 10^6/uL</td> <td>3.94 (L)</td> <td>
</td> <td>3.58 (L)</td> <td>3.60 (L)</td> <td>
</td><td>
</td> </tr> <tr> <td> NRBC, absolute, x 10^3/uL</td> <td>0.00</td> <td>
</td> <td>0.00</td> <td>0.00</td> <td>
</td> <td>
</td> </tr> <tr> <td> NRBC, %</td> <td>0.0</td> <td>
</td> <td>0.00</td> <td>0.00</td> <td>
</td> <td>
</td> </tr> <tr> <td> HGB g/dL</td> <td>11.7 (L)</td> <td>
</td> <td>9.9 (L)</td> <td>10.4 (L)</td> <td>
</td> <td>
</td> </tr> <tr> <td> HCT %</td> <td>38.3</td> <td>< br> </td> <td>33.0 (L)</td> <td>34.5 (L)</td> <td>
</td> <td>
</td> </tr> <tr> <td> MCV fL</td> <td>97.2</td> <td>
</td> <t d>92.2</td> <td>95.8</td> <td>
</td> <td>
</td> </tr> <tr> <td> MCH pg</td> <td>29.7</td> <td>
</td> <td>27.7</td> <td>28.9</td> <td>
</td> <td>
</td> </tr> <tr> <td> MCHC g/dL</td> <td>30.5 (L)</td> <td>
</td> <td>30.0 (L)</td> <td>30.1 (L)</td> <td>
</td> <td>
</td> </tr> <tr> <td> RDW %</td> <td>15.4 (H)</td> <td>
</td> <td>15.7 (H)</td> <td>20.1 (H)</td> <td>
</td> <td>
</td> </tr> <tr> <td> PLT x 10^3/uL</td> <td>353</td> <td>
</td> <td>412 (H)</td> <td>362</td> <td>
</td> <td>
</td> </tr> <tr> <td> MPV fL</td> <td>9.8</td> <td>
</td> <td>9.90</td> <td>9.40</td> <td>
</td> <td>
</td> </tr> <tr> <td> Tripp %</td> <td>55.6</td> <td>
</td> <td>54.2</td> <td>64.9</td> <td>
</td> <td>
</td> </tr> <tr> <td> LY %</td> <td>34.9</td> <td>
</td> <td>37.3</td> <td>26.7</td> <td>
</td> <td>
</td> </tr> <tr> <td> MO %</td> <td>7.3</td> <td>
</td> <td>6.6</td> <td>5.6</td> <td>
</td> <td>
</td> </tr> <tr> <td> EO %</td> <td>1.3</td> <td>
</td> <td>0.9</td> <td>1.4</td> <td>
</td> <td>
</td> </tr> <tr> <td> IG %</td> <td>0.3</td> <td>
</td> <td>0.5</td> <td>0.6 (H)</td> <td>
</td> <td>
</td> </tr> <tr> <td> Tripp # (ANC) x 10^3/uL</td> <td>3.42</td> <td>
</td> <td>3.54</td> <td>3.34</td> <td>
</td> <td>
</td> </tr> <tr> <td> BA %</td> <td>0.6</td> <td>
</td> <td>0.50</td> <td>0.80</td> <td>
</td> <td>
</td> </tr> <tr> <td>& nbsp; MO # x 10^3/uL</td> <td>0.45</td> <td>
</td> <td>0.4</td> <td>0.3</td> <td>
</td> <td>
</td> </tr> <tr> <td> EO # x 10^3/uL</td> <td>0.08</td> <td>
</td> <td>0.1</td> <td>0.1</td> <td>
</td> <td>
</td> </tr> <tr> <td> BA # x 10^3/uL</td> <td>0.04</td> <td>
</td> <td>0.03</td> <td>0.04</td> <td>
</td> <td>
</td> </tr> <tr> <td> IG # x 10^3/uL</td> <td>0.02</td> <td>
</td> <td>0.03</td> <td>0.03</td> <td>
</td> <td>
</td> </tr> <tr> <td>& nbsp; LY # x 10^3/uL</td> <td>2.15</td> <td>
</td> <td>2.43</td> <td>1.37</td> <td>
</td> <td>
</td> </tr> </tbody></table></span>
<span class=clinicalNoteMacroWysiwyg id=[id number] macroname=RecentLabResultsTable parameters=OptionalFlowsheetCategory:Chemistries,Label:Chem istries,ValueIfNull:None Today spantype=macro title=#RecentLabResultsTable(O ptionalFlowsheetCategory:Chemistries,Label:Chemistries,ValueIfNull:None Today)>Chemistries<table border=1 style=width:100%> <tbody> <tr> <th align=left>Lab Results</th> <td>12/01/2024</td> <td>04/25/2023</td> <td>04/19/2023</td> <td>02/01/2023</td> <td>01/22/2023</td> <td>12/16/2022</td> </tr> <tr> <th align=left> Chemistries</th> <td>
</td> <td>
</td> <td>
</td> <td>
</td> <td>
</td> <td>
</td> </tr> <tr> <td> Glucose mg/dL</td> <td>111 (H)</td> <td>
</td> <td>104.00</td> <td>91.00</td> <td>
</td> <td>
</td> </tr> <tr> <td> BUN mg/dL</td> <td>7</td> <td>
</td> <td>8.00</td> <td>12.00</td> <td>
</td> <td>
</td> </tr> <tr> <td> Creatinine, mg/dL</td> <td>0.97</td> <td>
</td> <td>0.67</td> <td>0.86</td> <td>
</td> <td>
</td> </tr> <tr> <td>&am p;nbsp; BUN/Creatinine ratio</td> <td>7.2</td> <td>
</td> <td>11.94</td> <td>13.95</td> <td>
</td> <td>
</td> </tr> <tr> <td> Sodium mmol/L</td> <td>145</td> <td>
</td> <td>137.00</td> <td>145.00</td> <td>
</td> <td>
</td> </tr> <tr> <td> Potassium mmol/L</td> <td>4.0</td> <td>
</td> <td>3.70</td> <td>3.80</td> <td>
</td> <td>
</td> </tr> <tr> <td> Chloride mmol/L</td> <td>109 (H)</td> <td>
</td> <td>104.00</td> <td>110.00 (H)</td> <td>
</td> <td>
</td> </tr> <tr> <td> CO2 mmol/L</td> <td>27.5</td> <td>
</td> <td>22.30</td> <td>25.60</td> <td>
</td> <td>
</td> </tr> <tr> <td> Calcium mg/dL</td> <td>8.8</td> <td>
</td> <td>8.30 (L)</td> <td>8.40 (L)</td> <td>
</td> <td>
</td> </tr> <tr> <td> Albumin g/dL</td> <td>3.3 (L)</td> <td>
</td> <td>3.30 (L)</td> <td>3.00 (L)</td> <td>
</td> &l t;td>
</td> </tr> <tr> <td> Total protein g/dL</td> <td>6.8</td> <td>
</td> <td>7.30</td> <td>6.60</td> <td>
</td> <td>
</td> </tr> <tr> <td> Globulin g/dL</td> <td>3.5</td> <td>
</td> <td>4.00</td> <td>3.60</td> <td>
</td> <td>
</td> </tr> <tr> <td> A/G ratio</td> <td>0.9</td> <td>
</td> <td>0.80</td> <td>0.80</td> <td>
</td> <td>
</td> </tr> <tr> <td> Bilirubin, total mg/dL</td> <td>0.5</td> <td>
</td> <td>0.30</td> <td>0.40</td> <td>
</td> <td>
</td> </tr> <tr> <td> Alkaline phosphatase U/L</td> <td>122 (H)</td> <td>
</td> <td>136.00</td> <td>140.00 (H)</td> <td>
</td> <td>
</td> </tr> <tr> <td> &a mp;nbsp;AST/SGOT U/L</td> <td>9 (L)</td> <td>
</td> <td>20.00</td> <td>17.00</td> <td>
</td> <td>
</td> </tr> <tr> <td> ALT/SGPT U/L</td> <td>19</td> <td>
</td> <td>19.00</td> <td>17.00</td> <td>
</td> <td>
</td> </tr> <tr> <td> LDH U/L</td> <td>181</td> <td>
</td> <td>192</td> <td>155</td> <td>
</td> <td>
</td> </tr> <tr> <td> & nbsp; GFR estimate mL/min/1.73m2</td> <td>74</td> <td>
</td> <td>>90</td> <td>87</td> <td>
</td> <td>
</td> </tr> </tbody></table></span>
<span class=clinicalNoteMacroWysiwyg id=[id number] macroname=RecentLabResultsTable parameters=OptionalFlowsheetCategory:Tumor Markers,Label:Tumor Markers,ValueIfNull:None Today spantype=macro title=#RecentLabResul tsTable(OptionalFlowsheetCategory:Tumor Markers,Label:Tumor Markers,ValueIfNull:None Today)>Tumor Markers None Today</span>

<span class=clinicalNoteSectionVisible id=[id number] internalbreaksection=false originalname=Problem List: recognizeconcepts=true spantype=section" suppressempty=true>Problem List:</span>
<span class=clini calCarmelOhioHealth Grove City Methodist HospitalcroWysiwyg id=[id number] macroname=Problems para meters=InitialCap:Yes,ListType:Bulleted,[id number]:Yes,Verbosity:Medium spantype=macro title=#Problems(InitialCap:Yes,ListType:Bulleted,[id number]:Yes,Verbosity:Medium )"><ul> <li>Pulmonary embolism ( ICD-10:I26.94 ;Multiple subsegmental pulmonary emboli without acute cor pulmonale )</li> <li>Acquired iron deficiency anemia due to decreased absorption ( ICD-10:D50.0 ;Iron deficiency anemia secondary to blood loss (chronic) )</li> <li>Anemia (disorder)</li> <li>Anxiety (finding)</li> <li>Arthritis (disorder)</li> <li>Asthma (disorder)</li> <li>Asthma (disorder)</li> <li>Backache (finding)</li> <li>Breast neoplasm screening status (finding) ( ICD-10:Z12.31 ;Encounter for screening mammogram for malignant neoplasm of breast )</li> <li>Cerebrovascular accident (disorder)</li> <li>Chronic back pain (finding)</li> <li>Chronic bronchitis (disorder)</li> <li>Chronic neck pain (finding)</li> <li>Chronic pain syndrome (disorder)</li> <li>Constipation (finding)</li> <li&gt ;Displacement of lumbar intervertebral disc without myelopathy (disorder)</li> <li>Diverticular disease (disorder)</li> <li>Embolism from thrombosis of vein of lower extremity(disorder)</li> <li>Endometriosis (disorder)</li> <li>Endometriosis (disorder)</li> <li>Fibromyalgia (disorder)</li> <li>Fibromyalgia (disorder)</li> <li>Fibromyalgia (disorder)</li> <li>Functional finding (finding) ( ICD-10:D68.62 ;Lupus anticoagulant syndrome )</li> <li>Generalized abdominal pain (finding)</li> <li>Helicobacter-associated disease (disorder)</li> <li>Hypothyroidism (disorder)</li> <li>Hypothyroidism (disorder)</li> <li>Hypothyroidism (disorder)</li> <li>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(disorder)</li> <li>Infectious disorder of kidney (disorder)</li> <li>Knee pain (finding)</li> <li>Leiomyoma (disorder)</li> <li>Measurement finding (finding) ( ICD-10:R97.8 ;Other abnormal tumor markers )</li> <li>Microbiologic culture positive (finding)</li> <li>Mixed anxiety and depressive disorder (disorder)</li> &lt ;li>Nutritional anemia (disorder) ( ICD-10:D53.9 ;Nutritional anemia, unspecified )</li> <li>Obesity (disorder)</li> <li>Urinary tract infectious disease (disorder)</li></ul></span>

<span class=clinicalNoteSectionVisibleid=[id number] internalbreaksection=false originalname=Assessment/Plan: recognizeconcepts=true spantype=section suppressempty=& quot;true>Impression:</span>
<strong>1. Hypercoagulable Disorder</s gallo>
S/p multiple hospitalizations for bowel ischemia with pneumatosis of the right colon with portal venous air. 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 While on the heparin drip, she developed a <strong>DVT to right common femoral vein.</strong> CTA of the chest was negative for pulmonary embolus. I was consulted and ordered hypercoagulability work-up. <strong>Lupus anticoagulant is negative. Beta-2 glycoprotein anticardiolipin antibodies are negative. There is low protein S activity and low protein C activity. Factor V leiden mutation is negative. Prothrombin gene mutation is negative. She has MTHFR mutation with 1 copy of C677T mutation. Homocystine level is normal. </strong>She was subsequently transitioned from Heparin and was discharged home with Elisly. Due to initial presentation similar to catastrophic systemic embolism I will repeat some of the hypercoagulable work up.
<div style=text-align:left>
CMP revealed low calcium at 8.30 andall other normal functions on 04/19/2023

CBC revealed normal WBC at 6.5, low hemoglobin at 9.9, and elevated platelet at 412 on 04/19/2023

Lupus anticoagulant negative on 02/01/2023

Beta 2 glycoprotein high at 24.7 on 02/01/2023

Protein S activity panel normal at 117 on 02/01/2023

Protein C activity panel normal at 79 on 02/01/2023

Antithrombin III activity high at 142 on 02/01/2023.

</div><div style=text-align:left>Labs taken on 12/01/2024 were discussed with the patient. White blood cell count was normal at 6.2, hemoglobin improved from 9.9 to 11.7, and platelet count was normal at 353,000. Glucose was mildly elevated at 111, chloride was elevated at 109, alkaline phosphatase was elevated at 122, and albumin was low at 3.3. LDH was normal at 181.

Labs taken during the hospital stay were discussed with the patient. Hemoglobin levels fluctuated between 9.9 and 7.0, with the lowest recorded value being 7.8. Thepatient's vitamin B12 was noted to be low.

Endoscopy revealed gastritis and a healing GI bleed. The capital markets specialist noted that the patient's body is producing more acid than her stomach can absorb, possibly due to her history of gastric bypass surgery.

</div><div style=text- align:left>
<span class=clinicalNoteSectionVisible id=[id number] internalbreaksection=false" originalname=Plan: recognizeconcepts=true spantype=section sup pressempty=true>Plan:</span>
<span><ol> <li>I will order iron infusions with Feraheme starting tentatively from 03/02/2025 pending insurance approval.&l t;/li> <li>I prescribed vitamin B12 injections for the patient to self- administer, given her history of gastric bypass and low B12 levels.</li> <li>I will continue the current dose of Eliquis (5mg) as the patient is comfortable with this regimen.</li> <li>I will order CBC every two weeks to closely monitor the patient's hemoglobin levels.</li> <li>I will order Iron, TIBC, and Ferritin panel, and Vitamin B12 and Folate panel to be completed today and repeated on 05/03/2025.</li> <li>The patient will follow up on 05/11/2025.</li></ol><p>All medical records were reviewed. Clinical situation was explained at length to the patient. All questions were addressed. </p><p>Documentation assistance pro vided by Adalid Gant, scribing for Mervat Shrestha MD, on 02/15/2025.</p><p>I, Mervat Shrestha MD, personally performed the services described in this documentation, and it is both accurate and complete.</p></span>
<span class=clinicalNoteMacroWysiwyg" id=[id number] macroname=MyName spantype=macro title=#MyName>Adalid Gant Scribe</span>

<span class=clinicalNoteMacroWysiwyg id=[id number] macroname=&q uot;NoteRecipients spantype=macro title=#NoteRecipients>[facility]</span>

<span class=clinicalNoteSectionVisible id=[id number] internalbreaksection=false" originalname=Send copy of note to: recognizeconcepts=true spa ntype=section suppressempty=true>Send copy of note to:</span>
Dr. Sebas Douglas

.

</div></div>

<div><span class=eSignSignature>Electronically signed by Mervat Shrestha MD 02/18/2025 23:40 MDT</span></div></body></html> * HemOnc Follow Up {Darrell Shrestha <html><head></head><body><div style=text-align:center><div style=text- align:center><span class=clinicalNoteMacroWysiwyg id=&q uot;[id number] macroname=PracticeLetterhead spantype=macro title=#PracticeLetterhead><img height=91 src=[email or web address] ype=1&pgidDibkminoepBh=[id number] bwkke=476></span>

<span class=clinicalNoteMacroWysiwyg id=[id number] macr oname=LocationPrintingName spantype=macro title=#LocationPrintingName& quot;>[facility] [address]</span>
<span class=clinicalNoteMacroWysiwyg id=[id number] macroname=LocationAddress spantype="macro title=#LocationAddress>[address]
[place] [address]</span>
P: <span class=clinicalNoteMacrPrasanth [place] [id number] macroname=LocationPhoneNumber spantype=macro title =#LocationPhoneNumber> </span>
F: <span class=cl inicalNoteMacrMarvinysiwyg id=[id number] macroname=LocationFaxNumbe r spantype=macro title=#LocationFaxNumber> </span&g t;
</div><div style=text-align:left>

& lt;strong>PATIENT:</strong> <span class=clinicalNoteMacroWysiwyg id=jose [id number] macroname=PatientName spantype=macro title=&quo t;#PatientName>KECIA MILESNEY</span></div><div style=text-align:left&quo t;><strong>MRN:</strong> <span class=clinicalNoteMacroWysiwyg id=&quot ;macro_[id number] macroname=PatientMRN spantype=macro title=&qu ot;#PatientMRN>[id number]</span></div><div style=text-align:left&g t;<strong>:</strong> <span class=clinicalNoteMaaramisoWysiwyg id=jimi [id number] macroname=PatientDateOfBirth spantype=macro title= #PatientDateOfBirth>1980</span></div><div style=text-align :left>
</div><div style=text-align:left><strong>Date of Service</strong>: <span class=clinicalNoteMaaramisoWysiwyg id=[id number] macroname=EffectiveDate spantype=macro title=#Effec tiveDate>12/10/2024</span>
</div></div><div style=text-align:left>
This visit is being conducted through telemedicine on the [employer] platform during the COVID-19 pandemic, is patient-initiated, and patient's consent was obtained. Patient is currently located at home residence.

<span class=clinicalNoteSectionVisible id=[id number] internalbreaksection=false originalname=Referring Physician: recognizeconcepts=true spantype=section" suppressempty=true>Referring Provider:</span>
Dr. Mullen Status

<span class=clinicalNoteSectionVisible id=[id number] internalbreaksection=false originalname=Chief Complaint: recognize concepts=true spantype=section suppressempty=false>Chief Comp laint:</span>
Follow-up for superior mesenteric vein thrombosis and DVT
< br><span class=clinicalNoteSectionVisible id=[id number] internalbreaksection=false originalname=Diagnosis/Treatment: recognizeconcep ts=true spantype=section suppressempty=true>Principal Diagnos is:</span>
<span class=clinicalNoteMaaramisoWysiwyg id=[id number] macroname=Problems parameters=InitialCap:Yes,ListType:Bulleted,Melissa ncipalOnly:Yes,[id number]:Yes spantype=macro title=#Problems(InitialCap:Yes,L istType:Bulleted,PrincipalOnly:Yes,[id number]:Yes)><ul> <li>Pulmonary embolism ( ICD-10:I26.94 ;Multiple subsegmental pulmonary emboli without acute cor pulmonale )</li></ul></span>
<span class=clinicalNoteSectionVisible id=section_[id number] internalbreaksection=false originalname=History of Prior Illness: recognizeconcepts=true spantype=section suppressempty=true>History of Present Illness:</span>
Ms. Peguero is a 44-year-old female with history of asthma, chronic back pain, constipation, diverticulitis, fibromyalgia, hypothyroidism a nd multiple abdominal surgeries. She presented to [facility] for complaints of abdominal pain, swelling, nausea, vomiting, diarrhea. She had been previously admitted to the hospital for abdominal pain with findings of bowel ischemia with CT scan showing pneumatosis of the right colon with portal venous air and subsequently underwent diagnostic laparotomy with right hemicolectomy, lysis of adhesions and washout on 12/16. On 12/18 she underwent [id number] ileocolonic anastomosis with fascial closure and washout. She remained intubated after the procedures andwas subsequently extubated and transferred to the medical floor. She was placed on TPN and subsequently transition back to enteral nutrition. 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 While on the heparin drip, she developed a <strong>DVT to right common femoral vein.</strong> CTA of thechest was negative for pulmonary embolus. I was consulted and ordered hypercoagulability work-up. &l t;strong>Lupus anticoagulant is negative. Beta-2 glycoprotein anticardiolipin antibodies are negative. There is low protein S activity and low protein C activity. Factor V leiden mutation is negative. Prothrombin gene mutation is negative. She has MTHFR mutation with 1 copy of C677T mutation. Homocystine level is normal. </strong> She was subsequently transitioned to Eliquis and was discharged home with Eliquis. Tolerating it well. Denies any bleeding or bruising.

<span class=clinicalNoteSectionVisible id=[id number] internalbreaksection=false originalname=Interval History: recognizeconcepts=true spantype=section suppressempty=true>Interval History:</span>
The patient is presenting for a follow-up for superior mesenteric vein thrombosis and DVT. She reports no new symptoms or concerns since the last visit. She continues toexperience pain related to fibromyalgia and chronic pain, as well as persistent pain at the surgical site due to nerve damage. She has been compliant with her medication regimen, including continued use of Eliquis 5 mg twice daily. She had a mammogram one year ago, which came back clear. She mentions that she has been recommended for a hysterectomy due to endometriosis, fibroids, and ovarian cysts , but has been unable to find a surgeon willing to perform the procedure due to her protein C deficiency.

<span class=clinicalNoteSectionVisible id=[id number] internalbreaksection=false originalname=Chief Complaint:recognizeconcepts=true spantype=section suppressempty=true>Past Medical History:</span>
<ul> <li>asthma
</li> <li>chronic back pain
</li> <li>constipation
</li> <li>diverticulitis
</li> <li>fibromyalgia
</li> <li>hypothyroidism
</li> <li>migraine</li> <li>multiple abdominal surgeries </li></ul>
<span class=clinicalNoteSectionVisible id=[id number] internalbreaksection=false originalname=Interval History: recognizeconcepts=true spantype=section suppressempty=true>Past Surgical History:</span>
<span class=clinicalNoteMaJuliaysbeatrice id=[id number] macroname=Surgeries parameters=LookB ackDays:All,ListType:Bulleted spantype=macro title=#Surgeries(LookBackDays:A ll,ListType:Bulleted)><ul> <li>2018, Procedure: Bypass gastroenterostomy (proce dure)</li> <li>2012, Procedure: Appendectomy, NOS</li> <li>1998, Procedure: Cholecystectomy (procedure)</li></ul></span><span class=clinicalNoteSecti onVisible id=[id number] internalbreaksection=false orig inalname=Comments for Past Surgical History: recognizeconcepts=true spantype =section suppressempty=true>Past Surgical History*:</span>
<ul> <li> Exploratory Laparotomy (12/18/2022) </li> <li> Abdominal Laparoscopy (12/16/2022) </li> <li> Herniorrhaphy Umbilical Laparoscopic Robotic (02/22/2021) &n bsp;</li> <li> Gastric bypass operation (04/09/2016) &amp ;nbsp; </li> <li> Appendectomy </li> <li> Cholecystectomy &nbsp ; </li> <li> Colonoscopy </li> <li> EGD </li> <li> Gastric bypass operation </li></ul>
<span class=clinicalNoteSectionVisible id=[id number] internalbreaksection=false originalname=Past Medical/Surgical History: recognizeconcepts=true spantype=section suppressempty="true>Medications:</span>
<span class=clinicalNoteMacroWysiwyg" id=[id number] macroname=PatientMedications parameters=ListType:Bulleted,ValueIfNull:No Known Medications spantype=macro title=#Rohini entMedications(ListType:Bulleted,ValueIfNull:No Known Medications)><ul> <li>Concepción sly (Apixaban Oral) 5 mg tablet 1 tablet orally 2 times per day.</li> <li>Hydrocodone-Acetaminophen Oral 10 mg-325 mg 1.0 tab</li> <li>Folic Acid Oral 1 mg tablet 1 tablet orally daily.</li> <li>Hydrocodone Bitartrate Oral 12 hr Cap 10.0 mg</li> <li>Pregabalin Oral 150.0 mg</li> <li>Amitriptyline Oral 10.0 mg</li> <li>Apixaban Oral 5.0 mg</li> <li>Buspirone Oral 5.0 mg</li> <li>Eliquis (Apixaban Oral) 5 mg tablet 1 tablet orally 2 times per day.</li> <li>Ferrous Sulfate Oral 325 mg (65mg iron) tablet 325 mg orally daily.</li> <li>Eliquis (Apixaban Oral) 5 mg tablet BID</li> <li>Tizanidine Oral 4.0 mg</li></ul></span>

Medications reviewed and reconciled with patient.

<span class=clinicalNoteSectionVisible id=[id number] internalbreaksection=false originalname=Allergies: recognizeconcepts=true spantype=section suppressempty=true>Allergies:</span>
<span class=clinicalNoteMacroWysiwyg id=[id number] macroname=Allergies parameters= ListType:Bulleted,ValueIfNull:No Known Allergies spantype=macro title= #Allergies(ListType:Bulleted,ValueIfNull:No Known Allergies)><ul> <li>Haldol&lt ;/li> <li>Iodinated Contrast Media</li> <li>NSAIDS (Non-Steroidal Anti-Inflamma tory Drug)</li> <li>Penicillins</li> <li>Phenergan</li> <li>Reglan</li> <li>Toradol</li> <li>dicyclomine</li> <li>fentanyl</li></ul></span>
<span class=clinicalNoteSectionVisible id="[id number] internalbreaksection=false originalname=SmokingStatus recognizeconcepts=true spantype=section suppressempty=true>Smoking Status:</span>
<span class=clinicalNoteMacroWysiwyg id=[id number] macroname=PatientSmokingStatus parameters=V erbosity:Medium spantype=macro title=#PatientSmokingStatus(Verbosity:Medium) >Smoking Tobacco : Never smoker; Smokeless Tobacco : Never used smokeless tobacco; Vaping : Never vaped</span>

<span class=clinicalNoteSectionVisible id=[id number] internalbreaksection=false originalname=Social History: recognizeconcepts=true spantype=section suppressempty="true>Social History:</span>
non-ETOH drinker

<span class=clinicalNoteSectionVisible id=[id number] internalbreakse ction=false originalname=Family History: recognizeconcepts=true spantype=section suppressempty=true>Family History:</span>
<span class=clinicalNoteMacroWysiwyg id=[id number] macronam e=FamilyHistory parameters=ListType:Bulleted,ShowComments:Yes spantype=&quot ;macro title=#FamilyHistory(ListType:Bulleted,ShowComments:Yes)><ul> < li>Brother 1: - Lung cancer</li> <li>Grandmother - Paternal (2nd Degree): - Colorectal cancer</li> <li>Uncle - Paternal (2nd Degree): - Lung cancer</li> <li>Aunt - Paternal (2nd Degree): - Lung cancer</li></ul></span>
<span class=clinicalNoteSectionVisible id=[id number] internalbreaksection=false originalname=ROS: recognizeconcepts=true spantype=section suppressempty=true>ROS:</span>&l t;br>
12 point ROS (-) except as otherwise mentioned in the HPI or below

Wt loss: (-); fevers: (-); night sweats: (-); fatigue: (-); loss of appetite: (-); visual complaints: (-); BEARD's: (-); focal weakness: (-); numbness: (-); dyspnea: (-); cough: (-); CP: (-); <strong>abd pain: (+)</strong>; abd bloating: (-); LE edema:(-); skin rash: (-); nausea: (- ); vomiting: (-); diarrhea: (-); constipation: (-); BRBPR: (-); melena: (-); epistaxis: (-); easy bruising/bleeding: (-); swollen lymph nodes: (-); claudication: (-); <strong>chronic pain: (+);</strong>

<span class=clinicalNoteSectionVisible id=[id number] internalbreaksection=false originalname=Physical Examination: recognizeconcepts=true spantype=section suppressempty=true>Vitals:</span>
<span class=clinicalNoteMacroWysiwyg id=[id number] macroname=PatientHeight p arameters=Label:Height:,LookBackDays:0,ValueIfNull:None Today spantype=macro title=#PatientHeight(Label:Height:,LookBackDays:0,ValueIfNull:None Today)>Height: 63 in</span>; <span class=clinicalNoteMacroWysunitypoint [facility] id=[id number] macroname=PatientWeight parameters=Label:Weight:,LookBackDays:0,ValueIfNull:None Today spantype=macro title=#PatientWeight(Label:Weight:,LookBackDays: 0,ValueIfNull:None Today)>Weight: 260 lb</span>; <span class=clinicalNoteMac Krystalysiwyg id=[id number] macroname=PatientVitalSigns parame ters=LookBackDays:0,Verbosity:Medium spantype=macro title=#PatientVita lSigns(LookBackDays:0,Verbosity:Medium)>Blood pressure: , Pulse: , Temperature: , Respirations: , Pain Scale: 0</span>

<span class=clinicalNoteMacroWysiwyg" id=[id number] macroname=Roya parameters=Label:Karnofsky,ValueIfNull:Not Assessed,Verbosity:Medium spantype=macro title=&quo t;#Roya(Label:Karnofsky,ValueIfNull:Not Assessed,Verbosity:Medium)>Imanky Not Assessed</span>

<span class=clinicalNoteSectionVisible id="[id number] internalbreaksection=false originalname=Comments for Physical Exam: recognizeconcepts=true spantype=section suppressempty=true>Physical Exam:</span>
Constitutional: normal appearance, no acute distress, via telemedicine.

<span class=clinicalNoteSectionVisible id=[id number] internalbreaksection=false originalname=Labs: recognizeconcepts=true spantype=section suppressempty=&qu ot;true>Labs:</span>
<span class=clinicalNoteMacroWysiwyg id= [id number] macroname=RecentLabResultsTable parameters=Opti onalFlowsheetCategory:CBC,Label:CBC,ValueIfNull:None Today spantype=macro title=&q uot;#RecentLabResultsTable(OptionalFlowsheetCategory:CBC,Label:CBC,ValueIfNull:N one Today)>CBC<table border=1 style=width:100%> <tbody> <tr> < a lign=left>Lab Results</th> <td>12/01/2024</td> <td>04/25/2023</td> <td>04/19/2023</td> <td>02/01/2023</td> <td>01/22/2023</td> <td>12/16/2022</td> </tr> <tr> <th align=left> CBC</th> <td>
</td> <td>
</td> <td>
</td> <td>
</td> <td>
</td> <td>
</td> </tr> <tr> <td> WBC x 10^3/uL</td> <td>6.2</td> <td>
</td> <td>6.5</td> <td>5.1</td> <td>
</td> <td>
</td> </tr> <tr> <td> RBC x 10^6/uL</td><td>3.94 (L)</td> <td>
</td> <td>3.58 (L)</td> <td>3.60 (L)</td> <td>
</td> <td>
</td> </tr> <tr> <td> NRBC, absolute, x 10^3/uL</td> <td>0.00</td> <td>
</td> <td>0.00</td> <td>0.00</td> <td>
</td> <td>
</td> </tr> <tr><td> NRBC, %</td> <td>0.0</td> <td>
</td> <td>0.00</td> <td>0.00</td> <td>
</td> <td>
</td> </tr> <tr> <td> HGB g/dL</td> <td>11.7 (L)</td> <td>
</td> <td>9.9 (L)</td> <td>10.4 (L)</td> <td>
</td> <td>
</td> </tr> <tr> <td> HCT %</td> <td>38.3</td> <td>
</td> <td>33.0 (L)</td> <td>34.5 (L)</td> <td>
</td> <td>
</td> </tr> <tr> <td> MCV fL</td> <td>97.2</td> <td>
</td> <td>92.2</td> <td>95.8</td> <td>
</td> <td>
</td> </tr> <tr> <td&g t; MCH pg</td> <td>29.7</td> <td>
</td> <td>27.7</td> <td>28.9</td> <td>
</td> <td>
</td> </tr> <tr> <td> MCHC g/dL</td> <td>30.5 (L)</td> <td>
</td> <td>30.0 (L)</td> <td>30.1 (L)</td> <td>
</td> <td>
</td> </tr> <tr> <td> RDW %</td> <td>15.4 (H)</td> <td>
</td> <td>15.7 (H)</td> <td>20.1 (H)</td> <td>
</td> <td>
</td> </tr> <tr> <td> PLT x 10^3/uL</td> <td>353</td> <td>
</td> <td>412 (H)</td> <td>362</td> <td>
</td> <td>
</td> </tr> <tr> <td> MPV fL</td> <td>9.8</td> <td>
</td> <td>9.90</td> <td>9.40</td> <td>
</td> <td>
</td> </tr> <tr> <td> Tripp %</td> <td>55.6</td> <td>
</td> <td&gt ;54.2</td> <td>64.9</td> <td>
</td> <td>
</td> </tr> <tr> <td> LY %</td> <td>34.9</td> <td>
</td> <td>37.3</td> <td>26.7</td> <td>
</td> <td>
</td> </tr> <tr> &l t;td> MO %</td> <td>7.3</td> <td>
</td> <td>6.6</td> <td>5.6</td> <td>
</td> <td>
</td> </tr> <tr> <td> EO %</td> <td>1.3</td> <td>
</td> <td>0.9&l t;/td> <td>1.4</td> <td>
</td> <td>
</td> </tr> <tr> <td> IG %</td> <td>0.3</td> <td>
</td> <td>0.5</td> <td>0.6 (H)</td> <td>
</td> <td>
</td> </tr> <tr> <td&g t; Tripp # (ANC) x 10^3/uL</td> <td>3.42</td> <td>
</td> <td>3.54</td> <td>3.34</td> <td>
</td> <td>
</td> </tr> <tr> <td> BA %</td> <td>0.6</td> <td>
</td> & lt;td>0.50</td> <td>0.80</td> <td>
</td> <td>
</td> </tr> <tr> <td> MO # x 10^3/uL</td> <td>0.45</td> <td>
</td> <td>0.4</td><td>0.3</td> <td>
</td> <td>
</td> </tr> <tr> <td> EO # x 10^3/uL</td> <td>0.08</td> <td>
</td> <td>0.1</td> <td>0.1</td> <td>
</td> <td>
</td> </tr> <tr> <td>&a mp;nbsp; BA # x 10^3/uL</td> <td>0.04</td> <td>
</td> <td>0.03</td> <td>0.04</td> <td>
</td> <td>
</td> </tr> <tr> <td> IG # x 10^3/uL</td> <td>0.02</td> <td>
</td> & lt;td>0.03</td> <td>0.03</td> <td>
</td> <td>
</td> </tr> <tr> <td> LY # x 10^3/uL</td> <td>2.15</td> <td>
</td> <td>2.43</td> <td>1.37</td> <td>
</td> <td>
</td> </tr> </tbody></table></span>
<span class=clinicalNoteMacroWysiwyg id=[id number] macroname=RecentLabResultsTable parameter s=OptionalFlowsheetCategory:Chemistries,Label:Chemistries,ValueIfNull:None Today spantype=macro title=#RecentLabResultsTable(OptionalFlowsheetCategory:Chemistries,Label:C hemistries,ValueIfNull:None Today)>Chemistries<table border=1 style=wi dth:100%> <tbody> <tr> <th align=left>Lab Results</th><td>12/01/2024</td> <td>04/25/2023</td> <td>04/19/2023</td> <td>02/01/2023</td> <td>01/22/2023</td> <td>12/16/2022</td> </tr> <tr> <th align=left> Chemistries</th> <td>
</td> <td>
</td> <td>
</td> <td>
</td> <td>
</td> <td>
</td> </tr> <tr> <td> Glucose mg/dL</td> <td>111 (H)</td> <td>
</td> <td>104.00</td> <td>91.00</td> <td>
</td> <td>
</td> </tr> <tr> <td> BUN mg/dL</td> <td>7</td> <td>
</td> <td>8.00</td> <td>12.00</td> <td>
</td> <td>
</td> </tr> <tr> <td> Creatinine, mg/dL</td> <td>0.97</td> <td>
</td><td>0.67</td> <td>0.86</td> <td>
</td> <td>
</td> </tr> <tr> <td> BUN/Creatinine ratio</td> <td>7.2</td> <td>
</td> <td>11.94</td> <td>13.95</td> <td>
</td> <td>
</td> </tr> <tr> <td> Sodium mmol/L</td> & lt;td>145</td> <td>
</td> <td>137.00</td> <td>145.00</td> <td>
</td> <td>
</td> </tr> <tr> <td> Potassium mmol/L</td> <td>4.0</td> <td>
</td> <td>3.70</td> <td>3.80</td> <td>
</td> <td>
</td> </tr> <tr> <td> Chloride mmol/L</td> <td>109 (H)</td> <td>
</td> <td>104.00</td> <td>110.00 (H)</td> <td>
</td> <td>
</td> </tr> <tr> <td> CO2 mmol/L</td> <td>27.5</td> <td>
</td> <td>22.30</td> <td>25.60</td> <td>
</td> <td>
</td> </tr> <tr> <td> Calcium mg/dL</td> <td>8.8</td> <td>
</td> <td>8.30 (L)</td> <td>8.40 (L)</td> <td>
</td> <td>
</td></tr> <tr> <td> Albumin g/dL</td> &lt ;td>3.3 (L)</td> <td>
</td> <td>3.30 (L)</td> <td>3.00 (L)</td> <td>
</td> <td>
</td> </tr> <tr> <td> Total protein g/dL</td> <td>6.8</td> <td>
</td> <td>7.30</td> <td>6.60</td> <td>
</td> <td>
</td> </tr> <tr> <td> Globulin g/dL</td> <td>3.5</td> <td>
</td> <td>4.00</td> <td>3.60</td> <td>
</td> <td>
</td> </tr> <tr> <td> A/G ratio</td> <td>0.9</td> <td>
</td> <td>0.80</td> <td>0.80</td> <td>
</td> <td>
</td> </tr> <tr> <td> Bilirubin, total mg/dL</td> <td>0.5</td> <td>
</td> <td>0.30</td> <td>0.40</td> <td>
</td> <td>
</td> </tr> <tr> <td> Alkaline phosphatase U/L</td><td>122 (H)</td> <td>
</td> <td>136.00</td> <td>140.00 (H)</td> <td>
</td> <td>
</td> </tr><tr> <td> AST/SGOT U/L</td> <td>9 (L)</td> <td>
</td> <td>20.00</td> <td>17.00</td> <td>
</td> <td>
</td> </tr> <tr> <td> ALT/SGPT U/L</td> <td>19</td> <td>
</td> <td>19.00</td> <td>17.00</td> <td>
</td> <td>
</td> </tr> <tr> <td> LDH U/L</td> <td>181</td> <td>
</td> <td>192</td> <td>155</td> <td>
</td> <td>
</td> </tr> <tr> <td> GFR estimate mL/min/1.73m2</td> <td>74</td> <td>
</td> <td>>90</td> <td>87</td> <td>
</td> <td>
</td> </tr> </tbody></table></span>
<span class=clinicalNoteMacroWysiwyg id=[id number] macroname=RecentLabResultsTable paramet ers=OptionalFlowsheetCategory:Tumor Markers,Label:Tumor Markers,ValueIfNull:None Today spantype=macro title=#RecentLabResultsTable(OptionalFlowsheetCategory:Tumor Markers ,Label:Tumor Markers,ValueIfNull:None Today)>Tumor Markers None Today</span>

<span class=clinicalNoteSectionVisible id=[id number]" internalbreaksection=false originalname=Problem List: recognizeconcepts=true spantype=section suppressempty=true>Problem List:</span>
<span class=clinicalNoteMacroWysiwyg id=[id number] macroname=Problems parameters=InitialCap:Yes,ListType:Bulleted,[id number]:Y es,Verbosity:Medium spantype=macro title=#Problems(InitialCap:Yes,ListType:B ulleted,[id number]:Yes,Verbosity:Medium)><ul> <li>Pulmonary embolism ( ICD-10:I2 6.94 ;Multiple subsegmental pulmonary emboli without acute cor pulmonale )</li> <li>Anemia (disorder)</li> <li>Anxiety (finding)</li> <li>Arthritis (disorder)</li> <li>Asthma (disorder)</li> <li>Asthma (disorder)</li> <li>Backac he (finding)</li> <li>Breast neoplasm screening status (finding) ( ICD-10:Z12.31 ;Encounter for screening mammogram for malignant neoplasm of breast )</li> <li>Cerebrovascularaccident (disorder)</li> <li>Chronic back pain (finding)</li> <li>Chronic bronchitis (disorder)</li> <li>Chronic neck pain (finding)</li> <li>Chronic pain syndrome (disorder)</li> <li>Constipation (finding)</li> <li>Displacement of lumbar intervertebral disc without myelopathy (disorder)</li> <li>Diverticular disease (disorder)</li> <li>Embolism from thrombosis of vein of lower extremity (disorder)</li> <li>Endometriosis (disorder)</li> <li>Endometriosis (disorder)</li> <li>Fibromyalgia (disorder)</li> <li>Fibromyalgia (disorder)</li> <li>Fibromyalgia (disorder)</li> <li>Functional finding (finding) ( ICD-10:D68.62 ;Lupus an ticoagulant syndrome )</li> <li>Generalized abdominal pain (finding)</li> <li&g t;Helicobacter-associated disease (disorder)</li> <li>Hypothyroidism (disorder)</li> <li>Hypothyroidism (disorder)</li> <li>Hypothyroidism (disorder)</li> <li>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)</li> <li>Infectious disorder of kidney (disorder)</li> <li>Knee pain (finding)</li> <li>Leiomyoma (disorder)</li> <li>Measurement finding (finding) ( ICD-10:R97.8 ;Other abnormal tumor markers )</li> <li>Microbiologic culture positive (finding)</li> <li>Mixed anxiety and depressive disorder (disorder)</li> <li>Nutritional anemia (disorder) ( ICD- 10:D53.9 ;Nutritional anemia, unspecified )</li> <li>Obesity (disorder)</li> <li>Urinary tract infectious disease (disorder)</li></ul></span>

<span class=clinicalNoteSectionVisible id=[id number] internalbreaksection=false originalname=Assessment/Plan: recognizeconcepts=true spantype=section suppressempty=true&quo t;>Impression:</span>
<strong>1. Hypercoagulable Disorder</strong>
S/p multiple hospitalizations for bowel ischemia with pneumatosis of the right colon with portal venous air. 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 While on the heparin drip, she developed a <strong>DVT to right common femoral vein.</strong> CTA of the chest was negative for pulmonary embolus. I was consulted and ordered hypercoagu lability work-up. <strong>Lupus anticoagulant is negative. Beta-2 glycoprotein anticardiolipin antibodies are negative. There is low protein S activity and low protein C activity. Factor V leiden mutation is negative. Prothrombin gene mutation is negative. She has MTHFR mutation with 1 copy of C677T mutation. Homocystine level is normal. </strong>She was subsequently transitioned from Heparin and was discharged home with Eliquis. Due to initial presentation similar to catastrophic systemic embolism I will repeat some of the hypercoagulable work up.
<div style=text-align:left>
CMP revealed low calcium at 8.30 and all other normal functions on 04/19/2023

CBC revealed normal WBC at 6.5, low hemoglobin at 9.9, and elevated platelet at 412 on 04/19/2023

Lupus anticoagulant negative on 02/01/2023

Beta 2 glycoprotein high at 24.7 on 02/01/2023

ProteinS activity panel normal at 117 on 02/01/2023

Protein C activity panel normal at 79 on 02/01/2023

Antithrombin III activity high at 142 on 02/01/2023.
&lt ;br></div><div style=text-align:left>Labs taken on 12/01/2024 were discussed with the patient. White blood cell count was normal at 6.2, hemoglobin improved from 9.9 to 11.7, and platelet count was normal at 353,000. Glucose was mildly elevated at 111, chloride was elevated at 109, alkaline phosphatase was elevated at 122, and albumin was low at 3.3. LDH was normal at 181.

<span class=clinicalNoteSectionVisible id=[id number] internalbreaksection=false originalname=Plan: recognizeconcepts=true spantype=section suppressempty=true>Plan:</span>
<ol> <li>I will continue her on Eliquis 5 mg twice daily due to the risk of recurrent portal and mesenteric vein thrombosis.</li> <li>I will order a screening mammogram to be completed in 2 weeks.</li> <li>The patient will follow up in 6 months with labs 2 weeks prior to the visit.</li></ol><p>All medical records were reviewed. Cli nical situation was explained at length to the patient. All questions were addressed.</p><p>Documentation assistance provided by Adalid Gant, scribing for Mervat Shrestha MD, on 12/10/2024.</p><p>Mervat Bennett MD, personally performed the services described in this documentation, and it is both accurate and complete.</p>
<span class=clinicalNoteMacroWysiwyg id=[id number] macroname=MyName spantype=macro title=#MyName>Adalid Gant Scribe</span>

<span class=clinicalNoteMacroWysiwyg id=[id number]" macroname=NoteRecipients spantype=macro title=#NoteRecipients">[facility]</span>

<span c lass=clinicalNoteSectionVisible id=[id number] internalbreaksec tion=false originalname=Send copy of note to: recognizeconcepts=&q uot;true spantype=section suppressempty=true>Send copy of note to:& lt;/span>
Dr. Sebas Douglas

.

</div></div>

<div><span class=eSignSignature>Electronically signed by Mervat Shrestha MD 12/13/2024 22:06 [facility]</span></div></body></html>
--- OUTSIDE RECORDS SUMMARY | 2025-06-21 23:33 | XMS_ITS ---
Author Name Interface, [id number] lity Address [place] [address] [facility] Address [place] [address] Support Name Relationship Address Phone sunitha tesfaye Spouse Unknown Unavailable Allergies and Adverse Reactions Medication/Group Name Reaction Severity Date Penicillins Moderate to severe 5 Phenergan Moderate to severe 5 Haldol Moderate to severe 5 Toradol Moderate to severe 5 fentanyl Moderate to severe 5 dicyclomine Moderate to severe 5 Reglan Moderate to severe 5 Iodinated Contrast Media Moderate to she re 04/27/2025 NSAIDS (Non-Steroidal Anti-Inflammatory Drug) 04/27/2025 Plan Date Type Value 07/20/2025 APPOINTMENT 1013 ov 12 weeks 06/28/2025 APPOINTMENT 1013 CH 06/21/2025 APPOINTMENT 1013 CH 06/21/2025 APPOINTMENT 1013 [facility] 06/16/2025 APPOINTMENT 1013 OV TELEMED@ 5 06/17/2025 LAB_ORDER Vitamin B12 and Folate panel [...] diff with reflex Reason for Visit 1013 [facility] Encounters Date Name 06/16/2025 Pulmonary embolism Medications Date Name Route Dose Frequency Instructions Start Date End Date Status Fill Status Indication 02/15 Hydromo rphone Oral PRN active 01/31 Apixaba n Oral BID active 05/18 dexamet hasone sodium phospha te intrave nously 10.0 mg once 2024 active Acquired iron deficiency anemia due to decreased absorption 02/17 1 ML epineph rine 1 MG/ML Injecti on intramu scularl y 0.3 mg once Re-initiate treatment only upon physician approval. 2024 active Pulmonary embolism 02/17 hydroco rtisone 100 MG Injecti on intrave nously 100.0 mg Re-initiate treatment only upon physician approval. 2024 active Acquired iron deficiency anemia due to decreased absorption 05/03 2 ML famotid ine 10 MG/ML Injecti on intrave nously 20.0 mg once 2024 active Acquired iron deficiency anemia due to decreased absorption 02/17 1 ML epineph rine 1 MG/ML Injecti on intramu scularl y 0.3 mg once Re-initiate treatment only upon physician approval. 2024 active Acquired iron deficiency anemia due to decreased absorption 02/17 Iron Sucrose IV intrave nously 200.0 mg once No test dose indicated. Observe patient for at least 30 minutes after dose. 2024 active Acquired iron deficiency anemia due to decreased absorption 02/17 famotid ine 10 MG/ML Injecta ble Solutio n intrave nously 20.0 mg Re-initiate treatment only upon physician approval. 2024 active Acquired iron deficiency anemia due to decreased absorption 05/18 acetami nophen 325 MG Oral Tablet [Tyleno l] orally 2.0 tablet once 2024 active Acquired iron deficiency anemia due to decreased absorption 02/17 Iron Sucrose IV intrave nously 200.0 mg once No test dose indicated. Observe patient for at least 30 minutes after dose. 2024 active Pulmonary embolism 02/17 methylp redniso lone 2000 MG Injecti on intrave nously 125.0 mg Re-initiate treatment only upon physician approval. 2024 active Pulmonary embolism 02/17 hydroco rtisone 100 MG Injecti on intrave nously 100.0 mg Re-initiate treatment only upon physician approval. 2024 active Pulmonary embolism 02/17 methylp redniso lone 2000 MG Injecti on intrave nously 125.0 mg Re-initiate treatment only upon physician approval. 2024 active Acquired iron deficiency anemia due to decreased absorption 02/17 famotid ine 10 MG/ML Injecta ble Solutio n intrave nously 20.0 mg Re-initiate treatment only upon physician approval. 2024 active Pulmonary embolism 05/18 dexamet hasone sodium phospha te intrave nously 10.0 mg once 2024 active Acquired iron deficiency anemia due to decreased absorption 02/17 1 ML epineph rine 1 MG/ML Injecti on intramu scularl y 0.3 mg once Re-initiate treatment only upon physician approval. 2024 active Pulmonary embolism 02/17 hydroco rtisone 100 MG Injecti on intrave nously 100.0 mg Re-initiate treatment only upon physician approval. 2024 active Acquired iron deficiency anemia due to decreased absorption 02/17 famotid ine 10 MG/ML Injecta ble Solutio n intrave nously 20.0 mg Re-initiate treatment only upon physician approval. 2024 active Acquired iron deficiency anemia due to decreased absorption 02/17 famotid ine 10 MG/ML Injecta ble Solutio n intrave nously 20.0 mg Re-initiate treatment only upon physician approval. 2024 active Pulmonary embolism 05/18 acetami nophen 325 MG Oral Tablet [Tyleno l] orally 2.0 tablet once 2024 active Acquired iron deficiency anemia due to decreased absorption 02/17 hydroco rtisone 100 MG Injecti on intrave nously 100.0 mg Re-initiate treatment only upon physician approval. 2024 active Pulmonary embolism 02/17 Iron Sucrose IV intrave nously 200.0 mg once No test dose indicated. Observe patient for at least 30 minutes after dose. 2024 active Acquired iron deficiency anemia due to decreased absorption 05/03 2 ML famotid ine 10 MG/ML Injecti on intrave nously 20.0 mg once 2024 active Acquired iron deficiency anemia due to decreased absorption 02/17 Iron Sucrose IV intrave nously 200.0 mg once No test dose indicated. Observe patient for at least 30 minutes after dose. 2024 active Pulmonary embolism 02/17 methylp redniso lone 2000 MG Injecti on intrave nously 125.0 mg Re-initiate treatment only upon physician approval. 2024 active Acquired iron deficiency anemia due to decreased absorption 02/17 methylp redniso lone 2000 MG Injecti on intrave nously 125.0 mg Re-initiate treatment only upon physician approval. 2024 active Pulmonary embolism 02/17 1 ML epineph rine 1 MG/ML Injecti on intramu scularl y 0.3 mg once Re-initiate treatment only upon physician approval. 2024 active Acquired iron deficiency anemia due to decreased absorption 06/07 vitamin B12 1 MG/ML Injecta ble Solutio n 2024 active 02/17 1 ML epineph rine 1 MG/ML Injecti on intramu scularl y 0.3 mg once Re-initiate treatment only upon physician approval. 2024 active Pulmonary embolism 02/17 1 ML epineph rine 1 MG/ML Injecti on intramu scularl y 0.3 mg once Re-initiate treatment only upon physician approval. 2024 active Acquired iron deficiency anemia due to decreased absorption 05/03 hydroco rtisone 100 MG Injecti on intrave nously 100.0 mg every 6 hours 05/03 on hold Acquired iron deficiency anemia due to decreased absorption 05/03 2 ML famotid ine 10 MG/ML Injecti on intrave nously 20.0 mg once 05/03 on hold Acquired iron deficiency anemia due to decreased absorption 05/03 methylp redniso lone 125 MG Injecti on [Solu-M edrol] intrave nously 125.0 mg once 05/03 on hold Acquired iron deficiency anemia due to decreased absorption 02/17 methylp redniso lone 2000 MG Injecti on intrave nously 125.0 mg Re-initiate treatment only upon physician approval. 2024 active Pulmonary embolism 02/17 famotid ine 10 MG/ML Injecta ble Solutio n intrave nously 20.0 mg Re-initiate treatment only upon physician approval. 2024 active Pulmonary embolism 02/17 methylp redniso lone 2000 MG Injecti on intrave nously 125.0 mg Re-initiate treatment only upon physician approval. 2024 active Acquired iron deficiency anemia due to decreased absorption 02/17 hydroco rtisone 100 MG Injecti on intrave nously 100.0 mg Re-initiate treatment only upon physician approval. 2024 active Pulmonary embolism 02/17 famotid ine 10 MG/ML Injecta ble Solutio n intrave nously 20.0 mg Re-initiate treatment only upon physician approval. 2024 active Acquired iron deficiency anemia due to decreased absorption 02/17 1 ML epineph rine 1 MG/ML Injecti on intramu scularl y 0.3 mg once Re-initiate treatment only upon physician approval. 2024 active Pulmonary embolism 02/17 1 ML epineph rine 1 MG/ML Injecti on intramu scularl y 0.3 mg once Re-initiate treatment only upon physician approval. 2024 active Acquired iron deficiency anemia due to decreased absorption 02/17 hydroco rtisone 100 MG Injecti on intrave nously 100.0 mg Re-initiate treatment only upon physician approval. 2024 active Acquired iron deficiency anemia due to decreased absorption 02/17 1 ML epineph rine 1 MG/ML Injecti on intramu scularl y 0.3 mg once Re-initiate treatment only upon physician approval. 2024 active Acquired iron deficiency anemia due to decreased absorption 02/17 1 ML epineph rine 1 MG/ML Injecti on intramu scularl y 0.3 mg once Re-initiate treatment only upon physician approval. 2024 active Pulmonary embolism 02/17 methylp redniso lone 2000 MG Injecti on intrave nously 125.0 mg Re-initiate treatment only upon physician approval. 2024 active Acquired iron deficiency anemia due to decreased absorption 02/17 hydroco rtisone 100 MG Injecti on intrave nously 100.0 mg Re-initiate treatment only upon physician approval. 2024 active Acquired iron deficiency anemia due to decreased absorption 02/17 famotid ine 10 MG/ML Injecta ble Solutio n intrave nously 20.0 mg Re-initiate treatment only upon physician approval. 2024 active Pulmonary embolism 02/17 methylp redniso lone 2000 MG Injecti on intrave nously 125.0 mg Re-initiate treatment only upon physician approval. 2024 active Pulmonary embolism 02/17 hydroco rtisone 100 MG Injecti on intrave nously 100.0 mg Re-initiate treatment only upon physician approval. 2024 active Pulmonary embolism 02/17 famotid ine 10 MG/ML Injecta ble Solutio n intrave nously 20.0 mg Re-initiate treatment only upon physician approval. 2024 active Acquired iron deficiency anemia due to decreased absorption 03/09 vitamin B12 1 MG/ML Injecta ble Solutio n intramu scularl y 1000.0 mcg every week 2024 active Nutritional anemia (disorder) 02/15 vitamin B12 1 MG/ML Injecta ble Solutio n intramu scularl y 1000.0 mcg every week 2024 active Nutritional anemia (disorder) 02/15 vitamin B12 1 MG/ML Injecta ble Solutio n intramu scularl y 1000.0 mcg every week 2024 active Pulmonary embolism 04/28 folic acid 1 MG Oral Tablet orally 1.0 tablet daily 2022 active Pulmonary embolism 04/28 ferrous sulfate 325 MG Oral Tablet orally 325.0 mg daily 2022 active Pulmonary embolism 01/04 Apixaba n Oral 5.0 mg 2022 active 01/04 Amitrip tyline Oral 10.0 mg 2022 active 01/04 Buspiro ne Oral 5.0 mg 2022 active 01/04 Tizanid ine Oral 4.0 mg 2021 active 01/04 Pregaba dinora Oral 150.0 mg 2021 active Problems Diagnosis [...] (disorder) Active Generalized abdominal pain (finding) Active Helicobacter-associated disease (disorder) Active Hypothyroidism (disorder) Active Hypothyroidism (disorder) Active Hypothyroidism (disorder) Active 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) Active Infectious disorder of kidney (disorder) Active Knee pain (finding) Active Leiomyoma (disorder) Active Microbiologic culture positive (finding) Active Mixed anxiety and depressive disorder (disorder) Active Obesity (disorder) Active Urinary tract infectious disease (disorder) Active Nutritional anemia (disorder) Active Vital Signs Date Type Value 06/16/2025 Height 63.00 06/16/2025 Pain Scale 0.00 Notes Section * HemOnc Follow Up {[facility]} - [place] <html><head></head><body><div style=text-align:center><div style=text- align:center><span class=clinicalNoteMacroWysiwyg id=&q uot;[id number] macroname=PracticeLetterhead spantype=macro title=#PracticeLetterhead><img src=data:image/jpeg;base64,/9j/4AAQSkZJRgABA gEASABIAAD/4RDpRXhpZgAASUkqAAgAAAAHABIBAwABAAAAAQAAABoBBQABAAAAYgAAABsBBQABAAAAa gAAACgBAwABAAAAAgAAA DEBAgAcAAAAcgAAADIBAgAUAAAAjgAAAGmHBAABAAAApAAAANAAAACA/WkXXDfLIFZ8PnXVFlPIWHLwL cUtNXarbL5xrR8mRLAOW WBMeG6lj1hoFNZkGiR8IQR9ZZJfBDk6LpC7EXXVJLPUZCDxYhDTYVQI//8AAAKgBAABAAAAHgEAAAOgB AABAAAAWwAAAAAAAAAAA AYAAwEDAAEAAAAGAAAAGgEFAAEAAAAeAQAAGwEFAAEAAAAmAQAAKAEDAAEAAAACAAAAAQIEAAEAAAAuA QAAAgIEAAEAAACzDwAAA AAAAEgAAAABAAAASAAAAAEAAAD/2P/gABBKRklGAAECAABIAEgAAP/jGPnWRH0kOC7SQQEJ/+4ADkFkb 2JlAGSAAAAAAf/bAIQAD LnXPDiKPFtCPHWTYcdHXY8VKU7AUJDRPBFUUKTHJSpWCAdANZgGJHbYJUfYUZySIOkGCAdPSSwLTAdUR ZoDVPVQArcHKw3EMb3QB Z4XVwSTQa3AIeNPVHmKIZpFAJhWJRkBWPMZGTeAQQsHYEcHJZuPAMxGWRwXZLdFMBeCCJcZ/8AAEQgAM wCgAwEiAAIRAQMRAf/dA AQACv/YZE3UMTGZGPFBZJUDSSPRUCPFTJNAGHLEFMZZQAjNWbLOOLYBEEBRREFNRIZVPPXJCOLRKrZIQ gcICQoLEAABBAEDAgQCB FmTSYSUDQGBHSIMSgMpJtPTLXAyDvBoeJWUSSGtaXTsGAFKzGXwRDXS3UVFZQJS8BSvP8K8PhDybnYTb 6IeLcRqrTSF1hDtLbNsj XQUbeCfHiqTtRP5bgAO6IJnmvGY3dDVKblPzvj2uakg4teUA5s7b9vwt9jI8/cRAAICAQIEBAMEBQYHB wYFNQEAAhEDITESBEFRY MGlPxMndWPWfhCAV2HQ1sFfOLNfalMXH7WCJ7E94SVVVrYzgcggTpLNLUUXvzjaAAN4fATt9zOZq9C65 /SJvIGPhVZO1GA0fyOS4 rF9JwG2zccompqH5aNvY2kSN2yCr8f1i//gZDtEPOLXPDMWWX4F1FXCJyopSdhN2M0DxhO1kjAm05It7 j817S/c0zh7k0HB2TjCh hXYSK3+cbu6tJN4A3oFfHu8DSosfC/mK8K5PVSyJ5TN0upuVV0+AJ7E6nyYpCHmiYCoijk/jM6NAgCXH MTPQzqwPsdlft0iPTHem 3g5Z4VQvTFHsFaSjEkEFd5N4Z+e9gwfVS2u9G9Egn0MQ8XtzdhvusAJxG18s2paVRYuwwMmJv65bIJs9 2z/AMCQlKhdE+H1JLSuo 94AiBI0TZRCjwIzKymg4vyLZAVJcSXxsB3nmHb2+zv/AEbBt/MvA1j7qf+U7oXi5eKkxw3/NEWCRXXQK hP7hlewNpTOoFosOp/G9 Syi9p/DG9P3i2tzAv4ea3/0/yKiu9bq1NaNXgzGWL6RS7aRlRFa9+lr6TH+66Fvo9PUkgpn3QmByhfqJ Hqp0ZaHLDdp1Pp090fYz t2e/Y30v+TQ4H6f4aSo+d4YEi3kGboca2t/frrftc+v+GpJrzP7UhItkxXmyUgKPphpAW+z6U3ntM7RL 2uweQ1Za0Du5eMps5WD4 wg0DEQ6gwmdabBgPIpe8kS5RNUEukEcaS14hWOk/Tu9Lfrfnq6GuWzblnIbAhv+CylpbGeXOfkz4aiPg +3e9lrtkM+s0GejZBzjU i2v2YPdK4GJ+AQo956l/N064DOEml1uYKXPgLoexbgyei4cplHIEzjiRV8KbysX/vhn+j/7G5QPY3SKs tz2Yy3s0DM3o+38iQ8If y6PmX74okLHac5Tvmwy8ZeTh5/XqdxJt26FUAZ5vebHN8ogcP2G/wAhyq2/FHqqQ2qlsfX+lK2xit6Fi H0mWW/zVb2/h8lxX0bdB qyY7FsnWRTLieaRVnyJyth50AzdO7iUYMnh8jPbuf0c+5ux/xWbbp4bkRvyWKlDcwCD3L8h0FB3JVt+F b+4rI6S8s6H/9DsvrbXW j4XVCqgERWyjYCSjPpYi0+u8yg0c1yO8agE7FnnKV6BC0OMY8mLVRztG8v4tojTibyaf4Ir1D3crH+g4 NYPWWth8J7f9vaEn0glP qygkPn97ErAHu+uiHz8ynhDM6ozB7T9x5/pgspgrMsfAj2CCV32WzD/IUoh4gc9l1DqX66g20NuFsQix R5EzCStUNp5vW9A1Svfq er/AIHf/dkVPhh3Voda8e5iJcQH7JMknJnVDoJQGTCHmYN314/6Glm3+b7Ygp7P0i2Pry/Zhibf9dwMj ceaxu3qQ1SO6WjgML1RS We+13+OCRuG1Y72lzlHMoVSnyYseW+rr9hviwmz93pZ+/2FkT2glVnbaV9UnrCj/jVsmtnnrgdG0oc97 dlL+v8DLVfIFAiopZ7d5 PoWXeyzfTdWz/J8isTOv8viuF0j4Jo+mBql2cs3f4Ttooabaeb/29wSeN4fH/cs9b6GVoEz8Vz0t9d3A xE1wWavOUiLOyF1Erj7Q h0ix6TBil9VvwSiDa3kZbads2PX6nmbYe46TQ5/+Yf1VxCALkuAh1JnMQ8eAlGlAvN9WOAOB7VN9b3fo P797TeGGV03agAw14VBs Om7OCZeryXSzR9er0JkX+6st23Vb6p6E7/5Da4eOxAN6lWzT+qq7kzhjvUhKNFtjNuwLR4+c/cEOp9ES wrZo0JTwnqa1BKv/vN/c v0Ax7oVCi1BIyQ1qT+2uJsS8xEi/wBb9L+5956t3Carh4AVZ9UPc6aMpIRDGCoQByxq/rW+yx9v/aj9L Z71Y+z5PAzCnzs70zHu6 sq1n2j2sjMc6YK8it3O956nq6ME705YPbQzUrYVWz0D4oq1brt/ANJss+j7BovJ8ne0T81YvvBU0gqnz UNfhaAxqPQlO2nL8G9h7 ZVXv1VLJRvAzBSvSSnMGNDR7TTb4ocRX6gSw2r7+sE797sz1dmkrmdD5GQWjgz0sDKRR5/Ku0Qv7sE/A K3Pw6iWmUNyQ+k9Jvs3o 2pxlMduuNqG3eyEHL6yw4msK0Ry8IuJez2zv+ouzw+n4qS4wmQwnXx3InQg72smg0tr4Tp/FPFU9a2W2 SOmPxrsR+LW/GyHuttpc 9IBc43m4tIvxiz8/wCupPdGum+l/wBX/wBBY/CQuyx8711/+kQL52zpLDLo5ANDrvLi3F5EOVWQ43cYL 2kO0G3Ob0UrQsd0I1ebi PsVP21zE2czLFv6+793Z+f/ZN1kZ5U94YuamCc2xkUc14TU146Hb5663JCwpfAj7G+thl4hhAXnYbYvW lcBimm21cm397+G1/2R/ H+gNNALPT2U8I2xlmUEvLqxU+PyvM/U44Pkz4T+0bjZ+xrNu+Z9L7T+yx7Zwu5Y3+qtMzya1zuBH9eF1 4xZ5+zAO3+hP+D+1fz+z /DrSy+a8TgLcGp3JrtzidxccJRCBQ+Sc6Hpjzcf1Zdf5M5ZTYa9uOZnhStHcM0qBSz7WLyzuEt4/wCE/ S/yv4NwhgQnO1MHW/u+r l6MpuPwSHZigtO+pKa0Motu+qulogbHK7Rw7b6j1MZ5Jmui/rSB91uNgn7WwP1nlc2W+R0Dp8Upb8th1 H2Htn3LPpNsZ2mmKRL5z xh85FS0Ocn/817H/eOIKp4sBe3eXJpjyy7Qf3Ptrb5p/kvgjW8hd/yrHqm/0z7OuPQ/ZtlWQZuorfZXS 1i6XukraFT2p73/dV70O CTSQzihq7UpooZZRmPMj5qtV6d1IWV9/zUxXZLsuDp9T4dgGHk09OE8day33XremfZo+m+v/rn+kW9hd FomJWwbh9L2Q/1fCt98f zM9SR8M/F5Ysvf5TxnJdC2Bmx1WSvp3HGxVioFV/eC72iqa0T2wqiSREDBAGPKQUmTJrwy1QG7sYRnZ6 qefe42yTd9T7/pP/9H0+ rZzFXThJH0b5SH/QKDnL0EZ/D36SKaiTc/6ixqy/grO91OsvCNQmeuwFQrttndg305/AIbHoZ/bWV9us no1ngN0b8Q9bg4pzFk3H pleO/CrvvwhaamacEkhkEl1wrB1k53o3m3dNMJWeNf4luQo2B2ZqE/j4n9TbLK/AEchu+ruG7/tRnD4Z 2UP/W0yMxC5prOdjoXcs R6tAXhlddsph3sjZw4+v6N/6Z+ZVfh4/wBOr/d8IOJ7Qa6mXrF27s3Td0Okgm2UTYnSWcB9Az43zfS6R /TOyjjbKrMf+d/wG/8AR SOHn9m58y/PQ2wfsi7sW/tX1Af+h2T/AOlk3/NnE/7mdQ/9jsn/ANLLH/e1Uj7kCxdOISvyMcF1zQNId nP1WpqPH+94J5vjG1HRb /wFd/5Gc9M7mmmfC8CNkm9nWBlYiT48gO7l/bi3dSc/0DVznw7qDz5M/wDUv0/qeljfzyHFHsriyfv/A BscqejrqeT7z/7G5H/pZ N/zS6f/ANyc/wD9jcj/LHYzn11FFjJHAmFwctEjMusPblX39D0bnOeNa7yTzvkeht7Glun2W+wwf9Y6b v3Yv3LQgW8krYjs7ayPX 6ddbnhtGKy/AzXFSNj48qtKh1Y1H4cy/aWMA62DEt/kHrj99uzs9nn//wBjMj/0ql/zR6d/3Jz/AP2My A6V6meeX+sWWfs+TkZw+ k0U3n22iMbbYK7EPkB9LlcAVpmphjo9h3cvnBGp0K3oExLwo5nXdwqc2u6nWroZg39q8czS2UyKlcko8 3/vPo9J/aJksr7LZgCXz 7C9qt27hi2O6m9V/tA8Da7T+xmR/hAaTa1Jvi60/uRnf+xmR/7SVX2R7w4fK+qBfDZFY9NGwNoyk6kGu l+pC505lIeg4c3Cs2s12 XJ/JGNwSzetKOmCt25He/Qs9a1/6kLGiJvfZ+o9t286EwaRAMIrUhSoQB0jIF/zT6f/ANyM/wD9jcj/A NLKQ+u3CVCcRE/odk/+l cbPWmpvCSDuqhlK4lyVJbh7ITRk0bQfv4c0c7A9CiE/AEv+CwPU/n5DuDDEqqkw2x1ic21Zm3fT6IBJL Y7CDioKuocnvo9CTZmLX Nz8f0N+LZVbvSEo/ogSeq07vynWfIP/AGq6h/3QKJ2J9NAa0VtFk1gF1/8Aodlf+9Cpfb+oU/VzOzzmC 24cjrWiyogDJTBNoB9GQ 9FhZ9bDx3c9jr8/S9P0vV/tHUr6lxbnrTkZSbIeCBgfBTcD3etKWT2B1Jxbq/nvsmD0/G9/qfrd/wDhP 8RIv7S4fv/NH6j6Bs0le C1741xQg+qyFMdGxh/bcw46SBjt6OkRkSdws955QXU7QVqOwQn7ji9qx3gn0s58Dd1A8DEedxmfg4Om/ wDS/aK/Q1AioeykiL1VY orZnPNm+6OlDxU02zy4xU79D3r+5blep3ajplWjiwtTzipL6l9jHP4IvT5d5KeKOulN3n+tdYf+qerFd YrEAuI/lEuP/SXGN+sPU jgnMfnMLbxW/hBWlz48aFGxa8hWbxx/WorWwPg7Y2a61cr/pX0/eNYn8o7kffbpusoeIhEJDMRXRCs0t endFTfZW/3W2cwTnGZga T8ZzDON0//J6ADWzcehw+qT/rKS+WgwsL6Ab9ZOJqwryv+xBa6xXJMvjvi53UHxos/1uyb4A6y0/qT68 /Rp/onrfqXr/wDc/wCzf 8NhoYYN5Kl+qR13+x6R1mXMivtvr+qTx/wuO4pMYWunqLUu+1fCiFQi7lCX+YdouM7Q/t6BnLx4VLEM/ wD/2f/wPifCnL46w5Yad 9CtWt6xDWoSWB2XRZWGFENYFptRGGHNYHIOXLAFCBDcFADVEPTI4XIm4m/WHIIfv2dtrEFKadkQBD2M1 QAAAAAAEABIAAAAAQABA QvEEMVINXP5TwqTURAIVAIFZQ5KHWNPVRYYLCHCW2QVLVlQOI9UVBMWIDVMOBFZDX12NxyYDCcAOVCEO AQAAAAeOEJJTQPzAAAAA GNNXJUYNBQSTUMZHDsQJE2vVPCXNIQSPfGQJSFZVDGBOTO4DqjBY/BHYQEYEUoPX1UuSHCUcOLvQMOHA AQWGFFBJ5NfYFKAxFdqP ZCWKBQNUEZWMwOSCFMLAeEZXVFEHRXWMAHEMWREVNGALGMYJPTCTGPPTSO0BakFE/gAAAAAAHAAAP/// //////////////////// /////7P3FQUEZS/////////////////////////////A+gAAAAA///////////////////////////// wPoAAAAAP/////////// /////////////////5Z1UQIXOMJQYWGAFCZOIHTZJPVXGLEIeNZZWIODSGAXHbJFI4BAqGLLKBKWXJZY XH6SykMXNiBEGQCP0QQH UPIHJUIKTJOITRSQKVnGLAHIrTWGTGDNUMPDH4OZZVeCKnPedPRZR2KqmIxPOzEwcEtXPLCPYPqEKxKd DZ2YYyCoQZxKQjAZtWgE MRTNTS1CGRWITKqYTFWDNJLXUCNZLXWXTWSLLFUIXBUVQEMGORVSEUJMJQVLRGzJRZSNkBADWUHCZYQS AAAAAAAAAABAAAAAAAAA OWQYVUBBPCRFHKVLAAYGQOSUEINVHRMllEmoWITBSUMJLPFXf94naMxY6VjGdJLEHOGJTPSYSSSM7SkL WUKTKWJMERKc2MtmX8bQ qQXQEIJWZTHEYDieIcjcpkESCELATBYFXC0n22jw69lATXSHvGDWSMIB9l6oF5eKhNYOJ3TVLNBt3qoF 2VzVmxMcwAAAAFPYmpjA EPDBWUIEAECHDXalHPjPTALBoUVDSmwePxwMWjMbA5eZxZCKJSLFWKIH3SoxRJPVYvlhmbTUITKGXQGD c3hlJjgskPcvY1FIFLCT HJxdQTfC0ZhW5paGMXFAPW3mH1LVQ6easZ6DEFHYFBPLRsiMVIyfJ3QFVIMXJLvuRSiXLknKBEACDTCc WtpWUGREkSfzX8qe14ba lJLPWMSCSZDMTPAEqM9ZISXFJBQTRPFHJ7rCJgvkjcZNHJZBTLIRTwcPyKuj80tHSPGUYKBOKFNgK6je D2mWhRZOJyIDRXXKjvqu MwalorBXUHpXKHAL5PnuJQRTNYQUJFXKLWOXOMAyaHkkVZLUDWPZJLKPTJORPANZDOfJJAUSMCAYNUPA GVNUPHLFVj6GYLxJRYAM EYUVOZNLUEORC6gXFssMSA8iFrxTXFEHWRlb5nYQTTWGOBdrDxPUZs1RRICTUOPFLPIQQBBOOunu7X8C MhuE59qajHsTXBJV8NCc RooNCndnkxIjLolnuXPMVqhDGMseIa8BVDXICItmxEQdZywtnFanT3SNMUYIPHjbFFlQqXaqUUkdHgkA CNZW7SbFrX5kHLWMNIWV miPd5ripgW6fKEwyqOuQQTHUEASuOjqGHFJI78zl7YBzQUaTIJPVN9hbaSKIMPGtY2sW2Y0r6J7qV9jH pTTETFNSIDQeBSnxR01n CSepSbjpcnGLVLMGYLCRMUesFOsgN33vEEacEfaxhgMHGBVJBBZG5KyN4u8N4I1a2C9kJ3fKdJTCNNCD EJJTQQoAAAAAAAMAAAAA j/aNUYIMVLAWFXGCVYOGGBTLFAXHSI9FzrWFFNLHYPPNBSSNDHNFRRUBUXYTKXIEP/PAAAAAQAAAKAAA TReFQMG3XLOQ5JBVF+zA BgAAf/Y/+AAEEpGSUYAAQIAAEgASAAA/+9TNKRmi2FiD2VPNCE/7gAOQWRvYmUAZIAAAAAB/9sAhAAMC AgICQgMCQkMEQsKCxEVD fxRAsBRRoYXGbSHFSiUUGrYZORCHJkNTDjYSYgJXSsLWBkTOKsYDLcNALdAQVeRLD3YXp0WHMGTNwOCZ l7NLQYDSn2IAQRIFBoPA BERDAwMDAwMEQwMDAwMDAwMDAwMDAwMDAwMDAwMDAwMDAwMDAz/wAARCAAzAKADASIAAhEBAxEB/90AB AAK/8QBPwAAAQUBAQEBA QEAAAAAAAAAAwABAgQFBgcICQoLAQABBQEBAQEBAQAAAAAAAAABAAIDBAUGBwgJCgsQAAEEAQMCBAIFB wYIBQMMMwEAAhEDBCESM IWYFQCAOuMCOqTBhfOvLiMgZNYITuS0gtWIQtontnGk6aUpuvBCvcKDSsAEOSHUbiQ2CywOSzEd2lFEn 9N14/FST4UdewZQfSDk3 XQ0maMy2WSrcomUozbZ4kq0G9yTQ2aZb1x5x3ge8dDXGbBXVgSVIeCPPycOAmM1AJKWZDXiIBPFZSYiz SITBTKBkRShsUIjwVLR8 AVrZoUkexTMIgUwdiKhHDUYqjVECnI5jlSGf5WjR4CUHYL9ReNrh4NA13Ek06uZlCO0jaRP1YJpccVU7 yONHzwXine3kbwb4od3P 5ytl1yNj0uE/1pSBUOYYXIGEhCJLrK1MEYxOo2MmqfOy2IBDbVfbhWRBjfRKjSjS7lFKu9bcsxAtk/GF ejQtp7fPcj3m/Y7dtds/ QAkk48WA81/U0NcKM8FdvczXO4fF61E7G5L9VFbW/OpAd+l+j+YjVZWNdZZVVcyyyghtzGuDnMJEhtrW /Q/hD4kiX6HUmXNcfFt5 89em3mfo+2y8QItjj+i/XXsCmpOg9uohOTDcg26h+IU7Wv72L3C8zi1csB6jG5DpYEWgU8I7YpMJOQhf zDx53UrQKCXYXLBeHdP+ FumCWOA08nmF6sEk6z4M/7CTlY4949am6aPg9E80cZY5J9hUm05LLIDovYbT/lj1xB1Tf0E+d8Hk2z8C TY6b5Lpg5CUj0b45Xx/r /T/BWVzyHFaGEVAdb7TFXOLubs9uaot3KpjVx7rZZGVnoG1dlZfu6vwOHKBT7Fw9EdbeCZcaRowD5H44 Z79jfS/3VZnHsYZ3h71Z KbUflH6Gxwkr28+ut+1z6/5bE+L6mqMmenz7ZYZyryaWkGoA7oftaPVKnK1arxbyAUFkW/gKt1Tjcqz/ RH5SXXqrke5V+01inHds tfd7Dxj6a2kgpEwd8150sFqm6j4BpTDZD577gWr+z4+Dw53B0SHWiCPp4nH1VVO/Kaov6/8Ar451GhZK d8qrzdIJ4h6B1/zXq/8H o8fvFgcN5V117uOPDe78BNxCuPDFhTXrqNimgBE06b++Gf6P/qFtWBeCdYBTGpAtbfSXlgG2jY2D301t HXfv5dQcXyrMsTtzTeKB YsXz4ZFa2pTjXfJs2W2wktWyha5yGi/SROSst2WbzPtpf4Apa1FJbHT5sk4nKCPo/NVvb/Lelwnaioyi PIH209dFPImkp7M+Q/Fp meixRhTMACgQ5nYTw9bO1U8d0D/RD5pdctGl26jmHR36nlfmeGbVUiOo/0Cb2kWCxidLdM/0Oy+ttdbD 9GHyXy2Sw9HNKm7+s5zv 5yxXdgLN6nFjn/MUNbtewWDoq12F266j36zq3RGwacauG5huI3adm1rw4QrJKZV1fV6cIeBIojKzAADL 6R0/PfU/JhTt5A2Htv6H KuSaj3lF/2/T+vhlM25k/FazbFMOo6yXZ8UxnH50Yk6fFZ0eOejxg5y95sGQd+2Qbhbk5ez/ZR6q59b8 v8Agd/+S8DM1B8CVy/qz I3QyjGsYfage9WtyblwvQJmK/n33/dyYgx0y1G4r8JvpOy+l9EcrUijZOi+N3aYnQ01GZaRd+k4/wA9Z 89Nx7KEk9JyJw1pMW2CB iH2hlVTE7Aarr76DAICLxn9/US4Td+DX2zZxkd80aJ+MXB+hZeRq1Gv4qe24Ur1qNR5I76uPf4Fimjc+ fXh6ZD0L9xK2DVh9ALmH eq4/SUdeP9rbjaimqAxycLP27AsYF/2s0c7dl3d/Cf2/vND0LH68Qm4xYrfmAnqUS1XoecrjejDMtzg3 chQhsG7ni0wse7MoolTJ hHXZqzp9xfSYyv0Ji/1Qo252EDqvRKnAyvKnAHcDD7oKU7loZZTcGYWFMKqiLmM9VDYNwe67H/zcdiI7 AigoYQ5e0qC/DoTx8tY9 2OXTVd/1v1PT/cmmR1qTEu76Jcm28Jk8G0ZPTyUIjHUn/M9jf5z+kBvXy9HGxTJzCDvcisqoNA+839x/ wDLagBOjtZJ0/u8H2fdy FjegBr/LJp3h7ywpP8eAc+wwLMxdYfPlcK19Oqf4G7et+n+tb7LH2/4fV5pxkSg785ow5ev4rPgEbEM+ znDR/rOsazYw/jgeT8aW jupVlFHdeVjSliNchMGyW70ANyde/1D2muv3Y5+W4LrmSGXzCY62sWH5h6exchoPL9ud+7Qx4Ken6lrp GzjDNdHqAC7f+VgywJlk WJtLqqzy00HjWwvuZK1QfppEXFyRZEth5ToHNWoZBUNUfSiI1MLztkx2L3X6G8/p7DzDyUd9w8gQ8j5o mT2MYkkoMsHBH3od0Koo 2Afpm/pW4+0xacw2j0KW2el0XgT9uPlWvjd3CtgV2c8PTifGR4PrC69ZE7hR1Y/ZnpG1yr5tMk476adC L23tjxWil+e5/v/AK6k9 0a6b6X/AFf/AEFj9k+miPTrXj/1U4ImO2ugVz4kZQt212/IUevO2txvG8D/N4V1PHw3CVNu2NiuWtsfL p6HueEJamfOii17d4xw9 /1WPN7GpiVtS1x2RIf3cogbnEkofgq4mleYPqw7pE0Ri7HIUu65KL8IPB6Ir8M5LOlevqw7v8cT/ZH8f 5QD6d3ZlB1gZtAy0UH5T CRf4/U0b2NdcH7o2b8PnKi7Kk831p7taM8t/wCy/sZS0U1G+g4Qm0HcuJGzkEso4CH4d8D/4P7V/P7P8 SvRL7E1rQqpzS0VCUG1B 3QcbA7RT2oUB7Q3Um/Hwlh1GoDwFGOqiD+xiMaxjnMsrHcMyanMyPf/AIT9L+l/wifLJGVnUcQr+76uL GvZPOVV5YOhQu4lSW0fx 6e4buszIs9Gx7Udwh/i4ehPlP1/AFPTptdt/zS6R9Zf/o/4T06/0k0Cx1DegTJqlx6K7YTJyu1eOQQbv Yv6fc4tN6/zXsf/ANcWr iCRNpeq4UkZXRxejrDPRn36+62wvtuf/Kseqb/yq3Z5fj2n0HFNf4se7rlHqvbC9TpwCs7ulb80OpV38 kAG6iR/zX6tTIWg6E8lg 25PWzZhYfT/AOn1NyILxEKIyXucfotHjgv08GRsCXSG3993a3/+sl9Kb7L5pIfMYbIz1fIW/Fj6n9IuA lkqKgx0Xko66z5+Z0rAz zXqVdUqzSLHY2QSlAg/ONabxRIbrtZyfpD3DNnQDYLK50SWaxu8wmPK8B/Z+iujjqRJrYfb+k//0fT7M ZthkusE/zck9r7SVAG/p wR4ECQA+GRa3/qLGrL+ycav0xwS0zExC92gHWpPiitejv6Iqtgng8kYS87ogNtgdLKjtslfwynj8i0Tn V478+lZb79Aac+1WtysK jE1Fux6dd/R/MWwdFdtrCjweQhcF1GPV+Hy/ll5A/8JRdR30t0bq+1GcPhnZQ/3DrDx7ksQVoe7NsKlR cKuRIW331Erx81Beu1/o 3/pn5lV+Hj/AE6v+Ley0M56BAee3fSewj0cvPl58ajVXFdg6/yOc2o9RNZq3Y0UXTmola/53/Ab/wBEl ni18vabN0W/a6J+rWIf+ 1fUB/5SHD1J9LFt18aZ/uZ1D/9Quz9O2ayr3jdzcqikizzTPTlAFpwYmXhFKgydObHB7cZcjs2d2gQg/ AV3/wCDs/RqJ+sWLKu2s 18oudiM/AxdvN66nKk7Zt/RdSzJ/SM+zVb/ANS/T+p6WN/PIcUeyuLJ+/8Ai7B+quCecrqH/sbkf+lk3 /NLp/8A3Jz/VV4HoU9J3 tfcks7TAqYWAz4FM7aUrgTzPxxeS9RQWLyq0tc4IlnHTpuQq/xj666/8Dqu8904WyS2YZ31uyayX1hgs 48aiA4JsD05aWzR5wqAe 32IKz7mUw9+kodd5R8IE05he/zR6d/3Jz//AGMyP/SqX/NHp3/cnP8A/YzI/oJEzooN8hQO+n2SOgR1O sAnopYfM7dqauAficQVJ 0A0PzglpFi/e6zI9V/0/EWJ2z4bKZs9QdoLjsWO/RxiKV72UWk2gLbi+i3bf+8+j0n/AOCt/cAS1ZKZq riy/vl1/wDmj03/ALkZ/ wD7GZH/AKVS/wCaXTv+5Gd/7GZH/zHQgkadYQ7W2T7Ppp4gwSwgClZgiOx6B51gZnVZkeqbvfHirZvti x3Oe7Phgw7sR8LU2cNc2 Cz1rX/wQqgZz64r6Vc2dwhyE5AoAW39FP1ZTXcXE/NPp/8A3Iz/SJ6IsR4U9mqB4uDF7gt0h+h2T/6WX XSUQQ6pabqdXpPrlegGk bDrUELI9a+faHe30/0mQ/8AS/4LA9T+scW59K0o0LgcwdOAzdpp4xrYkg4WETPuN2s0HmW90tLiBWCx7 Px/V40cfJr9NEj+6kyyf vc5E5RdAn8WvuiI/sdk/iYgzBG3dro/2ozj/wCh2V/24Ff3r1nL7WL8RCFOyZk32WFCu8ALUJ27/wBHx w7q1NzTVuhr/T9L0/S9X +dVK/saB9UHnXoAfKyCA3YtYvQg94l3HGYD7+yv+e+pEYB1d5+p+t3/AOE/YZ8NrqarQ0M/b2z0Jws0s zfnm5R/3cBRo6pYR+Gy/ nlZB/Ystrl7B+lQmykhSpJIhcUTqV3lvwon2n6qlufduS66OaFt6xHzH7m/MMC1ar9H7V0D6a75rPKhk uwg21z3cQGaxfXN4mmQX J1Brd8Q+j42azi41TIVnSul+tLfm2Mc/wB8/qOd3PAAIlnvb629e/7v1pJ1xfBA9z+US4/9QyG99u2SY Ccx+cwtvFb/REtE4ndXm l+Gb9W8vH5k+6Z3MSNLy2qhaR+xyH3i3k/qLp+x4YIahVW/XyhW0DJYaVsm7f5XV6pg/U/gFYx8QIpPC PAVM6Ey/1I3TCbMiWWl4 pP+viQ8EYXD/VJ/4qTgWgBIj3sVVyzzpa+qR/fwsLF+z/f09d1gX75+sZxb0Sy+iet+pev/ANz/ALN/w a+r5lP1179bWHc6zqdke RxLtMLQ0dDP75UUptzsz+rPnlZ890vXJWdudzF9CLKG/VH9/wDFOvlZJJT/AP/UABtNKS9PMEGQINEOC QAAAAEBAAAADwBBAGQAb lLwWAFTXDZFYEsAekA2AB4IweYhWT1BfOROPHQQVGQwSO2NNwIpTESCGGHiOO1VcFPpUVFNcNKnEAMZV ABDAFMANAAAAAEAOEJJT QQGAAAAAAAHAAQAAAABAQD/1ICdpUA6rQkmL73nDwSfo5YwCrGdkI94VFLbEF6oYkH4Y5beCZSsBQAbU yIpkD64Gx+8ieVifVU9F zi5LDBYjVCzfIaYvcEzL5tXUWF2k9M5SUN/RrY0rOn3qUEuZCRfDHwudI8dZvq0DdUay3FzUr2mZo6xf QHuHrW8XbynqGDpEINFM Z2bDBYLTIIzB41aHXH0ZzTzZq3sRAJxWWJlHlA9VaDxZHwzCeRxFS6dQu1sXA4qSFmnKkpxAJYbNHWtM KJkEb5iDWLeWixIWPFef E3nheU0iaQrKQVzfEEiGn2zw8q0JyflZu7xWf8sUCq1RhRfWoZqMXNfGj2dxW01TCkezlGeZq0gWGNfO jpEZXNjcmlwdGlvbiByZ CU7FZEcnLE8LlLufC9zhoD7qA9aGP90Plb1aSC5Wx1znh4uIU6rUI0nx74gvLIoFpRfRX3qaM2wJSegn R6rZaD3TbNuUAJydKWrP g9oemXeVHXtFqTsI36eB1gghM4lJvWne2N4fDBtBjIbn7XaR5KJWKTtBiD3iLzzwuijnUR2sP7qiEF6o RnfB01uYsIgc7OkKtBzm C60WTWqYK4cD3ZJiCRuB7Dxs872wcShHORkiePhReY1yFgotue9sTI8Aqq3xXL7Ll1eze8dWW6yLM6yg 24rhYQdQyBxXH7eLFdcd B0lIdKnPAJzlUTwXk0ezMAgmD0iyrffSYSvWRzctLNarOAhAW5aDtXwtZ1riyD7mBfxvJ8pwT5lKEHad XHoQg2eoaWyJECpXfRfI 46qE7Ocf3Nql3ggdO2dFsCzAqD3uSawrmc2lGSpNKHvgRUfRa1jxuZpAKPyXoQfO04iE8PjCnDyBR3tE fWyhR8oveC8REntCb5vj IU6sKajG53vAkVre7NyIqKsjO5htVkeYuUpEH5wCOzfcM0WBfQvJ7HpPP09MUK6HlawqD5pnPU8UbSpY jFCRkFCQTFCMTFFQUExR mGINolMZFQDA2XeToAiOChglY8IOgrpy7ClocWdRMJ5DukfaC4zeMJ4GIX9ZGMgCxwqSYH2LTAxHSk0O qJCJqk6ILTaJ4G2AmZwM TfpmG2OLv0lhEjptrPkYV0rlK0bxxLBAC3exJ4jNpIoZEd0RyYSEMDIJUJKDTYjCLBVUVCVViTpXPH5I 0UTAXM3YXLguL0kOeYgB WT5z6XTp75oKHGOSM9hLIJRzS73r4Zft0IxVaVnWtIfYMAlpN67x4HcFMNghE1nUaWvDHX2IUWduYN4Q lTlYtPiRAdkGWvHYPP5N OR5CRLeIGS1IVVgLOtswWaAv2JfDykGKKSgWXGqDTVqFTOwEPFjPMC9BpQjSeWeWLA3FoVxLoH4qJJ5L QN9OKSwyOERVMRtOYKpR EYnHSJqUAQuAWN0WqQyLvEeTFR7QlIjHeBgCzghk7OkCJE9WamyMCyiW3jaDEzrRUEyv8Vlj9fdoPaNa 7yqfg7rQUA6OuRfIJTvH oH2V0TfBA43JQNuq163MhEoCVPxMaB2YTFgo13ceMWlv103GjvzWANgHW2oBHOvAZFywAneQyyUOjIpn 9h1bKampl7fFxGqPKPdD hFyQUJiPrP6hBJbLpEfj03ufSYsh96Mwfq8JBNtZoQ9iLUtHo9cvDe7IVBdR5WzcD5yWiU9FWX5QoypL PxnSiG5FVM6UihzUhBaP cl5DAP2NCp8UuDjCXSuRMR6KajiVWPmEao0SJCiNTgdHMoiAjF0ZZMyFNr6BiUnPrD4OSR1UMloZnOgJ pefBEPhYBaeSRRrFkK1Z rA1BdGSVGJ9EAZ9LWJnFUCIYpZYDSDCZcL6WlNKQZMRPXmzYAY3gPM7UQv4QKuYNIgcOK9khH1aCVPzW JPxEUH5bLX2EGk5BLnRR AffTU3xwY9gKEA2PMKfAAayRjsPz2yoftOpDMYtGLQ8ZYLeXDRpUQmjVqwPLNBbhpHYzJztj8Y6OaD9Y PF0GEWaESFwOLEjUSXqK GD4GUSnAED5HVSgJDHmJYRfBOUzQBQlGCJ7MVHsKNRjDSV2QOL3BMD7HMD7RJL7NIWyIZE7RZGaCQC8P GJ5FIZqRDW9QLYwSQW5B UP4GNG1IKA1QPU2Oml7GEQ7Ypu7AYF5Dvk1SPX3DrhfSWM6BkfcCSC6CdaqJYG0OdasEHC3Drk6IZU8Q rg2XOD0Gus8XDQ4Oqq1C UCrNTpvHCQlGCv9XPKnRKa8NHMeVIt1DXCvWAt2YWAgNIzuYGWzJRnzOWTrDKt0QMWgQpS1NSGmUkW2B BBiKbIzKYDaEFm7UJArK Ok6JYPsPBb4CEJmOGx3EMTdERh9IRUsLQueRVNqISfkVFNqQUorWXQaSZawWGBmBEp2YOSdXOt7HVFvD Gp2PESpLIY1UARcPdt8Z BGbEho1WHojYYiqSCuxVBfeStqtRdjcLIzmGAmzCmnjSkrvWIteJSbcCmheMxnaFCszYZisMaanEtgyD CruRShlRsM1KaFlINQQO jP2SRL8OQK5ZYLmV1W4TML2JLR3MNE+VHz9iUQRDIqZTLBwtqDgVlZfmILqcFOnVzhlyeH3QO4fHFyFJ FV6lEZsuZeiSjVjKep7I GbPTrKpBWIbAGLHCjE6Swo6EUDHV6W7WZASVaApnBYsIzzsg2W0lDOgbEbLCZZ7kNDbDKdtNrUgXtt4H UaOBxVqEZNeHFCYZwP9N us9TOZTB8J2HWMOVc6+TPr4wJOPCEbDaYT4b3D1AxG9ntMdUjXvjX1wDBLfHqvciPVetZA7pIdbN2Svm 950NrHcpsVfVnYfeMO2k OxysrD1UB4kSZeEGOX8uSTpxWhdJlC6RDamXlwoCSKAUqUZODS1KQX7DYWCHaTWJJA3MKKUWgPqoMQ1y Ie7nETpFHOlWJQnUAY5E OV2XJK0NlNkHjCrCHE1OhFaWzAohED9mSjhy4P1r6VgJAKqKM42HGMNJI1lMWCZwS76p3Isx3FxS5M8O XurlzAhg0EoMXQ8AHX2E zFuMF5aGAK5Ig0dRd5hXBCxXfyevPWwkSJ6oDqkD4Kic998LwCgthKcAvLerBO6ySwmmdG1JF9rAEyAS UL3yJMkyBslJtK2DTguM ydkLYQCOoTIAGW4VMQ6VIIEVsRAEYU4DKMEUsPwtCD2vGc1wRYgBYMkLNMwWHX4LKS4XLX3SoLgHkJuX ZV4JpLuIsFinAJ9nGara 1G5e1EoJRLgTU67WOZBYT9aECYRwD10u5Zbe5GiM4Y5IGsuqiLbt1EiTPY8TBE0SnImAT1gUNK2Ag1kW l6sEDIhTpjkqWPxsCU7u VmvV0Tfr991AySgrbWqXsXdhYU0kBdszrC9CK2lHSqDSNW3cZYxwHcrOzl9FJHoZFY3QdSqKFXHVVF7S ZWBHCJ2MjKNVirHYuI7V aNgrIW9kBq8rMPjTPSrCEAeENAsWCLwZQF3JsFhUgMlNMJ6RyFjXlVgpIO3lBjas2L8l1QvBCHoTR36T ADFWL5vGWBDdH02g6Jle 5MrT8I1UZljgyLlw0QfRUK3KDD4EsBxGF6sYWG6Od7sJy3wWB7sGYW6T4HsPkL0Y1rasK4OIyjfd2Sqf nk+HMwltvGkImNit0Bds DK3rN2hRkT5M2FhQisEUCC+VPwegVu3qQFqUPAmQrJiSJDgBGRrIJEhTAXfFGLsKDAdLFToDYGvRTEfM CAgICAgICAgICAgICAgI CAgICAgICAgICAgICAgICAgICAgICAgICAgICAgICAgICAgICAgICAgICAgICAgICAgICAgICAgICAgI CAgICAgICAgICAgICAgI CAgICAgICAgICAgICAgICAgICAgICAgICAgICAgICAgICAgICAgICAgICAgICAgICAgICAgICAgICAgI CAgICAgICAgICAgICAgI CAgICAgICAgICAgICAgICAgICAgICAgICAgICAgICAgICAgICAgICAgICAgICAgICAgICAgICAgICAgI CAgICAgICAgICAgICAgI CAgICAgICAgICAgICAgICAgICAgICAgICAgICAgICAgICAgICAgICAgICAgICAgICAgICAgICAgICAgI CAgICAgICAgICAgICAgI CAgICAgICAgICAgICAgICAgICAgICAgICAgICAgICAgICAgICAgICAgICAgICAgICAgICAgICAgICAgI CAgICAgICAgICAgICAgI CAgICAgICAgICAgICAgICAgICAgICAgICAgICAgICAgICAgICAgICAgICAgICAgICAgICAgICAgICAgI CAgICAgICAgICAgICAgI CAgICAgICAgICAgICAgICAgICAgICAgICAgICAgICAgICAgICAgICAgICAgICAgICAgICAgICAgICAgI CAgICAgICAgICAgICAgI CAgICAgICAgICAgICAgICAgICAgICAgICAgICAgICAgICAgICAgICAgICAgICAgICAgICAgICAgICAgI CAgICAgICAgICAgICAgI CAgICAgICAgICAgICAgICAgICAgICAgICAgICAgICAgICAgICAgICAgICAgICAgICAgICAgICAgICAgI CAgICAgICAgICAgICAgI CAgICAgICAgICAgICAgICAgICAgICAgICAgICAgICAgICAgICAgICAgICAgICAgICAgICAgICAgICAgI CAgICAgICAgICAgICAgI CAgICAgICAgICAgICAgICAgICAgICAgICAgICAgICAgICAgICAgICAgICAgICAgICAgICAgICAgICAgI CAgICAgICAgICAgICAgI CAgICAgICAgICAgICAgICAgICAgICAgICAgICAgICAgICAgICAgICAgICAgICAgICAgICAgICAgICAgI CAgICAgICAgICAgICAgI CAgICAgICAgICAgICAgICAgICAgICAgICAgICAgICAgICAgICAgICAgICAgICAgICAgICAgICAgICAgI CAgICAgICAgICAgICAgI CAgICAgICAgICAgICAgICAgICAgICAgICAgICAgICAgICAgICAgICAgICAgICAgICAgICAgICAgICAgI CAgICAgICAgICAgICAgI CAgICAgICAgICAgICAgICAgICAgICAgICAgICAgICAgICAgICAgICAgICAgICAgICAgICAgICAgICAgI CAgICAgICAgICAgICAgI CAgICAgICAgICAgICAgICAgICAgICAgICAgICAgICAgICAgICAgICAgICAgICAgICAgICAgICAgICAgI CAgICAgICAgICAgICAgI CAgICAgICAgICAgICAgICAgICAgICAgICAgICAgICAgICAgICAgICAgICAgICAgICAgICAgICAgICAgI CAgICAgICAgICAgICAgI CAgICAgICAgICAgICAgICAgICAgICAgICAgICAgICAgICAgICAgICAgICAgICAgICAgICAgICAgICAgI CAgICAgICAgICAgICAgI CAgICAgICAgICAgICAgICAgICAgICAgICAgICAgICAgICAgICAgICAgICAgICAgICAgICAgICAgICAgI CAgICAgICAgICAgICAgI CAgICAgICAgICAgICAgICAgICAgICAgICAgICAgICAgICAgICAgICAgICAgICAgICAgICAgICAgICAgI CAgICAgICAgICAgICAgI CAgICAgICAgICAgICAgICAgICAgICAgICAgICAgICAgICAgICAgICAgICAgICAgICAgICAgICAgICAgI CAgICAgICAgICAgICAgI CAgICAgICAgICAgICAgICAgICAgICAgICAgICAgICAgICAgICAgICAgICAgICAgICAgICAgICAgICAgI CAgICAgICAgICAgICAgI CAgICAgICAgICAgICAgICAgICAgICAgICAgICAgICAgICAgICAgICAgICAgICAgICAgICAgICAgICAgI CAgICAgICAgICAgICAgI CAgICAgICAgICAgICAgICAgICAgICAgICAgICAgICAgICAgICAgICAgICAgICAgICAgICAgICAgICAgI CAgICAgICAgICAgICAgI CAgICAgICAgICAgICAgICAgICAgICAgICAgICAgICAgICAgICAgICAgICAgICAgICAgICAgICAgICAgI CAgICAgICAgICAgICAgI CAgICAgICAgICAgICAgICAgICAgICAgICAgICAgICAgICAgICAgICAgICAgICAgICAgICAgICAgICAgI CAgICAgICAgICAgICAgI CAgICAgICAgICAgICAgICAgICAgICAgICAgICAgICAgICAgICAgICAgICAgICAgICAgICAgIDw/eHBhY 9wuhRHftoY1SveeXw3/7 gAOQWRvYmUAZAAAAAAB/9sAhAAGBAQEBQQGBQUGCQYFBgkLCAYGCAsMCgoLCgoMEAwMDAwMDBAMDAwMD AwMDAwMDAwMDAwMDAwMD BuDZLnBOZbNVIgXXh3PXXuVIYqHUh8EOJSDHx8LJDDYYKpYUYGBCPhTOArAXSyIHOpMOCwIAFwFKFaKZ AwMDAwMDAwMDAwMDAz/w QYNYAFvLQ2GEVZZHzFBAdBU/90ABAAk/8QBogAAAAcBAQEBAQAAAAAAAAAABAUDAgYBAAcICQoLAQACA gMBAQEBAQAAAAAAAAABA AYOFIVOJwnXYzhCMJWFOlVMPXXMIoQPUqUNhvCWVaNDYAFuRvCONRXGIYQzcUSlznSPWsINB7QL6eBaJ sDnGKDT0ILRWUONceZec 6K9QThHw5V7A9VlvXVU9canqyzTWOgWiQOWnXMI02ZvMcLg02RF7BYqtLVWqwJM9aZ1ZuaPdvq4qike0 epOT5d8i2tmp0wP2/c4S WccfChRpGaS5Ip7MUaLUGy8tKrkjznN1dbcNxkjtzpBafr2ecjs+hEAAgIBAgMFBQQFBgQIAwNtAQACE GRRKXSzZXTOE1UrOsFNl DOzqgDFdzRgA6MASgAi1JJaDJDAQzQGRpAjbdPEs8C84aDGK2ZXUYoHMTpgLaVlN6G3MWjjw8EXMPaW8 /XJuTJ1oEVv0HC1nAAig eSY5yFFZeE1nsyhyfhA8zNCE1t9y3ass2iB7/s0QUrqaOvYbQvM3Hd8KBxJxZlKlsl9byoi+Dp1Sffzo byaiydR5zk9/9oADAMBA JKQIcPEFgN8XuhkFtlgkLabvzYxofvPwytgLdparCGncGc/2U9fEw8BaJlYZNw8H/hSn+hRM2pcgWpUt p29NG8iAKr4U8cyepGqd GwY6tKy9MN5CjnK52VM6jUSUIRbVsQEg8spDpJdyfbYcwlqHjtceEikbjGsxjuThvciQzaqnUuhtnMkx rsVdirsVf/M0H7j7BYEp 3GIPo8BJUs2LUCn5LTEx5KQYF+H4Oo969gpKxy8aH/cR1KDPKh2UvozguTEz8iRerMF6P5WU5IabaLNM U6Y2yMdirhJeYsRv/5cl XOijv8hukYcbz7qO/JJi2qtgVF9xclH8S0hBV3vfgfrcguF5ZP8f1eH0TPDy9SOOu8DSIy6WQBp4WTWg 2QNFk3QVVw9NEFa7DTSe 5URZt1CK//E8XOmYjCVpvPio6mV1XsBzhSy8uQlbMi7zk1b49T8xekeb2S/drKSqE+6LwZMppqe5TFE/ Vyedy/gK23AdxIEz8nMo DGiQyM/wDXqvxbUQ5hxePoIejSYCUD6+r8MxMu6ITnMc+PqZBZp+AIdU2y7s7ifyDncHp/w4X/hsyojU a47Cq4DXjzvKU14kq7m/ wCx/Ux9aM16VJMh33f/nO8kM2sS8/GUxulBrf1j7fAqTMij0X9vsnoRr/5NnlF70al4qXkF/NdW9hjww wXJlSC9iUCYx7cZ+mX44 la/u9XFss+vO8K2JSS8AggRUSio0IbE/Hs8Hke9Bq/7W53curod4oBun46RMwQQMiZhP8u8mgWqHdLaX h3A85Qh/pbBF5TuMAFRN J4scx7vZRiKvgU3Ip2K8DQi88GETWUyHJXLuKOInfcsuItob0aCTzscALEULQjhAAdKSgtEUd2wStHRS Rp7SOKxiQkI8khKTut8V ov4sdLADDdGvG6zRtbdZ9M2gIkbLhGY4j/S73qb/oZXaN7onvOfpTXOZiD0tAWO7rVxekeRq9Ctkkl9z 2GMgd4BVVIz0R3Vi2OU9 r+bfuD5h33xmyZn7wPhGJgKqtuowPln1klUmMxeraxAQiaY0nqG0Lp3+KMZHjrJ/V/6bEvm6i/mDofkn Lpi4DNZsG8cNkDNKFmIX EXjVHjYyK6/afgx1KtROTstPNIousP0oXrl/UpaL5g/NLV/Oneyda/gxwg9m2XYUXvEgnixGtKbgdDGfxC 7gMBuxNWSvj6tNZNJWv5 84/8Sv/ADS83+cUSGcDd0qAsKqfOQaPxFox7nUF0xolTPSJ2qQR6bMQArdBxzvJ3yPpHFbXB/Hkj/NPn q3ijTarWga5HK+1TW3ij 9gH3FWblWnttVhPioL61Ej2z/Xzpr3RT0WMw6RAFHwOSBU2/tCkjxFI2VILL4YIZa5d+0fSXy97/wCSr P3b4Qbhlg6xiW8A3mfzJ +ZsOi/iHxTkhpNv6sD9OE0R6xxpgI9+Lxx0Lb8egjoSfAkme4DrhEI+sfp/029PvNmbpvlH6u24oeK0H /2AV00TiVy7yhlBeoeyO 7mDB9UFdSLJBHl2mlRWmzd6lkSkVxl0YtKcGzdHcnwv+nh+xkFnpc/tTp5e5kk7GgUlBLnmQRBQkiDar UlPTIm9FtrrTdGkR1qKM 1th2zNeDK2Toy/Av2rhJ74qXBAXNC5HzEFfhTXTjaB1LPBwmKVKkp6ssxzCRIYF5OQySS4g9VAqMo6z0 GWgmF3QzU99ra/p170jt Ym8T/v1/tSnF5Z2EQGkshygOS8L2A/5n/HnM0+GBG4eS9a2Gqn3B5siGp5GoaAIMsn1G/8ANWsUCvOaK F8fJHRhYtSb7m/y5ndn9 mwhEn+HR7dloHg3F7NlHGxL3s+mP8KcT+W/zSv34ROlbFc7CYKmoJt7c0kxtQx/qadSTfFh3vvwJUkr/ D5Q0IHEwbcM1k9Od/MNx 9D6813av4hsjeeckaHxae6sR6deY59n08LEj6oEDHS4nTd71jO61qsOUDRW5pkl590gwpqzyd3Q0dRNk v0TGhiLPzw/ACv5G/a+z ye0G1SJi97ZYEhR9Y58qljOCS6HR9uM548bupCoTEnB9DgbDcgvaALY4lbCJt42E1HBBU9Denkjhlngc +XEHmvzFcfXLy+d47Sxj UDe9qU8xq5DrdubWy9xkB3TTKaA5Poyk5csKDI4cwX8G1/0oYzo15/UtbTRGuFDpptlbRSGNWFVEks/M d270VZQAqGR2jwx9p6YN UZBxSlweUR/xXEqaT/jvS/Ndrp+dehHu3pQUFddv+idXnPPpLvldzC1sbiW53FnHzIlCMNBIR2cHTn5R nf1z738liKkyloJJzC39 /Gl4m4oCgrgr8lVZwsXpO7o+m3Vr7TvBJAFB/xazafF91OG/Tjj/H/O/qqPmg/nI0ZpMVYilVj97neye mKN2u72iVQOfEhfQUUKf 3/S9CZkECXXuSDUCNnrQha2wIOAZ4q0o4yDKy8t72qZyp9mmrWeT2CdYvFVjX4GvSeW014hOT6lwPT4k 4LYIouMpZmyH0dfe5dH7 f7f2SjVD5C9PomD2VxRIgRgyrgnMS/ewvIgQSNGwCf8nngMgCXA3yjAK/ex9s1itdN4tKw4LqF/HImYn 4shUcAgn9/GhlJv8SFKI XVLyL4L39sGoNshgsxr/fn4yx63e/MFA4tiDKxN+BtuDJDYNjej2btZKX+HysCDeRihkxRzv3Lmpk+qO FAfl5+Pf3mRx8GtftJoz Y+N1TbZZK+gFTxIrEKFCN4yjpT3hA0McEFiG+az2loVFSrJwSGE3EKFEnj93xm2qvAPtM4Rn3ryYsO2r RjS25kcP9CYyPN82/a/l xjgEIcc+y7bEIVHuC52V2U3tHmj6S/JVEoYaeeJl0xDB1Sjr+dK5nRAjv/DHuVudOfS28N5+juqNo8W9 GknOh4e2FfqX/huIofMd iQtAyCWjAneiCKRYX2u5OxQ2Rh02wXiBSnA8UmmlxNGjqfyEJxw67a8t7ioaENnVGIcNnfNXhecteWnu A+RuMvkwf8Ugkm+H+Ft7 T3SnW0X2uaLHv8fKflsYsCrHivlsLTEyfZZya+vRZjAiJZWwLhRiUGU4CKqlXQXboFGMRiB1x1RuLoiY ZylE/gr7Q0HCmt+80NZ3 tpOt4kTnmuuPVgBrR1t3Aw8gA6DplhTI1K48ZtFF//X2XrMlrtj9wJ/ACY/n73uv+Z8uYen+iNie9z3c Q0g29Ipe04XD9oqgi/vq C9T2GMr4m+guH2b/fxY5+X1v+Yg8k+XZtOvrJtLK2/A6Dc8yJwuKFG55STNU4cg/d5VjE+TV4UmAGjQS iXF/kBlcgdYSvl7uA00X Gkm3k+us+wEdNz/AK38v+OiDGtPq6eTa1YsO6/emSolRrqqIhNJ0iN223vxZNfzgsg5aTfIsKXnTZ4Zl w8w48im0v7I1Bs/AJrve 1ImeLigRX+V/gKqjrwH4ytmOzHIyzjyLPdsoWcI/BRF8kijghZRu2v7mI0/aVpywQfU0x+Nev7/APSll cLZztFHawfuokE/DhxEF Y7pnlJp0+dSMOalznc87bD6Fa+It6xqeL/Rt9is26jHvQ6T35KjBL3mZjh18mGU9Po1gy/ BjqoYlEr8X2p98fM/Nn5 Z67d+bPKx+cjElnEj2ye3JFc3kcpqz72kj5Uu+YO5moaMTLmahSgS4cChXezjHzL45/EX1W1R1+08waD EdyuXnjoQeAmP3K6EXR8 neEdKtxZjJKB60VwsuX40iVjZ79/iFEWv1iqjYX3iPnZ/WkHpr+Gjl4y11YJ/zQZOTjjWnlL+dlGeU6b gRihazDfKq5r9QvvU/X4 1Kj/K+zmXPJw8+HtMyTfvsbuzTa34trS9xTn6B6OVq4vskjqEyHE7ZEvOsaR6S9OmfzCXKsvXeIejZYe z+omDST8MRdzbHrkNXya QF04ViL5PLjCgM/AJyQ/yIVUPYCthX5THlIxGHwJO6V3dgwz+G8mw0lRsz/AJv+av2WOdVUSjxgxpc5/ uXF6gZRvT/WHFs8/HrRJ PSXHD8Ictj+BzaYD/y2liYql/zaC86Q1tkXZcmSL86LQOUE4GNs6lOfmS9JcJAJKryq/L/tZB09jLz/N 7RrSLUhtb1cJGD6C5sL+ CPv6jlpdD/BKAWehzIfX2e8KAv9UIh4GV9im+Shine+DuATtjs2iOxVYsbBCHsm5R/heea/0iMvn8kFV2/ WLh4uNu+Eh4qUlm+wGZ2 Q0ueMq7R0rmTV/o3/1S6hgqDAXuJSySLh9nHJltk5ggh1cG/Rm6koU4LWw/IA1BthVMt30sr1OX9ky4M FDD06zJa+HKufDLhYD/A N22T44fStpBJm4Q98RipUuNdEzmq5VtO3VWj+GpakRZvg6qF3+1dcisaIxdYS2WamWtKWZ2YzQlJfbFW bfMflyN1/EkawgegP9qV IAT4IIEfO43iP5+X++o76kLUY/g2Q9Lj/qqcZ8MO/tE1kw2nhxcsGck+9l73o+z/bF7q8efjs2mk/8An VzH2yglFGGLYKs/KIo2Q D/nkpzMy/2sZ5QiqLrgC+Z+d1NvRtm56tZOSbp/igAHEiGJQrkfaPmqz6iQD+bcxi3eJ/4Kb/zXQZR/h wpd/vF684VM/iLP1Zp97 FpopZeWzGjSB6/0ov8a0hT4fSomygQj9Hflaae+soFwuL3O17C7ue4vTRC216hmNEIJcC3RX9WzG5yFQ q2FxbelRbG0XJxi/wDOF 11m5g8MV50SFBz3gEXzvJYWoYypg7UJyxhxdlhQLliq9sYIuFUgkqOhDjuB2k1G/YI6Br2Loci+dI1gl RaJOXNZT8vOsWgFMx/Lz kZuzlHiR1l8D0UprFAl1ToCC3s3vNcLRKAauGgu6IktXkDX+y9z/rP2TOnycKzSn/dwFtACAKWY9IM93 2//3BCl3zsXv5JpzPSJL IzWIm8qzFzn3w/D0sz2z6l+cde1e/xlPjv6LJJLDyxacKyjmKc5xC9jJmW3PhMz2ywdmG3noAYKvtK0H l/M/Hcl93tnxwYpPBlj4 3DXkABYTNYWtAambp7EK0etTfUr1CUAOfDkzXVt3u1h/HdWQBZm7ba0dwR5cIkwAVesnhaAOARR6M1TC +jG9EEEYU6TM6szLqPtO a5eL4lL394S0p8kjfukmPIqg+IpRyLeGWrU1dojs78dTLc3MV52LkeQGZCYiEGjvrmMZWHl/ku5O7Nd+ vB7u3p1ko5aJpH8UOqSf ujx5bSgsKHCpUtX0IwoZ/ITK6QvKvpff/PJsyjabHwm9tqbkO36vPAlvqhy6fwCrKIr3Yxn4vEu9vGtq X11VlUZUgYtGa4Zm8PPc XiMjwj+quDAzUPXAxerm8CBLpnzRkIofqQyNLz+31Wm0W6deGxUalcKZs93u+d/ZxvuuWZ3WpgU3tiFB a37RInECvWxuSQRjT+LF QT2M0oo9UCDyzw7f+pG+j+bMi7XhzexqRO/Z2vmYadg13QlKPsAXfeH+qX4/Fx/cjKH1xCPQkps9HGBS xeHw+qeNg7s4C1w3k0Pz lgCUxKTxDC4RigXI3Hi3TV92fYmbQEPyhoMR/iYDbTeZdU8/rfjTnYkXoPdN0aIeZJYPVjTh6TA5J3o8 nLPUSlD+rxS+a9Jlgoa6 xn/AExTE8VG9Qy2p3biz5sasPX9soSSxe9RofMPb7dzDN90e5TlhUrDQHSx/kl1ka/8jLcxChC9rB5is U/2qh6W63Zs5yYr3nB0S X+xcvFrNuHKPEj/NOBiKuw69qr/oTcK0sPGR5oBrhWZXtD7NyqmT4qh8ch5QcMnoXY3itAmd8ATbTfT2 r3TauzXl+GF0kprB43ZC dHuRY+PdFLGimLVFBXiWKJnUftwVo9BUquGQsiO3mCcx7qazDnjVprhGZEoiBfaOeaCGkPzU6p9NLBpq 3lutvIR+25ymmMY2y+Ms JS8o0w3Dz9PkpHz+r+wUKIhqKhSdf55fWbcNO+P84xaKEulX8fBBoaxXanI2xOh0Y8huJAZSGIgd2DFW azDvSTpMp4PkK6ykM8g8 d58ysI15pJxC8Qz/ecGPEVIwb1PtA7Dlp8hRw0vmOzNO3ZzsvJafUkCeR9w0dx+Yp5x9k4w04KxVoc5m CbG+V8N8yG0+2LEnu1U7 HIU4aEAEn7ZjxTUIFN8dq6tmicdqNGWjm7/vdnqqH459DjDGCWQI8pAD8CNgel0sq5dgnbpdtIaKeBo9 1vu6hB1b/7ND8ZMldygX heKrD4MnIT0pze0hwhWKxens/ZaO5UJO9KBmR4MctfnFHXNCwJijKyEFxfwvdjIW32LJbj2lGpTuATPV m4c48wLTqEwVSPtPHDET NOnYWHoWggdhO7C8T+1mXBwRvI3L8l9QptQJ8lF1f/HsxLHaXTSkpJ5neBRdDhca+Qo46tZZCyJ4mO7H soEVOEVyencKx5SrC0Ln 78wdd0+AZmACCvHCAKJkDui8qc6XG2LlAkS4h0iM22UvaFBG3Pte9ZafIjYFnVd3n/xSl/xKU+Zvy7uL G5eT1V6oKmPcj7I28p0r Lelheo3byBd2jd9QiZfvjo5cTVp7UgXquBkXYl7d5F6n4R3Kq6Q/gYGL1YvkN6AiqJ+BFaleJKGp+fxY 1BevQv1+x8PAVAVHO7TN h/T/SCzzV+Fxy2xCS6pCM8qe6q7+PU6uE5GSUTataKvdHAAxP2QF1cMIKwK2TQMwLs+GcT++indn5n/A DE+rCK78o/8eYbPnv6nm 3Ne1lygtGlbc+YjOffot81HibuA/I4/V/Xjwu8m+Rrqw1m/1m34UYanK0N6pja+jbxbUiiLfEdgoLH+X H2zRAURbALF12nPCbXL6 5JJ5g/KEFBY99Uij1OtGlxZaFjp5usQKDsb6cyXhg+0y/z/JYHQQohkdQxKTyKYvQfqt0IBtD/N/hRmt 4m406es4q1ST4NbqiK52 vebTx0dnSUHqGkUsf0c/wCTIwjjjISE+DruoVbObqRr9f/rBJH2oVU+p+RcB6riXndKtvDGuPSfiKMSp ECqRC1OdS39B/s/BLFi4 Zc2N/nO0S695g517OThM9c4lSBYV7BfaYrZWRXNfGz+Vf2+JK9fYARLimhItrdB8E7kmpRqt457dhaqL DPZld4JNpnIydAeIfYj/ WWdt47YYYfWG//B7XzIurdFvL5IVAtQanjOjFjfBbGVNp9wDynDakGbOxaNcZyoW2dEeIeLfBRjSWWSR 61GdMZRHFeVEiF4yiZRx RAUR30aqyagn0DEduMcZVGV2aqdAI7WWcRQMcJauDv5GcZwORVMCvbjge74o6opTfYBZ86mBrwKLkojU iXqa01LYBDQardqkWJxR WbL5wHJ8QBFgTifpVRv5fTBsSueYtHIaiOdsP3CFh8rl//U0B1UlgG/AKKkLCn+7WZd/oBwFlGuqDeXz QPsQWJ/1ppR+tN7KL3Xa /ziUJtsabg09W7bW/WnuD+qEZH1+TIeD3z+Kd9DfiC4c7ifme8L8Xa0/fVZ8Iq2heLU0i/2Nu9m8kzba 6F9Ml5/zRjc/JNaf/bP9 gpSSfnD/uuLy/8AS97/CA48W7h5TVJk/wBs/wBig5H/ADv/AGE8vj/XLa9CWN/sc1LHYC/7b/sVB3/Pj 9lNA++5/rkay/0WVaT/A G3/AGKiX/P/VFD6E02/9cH73+iyrR/7Z/bRky0U5qZ8Q0X/yW/qyhJ2AxE/7Z9n/GyJd7TVRh+g1+Xqf xJw/vfJlWi/p/j4KZj/A Rjws7h8PuOP+OCsveE/4F/T/HwUzB/lde8z2mdVN+X5T2yj5V8Td3q/AM5H/iXRLiL9K/zTj++X/Ae6T X1b/nJD/lp0n7l/5ox/f Sur0aCayq2Ozsm/AMtWlfcn/CVF49G2Nqf02m/zkj/h3kQ9xt4IZMH53A8Avy21n/zkl/a9gP4vi18O/ thkH23znVG+ckf+WrSvu T/xwV28c8Z2Xn+oo60Sf6qTxu5LZq/zRj+6K4J2FVtRr+cj/wDlr0r/AIFf+xEe6aG5TuW20F/nI7/lr 0n/AIFf+uYK37c4VzEtY b/vCltzwLX7hV4GwuX73q9XaAgVkjO/OOuK6aMLD8I/YPltpP8iJ+We31YCh+jtX0y4SxmIU1Ee/vf6K E2UFx8n4+Cqg/7sMPX1T fmJ/wCBx/e/0Uf4H/tn+jFnI274efE+i4w1l/osa0f+7v3NGZsd0/afy+P+snDyt3MP+Cf7b/sVdE/O3 1vKv7gfdREZD7IZ9g6Gj w3YuTLn/DWftYf1aqs9sep/vP6LD/Bv9t/2Csr/OBnwwE0Q5N7m/NOH1+SP8H/2z/Zuzk2Obf+1Fov0S Xf/ADRj6/Jj+4/2z/Yoi BZw9H5301q/1o7nT8tAU6/JifB/p/KKKSXzSftwWI+U0x/6yXLqsvLX1QBcl6AxEwXPyif65pt1JGPmj mSvg0IN/9u5KJELDrg4I ujqgt0bD3PCgiLblW6y8yI3Tj5IQj3zQZF90SA/90LpWNl0HIS2Jy5RUepTvyUiOM9axpdPzPS3vo7FT XIFWPQCvfASFAVKeGFFB 9ZfuRBIxh0UMLoykU721I6SGYRBs8SQMwljnAGvhVT4LNCsgg6JtwAZUuMD4QsoV3B7OX9v3GPPDje8o TwxCWJWhMh4GDJGEXKLe UiZN2U90zucTB0+w6ZVg5aFSBdBo+YP9SCCUmh8Q9Ab0kP9QGLPwZAC+tLkrLb57jj1Rpig8sRw/sRMw Qap7Rlo4OsKdzB2SQM0u AZUNJbWr1m2s4ZeefFmMWP5IADoFRntkaHSs0gXbv8gYvE600pBXtNRjTCCGwlHNZ4bszEVpkYvnxqAm VLj97MLpyVTzQ10FYTO6 ZQ2UUJNGRugKQZPxIP1Ro1K/1N6GwecY8pA4+g8tdBbF7elp5XBdGf9ubppC/Q2Yd+u/ImvIDUiz2Nhu 8n0si6o8Hk4Z9eZgT2vl +zZxkwWwp/NIecv+zXAJeviPdxLw+jhZbp/yTskioyFK8OU1Mx8uWIUQYBsR2MLL3mF3oBpA9BLbwHqn yS2v+JmIF28s1R2osGW6 T7400gtfE3OKKeD59OOv9kmw3G0De4zJrn76/4XIjNKuL+ZjhPcWn5a5Z075bcfj3oXw9lSmBocmIokf WLsG4aHIlQv6ZRo67/Bk 3VPA3UTeNJ5ilJ+yX2fTbov1xE8qToNsWENM7cFNXHp2BVsRrj+3qjO6TU7cFOJPu3f/AXVz9lstZg1i dvrSaNbGNWSGYtuzKpYs KAH9rI+USvJr8PCbIrboWgv017e4IbWrQ6e3Yk+fre0ltiTp/u7QJSDNFktrVebb/qdnf9y8rgqkJcr9 Hbpx78Zzd785y6f3J0dT HkvtTT5tsltjWlP65mDsCUrxGP0R8vc8Y55D6OVg4tVQIjJx0m+cbvW/uBpB6uCfdzy2qV0XU0GGQSYf IPnlwqDJASwE99ibkvA/ x7TqVZeeQnGmXnmT18yvvg+sAz8FoHzKUOnBtIOOKS99b+K2YtObYwD/SzBlTSvCA0gVBcWNKCl9mrDE jrPJX3BgGbJKiwcGRgzv bFDOVTMtv6LSjf7xKK3ARxOtFO06I0zwzzqL9kb9i5Cda1x0wT2j6nuAYjOSnClh68RCnl9fy3miJhei vQrHQ1y95j5fGuLtVx4w b9KSs7TisMT4hUHQtTrnZgfRyz0JQeDgZr7xmDdiQ1JdE/DAFtZt3eQbCVDFqQr5KwI8U7V6LvLD44aI aum9uoC0Mz37keAoxT7a zF4q30lMb06L2cLfU2V7RW1dObNcbRi/br797oyHR/iZ1X446iVYi+smEbqD6u4tY/ijg1J5g1VsQXTQ 2K5dKcTWf7UzXp+ByMsk aQFCFtA7OCl1Q3chP8Bp0I9q9mVk9q/lpF1lSQXGJCRR7Cs8AEdl/v8NQKOFOqncVSTbBRMuKnECcxM0 5E6BKvOeoWfBK3yu0NUk xUA+e5bFVwqn/a/qPktGTQvcCjotF27iwkmBz3mDIDk9025lk1UTiTdzkz3+Run6CcAq+fz7peKgcxln fEXze3NyH0t9qUgsiRnX W10+84RSU9uyDIcu3FA41yYCg7SRS1qYs7fSv5SSv3E/QNjPTVwAwqjWNwQvLTK3EyvHkDeJztoyCzJZ X+XyC2Yo9FNME/iajCO9 fwoO0/MXzT+gJ/YC4l7aediwVtrLS2wlVix/St+QVUGnw71J/K2DRxbBZ1KbXcE6xc5Q142cvxl59i9r IO8ZV4ciuWRl5WLg9eAQ zplCQ37rtutOsusCQYUETFtPvN27f9wMIhUIrme1/f6g4oG0ZYFtWa4ISTE95CrNolSK2AhD5lyP/xXd 6+wH1zj9ywSLvt1pGf2d cqvWKxsQXSdvi/aL2oLXe/kMLZjNO3V/sHzM2YG+7/ZI6y82+c8TquWw7whh1nEqehNpYOUftFfwgvjU k5hE+bNazcLWLB6i0JUK AdvfQP84iixukxAin5zcKg5QCy3zMmRsWS1ac10VPDIVQ5zT8RTS/C92TFzVqa7GMZOWkxy/NWk62+n+ YfqcyyaXPqi/VVdDAbf7 Ctrmybodo2MTLJXFztcZfYT200p0MkG8zg/BYGd1fMqqQarbiYuphxQLkVjFPyAlHxLvT4OgcVcC+VkD GBsCZESbXpwFhdBzwW9G kVZinJcWqv9dlJ5e3kPxQYsBymZGdXDZooib+DCRreXJFgh6E3AV63/1502ILO4l6LIh2hKfz5dlyf6l JOjDcpHZ8wbTmgtr/q4T kZ1zNVGZixsFodHyRPTT06OiH7BCTdf8UmDXX4hOXfjD8mmzmuGZKnPsLLlv4//0dPQJBXTfkAHPq3q+ LQyQ89bHLgHBMJtp7eBa Gqyo+0gYEHF5EavW9GhlUiJEW1RjafZWAes00U0WdFaCsuy7S3enMJMPMHvYkf1P9+Iyt8IERuzVnYGF cMiSRPhz9N8E+qERE30c Sb2CIiAItZZzS8iIcobOYDlfBw4rAXJN5RDjQP5U/OmoH4miE9S6QSi76lT7sGvuSxYkvYCqMHtt+0xP zWmgrkdN8JmGvyvwUKdU +xeJ7EU2eQ7dbLzo6msk0VY5R6qdiI6dlb/IzzYc1FNyWdKmt7xjvF94jaOlJbt3zLsqTU2ocn9F9ls9 vPw4hMAp/a3IDBzudwEw TFIWxz98o5l/Nf6q174d7z46IBVutWtqZ0/r2MPPJcEeMX6+OlOOZcjdHqwcGJ8p7xPpZvOK+e8b8xfd qf1dCDSISHhMaczqwLkm 7FJKX0N8pGgp3cec+T/UMHA1beLvxl78n8ieDN7alywIYNG36ieAw9GXrxg/ICtiYHivmomKQWj/lvq8 lg9HrYmw1QlkFavgqW2t FsLw6mMvhjTsc1M9shQHsxS6LYhvsJ9m+Q/XypLH0kaxnFKBPqXg7KhTMJHGgsu1nMy6kp3CCcI7QQPJ xWntnoHmE+ZNY1+aKGKe xHCgUJ3Qd7TWYLtRlLJCYHgm+0eWOWdrtHIBWz8rdoLkIbxjCpeePnDE1I7bmYe7FmdqcyYN3ggM5reZ LJewh9GiB5x9y26A+Joe DpUFvLb+YZYe7cHDpn7QITEfMVBsYszp0sxPAv/2sQGeP0UZZ1X4qsJ5t3+mK5G5pQTu2exxltZEnvCM tSf7aVJAlaI3oiWdcIrD vnxKuk7rLNoM2ayi3Uf4G3ai5zGJjg0cBd6ueKtozce8durStgFCvHFe4x5smYk0ueW/DuftlsQ1P/5R qjP5hle6gbDrbmzak3GS ftSwKSiOZQrkMGKJMONUCj7xa60yt8u63rvgOAx3A0EqfeXaigwTWRUJXBZDiZ3XuoJRQDafDJZgANjh 5j/JX9seH77Xr0H3MKcm g9npxyPYaDSfit6DDmi2GA/IIs3fGELlatgZgmlfYoC/LidiY3LVRWE4ZqeQ0QvmQua/XZEcJ8l8Kl1p bexc8g0nn4IrZSGOO+k1 S5x9OaG90jdpQWlWXsf7usrEJLBxRIXbGiLa3S3u8JyL/RonVPN1GZFkhqpHfUuicPPtmq+TYe8UESxg DgINeo1xcjbrrd4dekQc Bhwlmh68cj4igEBG2QqG+LTNVMEjqmysPTGdIC6bKNRfqmwogMg1M3PZmUBz5yCBwT8ijAO5bjnCv6I0 UA14Y5yHFN7BNBTJYnH/ N2m38WiF6rmkTbGFO7Zd8Uncmr0NOjs1syvG6jy/DJwibthKQqkq/MSeLqHdTMzSdNmHlbvM4w4NlVjS Zv1CBOeBncbtMUnYnCVl rdFnlas4SgngoKI0rUv0AuQUl97JwRmIodmD33kSMfNxTa6RYnQ+XZ0kzF46cC9Q757FUTNN9OFdlKzB BizY42A24l07/22/a5YM dCVUjhUdX076kn9xfmV8ue5Ky0mxpl9cDXSv6cA5W5uexSrH3jfctzFiS6hcmBxZSH9XXyPe/zZrVtrm n1BNNpvHl8kwu7Gta2KF f1DlmZmHoWZMP/SUaAqNMzpOHnDx4H9bviJ8r7atuo06UrVnebq62PtZ+zAaoBdRz0luMShEmHGtbuVb Uh0/wAn+qhL8xKZyoUMW 04HQ0jY4Zr0rg0S3tQwPpLYPw5ke7JIWStIPqglB7wF8sLhdkj4MJB0nuf7Yl72zBvVqkqV04Pqghgfh yKIMF13AaexlqIzsvdit x6/MxE1GgfEFUhQCKJEMxlbHXpM0aN2bDVzVo5riF9PyvAaQmX/5kCUSqV5wLNehxMe9ElBkZDGBnXPs 9OFWj1+y3iJfrLQdBYn2 /dirjioaX/P+9BjWiKgb04u/LBmQE7fazGlgxDZGtiy2z8/51sTiwp29Be+69/5spyc/wCH/WcFcp2I+ ayTT/8AeKD+6+wP95/7r /Vo0EHx4PV4pm+kJMq2WZvrG/X5YlQ7/J1QTEWeruqNkSivYVwebFpMt47Yhr2JXjMUYnUn/H2UqHBN1 2PTv+v/ADrhQu+/Iy4mBubosx3t7SXu0G7T2B7wjpS//9k=></span>

<span class=clinicalNoteMacroWysiwyg id=[id number] macroname=LocationPrintingName" spantype=macro title=#LocationPrintingName>[facility] [address]</span>
<span class=clinicalNoteMacroWysiwyg id=[id number] macroname=LocationAddress spantype=macro title=#LocationAddress>[address]
[place] [address]</span>
P: <span class=clinicalNoteMacroWysiwyg id=[id number] macroname=& quot;LocationPhoneNumber spantype=macro title=#LocationPhoneNumber> </span>
F: <span class=clinicalNoteMacroWysiwyg id=&quot ;[id number] macroname=LocationFaxNumber spantype=macro tit le=#LocationFaxNumber> </span>
</div><div style=text- align:left>

<strong>PATIENT:</strong> <span class=clinicalNoteMacroWysiwyg id=[id number] macroname= PatientName spantype=macro title=#PatientName>KECIA PEGUERO&lt ;/span></div><div style=text-align:left><strong>MRN:</strong> <span class=clinicalNoteMacroWysiwyg id=[id number] macroname =PatientMRN spantype=macro title=#PatientMRN>[id number]</span></div><div style=text-align:left><strong>:</strong> <span class=clinicalNoteMacroWysiwyg id=[id number] macroname=&qu ot;PatientDateOfBirth spantype=macro title=#PatientDateOfBirth>[birth year]</span></div><div style=text-align:left>
</div><div style=text- align:left><strong>Date of Service</strong>: <span cl ass=clinicalNoteMacroWysiwyg id=[id number] macroname=Effe ctiveDate spantype=macro title=#EffectiveDate>06/16/2025</span&g t;
</div></div><div style=text-align:left>
This visit is being conducted through telemedicine on the [employer] platform during COVID-19 pandemic, is patient- initiated, and patient's consent was obtained. Patient is currently located at home residence.

<span class=clinicalNoteSectionVisible id=[id number] internalbreaksection=false originalname=Referring Physician: recognizeconcepts=true spantype=section suppressempty=true">Referring Provider:</span>
Dr. Sebas Status

<span class="clinicalNoteSectionVisible id=[id number] internalbreaksection="false originalname=Chief Complaint: recognizeconcepts=true spantype=section suppressempty=false>Chief Complaint:</span>
Follow-up for pulmonary embolism

<span class=clinicalNoteSectionVisible" id=[id number] internalbreaksection=false originalname=&quot ;Diagnosis/Treatment: recognizeconcepts=true spantype=section suppress empty=true>Principal Diagnosis:</span>
<span class=clinicalNo teMacroWysiw id=[id number] macroname=Problems parameters =InitialCap:Yes,ListType:Bulleted,PrincipalOnly:Yes,[id number]:Yes spantype=macro" title=#Problems(InitialCap:Yes,ListType:Bulleted,PrincipalOnly:Yes,[id number]:Ye s)><ul> <li>Pulmonary embolism ( ICD-10:I26.94 ;Multiple subsegmental pulmonary emboli without acute cor pulmonale )</li></ul></span>
<span class=clinicalNoteSectionVisible id=[id number] internalbreaksection=false" originalname=Treatment: recognizeconcepts=true spantype=section" suppressempty=true>Treatment History:</span>
<span [facility]Mac[facility] id=[id number] macroname=Regimens parameters=ShowPRNMedications:No,ShowPreMedications:No,RegimenFormat:Bulleted spantype=macro title=#Regimens(ShowPRNMedications:No,ShowPreMedications:No,RegimenFormat:Bu lleted)>Iron Sucrose [...] (PF) IV), HELD: 125 mg</li></ul></span>
<span class=clinicalNoteSectionVisible id=[id number] internalb reaksection=false originalname=History of Prior Illness: recognizeconcepts=& quot;true spantype=section suppressempty=true>History of Present Il lness:</span>
Ms. Peguero is a 44-year-old female with history of asthma, chronic back pain, constipation, diverticulitis, fibromyalgia, hypothyroidism and multiple abdominal surgeries.She presented to [facility] for complaints of abdominal pain, swelling,nausea, vomiting, diarrhea. She had been previously admitted to the hospital for abdominal pain with findings of bowel ischemia with CT scan showing pneumatosis of the right colon with portal venous air and subsequently underwent diagnostic laparotomy with right hemicolectomy, lysis of adhesions and washout on 12/16. On 12/18 she underwent eoaf-th-tsfb ileocolonic anastomosis with fascial closure and washout. [...] and numbness since her last visit.</p></span><span class=clinicalNoteSectionVisible id= [id number] internalbreaksection=false originalname=Chief Complain t: recognizeconcepts=true spantype=section [...] originalname=Allergies : recognizeconcepts=true spantype=section suppressempty=true&quo t;>Allergies:</span>
<span class=clinicalNotBet[facility] HospitalcroWysiwyg id= [id number] macroname=Allergies parameters=ListType:Bulleted,Valu eIfNull:No Known Allergies spantype=macro title=#Allergies(ListType:Bulleted ,ValueIfNull:No Known Allergies)><ul> <li>Haldol</li> <li>Iodinated Contrast Media</li> <li>NSAIDS (Non-Steroidal Anti-Inflammatory Drug)</li> <li >Penicillins</li> <li>Phenergan</li> <li>Reglan</li> <li>Toradol</li> <li>dicyclomine</li> <li>fentanyl</li></ul></span>
<span class=clinicalNoteSectionVisible id=[id number]" internalbreaksection=false originalname=Smoking Status recognizeconcept s=true spantype=section suppressempty=true>Smoking Status:&lt ;/span>
<span class=clinicalNotBethesda North HospitalcroWysiwyg id=[id number] macroname=PatientSmokingStatus parameters=Verbosity:Medium spantype=macro title=#PatientSmokingStatus(Verbosity:Medium)>Smoking Tobacco : Never smoker; Smokeless Tobacco : Never used smokeless tobacco; Vaping : Never vaped</span>< br>
<span class=clinicalNoteSectionVisible id=[id number] internalbreaksection=false originalname=Social History: recognizec oncepts=true spantype=section suppressempty=true>Social Histo ry:</span>
non-ETOH drinker

<span class=clinicalNoteSectionVisible id=[id number] internalbreaksection=false originalname=Family History: recognizeconcepts=true spantype=sectionsuppressempty=true>Family History:</span>
<span class=clinicalNoteMacroWysiwyg id=[id number] macroname=FamilyHistory pa rameters=ListType:Bulleted,ShowComments:Yes spantype=macro title=#Fami lyHistory(ListType:Bulleted,ShowComments:Yes)><ul> <li>Brother 1: - Kaylen ng cancer</li> <li>Grandmother [...] internalbreaksection=false originalname=Physical Examination: recognizeconcepts=true spantype=section suppressempty=true>Vitals:</span>
<span class=clinicalNotBet[facility] HospitalCristin[facility] id=[id number]" macroname=PatientHeight parameters=Label:Height:,LookBackDays:0,ValueIfNull:None Today spantype=macro title=#PatientHeight(Label:Height:,LookBackDays:0,Nasrin ueIfNull:None Today)>Height: None Today</span>; <span class=clinicalNotBethes[facility] Hospitalaramis [facility] id=[id number] macroname=PatientWeight parameter s=Label:Weight:,LookBackDays:0,ValueIfNull:None Today spantype=macro title=& quot;#PatientWeight(Label:Weight:,LookBackDays:0,ValueIfNull:None Today)>Weight: None Today</span>; <span class=clinicalNotBet[facility] HospitalC[facility]in[facility] id=[id number]" macroname=PatientVitalSigns parameters=LookBackDays:0,Verbosity:Medium spantype=macro title=#PatientVitalSigns(LookBackDays:0,Verbosity:Medium)>Blood pressure: , Pulse: , Temperature: , Respirations: , Pain Scale: </span>

<span class=clinicalNotBet[facility] HospitalC[facility] id=[id number] macron los=KarnofskyStatus parameters=Label:Karnofsky,ValueIfNull:Not Assessed,Verbosity:Medium spantype=macro title=#KarnofskyStatus(Label:Karnofsky,ValueIfNull:Not Assessed,Verbosity:Medium)>Karnofsky Not Assessed</span>

<span class=clinicalNoteSectionVisible id=[id number] internalbreaks ection=false originalname=Comments for Physical Exam: recognizeconcepts=&quo t;true spantype=section suppressempty=true>Physical Exam:</span& gt;

Constitutional: normal appearance, no acute distress, via telemedicine.

<span class=clinicalNoteSectionVisible id=[id number] internalbreaksection=false originalname=Labs: recognizeconcepts="true spantype=section suppressempty=true>Labs:</span>
<span class=clinicalNoteMacroWysiwyg id=[id number] macroname=RecentLabResultsTable parameters=OptionalFlowsheetCategory:CBC,Label:CBC,ValueIfNull:None Today spantype=macro title=#RecentLabResultsTable(OptionalFlows heetCategory:CBC,Label:CBC,ValueIfNull:None Today)>CBC<table border=1 style= width:100%> <tbody> <tr> <th align=left>Lab Results</th> <td>05/03/2025</td> <td>04/21/2025</td> <td>04/05/2025</td> <td>03/08/2025</td> <td>03/01/2025</td> <td>02/15/2025</td></tr> <tr> [...]
</td> </tr> <tr> <td> HGB g/dL</td> <td>12.1</td> <td>10.8 (L)</td> <td>9.4 (L)</td> <td>9.4 (L)</td> <td>9.4 (L)</td> <td>
</td> </tr> <tr> <td> HCT %</td> <td>39.8</td> <td>36.7 (L)</td> <td>33.0 (L)</td> <td>32.3 (L)</td> <td>32.8 (L)</td> <td>
</td> </tr> <tr> <td> MCV fL</td> <td>101.0 (H)</td> <td>102.8 (H)</td> <td>106.5 (H)</td> <td>104.2 (H)</td> <td>102.2 (H)</td> <td>
</td> </tr> <tr> <td> MCH pg</td> <td>30.7</td> <td>30.3</td> <td>30.3</td> <td>30.3</td> <td>29.3</td> <td>
</td> </tr> <tr> <td> MCHC g/dL</td> <td>30.4 (L)</td> <td>29.4 (L)</td> <td>28.5 (L)</td> <td>29.1 (L)</td> <td>28.7 (L)</td> <td>
</td> </tr> <tr> <td> RDW %</td> <td>16.7 (H)</td> <td>16.1 (H)</td> <td>17.2 (H)</td> <td>21.0 (H)</td> <td>19.0 (H)</td> <td>
</td> </tr> <tr> <td> PLT x 10^3/uL</td> <td>389</td> <td>317</td> <td>344</td> <td>378</td> <td>510 (H)</td> <td>
</td> </tr> <tr> <td> MPV fL</td> <td>10.3</td> <td>9.8</td> <td>10.7</td> <td>10.0</td> <td>10.8</td> <td>
</td> </tr> <tr> <td> Platelet, immature, fraction %</td> <td>
</td> <td>
</td> <td>
</td> <td>
</td> <td>7.9 (H)</td> <td>
</td> </tr> <tr> <td> Tripp %</td> <td>63.8</td> <td>60.9</td> <td>75.0</td> <td>72.5</td> <td>
</td> <td>
</td> </tr> <tr> <td> LY %</td> <td>27.6</td> <td>28.2 </td> <td>16.4</td> <td>21.5</td> <td>
</td> <td>
</td> </tr> <tr> <td> MO %</td> <td>6.5</td> <td>8.1</td> <td>6.7</td> <td >4.1</td> <td>
</td> <td>
</td> </tr> <tr> <td> EO %</td> <td>1.0</td> <td>2.2</td> <td>1.2</td> <td>0.8</td> <td>
</td> <td>
</td> </tr> <tr> <td> &nb sp; IG %</td> <td>0.7 (H)</td> <td>0.2</td> <td>0.4</td> <td>0.4</td> <td>
</td> <td>
</td> </tr> <tr> <td> Tripp # (ANC) x 10^3/uL</td> <td>4.30</td> <td>2.76</td> <td>5.47</td> <td>7.00 (H)</td> <td>
</td> <td>
</td> </tr> <tr> <td> BA %</td> <td>0.4</td> <td>0.4</td> <td>0.3</td> <td>0.7</td> <td>
</td> <td>
</td> </tr> <tr> <td> MO # x 10^3/uL</td> <td>0.44</td> <td>0.37</td> <td>0.49</td> <td>0.40</td> <td>
</td> <td>
</td> </tr> <tr> <td> EO # x 10^3/uL</td> <td>0.07</td> <td>0.10</td> <td>0.09</td> <td>0.08</td> <td>
</td> <td>
</td> </tr> <tr> <td> BA # x 10^3/uL</td> <td>0.03</td> <td>0.02</td> <td>0.02</td> <td>0.07</td> <td>
</td> <td>
</td> </tr> <tr> <td> IG # x 10^3/uL</td> <td>0.05 (H)</td> <td>0.01</td> <td>0.03</td> <td>0.04 (H)</td> <td>
</td> <td>
</td> </tr> <tr> <td> LY # x 10^3/uL</td> <td>1.86</td> <td>1.28</td> <td>1.20</td> <td>2.08</td> <td>
</td> <td>
</td> </tr> & lt;tr> <td> Auto CBC comments</td> <td>
</td> <td>
</td> <td>
</td> <td>
</td> <td>See Man Diff</td> <td>
</td> </tr></tbody></table></span>
<span class=clinicalNoteMacroWysiwyg&quo t; id=[id number] macroname=RecentLabResultsTable parameters=&quo t;OptionalFlowsheetCategory:Chemistries,Label:Chemistries,ValueIfNull:None Today spantype="macro title=#RecentLabResultsTable(OptionalFlowsheetCategory:Chemistries,Label:Chemis tries,ValueIfNull:None Today)>Chemistries<table border=1 style=width:100%> <tbody> <tr> <th align=left>Lab Results</th> <td>05/03/2025</td> <td>04/21/2025</td> <td>04/05/2025</td> <td>03/08/2025</td> <td>03/01/2025</td> <td>02/15/2025</td> </tr> <tr> <th align=left> Chemistries</th> <td>
</td> <td>
</td> <td>
</td> <td>
</td> <td>
</td> <td>
</td> </tr> <tr> <td> Glucose mg/dL</td> <td>137 (H)</td> <td>125 (H)</td> <td>126 (H)</td> <td>
</td> <td>
</td> <td>
</td> </tr> <tr> <td> BUN mg/dL</td> <td>11</td> <td>9</td> <td>10</td> <td>
</td> <td>
</td> <td>
</td> </tr> <tr> <td> Creatinine, mg/dL</td> <td>0.87</td> <td>0.81</td> <td>0.89</td> <td>
</td> <td>
</td> <td>
</td> </tr> <tr> <td> BUN/Creatinine ratio</td> <td>12.6</td> <td>11.1</td> <td>11.2</td> <td>
</td> <td>
</td> <td>
</td> </tr> <tr> <td> Sodium mmol/L</td> <td>142</td> <td>143</td> <td>141</td> <td>
</td> <td>
</td> <td>
</td> </tr> <tr> <td> Potassium mmol/L</td> <td>4.5</td> <td>3.4 (L)</td> <td>3.8</td> <td>
</td> <td>
</td> <td>
</td> </tr> <tr> <td> Chloride mmol/L</td> <td>106</td> <td>108 (H)</td> <td>105</td> <td>
</td> <td>
</td> <td>
</td> </tr> <tr> <td> CO2 mmol/L</td> <td>24.1</td> <td>23.0</td> <td>24.3</td> <td>
</td> <td>
</td> <td>
</td> </tr> <tr> <td> Calcium mg/dL</td> <td>9.0</td> <td>8.1 (L)</td> <td>8.6</td> <td>
</td> <td>
</td> <td>
</td> </tr> <tr> <td&g t; Albumin g/dL</td> <td>3.4</td> <td>3.3 (L)</td> <td>3.2 (L)</td> <td>
</td> <td>
</td> <td>
</td> </tr> <tr> <td> Total protein g/dL</td> <td>6.8</td> <td>6.6</td> <td>7.1</td> <td>
</td> <td>
</td> <td>
</td> </tr> <tr> <td> Globulin g/dL</td> <td>3.4</td> <td>3.3</td> <td>3.9</td> <td>
</td> <td>
</td> <td>
</td> </tr> <tr> <td> A/G ratio</td> <td>1.0</td> <td>1.0</td> <td>0.8</td> <td>
</td><td>
</td> <td>
</td> </tr> <tr> <td>& amp;nbsp; Bilirubin, total mg/dL</td> <td>0.3</td> &l t;td>0.3</td> <td>0.5</td> <td>
</td> <td>
</td> <td>
</td> [...] List: recognizeconcepts=true spantype=section suppre ssempty=true>Problem List:</span>
<span class=clinicalNoteMacroWamadeoiwyg id=[id number] macroname=Problems parameters=&quot ;InitialCap:Yes,ListType:Bulleted,[id number]:Yes,Verbosity:Medium spantype=macro ti tle=#Problems(InitialCap:Yes,ListType:Bulleted,LrlbPSV10:Yes,Verbosity:Medium) ><ul> <li>Pulmonary embolism ( ICD-10:I26.94 ;Multiple subsegmental [...] home with Eliquis. Due to initial presentation similarto catastrophic systemic [...] gastritis and a healing GI bleed. The olericulture teacher noted that the patient's body is producing [...] this time.
</div><div style="text- align:left><span class=clinicalNoteSectionVisible id=section_[id number] internalbreaksection=false originalname=Plan: recogniz econcepts=true spantype=section suppressempty=true>Plan:</span></div><ol> <li [...] scribing for Mervat Shrestha MD, on 06/16/2025.

Mervat Bennett MD, personally performedthe services described in this documentation, and it is both accurate and complete.

<span class=clinicalNoteMacroWysiwyg id=[id number] macroname=MyName spantype=macro title=#MyName>Adalid Gant Scribe</span>

<span class=clinicalNoteMacroWysiwyg id=[id number] macroname=NoteRecipients spantype=macro title=#NoteRecipients>[facility]</span>

<span class=clinicalNoteSectionVisible id=&qu ot;[id number] internalbreaksection=false originalname=Send co py of note to: recognizeconcepts=true spantype=section suppr essempty=true>Send copy of note to:</span>
Dr. Sebas Douglas

.

</div></div>

<div><span class =eSignSignature>Electronically signed by Mervat Shrestha MD 06/19/2025 18:34 [facility]</span></div></body></html>
[2025-06-21] MEDS: SODIUM CHLORIDE 0.9% IV 500 ML 999 ML (23:45)
[2025-06-21 23:50] LABS: Fractional Inspired Oxygen 21 %; HCO3 VBG 19.7 mEq/l (24.0-30.0); PCO2 VBG 31.7 mmHg (42.0-48.0); PO2 VBG 181.2 mmHg (35.0-45.0)
[2025-06-21 23:51] LABS: Hematocrit 31.5 % (37.0-47.0); Hemoglobin 9.4 g/dL (12.0-15.0); Immature Granulocyte Percent A 0.8 % (0-0.5); Lymphocytes Absolute Auto 1.79 K/mm3 (0.9-3.2); Mean Corpuscular HGB Conc 29.8 g/dl (32-36); Mean Corpuscular Hemoglobin 29.6 pg (26-34); Mean Corpuscular Volume 99.1 fl (80-100); Nucleated Red Blood Cells Absolute Auto 0.000 K/mm3 (0.0-0.012); Nucleated Red Blood Cells Perc 0.0 % (0.0-0.2); Platelet Count Result 269 k/mm3 (150-375); Red Blood Count 3.18 M/mm3 (4.2-5.4); White Blood Count 11.3 K/mm3 (4.5-10.0)
[2025-06-21 23:53] LABS: pH VBG 7.412 (7.300-7.400)
[2025-06-21 23:58] LABS: Alanine Aminotransferase 22 U/L (6-35); Albumin Level 3.3 g/dL (3.5-5.1); Alkaline Phosphatase 82 U/L (38-126); Anion Gap 9 mmol/L (4-12); Aspartate Amino Transferase 20 U/L (14-36); Bilirubin,Total 1.1 mg/dL (0.2-1.3); Blood Urea Nitrogen 46 mg/dL (7-17); Calcium 8.0 mg/dL (8.4-10.2); Carbon Dioxide 20 mmol/L (22-30); Chloride 110 mmol/L (98-107); Estimated CRCL calculation 52 ml/min; Estimated Glomerular Filt Rate 29; Glucose 84 mg/dL (65-110); Lipase 17 U/L (23-300); Magnesium 2.3 mg/dL (1.6-2.3); Potassium 5.4 mmol/L (3.4-5.0); Sodium 139 mmol/L (137-145); Total Protein 5.9 g/dL (6.3-8.2)
[2025-06-22] VITALS (26 sets, daily range): BP systolic 106–143; BP diastolic 57–94; PULSE 67–89; RESP 12–24; TEMP 36.5–37.1; O2SAT 95–100; BMI 63.4
--- NOTE | 2025-06-22 00:02 | ED_ITS ---
HPI - General Adult General Chief complaint: GI Bleed Stated complaint: blood in stool Time Seen by Provider: 06/21/25 23:22 History of Present Illness HPI narrative: This is a 45-year-old female with a history of GI bleeds requiring colectomy and protein C deficiency not on anticoagulation presenting for bright red blood per rectum. When patient arrives she is obtunded. She has bright red blood around the rectum. She cannot provide any meaningful information. Per her boyfriend they are traveling through the area in his 18 sams. She has a history of GI bleeds in the past has been telling him that he is she has been having bright red blood per rectum. She became acutely worse today. Related Data Allergies Allergy/AdvReac Type Severity Reaction Status Date / Time ketorolac (From Toradol) Allergy Mild Unknown Verified 06/22/25 02:10 metoclopramide (From Reglan) Allergy Mild Unknown Verified 06/22/25 02:10 morphine Allergy Mild Unknown Verified 06/22/25 02:10 Penicillins Allergy Mild Unknown Verified 06/22/25 02:10 tramadol Allergy Mild Unknown Verified 06/22/25 02:10 amoxicillin Allergy Unknown Difficulty Verified 06/22/25 02:10 Breathing fentanyl Allergy Unknown Difficulty Verified 06/22/25 02:10 Breathing dicyclomine (From Bentyl) AdvReac Unknown Vomiting Verified 06/22/25 02:10 haloperidol (From Haldol) AdvReac Unknown Difficulty Verified 06/22/25 02:10 Breathing nitrofurantoin (From AdvReac Unknown Difficulty Verified 06/22/25 02:10 Macrobid) Breathing NSAIDS (Non-Steroidal AdvReac Unknown Unknown Verified 06/22/25 02:10 Anti-Inflamma paliperidone AdvReac Unknown Difficulty Verified 06/22/25 02:10 Breathing promethazine (From Phenergan) AdvReac Unknown Hives Verified 06/22/25 02:10 Exam 2 Narrative: APPEARANCE: Patient is slumped in the wheelchair, arousable to sternal rub A&O x1 Head: atraumatic. EYES: EOMI, NOSE: Atraumatic NECK: Trachea midline RESPIRATORY: No increased rate of breathing clear to auscultation CARDIOVASCULAR: RRR, cool to touch, pulses in all 4 extremities ABDOMINAL: Obese, soft, diffuse tenderness, red blood per rectum MUSCULOSKELETAl: No obvious deformities NEURO: Alert. Moving 4/4 extremities SKIN:: Cool to touch PSYCHIATRIC: Attended Course Vital Signs Vital signs: Vital Signs Temperature 97.8 F 06/21/25 22:53 Pulse Rate 75 06/21/25 22:53 Respiratory Rate 12 06/21/25 22:53 Blood Pressure 82/52 L 06/21/25 22:53 Pulse Oximetry 98 06/21/25 22:53 Oxygen Delivery Room Air 06/21/25 22:53 Temperature 97.8 F 06/22/25 03:06 Pulse Rate 69 06/22/25 03:06 Respiratory Rate 20 06/22/25 03:06 Blood Pressure 142/84 H 06/22/25 03:06 Pulse Oximetry 100 06/22/25 03:06 Oxygen Delivery Room Air 06/21/25 22:55 Procedures Arterial Line Arterial line #1: Date of Arterial Line: 06/22/25 Time of Arterial Line: 00:16 Arterial Line Location: radial and left Discussed with the patient/family/POA, the placement of an arterial catheter, including its clinical necessity/indication and associated potential risks, benefits and alternatives.: Yes Patient/family/POA and/or understands and acknowledges the need to proceed with the arterial catheter insertion as an important element of the patient's clinical management.: Yes Time Out Performed: Yes Size (Gauge): 18 Technique Used: guide wire technique Post-Procedure: line sutured into place and dry sterile dressing placed Patient Tolerated Procedure: well Complications: none Medical Decision Making MDM Narrative Medical decision making narrative: -Course: 45-year-old female presenting obtunded, hypotensive, cool to touch with bright red blood per rectum. Patient taken immediately to resuscitation room 2 large-bore IVs were started by . Patient given 1 L of crystalloid while emergent blood was being released by the blood bank. Due to the patient's body habitus/obesity a left arterial line was placed for accurate blood pressures. Blood pressure 60/40. Patient received 1 L of crystalloid and 2 units of emergent blood with improvement of her blood pressures to the 100 over 60s. At this time patient's mental status has improved. Patient's abdomen is tender and she has a history of GI bleeds requiring emergent colectomy. She reports an allergy to IV contrast which is hives and anxiety. She says that she has received iv contrast as long she is pretreated with steroids and Benadryl she does okay. I discussed the risks and benefits and the patient has consented to rapid prophylaxis for possible iv contrast allergy to obtain a CT scan due to possibility of life-threatening GI bleed. CT with and without contrast did not show any evidence of a GI bleed. After the 1 L of fluids and 2 units of blood the patient's mental status has returned to normal. She is making jokes in the room. Her blood pressure is 127/70 and has been for several hours. Repeat H&H is 10.4. Patient will be admitted the hospital for further management of her GI bleed. Case discussed w/ Dereje Mercado, and desiree. Patient is on a large amount pain medication Dilaudid/gabapentin. It is unclear if her pain medications had a role to play in her initial presentation. -DDX includes but is not limited to: Diverticular bleed, brisk upper GI bleed perforated bowel, hemorrhoid,, hemorrhagic shock, sepsis Vital Signs Vital Signs: Vital Signs Temperature 97.8 F 06/21/25 22:53 Pulse Rate 75 06/21/25 22:53 Respiratory Rate 12 06/21/25 22:53 Blood Pressure 82/52 L 06/21/25 22:53 Pulse Oximetry 98 06/21/25 22:53 Oxygen Delivery Room Air 06/21/25 22:53 Temperature 97.8 F 06/22/25 03:06 Pulse Rate 69 06/22/25 03:06 Respiratory Rate 20 06/22/25 03:06 Blood Pressure 142/84 H 06/22/25 03:06 Pulse Oximetry 100 06/22/25 03:06 Oxygen Delivery Room Air 06/21/25 22:55 Lab Data 06/22/25 02:41 06/21/25 23:34 Labs: Lab Results 06/21/25 06/21/25 06/21/25 Range/Units 22:59 23:30 23:33 WBC 11.3 H (4.5-10.0) K/mm3 RBC 3.18 L (4.2-5.4) M/mm3 Hgb 9.4 L (12.0-15.0) g/dL Hct 31.5 L (37.0-47.0) % MCV 99.1 (80-100) fl MCH 29.6 (26-34) pg MCHC 29.8 L (32-36) g/dl RDW 16.3 H (11.5-14.5) % Plt Count 269 (150-375) k/mm3 MPV 10.8 H (7.4-10.4) fl Immature Gran % (Auto) 0.8 H (0-0.5) % Neut % (Auto) 74.3 H (45.5-73.1) % Lymph % (Auto) 15.8 L (18.3-44.2) % [place] % (Auto) 8.0 (2.6-8.5) % Eos % (Auto) 0.7 (0-4.4) % Baso % (Auto) 0.4 (0.2-1.2) % Lymph # (Auto) 1.79 (0.9-3.2) K/mm3 [place] # (Auto) 0.9 H (0.1-0.6) K/mm3 Eos # (Auto) 0.1 (0-0.3) K/mm3 Baso # (Auto) 0.0 (0.0-0.1) K/mm3 Abs Immat Gran (auto) 0.09 H (0.00-0.031) K/mm3 Absolute Neuts (auto) 8.4 H (1.3-6.7) K/mm3 Absolute Nucleated RBC 0.000 (0.0-0.012) K/mm3 Band Neutrophils % Not Reportable Nucleated RBC % 0.0 (0.0-0.2) % Platelet Estimate Adequate (Adequate) Anisocytosis 1+ Ovalocytes Occasional Schistocytes None seen PT (11.1-14.7) Seconds INR APTT (22.3-36.8) Seconds Sodium (137-145) mmol/L Potassium (3.4-5.0) mmol/L Chloride (98-107) mmol/L Carbon Dioxide (22-30) mmol/L Anion Gap (4-12) mmol/L BUN (7-17) mg/dL Creatinine (0.7-1.0) mg/dL Estim Creat Clear Calc ml/min Estimated GFR (59 - ) Glucose (65-110) mg/dL POC Capillary Glucose 106 H (65-105) mg/dl Lactic Acid (0.7-2.0) mmol/L Calcium (8.4-10.2) mg/dL Phosphorus (2.5-4.5) mg/dL Magnesium (1.6-2.3) mg/dL Total Bilirubin (0.2-1.3) mg/dL AST (14-36) U/L ALT (6-35) U/L Alkaline Phosphatase (38-126) U/L Total Protein (6.3-8.2) g/dL Albumin (3.5-5.1) g/dL Lipase (23-300) U/L TSH (Reflex) (0.465-4.68) uIU/mL Free T4 (0.78-2.19) ng/dL Total T3 (0.82-1.58) NG/ML Urine Color (Yellow) Urine Appearance (Clear) Urine pH (5.0-9.0) Ur Specific [place] (1.001-1.035) Urine Protein (Negative) mg/dL Urine Glucose (UA) (Negative) mg/dL Urine Ketones (Negative) mg/dL Ur Blood (Man) (Negative) Urine Nitrate (Negative) Urine Bilirubin (Negative) Urine Urobilinogen (<2.0) mg/dL Add Ur Microanalysis Leukocyte Esterase Rfl (Negative) MCKENZIE/UL Urine RBC (0-2) /hpf Urine WBC (0-3) /hpf Ur Squamous Epith Cells (Few) /hpf Calcium Oxalate Crystal (None) /hpf Urine Bacteria /hpf Urine Casts POC Urine HCG, Qual (Negative) Urine Opiates Screen (Negative) Urine Methadone Screen (Negative) Ur Barbiturates Screen (Negative) Ur Phencyclidine Scrn (Negative) Ur Amphetamine Screen (Negative) U Benzodiazepines Scrn (Negative) Urine Cocaine Screen (Negative) U Cannabinoids Screen (Negative) Ethyl Alcohol < 10 (<10) mg/dL Blood Type A Positive Antibody Screen Negative Crossmatch See Detail 06/21/25 06/21/25 06/22/25 Range/Units 23:34 23:36 00:01 WBC (4.5-10.0) K/mm3 RBC (4.2-5.4) M/mm3 Hgb (12.0-15.0) g/dL Hct (37.0-47.0) % MCV (80-100) fl MCH (26-34) pg MCHC (32-36) g/dl RDW (11.5-14.5) % Plt Count (150-375) k/mm3 MPV (7.4-10.4) fl Immature Gran % (Auto) (0-0.5) % Neut % (Auto) (45.5-73.1) % Lymph % (Auto) (18.3-44.2) % [place] % (Auto) (2.6-8.5) % Eos % (Auto) (0-4.4) % Baso % (Auto) (0.2-1.2) % Lymph # (Auto) (0.9-3.2) K/mm3 [place] # (Auto) (0.1-0.6) K/mm3 Eos # (Auto) (0-0.3) K/mm3 Baso # (Auto) (0.0-0.1) K/mm3 Abs Immat Gran (auto) (0.00-0.031) K/mm3 Absolute Neuts (auto) (1.3-6.7) K/mm3 Absolute Nucleated RBC (0.0-0.012) K/mm3 Band Neutrophils % Nucleated RBC % (0.0-0.2) % Platelet Estimate (Adequate) Anisocytosis Ovalocytes Schistocytes PT 43.2 H (11.1-14.7) Seconds INR 4.9 APTT 56.7 H (22.3-36.8) Seconds Sodium 139 (137-145) mmol/L Potassium 5.4 H (3.4-5.0) mmol/L Chloride 110 H (98-107) mmol/L Carbon Dioxide 20 L (22-30) mmol/L Anion Gap 9 (4-12) mmol/L BUN 46 H (7-17) mg/dL Creatinine 1.90 H (0.7-1.0) mg/dL Estim Creat Clear Calc 52 ml/min Estimated GFR 29 L (59 - ) Glucose 84 (65-110) mg/dL POC Capillary Glucose (65-105) mg/dl Lactic Acid 2.3 H (0.7-2.0) mmol/L Calcium 8.0 L (8.4-10.2) mg/dL Phosphorus 4.2 (2.5-4.5) mg/dL Magnesium 2.3 (1.6-2.3) mg/dL Total Bilirubin 1.1 (0.2-1.3) mg/dL AST 20 (14-36) U/L ALT 22 (6-35) U/L Alkaline Phosphatase 82 (38-126) U/L Total Protein 5.9 L (6.3-8.2) g/dL Albumin 3.3 L (3.5-5.1) g/dL Lipase 17 L (23-300) U/L TSH (Reflex) 8.010 H (0.465-4.68) uIU/mL Free T4 1.70 (0.78-2.19) ng/dL Total T3 1.10 (0.82-1.58) NG/ML Urine Color Dark yellow (Yellow) Urine Appearance Turbid H (Clear) Urine pH 5.0 (5.0-9.0) Ur Specific [place] 1.034 (1.001-1.035) Urine Protein 1+ H (Negative) mg/dL Urine Glucose (UA) Negative (Negative) mg/dL Urine Ketones 1+ H (Negative) mg/dL Ur Blood (Man) 3+ H (Negative) Urine Nitrate Negative (Negative) Urine Bilirubin Negative (Negative) Urine Urobilinogen 1.0 (<2.0) mg/dL Add Ur Microanalysis Reviewed Leukocyte Esterase Rfl 1+ H (Negative) MCKENZIE/UL Urine RBC >100 H (0-2) /hpf Urine WBC 11-20 H (0-3) /hpf Ur Squamous Epith Cells Many H (Few) /hpf Calcium Oxalate Crystal Present (None) /hpf Urine Bacteria None seen /hpf Urine Casts >20 POC Urine HCG, Qual Negative (Negative) Urine Opiates Screen Positive A (Negative) Urine Methadone Screen Negative (Negative) Ur Barbiturates Screen Negative (Negative) Ur Phencyclidine Scrn Negative (Negative) Ur Amphetamine Screen Negative (Negative) U Benzodiazepines Scrn Positive A (Negative) Urine Cocaine Screen Negative (Negative) U Cannabinoids Screen Negative (Negative) Ethyl Alcohol (<10) mg/dL Blood Type Antibody Screen Crossmatch 06/22/25 06/22/25 Range/Units 01:56 02:41 WBC (4.5-10.0) K/mm3 RBC (4.2-5.4) M/mm3 Hgb 10.4 L (12.0-15.0) g/dL Hct 32.7 L (37.0-47.0) % MCV (80-100) fl MCH (26-34) pg MCHC (32-36) g/dl RDW (11.5-14.5) % Plt Count (150-375) k/mm3 MPV (7.4-10.4) fl Immature Gran % (Auto) (0-0.5) % Neut % (Auto) (45.5-73.1) % Lymph % (Auto) (18.3-44.2) % [place] % (Auto) (2.6-8.5) % Eos % (Auto) (0-4.4) % Baso % (Auto) (0.2-1.2) % Lymph # (Auto) (0.9-3.2) K/mm3 [place] # (Auto) (0.1-0.6) K/mm3 Eos # (Auto) (0-0.3) K/mm3 Baso # (Auto) (0.0-0.1) K/mm3 Abs Immat Gran (auto) (0.00-0.031) K/mm3 Absolute Neuts (auto) (1.3-6.7) K/mm3 Absolute Nucleated RBC (0.0-0.012) K/mm3 Band Neutrophils % Nucleated RBC % (0.0-0.2) % Platelet Estimate (Adequate) Anisocytosis Ovalocytes Schistocytes PT (11.1-14.7) Seconds INR APTT (22.3-36.8) Seconds Sodium (137-145) mmol/L Potassium (3.4-5.0) mmol/L Chloride (98-107) mmol/L Carbon Dioxide (22-30) mmol/L Anion Gap (4-12) mmol/L BUN (7-17) mg/dL Creatinine (0.7-1.0) mg/dL Estim Creat Clear Calc ml/min Estimated GFR (59 - ) Glucose (65-110) mg/dL POC Capillary Glucose (65-105) mg/dl Lactic Acid 0.8 (0.7-2.0) mmol/L Calcium (8.4-10.2) mg/dL Phosphorus (2.5-4.5) mg/dL Magnesium (1.6-2.3) mg/dL Total Bilirubin (0.2-1.3) mg/dL AST (14-36) U/L ALT (6-35) U/L Alkaline Phosphatase (38-126) U/L Total Protein (6.3-8.2) g/dL Albumin (3.5-5.1) g/dL Lipase (23-300) U/L TSH (Reflex) (0.465-4.68) uIU/mL Free T4 (0.78-2.19) ng/dL Total T3 (0.82-1.58) NG/ML Urine Color (Yellow) Urine Appearance (Clear) Urine pH (5.0-9.0) Ur Specific [place] (1.001-1.035) Urine Protein (Negative) mg/dL Urine Glucose (UA) (Negative) mg/dL Urine Ketones (Negative) mg/dL Ur Blood (Man) (Negative) Urine Nitrate (Negative) Urine Bilirubin (Negative) Urine Urobilinogen (<2.0) mg/dL Add Ur Microanalysis Leukocyte Esterase Rfl (Negative) MCKENZIE/UL Urine RBC (0-2) /hpf Urine WBC (0-3) /hpf Ur Squamous Epith Cells (Few) /hpf Calcium Oxalate Crystal (None) /hpf Urine Bacteria /hpf Urine Casts POC Urine HCG, Qual (Negative) Urine Opiates Screen (Negative) Urine Methadone Screen (Negative) Ur Barbiturates Screen (Negative) Ur Phencyclidine Scrn (Negative) Ur Amphetamine Screen (Negative) U Benzodiazepines Scrn (Negative) Urine Cocaine Screen (Negative) U Cannabinoids Screen (Negative) Ethyl Alcohol (<10) mg/dL Blood Type Antibody Screen Crossmatch ABG Data ABG results: 06/21/25 23:33 VBG pH 7.412 H* VBG pCO2 31.7 L VBG pO2 181.2 H VBG HCO3 19.7 L O2 Delivery Device Room air O2 Liters/Min Not Reportable FiO2 21 Critical Care Time Critical Care Time Critical Care Time: Yes Total Critical Care Time: 35 Discharge Plan Discharge Clinical Impression: Rectal bleeding, Acute hypotension, Chronic prescription opiate use Patient Disposition: Still a Patient Condition: Stable Patient Language: Vietnamese Follow-up/Referrals: UNKNOWN,DOCTOR [Primary Care Provider]
[2025-06-22] MEDS: HYDROCORTISONE SODIUM SUCCINATE 100 MG/2 ML VIAL 200 MG IV PUSH (00:04)
[2025-06-22 00:11] LABS: INR 4.9; Prothrombin Time 43.2 Seconds (11.1-14.7)
[2025-06-22 00:12] LABS: Partial Thromboplastin Time 56.7 Seconds (22.3-36.8)
[2025-06-22 00:14] LABS: Add Urine Microscopic? YES; Appearance Urine Turbid (Clear); Glucose Urine UA Negative (Negative); Leukocyte Esterase Ur 1+ LEU/UL (Negative); Need Manual Microscopic Reviewed; Nitrate Urine Negative (Negative); Non Pathogenic Casts >20; Specific Grav Ur 1.034 (1.001-1.035)
[2025-06-22 00:57] LABS: Anisocytosis 1+; Ovalocytes Occasional
[2025-06-22 00:59] LABS: Schistocytes None Seen
[2025-06-22 01:00] LABS: Thyroid Stimulating Hormone Reflex 8.010 uIU/mL (0.465-4.68)
[2025-06-22 01:06] LABS: Cannabinoid Screen Urine Negative (Negative)
[2025-06-22 01:37] LABS: Free T4 Free Thyroxine Reflex 1.70 ng/dL (0.78-2.19)
[2025-06-22 01:47] LABS: BEDSIDEPREGUCG Negative (Negative)
[2025-06-22 02:22] LABS: Total Triiodothyronine (T3) 1.10 NG/ML (0.82-1.58)
[2025-06-22 03:04] LABS: Hematocrit 32.7 % (37.0-47.0); Hemoglobin 10.4 g/dL (12.0-15.0)
--- NOTE | 2025-06-22 03:19 | PC.NURSE ---
Pt lorena Falcon requests update on pt status and POC, .
[2025-06-22 05:20] LABS: MRSA (PCR) NOT DETECTED (NOT DETECTE)
--- NOTE | 2025-06-22 06:35 | ADMGEN ---
This patient, Elizabeth Peguero, was admitted to Intensive Care Unit-10. Patient/family oriented to hospital policies and general routines including ID bracelet, bed and alarms, visiting hours, pain management, procedures, bathroom and other care routines, personal items, smoking policy, room service/diet, and visiting hours. Information on how to activate the Rapid Response Team has been discussed. Patient/Family are encouraged to report perceived risks to care and to ask questions if they do not understand what they are told or what they should do. Pt asking for more pain medications
--- NOTE | 2025-06-22 07:53 | WPDGICN ---
Assessment and Plan Assessment and plan (1) ABLA (acute blood loss anemia): Code(s): D62 - Acute posthemorrhagic anemia Status: Acute (2) Rectal bleeding: Code(s): K62.5 - Hemorrhage of anus and rectum Status: Acute Plan 1. ABLA/diarrhea/elevated INR: Patient admits to diarrhea and rectal bleeding since Saturday. On ER presentation the patient was 100 with hypotension cool to the touch with BRBPR. CT shows diffuse hepatic steatosis but no findings to explain anemia or findings consistent with GI bleed. Per patient last colonoscopy around 5 years ago but this could not be verified. She has a history protein C deficiency and had a partial colon resection due to a large clot in 2012. She has an IVC filter in place she is not compliant with her Eliquis and has self discontinued it multiple times over the past 2 years. She confirms that she has been off all anticoagulants since February. Patient received 2 units of PRBCs since admission and H&H this morning at . BUN 46, creatinine 1.90 and GFR 29. No signs of active GI bleeding. Patient provided limited subjective information to me after speaking with ICU doctor, as she would not respond to questions and frequently shingle springs back to the fact that ?if they are not going to address my pain first I am going to leave AMA?. Urine drug screen was positive for benzodiazepine and opioids. Patient states that she has been on an off Dilaudid based on rehab and insurance issues but states that when she is taking that Dilaudid it was 8 mg (unknown frequency). Last time INR was checked it was at 4.9. CT scan shows diffuse hepatic steatosis but no indication of cirrhosis, platelets normal, LFTs normal albumin mildly low at 3.3. DDX: Peptic ulcer disease versus AVM versus hemorrhoid versus polyp versus neoplasm versus ischemic colitis. Given clinical presentation at time of ER arrival, I have a strong suspicion that opioids may have been a contributing factor and less likely related to acute GI blood loss unless there was massive blood loss which is not consistent with her Hgb of 10 on arrival. Patient is very focused on when she is going to get pain medication leading to suspicion of possible drug-seeking behavior Unclear if the patient may have a component of chronic anemia/iron deficiency secondary to her history of gastric bypass repeat INR ordered, unclear etiology of elevation as patient denies being on any anticoagulants prior to admission Serial H/H was drawn pending results, continue monitoring and transfuse as needed to keep H&H > 7 If H/H drops, once INR is corrected will consider EGD to rule out upper GI source of bleed. But if H/H remains stable and no signs of active GI bleeding, give that she is a high risk endoscopy candidate with BMI 63%, transient status and multiple comorbidities of unknown severity and accuracy of medical history provided by patient not be verified. Thank you very much for allowing me to share in the care of this very nice patient. This report may have been done utilizing a voice recognition system. Attempts have been made to correct errors. However, there may be uncorrected grammatical, spelling, and recognition errors present. GI Consult Note Consult date/time: 06/22/25 07:53 Reason for consult: GI bleed HPI: Elizabeth Peguero is a 45 year old female with a long complicated PMSH including gastric bypass, multiple abdominal surgeries, CCX, fibromyalgia, anxiety, protein C deficiency, IVC filter and partial colon resection. Patient and her were traveling through the area from [facility] in his 18 sams when she states she started having diarrhea and rectal bleeding which became worse the day she presented to the emergency room. Per documentation when the patient arrived she was obtained ended, hypotensive, cold to the touch with bright red blood per rectum. BP at that time was 60/40. GI has been consulted for GI bleed. As mentioned above the patient has a long complicated medical surgical history but dates in accuracy could not be verified as the patient was somewhat confused to the dates that her illnesses and surgeries occurred. Patient states she had a partial colon resection in 2022 secondary to ?a large clot? requiring more than 3 ft of her colon to be removed. History of gastric, cholecystectomy, and exploratory open abdominal surgery. She has IVC filter in place but was unable to say if this was placed before or after her colon resection. She denies any prior history DVTs or PEs. Patient was previously on Eliquis but has self discontinued it multiple times. She states that she initially stopped her Eliquis in December and then had a ?clot? in January. She states that she has been consistently off of her Eliquis since February. Patient states that on Saturday she started having melena and looser stools/diarrhea. She admits to lower abdominal pain that radiates to her flank and lower but on exam complains of severe upper abdominal pain with palpation. She admits intermittent nausea but no vomiting. Patient would not answer questions directly when asked about reflux or swallowing difficulty and normal bowel habits as she stated ?if they are not going to address my pain 1st I am going to leave AMA?. Patient states that she has been off and on Dilaudid for many years stating that she had been to rehab and then sometimes was off of the medication due to insurance issues but states while outpatient she was taking 8 mg of Dilaudid with unknown frequency. Family medical surgical history unknown. ENDOSCOPY HISTORY: Per patient last EGD and colonoscopy performed > 5 years ago results unknown and endoscopy records not available LABS AND STOOL STUDIES: Labs 06/21/2025: Sodium 139, potassium 5.4, BUN 46, creatinine 1.90, GFR 29, calcium 8.0 WBC 11, Hgb 9, Hct 32, MCV 99, platelets 269, INR 4.9 Total bilirubin 1.1, AST 20, ALT 22, Alkaline Phos 82, albumin 3.3 Lipase 17, TSH 8.10, T4 1.70 Drug screen positive for opiates and benzodiazepines IMAGING: CT abd/pelvis w/contrast 06/22/2025: FINDINGS: The visualized portions of lung bases demonstrate mild atelectasis. No pleural effusion. The heart size is normal. No pericardial effusion. There is diffuse hepatic steatosis. There are changes of cholecystectomy. The spleen, pancreas, and adrenal glands are normal. There is cortical thinning of the kidneys. There is no urolithiasis. There is a filter in the inferior vena cava. There is a Alexandre catheter in expected position. There are changes of right hemicolectomy. There are changes of gastric bypass procedure. There are no pathologically enlarged lymph nodes. There is no free intraperitoneal fluid. There is mild thoracic and lumbar spondylosis. IMPRESSION: 1. No etiology for blood in stool. 2. Diffuse hepatic steatosis. Review of Systems Cardiovascular: Cardiovascular: Reports pedal edema and Reports leg edema Respiratory: Respiratory: Reports dyspnea on exertion Gastrointestinal: Gastrointestinal: Reports abdominal pain, Reports diarrhea, Reports nausea and Denies hematemesis Genitourinary: Genitourinary: Reports hematuria and Reports nocturia Musculoskeletal: Musculoskeletal: Reports back pain, Reports myalgias and Reports arthralgias Psychiatric: Psychiatric: Reports confusion (slow to respond but answered appropriately with time) [facility] Family History Family History (Updated 06/22/25 @ 06:30 by Tash Watkins RN) Mother Hypertension Cancer Father High cholesterol Mother No problems noted. Grandparent Cancer Cerebrovascular accident Grandparent No problems noted. Sibling Lung cancer Social History Social History Smoking status: Never smoker Second hand tobacco smoke exposure: No Alcohol intake: never Substance use: never Lack of Transportation: No Lack of Food: Never True Current Housing: I Have Housing Concerned About Future Housing: No Difficulty Paying Gas/Electric Bills: No Difficulty Paying for Meds: No Currently Unemployed: No Education: Bachelor's Degree Difficulty w/ Childcare or Family Care: No Spiritual care concerns: No Meds Home Medications and Allergies Home Medications ?Medication ?Instructions ?Recorded ?Confirmed ?Type alprazolam 1 mg tablet 1 mg PO TID PRN anxiety 06/22/25 06/22/25 History hydromorphone 2 mg tablet 2 mg PO Q4H PRN pain 06/22/25 06/22/25 History hydroxyzine HCl 50 mg tablet 50 mg PO Q6H 06/22/25 06/22/25 History ondansetron 4 mg disintegrating 4 mg PO Q6H PRN nausea and vomiting 06/22/25 06/22/25 History tablet pregabalin 150 mg capsule 150 mg PO TID 06/22/25 06/22/25 History tizanidine 4 mg tablet 4 mg PO QID PRN muscle spasticity 06/22/25 06/22/25 History zolpidem 10 mg tablet 10 mg PO HS 06/22/25 06/22/25 History Allergies Allergy/AdvReac Type Severity Reaction Status Date / Time ketorolac (From Toradol) Allergy Mild Unknown Verified 06/22/25 02:10 metoclopramide (From Reglan) Allergy Mild Unknown Verified 06/22/25 02:10 morphine Allergy Mild Unknown Verified 06/22/25 02:10 Penicillins Allergy Mild Unknown Verified 06/22/25 02:10 tramadol Allergy Mild Unknown Verified 06/22/25 02:10 amoxicillin Allergy Unknown Difficulty Verified 06/22/25 02:10 Breathing fentanyl Allergy Unknown Difficulty Verified 06/22/25 02:10 Breathing melatonin AdvReac Intermediate Anxiety Verified 06/22/25 06:24 dicyclomine (From Bentyl) AdvReac Unknown Vomiting Verified 06/22/25 02:10 haloperidol (From Haldol) AdvReac Unknown Difficulty Verified 06/22/25 02:10 Breathing nitrofurantoin (From AdvReac Unknown Difficulty Verified 06/22/25 02:10 Macrobid) Breathing NSAIDS (Non-Steroidal AdvReac Unknown Unknown Verified 06/22/25 02:10 Anti-Inflamma paliperidone AdvReac Unknown Difficulty Verified 06/22/25 02:10 Breathing promethazine (From Phenergan) AdvReac Unknown Hives Verified 06/22/25 02:10 Vital Signs Vital Signs - 24 hr 06/21/25 22:53 06/21/25 22:55 06/21/25 23:08 Temperature 97.8 F 98.7 F Pulse Rate 75 76 73 Respiratory Rate 12 26 H 25 H Blood Pressure 82/52 L 101/88 63/38 L Pulse Oximetry 98 98 100 Oxygen Delivery Room Air Room Air 06/21/25 23:21 06/21/25 23:22 06/21/25 23:34 Temperature 97.0 F L 97.0 F L 97.6 F Pulse Rate 73 73 73 Respiratory Rate 24 H 26 H 22 H Blood Pressure 79/35 L 79/35 L 82/47 L Pulse Oximetry 100 100 100 Oxygen Delivery 06/21/25 23:37 06/21/25 23:38 06/21/25 23:52 Temperature 96.2 F L 96.9 F L 98.0 F Pulse Rate 74 72 75 Respiratory Rate 28 H 23 H 17 Blood Pressure 81/45 L 86/48 L Pulse Oximetry 100 98 100 Oxygen Delivery 06/21/25 23:55 06/22/25 00:00 06/22/25 00:44 Temperature 98 F 97.9 F 97.7 F Pulse Rate 75 74 73 Respiratory Rate 23 H 24 H 21 H Blood Pressure 98/51 L Pulse Oximetry 99 98 99 Oxygen Delivery 06/22/25 00:45 06/22/25 01:00 06/22/25 02:35 Temperature 97.7 F 97.7 F 97.8 F Pulse Rate 74 70 68 Respiratory Rate 23 H 22 H 20 Blood Pressure 106/68 Pulse Oximetry 100 100 Oxygen Delivery 06/22/25 03:06 06/22/25 03:30 06/22/25 03:45 Temperature 97.8 F 98.0 F 98.3 F Pulse Rate 69 70 69 Respiratory Rate 20 23 H 14 Blood Pressure 142/84 H 128/79 Pulse Oximetry 100 100 100 Oxygen Delivery 06/22/25 06:10 06/22/25 06:17 06/22/25 06:58 Temperature Pulse Rate 73 89 70 Respiratory Rate 20 14 Blood Pressure 113/58 L 143/87 H 123/63 Pulse Oximetry 100 98 Oxygen Delivery 06/22/25 07:00 Temperature Pulse Rate 71 Respiratory Rate 18 Blood Pressure 116/62 Pulse Oximetry 98 Oxygen Delivery Exam Const: General: comfortable, no acute distress, obese and edematous Nutritional Appearance: obese Orientation/consciousness: oriented to person, oriented to place, oriented to time, patient oriented x3, confusion and lethargic (Slow to respond but answers questions appropriately with time) HENMT: Mouth: Yes moist mucous membranes Eyes: General: appearance normal, both eyes and all related structures Sclera: sclerae normal Pupils: Equal, round and reactive pupils present Neck: Neck: supple Resp: Effort & Inspection: normal respiratory effort Auscultation: diminished lung sounds (body habitus) bilateral Cardio: Rate: regular rate Rhythm: regular rhythm GI: Inspection: distended GI Palp: Yes Tenderness to palpation present (GI) (upper abd with palpation) Auscultation: normal bowel sounds Urinary Catheter: Urinary Catheter: patent and draining and urine clear Skin: General skin exam: normal color Neuro: Speech: No normal speech (slurred at times) Extrem: General: edema Psych: Affect: normal affect Results Labs 06/22/25 02:41 06/21/25 23:34 Labs: Short CBC 06/21/25 06/22/25 Range/Units 23:33 02:41 WBC 11.3 H (4.5-10.0) K/mm3 Hgb 9.4 L 10.4 L (12.0-15.0) g/dL Hct 31.5 L 32.7 L (37.0-47.0) % Plt Count 269 (150-375) k/mm3 BMP 06/21/25 23:34 Sodium 139 Potassium 5.4 H Chloride 110 H Carbon Dioxide 20 L BUN 46 H Creatinine 1.90 H Glucose 84 Calcium 8.0 L Liver Function 06/21/25 Range/Units 23:34 Total Bilirubin 1.1 (0.2-1.3) mg/dL AST 20 (14-36) U/L ALT 22 (6-35) U/L Alkaline Phosphatase 82 (38-126) U/L Albumin 3.3 L (3.5-5.1) g/dL Urine 06/21/25 Range/Units 23:36 Urine Color Dark yellow (Yellow) Urine Appearance Turbid H (Clear) Urine pH 5.0 (5.0-9.0) Ur Specific [place] 1.034 (1.001-1.035) Urine Protein 1+ H (Negative) mg/dL Urine Glucose (UA) Negative (Negative) mg/dL
[2025-06-22] MEDS: LACTATED RINGERS 1,000 ML 150 ML IV CONT (10:45)
[2025-06-22] MEDS: levoFLOXacin 500 MG/D5W 100 ML 500 MG/100 ML BAG 100 MG IVPB (10:46)
[2025-06-22] MEDS: PANTOPRAZOLE SODIUM IV 40 MG VIAL IV PUSH ×2 (10:47→20:17)
[2025-06-22 10:48] LABS: Hematocrit 30.8 % (37.0-47.0); Hemoglobin 10.1 g/dL (12.0-15.0); Mean Corpuscular HGB Conc 32.8 g/dl (32-36); Mean Corpuscular Hemoglobin 30.0 pg (26-34); Mean Corpuscular Volume 91.4 fl (80-100); Platelet Count Result 232 k/mm3 (150-375); Red Blood Count 3.37 M/mm3 (4.2-5.4); White Blood Count 10.0 K/mm3 (4.5-10.0)
[2025-06-22] MEDS: metroNIDAZOLE 500 MG/ISO 100ML 500 MG/100 ML BAG 100 MG IVPB ×2 (10:49→20:17)
[2025-06-22 10:59] LABS: Ammonia < 9 umol/L (9-30); INR 2.9; Prothrombin Time 29.0 Seconds (11.1-14.7)
[2025-06-22 11:04] LABS: Creatine Kinase 134 U/L (30-135)
[2025-06-22 11:16] LABS: Alanine Aminotransferase 20 U/L (6-35); Albumin Level 3.3 g/dL (3.5-5.1); Alkaline Phosphatase 81 U/L (38-126); Anion Gap 7 mmol/L (4-12); Aspartate Amino Transferase 22 U/L (14-36); Bilirubin,Total 1.0 mg/dL (0.2-1.3); Blood Urea Nitrogen 34 mg/dL (7-17); Calcium 8.0 mg/dL (8.4-10.2); Carbon Dioxide 21 mmol/L (22-30); Chloride 109 mmol/L (98-107); Estimated CRCL calculation 88 ml/min; Estimated Glomerular Filt Rate 54; Glucose 100 mg/dL (65-110); Magnesium 2.3 mg/dL (1.6-2.3); Potassium 4.2 mmol/L (3.4-5.0); Sodium 137 mmol/L (137-145); Total Protein 5.8 g/dL (6.3-8.2)
[2025-06-22 11:23] LABS: Procalcitonin 2.5 ng/mL
--- NOTE | 2025-06-22 11:25 | WPDCNINT ---
Assessment and Plan Assessment and plan (1) GI bleed: Code(s): K92.2 - Gastrointestinal hemorrhage, unspecified Status: Acute Assessment and Plan: Patient presented with history of GI bleed associated with diarrhea CT scan was negative Patient was given empirically 2 units of PRBC due to hypotension Hemoglobin was 9.4 on Check and 10.4 on repeat. Repeat hemoglobin this morning is 10.1 No evidence of acute bleeding at this time Monitor hemoglobin She has been consulted IV Protonix q.12 hours Correct coagulopathy (2) Diarrhea: Code(s): R19.7 - Diarrhea, unspecified Status: Acute Assessment and Plan: Patient complaint of nausea vomiting diarrhea for last 3 days although she has not any bowel movement in the ICU. Is he does report history of eating outside and is normally a traveling through the country on a trach. Continue Levaquin and Flagyl Check stool C diff, culture CT scan does not show any evidence of colitis (3) Protein C deficiency: Code(s): D68.59 - Other primary thrombophilia Status: Acute Assessment and Plan: Patient reports history of protein C and protein S deficiency although she is not on any anticoagulation. 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 She denies any history of DVT or PE. (6) Chronic pain: Code(s): G89.29 - Other chronic pain Status: Acute Assessment and Plan: Patient claims of fibromyalgia and on high dose of Dilaudid as an outpatient. Patient exhibits is drug-seeking behavior by specifically mentioning the doses and also refusing treatment if she does not get her Dilaudid p.o Explained to the patient that I will use Dilaudid low rate due to patient's presentation with low blood pressure GI bleed. Monitor (7) Chronic, continuous use of opioids: Code(s): F11.90 - Opioid use, unspecified, uncomplicated Status: Acute Assessment and Plan: See above (8) Fibromyalgia: Code(s): M79.7 - Fibromyalgia Status: Acute Assessment and Plan: See above (9) UTI (urinary tract infection): Code(s): N39.0 - Urinary tract infection, site not specified Status: Acute Assessment and Plan: UA suggestive UTI Blood and urine culture IV Levaquin (10) Coagulopathy: Code(s): D68.9 - Coagulation defect, unspecified Status: Acute Assessment and Plan: INR elevated 2.9. This could be secondary to liver dysfunction as CT scan shows hepatic steatosis I will give vitamin K I will hold FFP as there is no objective evidence of bleeding at this time. If patient has any evidence of bleeding I will give her FFP to try to lower the INR. (11) Hypotension: Code(s): I95.9 - Hypotension, unspecified Status: Acute Assessment and Plan: Presented with hypotension which is likely multifactorial secondary to opioid, GI bleed, ? sepsis Patient received IV fluids and PRBC and blood pressure is now improved and stable. Monitor Check procalcitonin level Treatment of infection and bleeding as above IV fluids Most recent lactic acid was normal at 0.8 (12) Altered mental status: Code(s): R41.82 - Altered mental status, unspecified Status: Acute Assessment and Plan: Presented with altered mental status which improved after administration of Narcan and treatment of low blood pressure. Patient does admit to taking high dose of Dilaudid for chronic pain. Now she is AO x3. Monitor. (13) CHRISTINE (acute kidney injury): Code(s): N17.9 - Acute kidney failure, unspecified Status: Acute Assessment and Plan: Presented with creatinine 1.9 which is already improved to 1.1 with fluids Baseline creatinine unknown CT scan does not show any obstruction or stones Check urine electrolytes, CK normal Continue IV fluids Monitor urine output electrolytes and creatinine. Plan DVT prophylaxis -SCDs Stress ulcer prophylaxis -PPI Nutrition - NPO Code Status - Full Code I will discuss with patient's and try to obtain more information once he arrives. Total Critical Care Time - 35 minutes Due to a high probability of clinically significant, life threatening deterioration, the patient required my highest level of preparedness to intervene emergently and I personally spent this critical care time directly and personally managing the patient. This critical care time included obtaining a history; examining the patient; pulse oximetry; ordering and review of studies; arranging urgent treatment with development of a management plan; evaluation of patient's response to treatment; frequent reassessment; and discussions with other providers. It was exclusive of separately billable procedures and treating other patients and teaching time. Please see Assessment and Plan section and the rest of the note for further information on patient assessment and treatment Paid Search Specialist Consult Note Consult date: 06/22/25 Reason for consult: GI bleed HPI: Elizabeth Peguero is a 45 year old female who is a resident of [facility] and was traveling through [place] on a truck and has a past medical history of right hemicolectomy from ischemic colitis, history of protein C and S deficiency but not on anticoagulation as patient spontaneously discontinued taking Eliquis and does not want to take blood thinners, fibromyalgia chronic arthritis pain in all her body joints, chronic neck and back pain, IVC filter although she denies any history of DVT or PE presented to ER last night with chief complaint of GI bleed. Last night patient was obtunded and unable to provide any meaningful history. She did receive Narcan and her mental status improved. She told me that Saturday she started having diarrhea nausea vomiting or down with abdominal pain. She has thinks that she developed food poisoning from penis that she ate on Saturday. Over last 2 days the diarrhea started having blood and she states it was dark black stools although earlier she reported bright red blood. She denies any fever. Abdominal pain was in lower abdomen and was diffuse and radiate to her back. She also admits to having hematuria but denies any dysuria but does admit to having frequency. She denies any fever chest pain shortness a breath cough dizziness lightheadedness. She states she has chronic pain from fibromyalgia and takes Dilaudid 8 mg p.o. regularly for her pain. She states that she done believe that she needed Eliquis hence she discontinued taking it although she does have prescription from a doctor. The past medical history obtained was directly from the patient I as high do not have any records to corroborate. She also reported past medical history of gastric bypass and cholecystectomy She denies smoking alcohol use or drug use and claims compliance with the medications Review of Systems Review of Systems: All systems reviewed & are unremarkable except as noted in HPI and below (HPI) PMFSH Past Medical History Medical History Morbid obesity Chronic pain Fibromyalgia Chronic, continuous use of opioids Protein S deficiency Protein C deficiency Presence of IVC filter Surgical History Surgical History H/O gastric bypass H/O right hemicolectomy History of cholecystectomy Family History Family History Mother Hypertension Cancer Father High cholesterol Mother No problems noted. Grandparent Cancer Cerebrovascular accident Grandparent No problems noted. Sibling Lung cancer Social History Social History Smoking status: Never smoker Second hand tobacco smoke exposure: No Alcohol intake: never Substance use: never Lack of Transportation: No Lack of Food: Never True Current Housing: I Have Housing Concerned About Future Housing: No Difficulty Paying Gas/Electric Bills: No Difficulty Paying for Meds: No Currently Unemployed: No Education: Bachelor's Degree Difficulty w/ Childcare or Family Care: No Spiritual care concerns: No Meds Home Medications and Allergies Home Medications ?Medication ?Instructions ?Recorded ?Confirmed ?Type alprazolam 1 mg tablet 1 mg PO TID PRN anxiety 06/22/25 06/22/25 History hydromorphone 2 mg tablet 2 mg PO Q4H PRN pain 06/22/25 06/22/25 History hydroxyzine HCl 50 mg tablet 50 mg PO Q6H 06/22/25 06/22/25 History ondansetron 4 mg disintegrating 4 mg PO Q6H PRN nausea and vomiting 06/22/25 06/22/25 History tablet pregabalin 150 mg capsule 150 mg PO TID 06/22/25 06/22/25 History tizanidine 4 mg tablet 4 mg PO QID PRN muscle spasticity 06/22/25 06/22/25 History zolpidem 10 mg tablet 10 mg PO HS 06/22/25 06/22/25 History Allergies Allergy/AdvReac Type Severity Reaction Status Date / Time ketorolac (From Toradol) Allergy Mild Unknown Verified 06/22/25 02:10 metoclopramide (From Reglan) Allergy Mild Unknown Verified 06/22/25 02:10 morphine Allergy Mild Unknown Verified 06/22/25 02:10 Penicillins Allergy Mild Unknown Verified 06/22/25 02:10 tramadol Allergy Mild Unknown Verified 06/22/25 02:10 amoxicillin Allergy Unknown Difficulty Verified 06/22/25 02:10 Breathing fentanyl Allergy Unknown Difficulty Verified 06/22/25 02:10 Breathing melatonin AdvReac Intermediate Anxiety Verified 06/22/25 06:24 dicyclomine (From Bentyl) AdvReac Unknown Vomiting Verified 06/22/25 02:10 haloperidol (From Haldol) AdvReac Unknown Difficulty Verified 06/22/25 02:10 Breathing nitrofurantoin (From AdvReac Unknown Difficulty Verified 06/22/25 02:10 Macrobid) Breathing NSAIDS (Non-Steroidal AdvReac Unknown Unknown Verified 06/22/25 02:10 Anti-Inflamma paliperidone AdvReac Unknown Difficulty Verified 06/22/25 02:10 Breathing promethazine (From Phenergan) AdvReac Unknown Hives Verified 06/22/25 02:10 Vital Signs Vital Signs - 24 hr 06/21/25 22:53 06/21/25 22:55 06/21/25 23:08 Temperature 36.6 C 37.1 C Pulse Rate 75 76 73 Respiratory Rate 12 26 H 25 H Blood Pressure 82/52 L 101/88 63/38 L Pulse Oximetry 98 98 100 Oxygen Delivery Room Air Room Air 06/21/25 23:21 06/21/25 23:22 06/21/25 23:34 Temperature 36.1 C L 36.1 C L 36.4 C Pulse Rate 73 73 73 Respiratory Rate 24 H 26 H 22 H Blood Pressure 79/35 L 79/35 L 82/47 L Pulse Oximetry 100 100 100 Oxygen Delivery 06/21/25 23:37 06/21/25 23:38 06/21/25 23:52 Temperature 35.7 C L 36.1 C L 36.7 C Pulse Rate 74 72 75 Respiratory Rate 28 H 23 H 17 Blood Pressure 81/45 L 86/48 L Pulse Oximetry 100 98 100 Oxygen Delivery 06/21/25 23:55 06/22/25 00:00 06/22/25 00:44 Temperature 36.6 C 36.6 C 36.5 C Pulse Rate 75 74 73 Respiratory Rate 23 H 24 H 21 H Blood Pressure 98/51 L Pulse Oximetry 99 98 99 Oxygen Delivery 06/22/25 00:45 06/22/25 01:00 06/22/25 02:35 Temperature 36.5 C 36.5 C 36.6 C Pulse Rate 74 70 68 Respiratory Rate 23 H 22 H 20 Blood Pressure 106/68 Pulse Oximetry 100 100 Oxygen Delivery 06/22/25 03:06 06/22/25 03:30 06/22/25 03:45 Temperature 36.6 C 36.7 C 36.8 C Pulse Rate 69 70 69 Respiratory Rate 20 23 H 14 Blood Pressure 142/84 H 128/79 Pulse Oximetry 100 100 100 Oxygen Delivery 06/22/25 06:10 06/22/25 06:17 06/22/25 06:58 Temperature Pulse Rate 73 89 70 Respiratory Rate 20 14 Blood Pressure 113/58 L 143/87 H 123/63 Pulse Oximetry 100 98 Oxygen Delivery 06/22/25 07:00 06/22/25 08:00 06/22/25 08:00 Temperature 36.8 C Pulse Rate 71 68 70 Respiratory Rate 18 16 Blood Pressure 116/62 115/59 L Pulse Oximetry 98 98 Oxygen Delivery Exam Narrative: General: Pt is alert awake and in NAD Lungs/Chest: Trachea central Clear BS B/L, No crackles or wheezing. Cardiac: RRR. Normal S1 S2. No murmurs Circulation: Pedal pulses are intact and symmetrical. Abdomen: Normal bowel sounds morbid obesity, midline incision from past surgeries.. Soft. NT. ND. Mild diffuse tenderness to palpation and patient over reacts to even touching her belly for exam Extremities: No clubbing, cyanosis or edema. Warm : Alexandre in place Neurologic: Follows commands. Moves all 4 extremities PERRL AO x3 Skin: No Rash Results Labs 06/22/25 10:26 06/22/25 10:26 Labs: Impressions Abdomen/Pelvis CT 06/22/25 07:00 IMPRESSION: 1. No etiology for blood in stool. 2. Diffuse hepatic steatosis. Short CBC 06/21/25 06/22/25 06/22/25 Range/Units 23:33 02:41 10: WBC 11.3 H 10.0 (4.5-10.0) K/mm3 Hgb 9.4 L 10.4 L 10.1 L (12.0-15.0) g/dL Hct 31.5 L 32.7 L 30.8 L (37.0-47.0) % Plt Count 269 232 (150-375) k/mm3 BMP 06/21/25 06/22/25 23:34 10:26 Sodium 139 137 Potassium 5.4 H 4.2 Chloride 110 H 109 H Carbon Dioxide 20 L 21 L BUN 46 H 34 H D Creatinine 1.90 H 1.10 H Glucose 84 100 Calcium 8.0 L 8.0 L Cardiac Enzymes 06/22/25 Range/Units 10:26 Total Creatine Kinase 134 (30-135) U/L Liver Function 06/21/25 06/22/25 Range/Units 23:34 10:26 Total Bilirubin 1.1 1.0 (0.2-1.3) mg/dL AST 20 22 (14-36) U/L ALT 22 20 (6-35) U/L Alkaline Phosphatase 82 81 (38-126) U/L Albumin 3.3 L 3.3 L (3.5-5.1) g/dL Urine 06/21/25 Range/Units 23:36 Urine Color Dark yellow (Yellow) Urine Appearance Turbid H (Clear) Urine pH 5.0 (5.0-9.0) Ur Specific [place] 1.034 (1.001-1.035) Urine Protein 1+ H (Negative) mg/dL Urine Glucose (UA) Negative (Negative) mg/dL Quality VTE Prophylaxis VTE prophylaxis: mechanical ordered Hospitalist MIPS Advance Care Plan I have confirmed that the patient's Advanced Care Plan is present, code status is documented, or surrogate decision maker is listed in patient medical record.: Yes Medication Reconciliation I have utilized all available resources to obtain, update and review the patients current medications (includes all prescriptions, OTC, herbals, cannabis, and nutritional supplements).: Yes
[2025-06-22] MEDS: HYDROmorphone HCL INJ (*CRX) 1 MG/ML SYR 0.5 MG IV PUSH ×5 (11:32→22:45)
[2025-06-22] MEDS: PHYTONADIONE INJ 10 MG/ML AMP IM (12:27)
[2025-06-22 12:58] LABS: IFOB Positive Control Positive; Immunochemical Fecal Occult Bl Positive (N)
--- NOTE | 2025-06-22 13:24 | PCFNICU ---
ICU Rounding Note: Pt current nutrition is NPO. Nutrition recommendation: Advance diet as medically able. Last recorded weight is 162.4 kg. Bowel Motility: No bowels yet since admission. Last BM 06/21 Labs Reviewed: Hgb 10.4, Hct 32.7, Alb 3.3, K+ 5.4, BUN 46, Cre 1.9 Meds Noted: LR, protonix, Flagyl, levaquin Skin: No skin issues Additional Notes: Pt admitted with GI bleed. She has a history of GI bleeds, a partial colectomy, and gastric bypass. NPO for GI currently. Will continue to follow and assess if needed. Following daily in ICU rounds. .
[2025-06-22 13:34] LABS: Toxigenic C. Diff NEGATIVE (NEGATIVE)
--- NOTE | 2025-06-22 14:22 | PM.IMHP ---
H&P: HPI History of Present Illness Date/Time: 06/22/25 14:22 Chief Complaint: blood in the stool Narrative: ER-HPI narrative: This is a 45-year-old female with a history of GI bleeds requiring colectomy and protein C deficiency not on anticoagulation presenting for bright red blood per rectum. When patient arrives she is obtunded. She has bright red blood around the rectum. She cannot provide any meaningful information. Per her boyfriend they are traveling through the area in his 18 sams. She has a history of GI bleeds in the past has been telling him that he is she has been having bright red blood per rectum. She became acutely worse today. patient with history of GI bleed with history of protein C and S deficiency has not being taking Eliquis for sometime, she does IVC filter, presented with c/o GI bleed however upon arrival patient 9.4 and lethargic, CT scan of abdomen did not show any source of bleeding, patient is constantly requesting to increase her medication, patient stats she is under Palliative care in [place], [place] and received high dose of hydromorphone, currently patient is receiving hydromorphone, IV 0.5mg q, patient was seen by the GI since there is no anya bleeding and her hgb is stable, will monitor her, if there any bleeding GI will consider scoping the patien. patient remains clinically stable, will monitor. [facility] Past Medical History Medical History Morbid obesity Chronic pain Fibromyalgia Chronic, continuous use of opioids Protein S deficiency Protein C deficiency Presence of IVC filter Surgical History Surgical History H/O gastric bypass H/O right hemicolectomy History of cholecystectomy Family History Family History Mother Hypertension Cancer Father High cholesterol Mother No problems noted. Grandparent Cancer Cerebrovascular accident Grandparent No problems noted. Sibling Lung cancer Social History Social History Smoking status: Never smoker Second hand tobacco smoke exposure: No Alcohol intake: never Substance use: never Lack of Transportation: No Lack of Food: Never True Current Housing: I Have Housing Concerned About Future Housing: No Difficulty Paying Gas/Electric Bills: No Difficulty Paying for Meds: No Currently Unemployed: No Education: Bachelor's Degree Difficulty w/ Childcare or Family Care: No Spiritual care concerns: No Meds Home Medications and Allergies Home Medications ?Medication ?Instructions ?Recorded ?Confirmed ?Type alprazolam 1 mg tablet 1 mg PO TID PRN anxiety 06/22/25 06/22/25 History hydromorphone 2 mg tablet 2 mg PO Q4H PRN pain 06/22/25 06/22/25 History hydroxyzine HCl 50 mg tablet 50 mg PO Q6H 06/22/25 06/22/25 History ondansetron 4 mg disintegrating 4 mg PO Q6H PRN nausea and vomiting 06/22/25 06/22/25 History tablet pregabalin 150 mg capsule 150 mg PO TID 06/22/25 06/22/25 History tizanidine 4 mg tablet 4 mg PO QID PRN muscle spasticity 06/22/25 06/22/25 History zolpidem 10 mg tablet 10 mg PO HS 06/22/25 06/22/25 History Allergies Allergy/AdvReac Type Severity Reaction Status Date / Time ketorolac (From Toradol) Allergy Mild Unknown Verified 06/22/25 02:10 metoclopramide (From Reglan) Allergy Mild Unknown Verified 06/22/25 02:10 morphine Allergy Mild Unknown Verified 06/22/25 02:10 Penicillins Allergy Mild Unknown Verified 06/22/25 02:10 tramadol Allergy Mild Unknown Verified 06/22/25 02:10 amoxicillin Allergy Unknown Difficulty Verified 06/22/25 02:10 Breathing fentanyl Allergy Unknown Difficulty Verified 06/22/25 02:10 Breathing melatonin AdvReac Intermediate Anxiety Verified 06/22/25 06:24 dicyclomine (From Bentyl) AdvReac Unknown Vomiting Verified 06/22/25 02:10 haloperidol (From Haldol) AdvReac Unknown Difficulty Verified 06/22/25 02:10 Breathing nitrofurantoin (From AdvReac Unknown Difficulty Verified 06/22/25 02:10 Macrobid) Breathing NSAIDS (Non-Steroidal AdvReac Unknown Unknown Verified 06/22/25 02:10 Anti-Inflamma paliperidone AdvReac Unknown Difficulty Verified 06/22/25 02:10 Breathing promethazine (From Phenergan) AdvReac Unknown Hives Verified 06/22/25 02:10 Vital Signs Vital Signs - 24 hr 06/21/25 22:53 06/21/25 22:55 06/21/25 23:08 Temperature 36.6 C 37.1 C Pulse Rate 75 76 73 Respiratory Rate 12 26 H 25 H Blood Pressure 82/52 L 101/88 63/38 L Pulse Oximetry 98 98 100 Oxygen Delivery Room Air Room Air 06/21/25 23:21 06/21/25 23:22 06/21/25 23:34 Temperature 36.1 C L 36.1 C L 36.4 C Pulse Rate 73 73 73 Respiratory Rate 24 H 26 H 22 H Blood Pressure 79/35 L 79/35 L 82/47 L Pulse Oximetry 100 100 100 Oxygen Delivery 06/21/25 23:37 06/21/25 23:38 06/21/25 23:52 Temperature 35.7 C L 36.1 C L 36.7 C Pulse Rate 74 72 75 Respiratory Rate 28 H 23 H 17 Blood Pressure 81/45 L 86/48 L Pulse Oximetry 100 98 100 Oxygen Delivery 06/21/25 23:55 06/22/25 00:00 06/22/25 00:44 Temperature 36.6 C 36.6 C 36.5 C Pulse Rate 75 74 73 Respiratory Rate 23 H 24 H 21 H Blood Pressure 98/51 L Pulse Oximetry 99 98 99 Oxygen Delivery 06/22/25 00:45 06/22/25 01:00 06/22/25 02:35 Temperature 36.5 C 36.5 C 36.6 C Pulse Rate 74 70 68 Respiratory Rate 23 H 22 H 20 Blood Pressure 106/68 Pulse Oximetry 100 100 Oxygen Delivery 06/22/25 03:06 06/22/25 03:30 06/22/25 03:45 Temperature 36.6 C 36.7 C 36.8 C Pulse Rate 69 70 69 Respiratory Rate 20 23 H 14 Blood Pressure 142/84 H 128/79 Pulse Oximetry 100 100 100 Oxygen Delivery 06/22/25 06:10 06/22/25 06:17 06/22/25 06:58 Temperature Pulse Rate 73 89 70 Respiratory Rate 20 14 Blood Pressure 113/58 L 143/87 H 123/63 Pulse Oximetry 100 98 Oxygen Delivery 06/22/25 07:00 06/22/25 08:00 06/22/25 08:00 Temperature 36.8 C Pulse Rate 71 68 70 Respiratory Rate 18 16 Blood Pressure 116/62 115/59 L Pulse Oximetry 98 98 Oxygen Delivery 06/22/25 09:00 06/22/25 10:00 06/22/25 10:00 Temperature Pulse Rate 67 71 71 Respiratory Rate 16 12 Blood Pressure 111/57 L 117/79 Pulse Oximetry 98 100 Oxygen Delivery 06/22/25 11:00 06/22/25 12:00 06/22/25 12:00 Temperature 37.1 C Pulse Rate 76 75 75 Respiratory Rate 16 20 Blood Pressure 125/66 131/62 Pulse Oximetry 100 100 Oxygen Delivery 06/22/25 13:00 06/22/25 14:00 06/22/25 14:00 Temperature Pulse Rate 71 75 71 Respiratory Rate 18 20 Blood Pressure 118/92 H 107/78 Pulse Oximetry 98 20 L Oxygen Delivery Exam Narrative: Patient is comfortable, NAD HEENT: eyes are clear and none icteric LUNGS:CTA HEART: RR S1S2 ABD: BS+, Soft and nontender Lower extremities: no edema SKIN: nonjaundiced Neuro: grossly intact. H&P: Results Labs Labs: Short CBC 06/21/25 06/22/25 06/22/25 Range/Units 23:33 02:41 10:26 WBC 11.3 H 10.0 (4.5-10.0) K/mm3 Hgb 9.4 L 10.4 L 10.1 L (12.0-15.0) g/dL Hct 31.5 L 32.7 L 30.8 L (37.0-47.0) % Plt Count 269 232 (150-375) k/mm3 BMP 06/21/25 06/22/25 23:34 10:26 Sodium 139 137 Potassium 5.4 H 4.2 Chloride 110 H 109 H Carbon Dioxide 20 L 21 L BUN 46 H 34 H D Creatinine 1.90 H 1.10 H Glucose 84 100 Calcium 8.0 L 8.0 L Cardiac Enzymes 06/22/25 Range/Units 10:26 Total Creatine Kinase 134 (30-135) U/L Liver Function 06/21/25 06/22/25 Range/Units 23:34 10:26 Total Bilirubin 1.1 1.0 (0.2-1.3) mg/dL AST 20 22 (14-36) U/L ALT 22 20 (6-35) U/L Alkaline Phosphatase 82 81 (38-126) U/L Albumin 3.3 L 3.3 L (3.5-5.1) g/dL Urine 06/21/ Range/Units 23:36 Urine Color Dark yellow (Yellow) Urine Appearance Turbid H (Clear) Urine pH 5.0 (5.0-9.0) Ur Specific [place] 1.034 (1.001-1.035) Urine Protein 1+ H (Negative) mg/dL Urine Glucose (UA) Negative (Negative) mg/dL Assessment and Plan Assessment and plan (1) Protein C deficiency: Code(s): D68.59 - Other primary thrombophilia Status: Acute (2) Coagulopathy: Code(s): D68.9 - Coagulation defect, unspecified Status: Acute (3) Protein S deficiency: Code(s): D68.59 - Other primary thrombophilia Status: Acute (4) Presence of IVC filter: Code(s): Z95.828 - Presence of other vascular implants and grafts Status: Acute (5) Rectal bleeding: Code(s): K62.5 - Hemorrhage of anus and rectum Status: Acute (6) GI bleed: Code(s): K92.2 - Gastrointestinal hemorrhage, unspecified Status: Acute (7) Diarrhea: Code(s): R19.7 - Diarrhea, unspecified Status: Acute (8) CHRISTINE (acute kidney injury): Code(s): N17.9 - Acute kidney failure, unspecified Status: Acute Plan patient with history of GI bleed with history of protein C and S deficiency has not being taking Eliquis for sometime, she does IVC filter, presented with c/o GI bleed however upon arrival patient 9.4 and lethargic, CT scan of abdomen did not show any source of bleeding, patient is constantly requesting to increase her medication, patient stats she is under Palliative care in [place], [place] and received high dose of hydromorphone, currently patient is receiving hydromorphone, IV 0.5mg q, patient was seen by the GI since there is no anya bleeding and her hgb is stable, will monitor her, if there any bleeding GI will consider scoping the patien. patient remains clinically stable, will monitor. Quality VTE Prophylaxis VTE prophylaxis: mechanical ordered
[2025-06-22 15:40] LABS: Hematocrit 29.0 % (37.0-47.0); Hemoglobin 9.2 g/dL (12.0-15.0); Mean Corpuscular HGB Conc 31.7 g/dl (32-36); Mean Corpuscular Hemoglobin 29.4 pg (26-34); Mean Corpuscular Volume 92.7 fl (80-100); Platelet Count Result 212 k/mm3 (150-375); Red Blood Count 3.13 M/mm3 (4.2-5.4); White Blood Count 8.0 K/mm3 (4.5-10.0)
[2025-06-22 22:41] LABS: Hematocrit 29.5 % (37.0-47.0); Hemoglobin 9.2 g/dL (12.0-15.0); Mean Corpuscular HGB Conc 31.2 g/dl (32-36); Mean Corpuscular Hemoglobin 29.3 pg (26-34); Mean Corpuscular Volume 93.9 fl (80-100); Platelet Count Result 220 k/mm3 (150-375); Red Blood Count 3.14 M/mm3 (4.2-5.4); White Blood Count 6.9 K/mm3 (4.5-10.0)
[2025-06-23] VITALS (9 sets, daily range): BP systolic 119–143; BP diastolic 66–90; PULSE 69–89; RESP 12–21; TEMP 36.6–36.8; O2SAT 98–100
[2025-06-23] MEDS: HYDROmorphone HCL INJ (*CRX) 1 MG/ML SYR 0.5 MG IV PUSH ×4 (00:30→09:44)
[2025-06-23] MEDS: metroNIDAZOLE 500 MG/ISO 100ML 500 MG/100 ML BAG 100 MG IVPB ×3 (03:47→21:01)
[2025-06-23 04:55] LABS: Hematocrit 28.8 % (37.0-47.0); Hemoglobin 8.9 g/dL (12.0-15.0); Mean Corpuscular HGB Conc 30.9 g/dl (32-36); Mean Corpuscular Hemoglobin 29.7 pg (26-34); Mean Corpuscular Volume 96.0 fl (80-100); Platelet Count Result 205 k/mm3 (150-375); Red Blood Count 3.00 M/mm3 (4.2-5.4); White Blood Count 5.3 K/mm3 (4.5-10.0)
[2025-06-23 05:18] LABS: Alanine Aminotransferase 17 U/L (6-35); Albumin Level 3.2 g/dL (3.5-5.1); Alkaline Phosphatase 68 U/L (38-126); Anion Gap 7 mmol/L (4-12); Aspartate Amino Transferase 20 U/L (14-36); Bilirubin,Total 0.8 mg/dL (0.2-1.3); Blood Urea Nitrogen 23 mg/dL (7-17); Calcium 8.0 mg/dL (8.4-10.2); Carbon Dioxide 23 mmol/L (22-30); Chloride 107 mmol/L (98-107); Estimated CRCL calculation 94 ml/min; Estimated Glomerular Filt Rate 58; Glucose 108 mg/dL (65-110); Magnesium 2.3 mg/dL (1.6-2.3); Potassium 4.0 mmol/L (3.4-5.0); Sodium 137 mmol/L (137-145); Total Protein 5.8 g/dL (6.3-8.2)
[2025-06-23 08:25] LABS: INR 1.7; Prothrombin Time 19.3 Seconds (11.1-14.7)
--- NOTE | 2025-06-23 09:18 | PM.IMPN ---
Progress Note: A&P Assessment and Plan (1) GI bleed: Code(s): K92.2 - Gastrointestinal hemorrhage, unspecified Status: Acute Assessment and Plan: Patient presented with history of GI bleed associated with diarrhea CT scan was negative Patient was given empirically 2 units of PRBC due to hypotension Hemoglobin was 9.4 on Check and 10.4 on repeat. Repeat hemoglobin this morning is 8.9 patient also received IV fluids and partly could be dilutional No evidence of acute bleeding at this time GI is following and no plan for EGD at this time. Continue to Monitor hemoglobin IV Protonix q.12 hours She had elevated INR and was given vitamin K. Repeat INR is 1.7 (2) Diarrhea: Code(s): R19.7 - Diarrhea, unspecified Status: Acute Assessment and Plan: Patient complaint of nausea vomiting diarrhea for last 3 days although she has not any bowel movement in the ICU. Is he does report history of eating outside and is normally a traveling through the country on a trach. Continue Levaquin and Flagyl Stool C diff was negative. Culture is pending CT scan does not show any evidence of colitis (3) Protein C deficiency: Code(s): D68.59 - Other primary thrombophilia Status: Acute Assessment and Plan: Patient reports history of protein C and protein S deficiency although she is not on any anticoagulation. 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 She denies any history of DVT or PE. (6) Chronic pain: Code(s): G89.29 - Other chronic pain Status: Acute Assessment and Plan: Patient claims of fibromyalgia and on high dose of Dilaudid as an outpatient. Patient exhibits is drug-seeking behavior by specifically mentioning the drug route and doses and also refusing treatment if she does not get her continue Dilaudid IV. Resume low-dose Xanax. Explained to the patient that I will use Dilaudid low rate due to patient's presentation with low blood pressure GI bleed. Monitor (7) Chronic, continuous use of opioids: Code(s): F11.90 - Opioid use, unspecified, uncomplicated Status: Acute Assessment and Plan: See above (8) Fibromyalgia: Code(s): M79.7 - Fibromyalgia Status: Acute Assessment and Plan: See above (9) UTI (urinary tract infection): Code(s): N39.0 - Urinary tract infection, site not specified Status: Acute Assessment and Plan: UA suggestive UTI Blood and urine culture pending IV Levaquin (10) Coagulopathy: Code(s): D68.9 - Coagulation defect, unspecified Status: Acute Assessment and Plan: INR elevated 2.9. This could be secondary to liver dysfunction as CT scan shows hepatic steatosis Patient was given vitamin K. Repeat INR this morning is 1.7. Monitor I will hold FFP as there is no objective evidence of bleeding at this time. If patient has any evidence of bleeding I will give her FFP to try to lower the INR. (11) Hypotension: Code(s): I95.9 - Hypotension, unspecified Status: Acute Assessment and Plan: Presented with hypotension which is likely multifactorial secondary to opioid, GI bleed, ? sepsis Patient received IV fluids and PRBC and blood pressure is now improved and stable. Monitor Procalcitonin level 2.5 Treatment of infection and bleeding as above IV fluids a now off Most recent lactic acid was normal at 0.8 (12) Altered mental status: Code(s): R41.82 - Altered mental status, unspecified Status: Acute Assessment and Plan: Presented with altered mental status which improved after administration of Narcan and treatment of low blood pressure. Patient does admit to taking high dose of Dilaudid for chronic pain. Now she is AO x3. Monitor. (13) CHRISTINE (acute kidney injury): Code(s): N17.9 - Acute kidney failure, unspecified Status: Acute Assessment and Plan: Presented with creatinine 1.9 which is already improved to 1.03 with fluids Baseline creatinine unknown CT scan does not show any obstruction or stones Check urine electrolytes, CK normal Now off IV fluids Monitor urine output electrolytes and creatinine. Plan DVT prophylaxis -SCDs Stress ulcer prophylaxis -PPI Nutrition -liquid diet ordered Code Status - Full Code I will discuss with patient's and try to obtain more information once he arrives. Subjective Date/time seen: 06/23/25 Overnight events reviewed. Patient states she has pain all over her body and would like her Dilaudid dose to be increased. She claims she takes 8 mg every 3-4 hours at home but wants IV as it works better when she is sick. She also requests 'Benadryl 50 mg IV q4- q6h' that usually works for her for her anxiety. She states that 'she is willing to continue with the low-dose of Dilaudid if I can add Benadryl for her anxiety.' she also was wondering if I can restart her Xanax that she takes at home for her anxiety. She states she had 1 bowel movement overnight although nurse reports no bowel movement overnight. She denies any other complaints. Vital signs have been stable. Afebrile. Tolerating liquid diet. Review of system was also positive for nausea. But no vomiting. All other systems were reviewed and were negative. Review of Systems Review of Systems: All systems reviewed & are unremarkable except as noted in HPI and below (HPI) Exam Narrative: General: Pt is alert awake and in NAD Lungs/Chest: Trachea central Clear BS B/L, No crackles or wheezing. Cardiac: RRR. Normal S1 S2. No murmurs Circulation: Pedal pulses are intact and symmetrical. Abdomen: Normal bowel sounds morbid obesity, midline incision from past surgeries.. Soft. NT. ND. Mild diffuse tenderness to palpation and patient over reacts to even touching her belly for exam Extremities: No clubbing, cyanosis or edema. Warm : Alexandre in place Neurologic: Follows commands. Moves all 4 extremities PERRL AO x3 Skin: No Rash Objective Data Vital Signs Vital Signs: Vital Signs - 24 hr 06/22/25 10:00 06/22/25 10:00 06/22/25 11:00 Temperature Pulse Rate 71 71 76 Respiratory Rate 12 16 Blood Pressure 117/79 125/66 Pulse Oximetry 100 100 Oxygen Delivery 06/22/25 12:00 06/22/25 12:00 06/22/25 13:00 Temperature 37.1 C Pulse Rate 75 75 71 Respiratory Rate 20 18 Blood Pressure 131/62 118/92 H Pulse Oximetry 100 98 Oxygen Delivery 06/22/25 14:00 06/22/25 14:00 06/22/25 15:00 Temperature Pulse Rate 75 71 77 Respiratory Rate 20 21 H Blood Pressure 107/78 114/94 H Pulse Oximetry 100 100 Oxygen Delivery 06/22/25 16:00 06/22/25 16:00 06/22/25 17:00 Temperature 36.6 C Pulse Rate 79 76 81 Respiratory Rate 20 16 Blood Pressure 123/58 L 111/72 Pulse Oximetry 100 100 Oxygen Delivery 06/22/25 17:54 06/22/25 18:00 06/22/25 20:00 Temperature 36.5 C Pulse Rate 85 82 Respiratory Rate 22 H Blood Pressure 123/65 Pulse Oximetry 95 99 Oxygen Delivery Room Air 06/22/25 20:00 06/22/25 20:00 06/22/25 22:00 Temperature Pulse Rate 83 89 Respiratory Rate Blood Pressure Pulse Oximetry Oxygen Delivery Room Air 06/23/25 00:00 06/23/25 00:00 06/23/25 00:00 Temperature 36.8 C Pulse Rate 76 75 Respiratory Rate 18 Blood Pressure 119/68 Pulse Oximetry 100 Oxygen Delivery Room Air 06/23/25 02:00 06/23/25 04:00 06/23/25 04:00 Temperature 36.6 C Pulse Rate 73 69 Respiratory Rate 13 Blood Pressure 124/76 Pulse Oximetry 100 Oxygen Delivery Room Air 06/23/25 04:00 06/23/25 06:00 06/23/25 08:00 Temperature 36.6 C Pulse Rate 69 74 81 Respiratory Rate 19 Blood Pressure 135/80 Pulse Oximetry 98 Oxygen Delivery Intake/Output Intake/Output: Intake & Output 06/20/25 06/21/25 06/22/25 06/23/25 23:59 23:59 23:59 23:59 Intake Total 700 2380 200 Output Total 2400 1000 Balance 700 -20 -800 Meds/Results Medications: Active Medications Generic Name Dose Route Start Last Admin Trade Name Freq PRN Reason Stop Dose Admin Alprazolam 0.5 mg 06/23/25 07:45 Alprazolam (*Crx) 0.5 Mg Tablet PO TID PRN Anxiety Hydromorphone HCl 0.5 mg 06/22/25 10:42 06/23/25 05:21 Hydromorphone Hcl Inj (*Crx) 1 Mg/Ml Syr IV PUSH 0.5 mg Q2HR PRN Administration Moderate Pain (4-6) Hydromorphone HCl 1 mg 06/23/25 07:45 Hydromorphone Hcl Inj (*Crx) 1 Mg/Ml Syr IV PUSH Q2H PRN Pain Rated 7-10 Levofloxacin/Dextrose 500 mg in 100 mls @ 100 mls/hr 06/22/25 09:00 06/22/25 11:46 Levaquin 500 Mg/D5w 100 Ml IVPB Infused Q24H SCOT Infusion Metronidazole 500 mg in 100 mls @ 100 mls/hr 06/22/25 20:00 06/23/25 04:47 Flagyl 500 Mg/Iso Soln 100 Ml IVPB Infused Q8H SCOT Infusion Pantoprazole Sodium 40 mg 06/22/25 09:05 06/22/25 20:17 Pantoprazole Sodium Iv 40 Mg Vial IV PUSH 40 mg Q12HR SCOT Administration Radiology Results: ITS Impressions Abdomen/Pelvis CT 06/22/25 07:00 IMPRESSION: 1. No etiology for blood in stool. 2. Diffuse hepatic steatosis. Labs Labs: Laboratory Results - last 24 hr 06/22/25 06/22/25 06/22/25 10:26 12:33 15:35 WBC 10.0 8.0 RBC 3.37 L 3.13 L Hgb 10.1 L 9.2 L Hct 30.8 L 29.0 L MCV 91.4 D 92.7 MCH 30.0 29.4 MCHC 32.8 31.7 L RDW 17.0 H 17.1 H Plt Count 232 212 MPV 10.2 10.0 PT 29.0 H D INR 2.9 Sodium 137 Potassium 4.2 Chloride 109 H Carbon Dioxide 21 L Anion Gap 7 BUN 34 H D Creatinine 1.10 H Estim Creat Clear Calc 88 Estimated GFR 54 L Glucose 100 Calcium 8.0 L Phosphorus 3.6 Magnesium 2.3 Total Bilirubin 1.0 AST 22 ALT 20 Alkaline Phosphatase 81 Ammonia < 9 L Total Creatine Kinase 134 Total Protein 5.8 L Albumin 3.3 L Procalcitonin 2.5 Stl Occult Blood (IFOB) Positive H C. difficile (PCR) Negative 06/22/25 06/23/25 22:36 04:32 WBC 6.9 5.3 RBC 3.14 L 3.00 L Hgb 9.2 L 8.9 L Hct 29.5 L 28.8 L MCV 93.9 96.0 MCH 29.3 29.7 MCHC 31.2 L 30.9 L RDW 17.2 H 17.2 H Plt Count 220 205 MPV 10.1 10.1 PT INR Sodium 137 Potassium 4.0 Chloride 107 Carbon Dioxide 23 Anion Gap 7 BUN 23 H D Creatinine 1.03 H Estim Creat Clear Calc 94 Estimated GFR 58 L Glucose 108 Calcium 8.0 L Phosphorus 3.6 Magnesium 2.3 Total Bilirubin 0.8 AST 20 ALT 17 Alkaline Phosphatase 68 Ammonia Total Creatine Kinase Total Protein 5.8 L Albumin 3.2 L Procalcitonin Stl Occult Blood (IFOB) C. difficile (PCR) Quality VTE Prophylaxis VTE prophylaxis: mechanical ordered
[2025-06-23] MEDS: ALPRAZolam (*CRX) 0.5 MG TABLET PO ×2 (09:45→21:00)
[2025-06-23] MEDS: levoFLOXacin 500 MG/D5W 100 ML 500 MG/100 ML BAG 100 MG IVPB (09:45)
[2025-06-23] MEDS: PANTOPRAZOLE SODIUM IV 40 MG VIAL IV PUSH ×2 (09:45→21:00)
[2025-06-23] MEDS: HYDROmorphone HCL INJ (*CRX) 1 MG/ML SYR IV PUSH ×6 (12:03→23:00)
[2025-06-23] MEDS: SALINE LOCK FLUSH 10 ML IV PUSH (12:08)
[2025-06-23 14:58] LABS: Hematocrit 28.9 % (37.0-47.0); Hemoglobin 9.2 g/dL (12.0-15.0); Mean Corpuscular HGB Conc 31.8 g/dl (32-36); Mean Corpuscular Hemoglobin 29.9 pg (26-34); Mean Corpuscular Volume 93.8 fl (80-100); Platelet Count Result 207 k/mm3 (150-375); Red Blood Count 3.08 M/mm3 (4.2-5.4); White Blood Count 4.6 K/mm3 (4.5-10.0)
--- NOTE | 2025-06-23 15:36 | WPDGIPROGNO ---
Progress Note: A&P Assessment and Plan (1) GI bleed: Code(s): K92.2 - Gastrointestinal hemorrhage, unspecified Status: Acute Assessment and Plan: hgb relatively stable coagulopathy treated with vit K and inr has improved denies using blood thinners egd tomorrow, she had gastric bypass 2016 for weight loss if no findings probably gib caused by coagulopathy which has been treated, will need to follow-up with her pcp/gi doctor once she returns to [place] (2) Coagulopathy: Code(s): D68.9 - Coagulation defect, unspecified Status: Acute Assessment and Plan: treated (3) ABLA (acute blood loss anemia): Code(s): D62 - Acute posthemorrhagic anemia Status: Acute Assessment and Plan: hgb stable now (4) Encephalopathy: Code(s): G93.40 - Encephalopathy, unspecified Status: Acute Assessment and Plan: on admission probably from narcotics (5) Chronic pain: Code(s): G89.29 - Other chronic pain Status: Acute (6) H/O gastric bypass: Code(s): Z98.84 - Bariatric surgery status Status: Acute Subjective Date/time seen: 06/23/25 15:36 Interval history: still with abdominal pain (chronic but this is different), last BM still dark Review of Systems Review of Systems: All systems reviewed & are unremarkable except as noted in HPI and below Exam Narrative: General: Pt is alert awake and in NAD Lungs/Chest: Trachea central Clear BS B/L, No crackles or wheezing. Cardiac: RRR. Normal S1 S2. No murmurs Circulation: Pedal pulses are intact and symmetrical. Abdomen: Normal bowel sounds morbid obesity, midline incision from past surgeries.. Soft. NT. ND. Mild diffuse tenderness to palpation and patient over reacts to even touching her belly for exam Extremities: No clubbing, cyanosis or edema. Warm : Alexandre in place Neurologic: Follows commands. Moves all 4 extremities PERRL AO x3 Skin: No Rash Objective Data Vital Signs Vital Signs: Vital Signs - 24 hr 06/22/25 16:00 06/22/25 16:00 06/22/25 17:00 Temperature 97.9 F Pulse Rate 79 76 81 Respiratory Rate 20 16 Blood Pressure 123/58 L 111/72 Pulse Oximetry 100 100 Oxygen Delivery 06/22/25 17:54 06/22/25 18:00 06/22/25 20:00 Temperature 97.7 F Pulse Rate 85 82 Respiratory Rate 22 H Blood Pressure 123/65 Pulse Oximetry 95 99 Oxygen Delivery Room Air 06/22/25 20:00 06/22/25 20:00 06/22/25 22:00 Temperature Pulse Rate 83 89 Respiratory Rate Blood Pressure Pulse Oximetry Oxygen Delivery Room Air 06/23/25 00:00 06/23/25 00:00 06/23/25 00:00 Temperature 98.2 F Pulse Rate 76 75 Respiratory Rate 18 Blood Pressure 119/68 Pulse Oximetry 100 Oxygen Delivery Room Air 06/23/25 02:00 06/23/25 04:00 06/23/25 04:00 Temperature 97.8 F Pulse Rate 73 69 Respiratory Rate 13 Blood Pressure 124/76 Pulse Oximetry 100 Oxygen Delivery Room Air 06/23/25 04:00 06/23/25 06:00 06/23/25 08:00 Temperature 97.8 F Pulse Rate 69 74 81 Respiratory Rate 19 Blood Pressure 135/80 Pulse Oximetry 98 Oxygen Delivery 06/23/25 08:00 06/23/25 10:00 06/23/25 15:08 Temperature 97.9 F Pulse Rate 77 76 73 Respiratory Rate 21 H Blood Pressure 136/83 Pulse Oximetry 99 Oxygen Delivery Intake/Output Intake/Output: Intake & Output 06/20/25 06/21/25 06/22/25 06/23/25 23:59 23:59 23:59 23:59 Intake Total 700 2380 660 Output Total 2400 1000 Balance 572 -16 -133 Meds/Results Medications: Active Medications Generic Name Dose Route Start Last Admin Trade Name Freq PRN Reason Stop Dose Admin Alprazolam 0.5 mg 06/23/25 07:45 06/23/25 09:45 Alprazolam (*Crx) 0.5 Mg Tablet PO 0.5 mg TID PRN Administration Anxiety Hydromorphone HCl 0.5 mg 06/22/25 10:42 06/23/25 09:44 Hydromorphone Hcl Inj (*Crx) 1 Mg/Ml Syr IV PUSH 0.5 mg Q2HR PRN Administration Moderate Pain (4-6) Hydromorphone HCl 1 mg 06/23/25 07:45 06/23/25 14:08 Hydromorphone Hcl Inj (*Crx) 1 Mg/Ml Syr IV PUSH 1 mg Q2H PRN Administration Pain Rated 7-10 Levofloxacin/Dextrose 500 mg in 100 mls @ 100 mls/hr 06/22/25 09:00 06/23/25 09:45 Levaquin 500 Mg/D5w 100 Ml IVPB 100 mls/hr Q24H SCOT Administration Metronidazole 500 mg in 100 mls @ 100 mls/hr 06/22/25 20:00 06/23/25 13:05 Flagyl 500 Mg/Iso Soln 100 Ml IVPB Infused Q8H SCOT Infusion Pantoprazole Sodium 40 mg 06/22/25 09:05 06/23/25 09:45 Pantoprazole Sodium Iv 40 Mg Vial IV PUSH 40 mg Q12HR SCOT Administration Sodium Chloride 10 ml 06/23/25 14:00 06/23/25 12:08 Saline Lock Flush IV PUSH 10 ml Q8HR SCOT Administration Sodium Chloride 10 ml 06/23/25 11:23 Saline Lock Flush IV PUSH PRN PRN Flush Sodium Chloride 20 ml 06/23/25 11:23 Saline Lock Flush IV PUSH PRN PRN after blood draws Radiology Results: ITS Impressions Abdomen/Pelvis CT 06/22/25 07:00 IMPRESSION: 1. No etiology for blood in stool. 2. Diffuse hepatic steatosis. Labs Labs: Laboratory Results - last 24 hr 06/22/25 06/22/25 06/23/25 15:35 22:36 04:32 WBC 8.0 6.9 5.3 RBC 3.13 L 3.14 L 3.00 L Hgb 9.2 L 9.2 L 8.9 L Hct 29.0 L 29.5 L 28.8 L MCV 92.7 93.9 96.0 MCH 29.4 29.3 29.7 MCHC 31.7 L 31.2 L 30.9 L RDW 17.1 H 17.2 H 17.2 H Plt Count 212 220 205 MPV 10.0 10.1 10.1 PT INR Sodium 137 Potassium 4.0 Chloride 107 Carbon Dioxide 23 Anion Gap 7 BUN 23 H D Creatinine 1.03 H Estim Creat Clear Calc 94 Estimated GFR 58 L Glucose 108 Calcium 8.0 L Phosphorus 3.6 Magnesium 2.3 Total Bilirubin 0.8 AST 20 ALT 17 Alkaline Phosphatase 68 Total Protein 5.8 L Albumin 3.2 L 10/15/25 10/15/25 07:59 14:42 WBC 4.6 RBC 3.08 L Hgb 9.2 L Hct 28.9 L MCV 93.8 MCH 29.9 MCHC 31.8 L RDW 16.9 H Plt Count 207 MPV 10.1 PT 19.3 H D INR 1.7 Sodium Potassium Chloride Carbon Dioxide Anion Gap BUN Creatinine Estim Creat Clear Calc Estimated GFR Glucose Calcium Phosphorus Magnesium Total Bilirubin AST ALT Alkaline Phosphatase Total Protein Albumin
[2025-06-23 20:46] LABS: Hematocrit 29.0 % (37.0-47.0); Hemoglobin 9.2 g/dL (12.0-15.0); Mean Corpuscular HGB Conc 31.7 g/dl (32-36); Mean Corpuscular Hemoglobin 29.8 pg (26-34); Mean Corpuscular Volume 93.9 fl (80-100); Platelet Count Result 214 k/mm3 (150-375); Red Blood Count 3.09 M/mm3 (4.2-5.4); White Blood Count 5.3 K/mm3 (4.5-10.0)
[2025-06-24] MEDS: HYDROmorphone HCL INJ (*CRX) 1 MG/ML SYR IV PUSH ×5 (01:16→11:33)
[2025-06-24] MEDS: metroNIDAZOLE 500 MG/ISO 100ML 500 MG/100 ML BAG 100 MG IVPB (03:02)
[2025-06-24 05:49] LABS: Hematocrit 29.1 % (37.0-47.0); Hemoglobin 8.8 g/dL (12.0-15.0); Mean Corpuscular HGB Conc 30.2 g/dl (32-36); Mean Corpuscular Hemoglobin 29.7 pg (26-34); Mean Corpuscular Volume 98.3 fl (80-100); Platelet Count Result 211 k/mm3 (150-375); Red Blood Count 2.96 M/mm3 (4.2-5.4); White Blood Count 4.2 K/mm3 (4.5-10.0)
[2025-06-24 06:01] LABS: Alanine Aminotransferase 16 U/L (6-35); Albumin Level 3.4 g/dL (3.5-5.1); Alkaline Phosphatase 73 U/L (38-126); Anion Gap 7 mmol/L (4-12); Aspartate Amino Transferase 20 U/L (14-36); Bilirubin,Total 0.4 mg/dL (0.2-1.3); Blood Urea Nitrogen 13 mg/dL (7-17); Calcium 7.9 mg/dL (8.4-10.2); Carbon Dioxide 23 mmol/L (22-30); Chloride 107 mmol/L (98-107); Estimated CRCL calculation 103 ml/min; Estimated Glomerular Filt Rate > 60; Glucose 114 mg/dL (65-110); Magnesium 2.4 mg/dL (1.6-2.3); Potassium 3.8 mmol/L (3.4-5.0); Sodium 137 mmol/L (137-145); Total Protein 6.0 g/dL (6.3-8.2)
[2025-06-24 06:11] VITALS: BP 144/75; PULSE 69; RESP 18; TEMP 36.6; O2SAT 96
[2025-06-24 07:54] VITALS: BP 104/68; PULSE 78; RESP 22; TEMP 36.1; O2SAT 98
[2025-06-24] MEDS: LACTATED RINGERS 1,000 ML 150 ML IV CONT (07:56)
--- NOTE | 2025-06-24 08:11 | P.PNAN_ITS ---
Anes - Initial Pre Proc Eval Procedure: Operation Date: 06/24/25 16:00 Proposed Procedures p Esophagogastroduodenoscopy - Pratik Hughes MD Date/Time: 06/24/25 08:11 Surgeon: Yudy Hunt DO Pre Op Diagnosis: GI bleed Patient Data Age: 45 Gender: F Height: 1.6 m Weight: 157.5 kg Last Vital Signs Temp 97.0 F L 06/24/25 07:54 Pulse 78 06/24/25 07:54 Resp 22 H 06/24/25 07:54 BP 104/68 06/24/25 07:54 Pulse Ox 98 06/24/25 07:54 O2 Del Method Room Air 06/24/25 07:54 Allergies Allergy/AdvReac Type Severity Reaction Status Date / Time cranberry Allergy Mild Hives Verified 06/24/25 07:52 ketorolac (From Toradol) Allergy Mild Unknown Verified 06/24/25 07:52 metoclopramide (From Reglan) Allergy Mild Unknown Verified 06/24/25 07:52 morphine Allergy Mild Unknown Verified 06/24/25 07:52 mushroom Allergy Mild Hives Verified 06/24/25 07:52 onion Allergy Mild Hives Verified 06/24/25 07:52 Penicillins Allergy Mild Unknown Verified 06/24/25 07:52 tramadol Allergy Mild Unknown Verified 06/24/25 07:52 amoxicillin Allergy Unknown Difficulty Verified 06/24/25 07:52 Breathing fentanyl Allergy Unknown Difficulty Verified 06/24/25 07:52 Breathing melatonin AdvReac Intermediate Anxiety Verified 06/24/25 07:52 dicyclomine (From Bentyl) AdvReac Unknown Vomiting Verified 06/24/25 07:52 haloperidol (From Haldol) AdvReac Unknown Difficulty Verified 06/24/25 07:52 Breathing nitrofurantoin (From AdvReac Unknown Difficulty Verified 06/24/25 07:52 Macrobid) Breathing NSAIDS (Non-Steroidal AdvReac Unknown Unknown Verified 06/24/25 07:52 Anti-Inflamma paliperidone AdvReac Unknown Difficulty Verified 06/24/25 07:52 Breathing promethazine (From Phenergan) AdvReac Unknown Hives Verified 06/24/25 07:52 Olives Allergy Mild Hives Uncoded 06/23/25 16:33 Home Medications ?Medication ?Instructions ?Recorded ?Confirmed ?Type alprazolam 1 mg tablet 1 mg PO TID PRN anxiety 06/0906/22/25 History hydromorphone 2 mg tablet 2 mg PO Q4H PRN pain 5 06/22/25 History hydroxyzine HCl 50 mg tablet 50 mg PO Q6H 06/22/25 History ondansetron 4 mg disintegrating 4 mg PO Q6H PRN nausea and vomiting 06/22/25 06/22/25 History tablet pregabalin 150 mg capsule 150 mg PO TID 06/22/2506/22 History tizanidine 4 mg tablet 4 mg PO QID PRN muscle spast icity 06/22/25 06/22/25 History zolpidem 10 mg tablet 10 mg PO HS 06/22/25 5 History Laboratory Tests 06/23/25 06/23/25 06/23/25 07:59 14:42 20:37 WBC 4.6 K/mm3 5.3 K/mm3 (4.5-10.0) (4.5-10.0) RBC 3.08 L M/mm3 3.09 L M/mm3 (4.2-5.4) (4.2-5.4) Hgb 9.2 L g/dL 9.2 L g/dL (12.0-15.0) (12.0-15.0) Hct 28.9 L % 29.0 L % (37.0-47.0) (37.0-47.0) MCV 93.8 fl 93.9 fl (80-100) (80-100) MCH 29.9 pg 29.8 pg (26-34) (26-34) MCHC 31.8 L g/dl 31.7 L g/dl (32-36) (32-36) RDW 16.9 H % 16.5 H % (11.5-14.5) (11.5-14.5) Plt Count 207 k/mm3 214 k/mm3 (150-375) (150-375) MPV 10.1 fl 10.1 fl (7.4-10.4) (7.4-10.4) PT 19.3 H D Seconds (11.1-14.7) INR 1.7 Sodium Potassium Chloride Carbon Dioxide Anion Gap BUN Creatinine Estim Creat Clear Calc Estimated GFR Glucose Calcium Phosphorus Magnesium Total Bilirubin AST ALT Alkaline Phosphatase Total Protein Albumin 06/24/25 05:14 WBC 4.2 L K/mm3 (4.5-10.0) RBC 2.96 L M/mm3 (4.2-5.4) Hgb 8.8 L g/dL (12.0-15.0) Hct 29.1 L % (37.0-47.0) MCV 98.3 fl (80-100) MCH 29.7 pg (26-34) MCHC 30.2 L g/dl (32-36) RDW 16.8 H % (11.5-14.5) Plt Count 211 k/mm3 (150-375) MPV 10.1 fl (7.4-10.4) PT INR Sodium 137 mmol/L (137-145) Potassium 3.8 mmol/L (3.4-5.0) Chloride 107 mmol/L (98-107) Carbon Dioxide 23 mmol/L (22-30) Anion Gap 7 mmol/L (4-12) BUN 13 D mg/dL (7-17) Creatinine 0.91 mg/dL (0.7-1.0) Estim Creat Clear Calc 103 ml/min Estimated GFR > 60 (59 - ) Glucose 114 H mg/dL (65-110) Calcium 7.9 L mg/dL (8.4-10.2) Phosphorus 4.3 mg/dL (2.5-4.5) Magnesium 2.4 H mg/dL (1.6-2.3) Total Bilirubin 0.4 mg/dL (0.2-1.3) AST 20 U/L (14-36) ALT 16 U/L (6-35) Alkaline Phosphatase 73 U/L (38-126) Total Protein 6.0 L g/dL (6.3-8.2) Albumin 3.4 L g/dL (3.5-5.1) Patient hx anesthesia problems: none Family hx anesthesia problems: none Results Review: All pre-operative results and documents have been reviewed as part of the pre- operative evaluation. [facility] Past Medical History Medical History (Updated 06/23/25 @ 15:38 by Pratik Hughes MD) Encephalopathy Morbid obesity Chronic pain Fibromyalgia Chronic, continuous use of opioids Protein S deficiency Protein C deficiency Presence of IVC filter Surgical History Surgical History (Updated 06/23/25 @ 15:38 by Pratik Hughes MD) H/O gastric bypass H/O right hemicolectomy History of cholecystectomy Family History Family History Mother Hypertension Cancer Father High cholesterol Mother No problems noted. Grandparent Cancer Cerebrovascular accident Grandparent No problems noted. Sibling Lung cancer Social History Social History Smoking status: Never smoker Second hand tobacco smoke exposure: No Alcohol intake: never Substance use: never Lack of Transportation: No Lack of Food: Never True Current Housing: I Have Housing Concerned About Future Housing: No Difficulty Paying Gas/Electric Bills: No Difficulty Paying for Meds: No Currently Unemployed: No Education: Bachelor's Degree Difficulty w/ Childcare or Family Care: No Spiritual care concerns: No Anes - Eval Final PreProcedure Day of Procedure 06/24/25 08:11 Patient weight: super morbidly obese Heart: regular rate and rhythm Lungs: clear to auscultation Airway: Mallampati scale class III Neurological: alert and oriented Last oral intake: >/= 8 hours ASA classification: IV Emergent: no Anesthetic plan: proceed Anesthesia type and monitoring: general GIVS and standard monitoring Results Review: All pre-operative results and documents have been reviewed as part of the pre- operative evaluation. Informed Consent: The patient's anesthetic plan and its attendant risks and benefits were disc ussed with the patient/family/POA. Questions were solicited and answers provided to the satisfaction of the patient/family/POA.
[2025-06-24 08:21] VITALS: BP 133/76; PULSE 79; RESP 19; O2SAT 98
[2025-06-24 08:31] VITALS: BP 130/79; PULSE 75; RESP 18; O2SAT 98
[2025-06-24 08:41] VITALS: BP 129/69; PULSE 76; RESP 16; O2SAT 98
[2025-06-24] MEDS: PANTOPRAZOLE 40 MG TABLET PO (09:01)
[2025-06-24] MEDS: levoFLOXacin 500 MG/D5W 100 ML 500 MG/100 ML BAG 100 MG IVPB (09:02)
[2025-06-24] MEDS: ALPRAZolam (*CRX) 0.5 MG TABLET PO (09:14)
--- NOTE | 2025-06-24 11:25 | PCPTNOTE ---
Attempted PT evaluation, pt refused stating she has been independent in room and does not have any therapy needs.
--- NOTE | 2025-06-24 11:28 | P.DS_ITS ---
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 Status: Acute (4) Presence of IVC filter: Code(s): Z95.828 - Presence of other vascular implants and grafts Status: Acute (5) Rectal bleeding: Code(s): K62.5 - Hemorrhage of anus and rectum Status: Acute (6) GI bleed: Code(s): K92.2 - Gastrointestinal hemorrhage, unspecified Status: Acute (7) Diarrhea: Code(s): R19.7 - Diarrhea, unspecified Status: Acute (8) CHRISTINE (acute kidney injury): Code(s): N17.9 - Acute kidney failure, unspecified Status: Acute Plan patient with history of GI bleed with history of protein C and S deficiency has not being taking Eliquis for sometime, she does IVC filter, presented with c/o GI bleed however upon arrival patient 9.4 and lethargic, CT scan of abdomen did not show any source of bleeding, patient is constantly requesting to increase her medication, patient stats she is under Palliative care in [place], [place] and received high dose of hydromorphone, currently patient is receiving hydromorphone, IV 0.5mg q, patient was seen by the GI since there is no anya bleeding and her hgb is stable, will monitor her, if there any bleeding GI will consider scoping the patient. patient remains clinically stable, will monitor. Patient was seen by GI and had EGD, did not show any obovious sign of bleeding, patient is clinically stable, will dishcarge home today. DS: Summary Hospital Course Hospital Course: patient with history of GI bleed with history of protein C and S deficiency has not being taking Eliquis for sometime, she does IVC filter, presented with c/o GI bleed however upon arrival patient 9.4 and lethargic, CT scan of abdomen did not show any source of bleeding, patient is constantly requesting to increase her medication, patient stats she is under Palliative care in [place], [place] and received high dose of hydromorphone, currently patient is receiving hydromorphone, IV 0.5mg q, patient was seen by the GI since there is no anya bleeding and her hgb is stable, will monitor her, if there any bleeding GI will consider scoping the patient. patient remains clinically stable, will monitor. Patient was seen by GI and had EGD, did not show any obovious sign of bleeding, patient is clinically stable, will dishcarge home today. Time Spent with Patient Time attestation: Total time spent providing and/or coordinating discharge services: Exam Narrative: Patient is comfortable, NAD HEENT: eyes are clear and none icteric LUNGS:CTA HEART: RR S1S2 ABD: BS+, Soft and nontender Lower extremities: no edema SKIN: nonjaundiced Neuro: grossly intact. DS: Data Data Completed and Pending Labs on day of discharge: Labs from last 24 hours 06/24/25 06/23/25 06/23/25 05:14 20:37 14:42 WBC 4.2 L 5.3 4.6 RBC 2.96 L 3.09 L 3.08 L Hgb 8.8 L 9.2 L 9.2 L Hct 29.1 L 29.0 L 28.9 L MCV 98.3 93.9 93.8 MCH 29.7 29.8 29.9 MCHC 30.2 L 31.7 L 31.8 L RDW 16.8 H 16.5 H 16.9 H Plt Count 211 214 207 MPV 10.1 10.1 10.1 Sodium 137 Potassium 3.8 Chloride 107 Carbon Dioxide 23 Anion Gap 7 BUN 13 D Creatinine 0.91 Estim Creat Clear Calc 103 Estimated GFR > 60 Glucose 114 H Calcium 7.9 L Phosphorus 4.3 Magnesium 2.4 H Total Bilirubin 0.4 AST 20 ALT 16 Alkaline Phosphatase 73 Total Protein 6.0 L Albumin 3.4 L Preliminary micro results at discharge 06/21/25 23:35 Urine Culture - Preliminary Urine Catheterized Gram negative bacilli isolated Discharge Plan Discharge Attending physician on discharge: Yudy Hunt Consulting providers: Pratik Hughes; Bob Mercado; Koffi Paredes; Moses Reyes; Virginia Kolb; Pineda Nowak; Wade Rg V. Discharging Clinician: Nigel Dye Patient Disposition: Home Activity: as tolerated Diet: heart healthy Discharge Instructions: Patient to follow up with her GI and Primary care provider as soon as possible, patient is instructed if any symptoms worsen to go to nearest ER. Patient Instructions: Antibiotic Form Patient Language: Slovak Stand Alone Forms: General Discharge Information Follow-up/Referrals: UNKNOWN,DOCTOR [Primary Care Provider] Discharge Medications: New pantoprazole 40 mg Tablet,Delayed Release (Dr/Ec) 40 mg PO QAM Qty: 30 0RF Continued alprazolam 1 mg tablet 1 mg PO TID PRN (Reason: anxiety) hydromorphone 2 mg tablet 2 mg PO Q4H PRN (Reason: pain) hydroxyzine HCl 50 mg tablet 50 mg PO Q6H ondansetron 4 mg tablet,disintegrating 4 mg PO Q6H PRN (Reason: nausea and vomiting) pregabalin 150 mg capsule 150 mg PO TID tizanidine 4 mg tablet 4 mg PO QID PRN (Reason: muscle spasticity) zolpidem 10 mg tablet 10 mg PO HS Date of admission: 06/22/25 03:34 Primary Care Provider: UNKNOWN,DOCTOR Admitting Provider: Yudy Hunt Attending physician on admission: Nigel Dye Condition: Stable
== END 2025-06-24 13:05 | disposition home or self-care (01) | DRG 254 ==
LOC: ANHED 06-22 03:46 → ANHICU 06-22 04:30 → ANH3MEDSUR 06-24 11:27 → ANHICU 06-25 11:51
PROVIDERS: Internal Medicine; Internal Medicine Gastroenterology; Nurse Practitioner Family; Admitting Provider Internal Medicine; Emergency Provider Emergency Medicine; Visit Provider Family Medicine
PROC: 0DJ08ZZ Inspection of Upper Intestinal Tract, Via Natural or Artificial Opening Endoscopic (ICD-10-PCS; principal; 2025-06-24 16:00)
DX: K92.1 Melena (principal); K92.2 Gastrointestinal hemorrhage, unspecified; R19.7 Diarrhea, unspecified; I95.9 Hypotension, unspecified; Z90.49 Acquired absence of other specified parts of digestive tract; Z88.0 Allergy status to penicillin; D68.59 Other primary thrombophilia; Z95.828 Presence of other vascular implants and grafts; Z76.5 Malingerer [conscious simulation]; F11.90 Opioid use, unspecified, uncomplicated; M79.7 Fibromyalgia; D68.9 Coagulation defect, unspecified; K76.0 Fatty (change of) liver, not elsewhere classified; N17.9 Acute kidney failure, unspecified; Z98.84 Bariatric surgery status; E66.01 Morbid (severe) obesity due to excess calories; F41.9 Anxiety disorder, unspecified; G89.4 Chronic pain syndrome; D62 Acute posthemorrhagic anemia; Z91.148 Patient's other noncompliance with medication regimen for other reason; M47.815 Spondylosis without myelopathy or radiculopathy, thoracolumbar region; Z68.44 Body mass index [BMI] 60.0-69.9, adult
CPT/HCPCS: 36415; 36430; 74178; 80053; 80307; 81001; 81025; 82077; 82140; 82274; 82550; 82803; 82948; 83605; 83690; 83735; 84100; 84145; 84439; 84443; 84480; 85014; 85018; 85025; 85027; 85610; 85730; 86850; 86900; 86901; 86920; 87040; 87045; 87046; 87086; 87186; 87427; 87493; 87641; 93005; 96361; 96374; 96375; 99285; A9270; C1751; J1171; J1200; J1720; J1836; J1956; J2470; J2704; J3430; J7030; J7040; J7050; J7120; P9016; Q9967